=== PATIENT | male | born 1950 | race Caucasian/White ===

== ENCOUNTER 2016-11-29 22:41 | Emergency (ER) | payer MEDICARE, OTHER ==
[2016-11-29] MEDS ORDERED: solu-MEDROL 125 MG ONE (22:48)
[2016-11-29] MEDS ORDERED: BENADRYL 50 MG/ML ONE (22:48)
[2016-11-29] MEDS ORDERED: DUONEB 0.5-3 MG/3 ml Neb IH ONE ×2 (22:49→22:57)
[2016-11-29] MEDS ORDERED: Pepcid 20 MG VIAL IV ONE ×2 (22:49→22:53)
[2016-11-29] MEDS ORDERED: solu-MEDROL 125 MG IV ONE (22:49)
[2016-11-29] MEDS ORDERED: BENADRYL 50 MG/ML IV ONE (22:49)
[2016-11-29] MEDS ORDERED: EPINEPHRINE 1:1000 1 ML AMP IM ONE (22:51)
[2016-11-29] MEDS ORDERED: Sodium Chloride 0.9% 1000 ML 1,000 ML ONE (22:54)
[2016-11-29] MEDS ORDERED: EPINEPHRINE 1:1000 1 ML AMP ONE (22:54)
[2016-11-29 22:59] LABS: BASOPHIL % 0.5 % (0.0-0.4); Eosinophil % 3.4 % (0.00-5.0); Granulocytes % 58.6 % (36.0-66.0); Lymphocytes % 24.1 % (24.0-44.0); Mean Cell Volume 90.6 fl (78-100); Mean Corpuscular Hemoglobin 30.3 pg (26-32); Mean Platelet Volume 8.9 fl (6-9.5); Monocytes % 13.4 % (0.0-12.0); Platelet Count 358 K/mm3 (150-450); Red Blood Count 5.52 M/mm3 (4.1-5.6); Red Cell Distribution Width 14.5 % (11.5-14.0); White Blood Count 11.2 K/mm3 (4.0-10.5)
[2016-11-29] MEDS ORDERED: Sodium Chloride 0.9% 1000 ML 1,000 ML IV SCH (23:00)
--- NOTE | 2016-11-29 23:02 | ERPHSYRPT ---
- History of Present Illness Time Seen by Provider: 11/29/16 22:45 Source: patient Exam Limitations: clinical condition Patient Subjective Stated Complaint: PT STS APPROX 1 HOUR AGO STARTED HAVING SWELLING LEFT SIDE OF TONGUE AND LEFT EYE. STS FEELS SHORT OF BREATH. PT WEARS OXYGEN 3L AT ALL TIMES AT HOME, PT STS NOT BEEN ON IT FOR AWHILE. Triage Nursing Assessment: PT ALERT, ORIENTED, ANSWERS ALL QUESTIONS APPROPRIATELY. SKIN FLUSHED, WARM TO TOUCH, DRY. RESPS LABORED WITH EXERTION. SWELLING NOTED TO LEFT SIDE OF TONGUE, LEFT LOWER EYE AREA. SPO2 89% ROOM AIR. LUNG SOUNDS DIFFUSELY DIMINISHED AND EXPIRATORY WHEEZING. Physician History: PATIENT WITH HISTORY OF CORONARY ARTERY DISEASE, TYPE 2 DIABETES, COPD NOTICED ONSET OF LEFT SIDED TONGUE SWELLING ASSOCIATED WITH DIFFICULTY BREATHING AND SHORTNESS OF BREATH. HAS OCCASIONAL COUGH. DENIES HOARSENESS AND DIFFICULTY SWALLOWING. Timing/Duration: today Activities at Onset: other (EATING NUTS) Severity of Dyspnea-Max: moderate Severity of Dyspnea-Current: moderate Possible Cause: unknown cause (POSSIBLE NUTS) Modifying Factors: Improves With: coughing, other (DIFFICULTY BREATHING) Associated Symptoms: cough (DIFFICULTY BREATHING) International travel in last 2 weeks: No Allergies/Adverse Reactions: amoxicillin Allergy (Severe, Verified 11/29/16 23:10) Swelling of Face clarithromycin [From Biaxin] Allergy (Severe, Verified 11/29/16 23:10) Swelling of Face lid swelled until touched nose. lansoprazole Allergy (Severe, Verified 11/29/16 23:10) Swelling of Face morphine Allergy (Mild, Verified 11/29/16 23:10) N&V Home Medications: Aspirin EC 81 mg [Ecotrin 81 mg] 81 mg PO DAILY 11/01/12 [History] Docosahexanoic Acid/Epa [Fish Oil Softgel] 1 tab PO TID 11/01/12 [History] Gabapentin 300 mg [Neurontin 300 mg] 300 mg PO TID 11/01/12 [History] Gemfibrozil 600 mg [Lopid 600 mg] 600 mg PO BID 11/01/12 [History] Metformin HCl 500 mg [Glucophage 500 MG] 1 tab PO BID 11/01/12 [History] Pyridoxine HCl 100 mg [Vitamin B-6 (Pyridoxine) 100 MG] 1 tab PO DAILY [History] Triamterene/Hydrochlorothiazid [Triamterene-Hctz 37.5-25 mg Tb] 1 tab PO DAILY 11/01/12 [History] Albuterol 2.5 mg/3 ml Neb [Proventil 2.5 mg/3 ml Neb] 2.5 mg IH HS [History] Benazepril HCl 10 mg [Lotensin 10 MG] 10 mg PO DAILY 11/05/14 [History] Budesonide/Formoterol Fumarate [Symbicort 160-4.5 Mcg Inhaler] 1 puff IH DAILY 11/05/14 [History] Bumetanide 1 mg [Bumex 1 mg] 1 tab PO DAILY 11/05/14 [History] Fluticasone Propionate [Flonase Allergy Relief] 1 spray INTRANASAL BID 11/05/14 [History] Loratadine 10 mg [Claritin 10 mg] 10 mg PO DAILY 11/05/14 [History] Multivit-Min/FA/Lycopene/Lut [Centrum Silver Ultra Men's Tab] 1 tab PO DAILY [History] Nitroglycerin 0.4 mg (Ed) [Nitrostat 0.4 MG (ED)] 0.4 mg SL UD PRN [History] Potassium Chloride 20 Meq [Klor-Con 20 MEQ] 20 meq PO DAILY 11/05/14 [History] Simvastatin 40 mg [Zocor 40 mg] 40 mg PO HS 11/05/14 [History] Albuterol Sulfate [Ventolin Hfa] 18 gm IH PRN 11/29/16 [History] Umeclidinium [place] [Incruse Ellipta] 62.5 mcg IH BID 11/29/16 [History] Hx Tetanus, Diphtheria Vaccination/Date Given: Yes Hx Influenza Vaccination/Date Given: Yes (2011) Hx Pneumococcal Vaccination/Date Given: Yes (3 YRS) Immunizations Up to Date: Yes - Review of Systems Constitutional: No Fever, No Chills Eyes: No Symptoms Ears, Nose, & Throat: Other (TONGUE SWELLING) Respiratory: Cough, Dyspnea Cardiac: No Symptoms, No Chest Pain, No Edema, No Syncope Abdominal/Gastrointestinal: No Symptoms, No Abdominal Pain, No Nausea, No Vomiting, No Diarrhea Genitourinary Symptoms: No Symptoms, No Dysuria Musculoskeletal: No Symptoms, No Back Pain, No Neck Pain Skin: No Symptoms, Skin Lesions, No Rash Neurological: No Dizziness, No Focal Weakness, No Sensory Changes Psychological: No Symptoms Endocrine: No Symptoms All Other Systems: Reviewed and Negative - Past Medical History Pertinent Past Medical History: Yes Neurological History: No Pertinent History ENT History: No Pertinent History Cardiac History: Congestive Heart Failure, High Cholesterol, Hypertension Respiratory History: Asthma, Bronchitis, CHF, COPD, Sleep Apnea Endocrine Medical History: Diabetes Type II Musculoskeletal History: Arthritis GI Medical History: Esophageal Disorder, GERD, Hernia, Polyps History: No Pertinent History Psycho-Social History: No Pertinent History Male Reproductive Disorders: No Pertinent History Other Medical History: o l nc at home during day and 4l cpap at night, - Past Surgical History Past Surgical History: Yes Neuro Surgical History: No Pertinent History Cardiac: No Pertinent History Respiratory: No Pertinent History Gastrointestinal: Appendectomy, Other Genitourinary: No Pertinent History Musculoskeletal: Orthopedic Surgery Male Surgical History: Vasectomy Other Surgical History: removed part of intestines dt accident,inner ear surgery lt,polypectomyback surgery x2ear surgery left sidet&a as childlipoma to neckright eye cornea repair - Social History Smoking Status: Current every day smoker How long have you smoked: 40 years Exposure to second hand smoke: No Drug Use: none Patient Lives Alone: No - Nursing Vital Signs Nursing Vital Signs: Initial Vital Signs Pulse Rate 84 Respiratory Rate 16 Blood Pressure [Left Arm] 103/46 Pain Intensity 0 - Physical Exam General Appearance: no apparent distress, alert Eye Exam: PERRL/EOMI Ears, Nose, Throat Exam: normal pharynx (LEFT LINGULA EDEMA, NO POST PHARYNGEAL ANGIOEDEMA) Neck Exam: normal inspection, supple Cardiovascular/Chest Exam: normal heart sounds, regular rate/rhythm Abdominal/Gastrointestinal Exam: soft, normal bowel sounds, No tenderness, No distention, No mass Extremity Exam: non-tender, normal range of motion, normal inspection, no calf tenderness, no pedal edema Peripheral Pulses Exam: carotid (R): 2+, carotid (L): 2+, femoral (R): 2+, femoral (L): 2+, dorsalis-pedis (R): 2+ Neurologic Exam: alert, oriented x 3, cooperative, charge master analyst II-XII nml as tested, sensation nml, No motor deficits Skin Exam: normal color, warm, No dry SpO2 Interpretation: normal, hypoxic SpO2: 89 Oxygen Delivery: Room Air - Radiology Exams Chest X-ray Interpretation: Interpreted by me (RIGHT LOWER LOBE INFILTRATE) Ordered Tests: Active Orders 24 hr Category Date Time Status Associate Director Qa STAT Care 11/29/16 22:49 Active EKG-ER Only STAT Care 11/29/16 22:49 Active IV Insertion STAT Care 11/29/16 22:49 Active Oxygen-ED Only NASAL CANNULA 2 lpm Care 11/29/16 22:49 Active CHEST 1 VIEW (PORTABLE) Stat Exams 11/29/16 22:49 Taken BMP Stat Lab 11/29/16 22:50 Completed CBC W DIFF Stat Lab 11/29/16 22:50 Completed PROTIME WITH INR Stat Lab 11/29/16 22:50 Completed TROPONIN Q3H Lab 11/29/16 22:50 Completed TROPONIN Q3H Lab 11/30/16 02:00 Ordered TROPONIN Q3H Lab 11/30/16 05:00 Ordered TROPONIN Q3H Lab 11/30/16 08:00 Ordered TROPONIN Q3H Lab 11/30/16 11:00 Ordered Respiratory Nebulizer STAT RT 11/29/16 22:50 Completed Medication Summary Generic Name Dose Route Start Last Admin Trade Name Freq PRN Reason Stop Dose Admin Sodium Chloride 1,000 mls @ 100 mls/hr 11/29/16 23:00 11/29/16 22:56 Sodium Chloride 0.9% 1000 Ml IV 12/29/16 22:59 100 mls/hr .Q10H AN Administration Discontinued Medications Generic Name Dose Route Start Last Admin Trade Name Freq PRN Reason Stop Dose Admin Albuterol/Ipratropium 3 ml 11/29/16 22:49 11/29/16 22:59 Duoneb 0.5-3 Mg/3 Ml Neb IH 11/29/16 22:50 3 ml STAT ONE Administration Albuterol/Ipratropium Confirm 11/29/16 22:57 Duoneb 0.5-3 Mg/3 Ml Neb Administered 11/29/16 22:58 Dose 3 ml IH .STK-MED ONE Diphenhydramine HCl Confirm 11/29/16 22:48 Benadryl 50 Mg/Ml Administered 11/29/16 22:49 Dose 50 mg .ROUTE .STK-MED ONE Diphenhydramine HCl 50 mg 11/29/16 22:49 11/29/16 22:53 Benadryl 50 Mg/Ml IV 11/29/16 22:50 50 mg STAT ONE Administration Epinephrine HCl 0.3 mg 11/29/16 22:51 11/29/16 22:55 Epinephrine 1:1000 1 Ml Amp IM 11/29/16 22:52 0.3 mg STAT ONE Administration Epinephrine HCl Confirm 11/29/16 22:54 Epinephrine 1:1000 1 Ml Amp Administered 11/29/16 22:55 Dose 1 mg .ROUTE .STK-MED ONE Famotidine 20 mg 11/29/16 22:49 11/29/16 22:55 Pepcid 20 Mg Vial IV 11/29/16 22:50 20 mg STAT ONE Administration Famotidine Confirm 11/29/16 22:53 Pepcid 20 Mg Vial Administered 11/29/16 22:54 Dose 20 mg IV .STK-MED ONE Levofloxacin/Dextrose 100 mls @ 100 mls/hr 11/29/16 23:57 11/30/16 00:10 Levofloxacin 500mg/100ml D5w IV 11/30/16 00:56 100 mls/hr STAT ONE Administration Levofloxacin/Dextrose Confirm 11/30/16 00:09 Levofloxacin 500mg/100ml D5w Administered 11/30/16 00:10 Dose 100 mls @ ud IV .STK-MED ONE Methylprednisolone Sodium Succinate Confirm 11/29/16 22:48 Solu-Medrol 125 Mg Administered 11/29/16 22:49 Dose 125 mg .ROUTE .STK-MED ONE Methylprednisolone Sodium Succinate 125 mg 11/29/16 22:49 11/29/16 22:53 Solu-Medrol 125 Mg IV 11/29/16 22:50 125 mg STAT ONE Administration Lab/Rad Data: Laboratory Result Diagrams 11/29/16 22:50 11/29/16 22:50 Laboratory Results 11/29/16 11/29/16 11/29/16 Range/Units 22:50 22:50 22:50 WBC (4.0-10.5) K/mm3 RBC (4.1-5.6) M/mm3 Hgb (12.5-18.0) gm/dl Hct (42-50) % MCV (78-100) fl MCH (26-32) pg MCHC (32-36) g/dl RDW (11.5-14.0) % Plt Count (150-450) K/mm3 MPV (6-9.5) fl Gran % (36.0-66.0) % Lymphocytes % (24.0-44.0) % Monocytes % (0.0-12.0) % Eosinophils % (0.00-5.0) % Basophils % (0.0-0.4) % Basophils # (0-0.4) INR 1.03 (0.8-3.0) Sodium 135 L (136-145) mEq/L Potassium 3.7 (3.5-5.1) mEq/L Chloride 97 L (98-107) mEq/L Carbon Dioxide 31.6 (21-32) mEq/L Anion Gap 9.7 (5-15) MEQ/L BUN 18 (9-20) mg/dL Creatinine 1.26 (0.55-1.30) mg/dl Estimated GFR > 60 ML/MIN Glucose 132 H (70-110) MG/DL Calcium 9.5 (8.5-10.1) mg/dL Troponin I < 0.017 (0.000-0.056) ng/ml 11/29/16 Range/Units 22:50 WBC 11.2 H (4.0-10.5) K/mm3 RBC 5.52 (4.1-5.6) M/mm3 Hgb 16.7 (12.5-18.0) gm/dl Hct 50.0 (42-50) % MCV 90.6 (78-100) fl MCH 30.3 (26-32) pg MCHC 33.4 (32-36) g/dl RDW 14.5 H (11.5-14.0) % Plt Count 358 (150-450) K/mm3 MPV 8.9 (6-9.5) fl Gran % 58.6 (36.0-66.0) % Lymphocytes % 24.1 (24.0-44.0) % Monocytes % 13.4 H (0.0-12.0) % Eosinophils % 3.4 (0.00-5.0) % Basophils % 0.5 (0.0-0.4) % Basophils # 0.06 (0-0.4) INR (0.8-3.0) Sodium (136-145) mEq/L Potassium (3.5-5.1) mEq/L Chloride (98-107) mEq/L Carbon Dioxide (21-32) mEq/L Anion Gap (5-15) MEQ/L BUN (9-20) mg/dL Creatinine (0.55-1.30) mg/dl Estimated GFR ML/MIN Glucose (70-110) MG/DL Calcium (8.5-10.1) mg/dL Troponin I (0.000-0.056) ng/ml - Progress Progress: improved Progress Note: 11/29/16 23:00 PATIENT ADMINISTERED NASAL CANNULA OXYGEN, IV NORMAL SALINE AT 100ML/HR, BENADRYL 50MG, SOLUMEDROL 125 PEPCID 20MG IV, EPINEPHRINE .3MG IM 1:1000 Counseled pt/family regarding: lab results, diagnosis, need for follow-up, rad results - Departure Time of Disposition: 01:18 Departure Disposition: Home Clinical Impression: ALLERGIC REACTION, EXACERBATION COPD Condition: Stable Critical Care Time: No Referrals: MICHELINE FORTUNE [Primary Care Provider] - Instructions: General Allergic Reactions Additional Instructions: ANTIBIOTIC LEVAQUIN 500MG DAILY FOR 10 DAYS. PREDNISONE 20MG, 2 TABLETS DAILY FOR 5 DAYS. AVOID EATING NUTS. CONTINUE NEBULIZER AEROSOL TREATMENTS NEEDED. RETURN TO EMERGENCY FOR DIFFICULTY BREATHING Prescriptions: Levofloxacin [Levaquin] 500 mg PO DAILY #10 tablet Prednisone 20 mg [Deltasone 20 mg] 2 tab PO DAILY #10 tablet
[2016-11-29 23:10] LABS: INR 1.03 (0.8-3.0); PROTIME 11.5 SECONDS (8.83-12.87)
[2016-11-29 23:22] LABS: ANION GAP 9.7 MEQ/L (5-15); BLOOD UREA NITROGEN 18 mg/dL (9-20); CHLORIDE 97 mEq/L (98-107); Carbon Dioxide 31.6 mEq/L (21-32); Glucose 132 MG/DL (70-110); Potassium 3.7 mEq/L (3.5-5.1); SODIUM 135 mEq/L (136-145)
[2016-11-29] MEDS ORDERED: Levofloxacin 500MG/100ML D5W 100 ML IV ONE (23:57)
[2016-11-30] MEDS ORDERED: Levofloxacin 500MG/100ML D5W 100 ML IV ONE (00:09)
[2016-11-30 00:25] VITALS: PULSE 84
[2016-11-30 01:18] VITALS: O2SAT 89
[2016-11-30 01:45] VITALS: BP 111/60
--- NOTE | 2016-11-30 09:14 | XRAY ---
Indication: Cough and dyspnea. Comparison: February 04, 2013. Portable chest again hyperinflated with new bibasilar infiltrates/atelectasis and small effusions. Heart is not enlarged. Bony thorax intact.
== END 2016-11-30 01:20 | disposition home or self-care (01) ==
LOC: ED 22:41
DX: T78.40XA Allergy, unspecified, initial encounter (principal); J44.1 Chronic obstructive pulmonary disease with (acute) exacerbation; I25.10 Atherosclerotic heart disease of native coronary artery without angina pectoris; E11.9 Type 2 diabetes mellitus without complications; R06.00 Dyspnea, unspecified; R06.02 Shortness of breath; R05 Cough; R13.10 Dysphagia, unspecified; I50.9 Heart failure, unspecified; I10 Essential (primary) hypertension; E78.00 Pure hypercholesterolemia, unspecified
CPT/HCPCS: 36000; 36415; 71010; 80048; 84484; 85025; 85610; 93005; 93041; 94640; 96360; 96361; 96365; 96372; 96374; 96375; 99284; 99285; J0171; J1200; J1956; J2930; A9270-GY

== ENCOUNTER 2018-03-22 16:00 | Inpatient (IN) | payer MEDICARE, OTHER ==
[2018-03-22] MEDS ORDERED: DUONEB 0.5-3 MG/3 ml Neb IH PRN (16:27)
[2018-03-22] MEDS ORDERED: D50W 50 ml Abboject IV PRN (17:12)
[2018-03-22] MEDS ORDERED: GlucaGen 1 MG IM PRN (17:12)
[2018-03-22] MEDS ORDERED: Glutose 15 GM ORAL GEL PO PRN (17:12)
[2018-03-22] MEDS ORDERED: Zofran 4 MG/2 ML VIAL IV PRN (17:37)
[2018-03-22] MEDS ORDERED: TYLENOL 325 MG PO PRN (17:37)
[2018-03-22 17:42] LABS: Hematocrit 44.2 % (42-50); Hemoglobin 14.3 gm/dl (12.5-18.0); Mean Cell Volume 93.1 fl (78-100); Mean Corpuscular Hemoglobin 30.1 pg (26-32); Mean Corpuscular Hgb Concent. 32.4 g/dl (32-36); Mean Platelet Volume 8.5 fl (6-9.5); Platelet Count 283 K/mm3 (150-450); Red Blood Count 4.75 M/mm3 (4.1-5.6); Red Cell Distribution Width 15.6 % (11.5-14.0); White Blood Count 10.5 K/mm3 (4.0-10.5)
[2018-03-22 17:47] LABS: A-aADO2 134; ABG HEMOGLOBIN 14.6; ABG POTASSIUM 3.6 (3.5-5.1); ABG SITE RIGHT BRACHIAL; ARTERIAL BLD GAS O2 SATURATION 92.5 % (95-100); ARTERIAL BLOOD GAS BASE EXCESS 6.1 (-2.0-2.0); ARTERIAL BLOOD GAS FIO2 36 %; ARTERIAL BLOOD GAS PCO2 56 mmHg (35-45); ARTERIAL BLOOD GAS PO2 53 mmHg (75-100); ARTERIAL BLOOD GAS pH 7.38 (7.35-7.45); CARBOXYHEMOGLOBIN 5.3 % THgb (0.0-6.9); HCO3- 33.1 (22-28); HGB O2 SAT 86.9 g/dF (94-100); Methhemoglobin 0.8 % (1.4-1.5); paO2 pAO1 0.28
[2018-03-22 17:48] LABS: ALLEN TEST OK? YES
[2018-03-22] MEDS ORDERED: Levofloxacin 500 MG Tablet PO SCH (18:00)
[2018-03-22 18:06] LABS: ALBUMIN 4.4 g/dL (3.5-5.0); ALKALINE PHOSPHATASE 189 U/L (38-126); ANION GAP 14.4 MEQ/L (5-15); BLOOD UREA NITROGEN 20 mg/dL (9-20); CHLORIDE 94 mmol/L (98-107); Carbon Dioxide 34 mmol/L (22-30); Creatinine 1 0.66 mg/dL (0.66-1.25); Glucose 150 mg/dL (74-106); NT PRO BNP 82.5 pg/mL (0-900); Potassium 3.7 mmol/L (3.5-5.1); SGOT/AST 35 U/L (17-59); SGPT/ALT 37 U/L (0-50); SODIUM 138 mmol/L (137-145); Total Protein 7.3 g/dL (6.3-8.2)
[2018-03-22] MEDS: PROVENTIL 2.5 MG/3 ML NEB IH SCH ×2 (18:58→22:58)
[2018-03-22] MEDS: solu-MEDROL 40 MG IV SCH (19:04)
[2018-03-22] MEDS: Nicoderm CQ 21 MG TOP SCH (19:05)
[2018-03-22] MEDS: Zosyn 3.375GM/100 Ml D5W 3.375 GM/100 ML IVPB IV SCH (19:10)
[2018-03-22 20:32] LABS: A-aADO2 135; ABG HEMOGLOBIN 14.1; ABG POTASSIUM 3.5 (3.5-5.1); ARTERIAL BLD GAS O2 SATURATION 98.7 % (95-100); ARTERIAL BLOOD GAS BASE EXCESS 6.2 (-2.0-2.0); ARTERIAL BLOOD GAS FIO2 50 %; ARTERIAL BLOOD GAS PCO2 56 mmHg (35-45); ARTERIAL BLOOD GAS PO2 152 mmHg (75-100); ARTERIAL BLOOD GAS VENT MODE BiPAP; ARTERIAL BLOOD GAS pH 7.38 (7.35-7.45); CARBOXYHEMOGLOBIN 3.8 % THgb (0.0-6.9); HCO3- 33.1 (22-28); HGB O2 SAT 94.2 g/dF (94-100); Methhemoglobin 0.9 % (1.4-1.5); paO2 pAO1 0.53
[2018-03-22 20:33] LABS: ABG SITE LEFT BRACHIAL
[2018-03-22] MEDS ORDERED: Protonix 20MG Tablet PO SCH (22:00)
[2018-03-22] MEDS ORDERED: NORCO 5/325 MG PO PRN (22:00)
[2018-03-22] MEDS: FISH OIL 1,000 MG CAPSULE PO SCH (22:46)
[2018-03-22] MEDS: NEURONTIN 300 MG PO SCH (22:46)
[2018-03-22] MEDS: Lopressor 50 MG PO SCH (22:46)
[2018-03-22] MEDS: Advair Hfa 115/21 Common canister IH SCH (23:00)
[2018-03-23] MEDS: LOPID 600 MG PO SCH ×3 (00:25→21:31)
[2018-03-23] MEDS: Miralax Powder 17GM PACKET PO SCH ×3 (00:25→21:31)
[2018-03-23] MEDS: Zosyn 3.375GM/100 Ml D5W 3.375 GM/100 ML IVPB IV SCH ×5 (01:10→23:59)
[2018-03-23] MEDS: solu-MEDROL 40 MG IV SCH ×2 (01:10→05:16)
[2018-03-23] MEDS: PROVENTIL 2.5 MG/3 ML NEB IH SCH ×6 (03:15→23:27)
[2018-03-23 05:58] LABS: Granulocyte Absolute (ANC) 6.65 (1.4-6.9); Hematocrit 43.2 % (42-50); Hemoglobin 13.8 gm/dl (12.5-18.0); Mean Cell Volume 94.1 fl (78-100); Mean Corpuscular Hemoglobin 30.1 pg (26-32); Mean Corpuscular Hgb Concent. 31.9 g/dl (32-36); Mean Platelet Volume 8.6 fl (6-9.5); Platelet Count 270 K/mm3 (150-450); Red Blood Count 4.59 M/mm3 (4.1-5.6); Red Cell Distribution Width 15.6 % (11.5-14.0); White Blood Count 7.2 K/mm3 (4.0-10.5)
[2018-03-23 06:13] LABS: ANION GAP 11.7 MEQ/L (5-15); BLOOD UREA NITROGEN 19 mg/dL (9-20); CHLORIDE 90 mmol/L (98-107); Calcium 8.7 mg/dL (8.4-10.2); Carbon Dioxide 34 mmol/L (22-30); Creatinine 1 0.62 mg/dL (0.66-1.25); Glucose 210 mg/dL (74-106); Potassium 3.8 mmol/L (3.5-5.1); SODIUM 132 mmol/L (137-145)
[2018-03-23] MEDS: Sodium Chloride 0.9% 10 ML FLUSH Syringe IV SCH ×3 (06:37→21:33)
[2018-03-23 06:40] LABS: Lymphocytes 2 % (24-44); Neutrophils 98 % (36.-66.); Total Cells Counted 100
[2018-03-23] MEDS: NovoLOG Insulin SQ PRN ×3 (06:40→16:49)
[2018-03-23 06:41] LABS: Platelet Estimate NORMAL (NORMAL)
[2018-03-23] MEDS ORDERED: NON-FORMULARY ITEM (Fluticasone Propionate [Flonase Allergy Relief] 1 SPRAY) INTRANASAL PRN (07:16)
[2018-03-23] MEDS ORDERED: Flonase NASAL NS PRN (07:23)
[2018-03-23] MEDS: Advair Hfa 115/21 Common canister IH SCH ×2 (07:27→19:07)
[2018-03-23] MEDS: Spiriva 18 Mcg/Cap Inhaler IH SCH (07:29)
--- NOTE | 2018-03-23 08:26 | HP ---
HISTORY OF PRESENT ILLNESS: This is a 67 year-old patient of Dr. Finley'kwan who saw his health policy nurse, Dr. Juan Lazo, in the clinic today. Dr. Lazo felt like he was having increased dyspnea, possible pneumonia and decided to admit him for further work up and IV antibiotics. He notified me that he was sending him with admission orders. The patient reports that for the past two weeks he has had trouble with feeling dyspneic, having wet nonproductive cough and that he did feel worse over the past three days. He denies any fever. He has had nausea but no vomiting. He usually wears oxygen 3 liters during the day and 4 liters at night. He continues to smoke a pack per day of cigarettes or more. He uses CPAP at 18 cm at night. He denies any chest pain. He recently saw Dr. 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 Duke continued to see him for this. REVIEW OF SYSTEMS: No fever. No abdominal pain. No chest pain. He has had some lower extremity edema. Otherwise review of systems is negative. PAST MEDICAL HISTORY: Tobacco abuse, chronic obstructive pulmonary disease, obstructive sleep apnea, asthma, hyperlipidemia, hypertension, gastrointestinal stromal tumor. MEDICATIONS: Please see his medication reconciliation list which I went through and reviewed. ALLERGIES: AMOXICILLIN, BENAZEPRIL, DEB INHIBITORS, CLINDAMYCIN, LANTOPROZOL, MORPHINE. SOCIAL HISTORY: He continues to smoke one pack per day, a long smoking history. FAMILY HISTORY: Noncontributory. PHYSICAL EXAMINATION: VITAL SIGNS: Temperature current 99.1F, temperature max 99.1F, heart rate 111, respiratory rate 22 to 28, blood pressure 158/78, weight is not recorded yet. Oxygen saturation 94% on 4 liters nasal cannula. GENERAL: The patient is a lying in bed dyspneic with tachypnea. His daughter is at the bedside. He is talkative, alert and oriented. CVS: He is tachycardic with a regular rate and rhythm. CHEST: He has course breath sounds bilaterally with equal breath sounds. Again some subcostal retractions and tachypnea. ABDOMEN: Soft, nontender, nondistended with normal bowel sounds. EXTREMITIES: +1 edema to his mid shins bilaterally. No clubbing or cyanosis. LABORATORY DATA AND TESTS: He has labs ordered. He has blood cultures and sputum cultures in lab and these are obtained. There is a chest x-ray ordered. ASSESSMENT AND PLAN: 1) CHRONIC OBSTRUCTIVE PULMONARY DISEASE EXACERBATION WITH CONCERN FOR POSSIBLE PNEUMONIA: He has been started on IV steroids and IV antibiotics per Dr. Lazo. Continue with oxygen. I have asked RT to get a blood gas to make sure he is not retaining CO2. 2) DIABETES MELLITUS TYPE 2: Low dose sliding scale, will hold his Metformin. 3) GASTROINTESTINAL STROMAL TUMOR: He can continue to follow up with Dr. Duke after this acute illness. 4) TOBACCO ABUSE: He is willing to use a nicotine patch. 5) NAUSEA: Will use Zofran as needed. His condition is guarded given his long smoking history and respiratory status at this point with the chronic obstructive pulmonary disease exacerbation.
--- NOTE | 2018-03-23 08:31 | PCM.NOTE ---
Date and Time: 03/23/18824 Subjective Assessment: Patient reports he is breathing better. He has a regular diet and states that the food here doesn't taste good. He states he doesn't have much of a cough. He reports Dr. Guzman told him that he would stop by and see him tonight. He states if he doesn't get his miralax, he doesn't have bowel movements due to the tumor. He would like to bring his medication from home in that he is taking for his cancer. - Review of Systems Constitutional: Night Sweats Eyes: No Symptoms Ears, Nose, & Throat: No Symptoms Respiratory: Cough, Short Of Breath Cardiac: No Symptoms Abdominal/Gastrointestinal: No Symptoms Genitourinary Symptoms: No Symptoms Musculoskeletal: No Symptoms Skin: No Symptoms Objective Exam General Appearance: no apparent distress, alert Neurologic Exam: alert, cooperative, normal mood/affect Skin Exam: normal color, warm, dry, No rash Respiratory Exam: normal breath sounds, other (distant breath sounds), No crackles/rales, No rhonchi, No wheezing Cardiovascular Exam: regular rate/rhythm, normal heart sounds, No murmur, No friction rub, No gallop Gastrointestinal/Abdomen Exam: soft, normal bowel sounds, No tenderness, No distention, No mass Extremity Exam: other (trace edema bilat) OBJECTIVE DATA Vital Signs: Vital Signs - 24 hr Temp Pulse Resp BP Pulse Ox 03/23/18 07:32 97 03/23/18 07:30 63 20 97 03/23/18 07:27 98 F 64 20 123/65 96 03/23/18 04:22 97.9 F 64 16 127/65 99 03/23/18 04:00 20 03/23/18 03:31 58 L 20 94 L 03/23/18 00:12 98.4 F 65 21 133/71 98 03/23/18 00:00 24 03/22/18 23:12 65 21 98 03/22/18 20:22 98.3 F 93 H 24 135/63 99 03/22/18 20:00 21 03/22/18 18:58 95 H 24 99 03/22/18 18:36 99.1 F 111 H 22 158/78 93 L 03/22/18 16:35 111 H 28 H 94 L 03/22/18 16:29 99.1 F 111 H 22 158/78 93 L Oxygen-Last 24 hours O2 Percentage 4 Liters = 36% O2 Percentage 35% O2 Percentage 40% O2 Percentage 50% O2 Percentage 4 Liters = 36% O2 Percentage 4 Liters = 36% Pain Assessment - Last Documented Pain Intensity 0 Pain Scale Used 0-10 Pain Scale Intake and Output: Intake & Output 03/21/18 03/22/18 03/23/18 03/24/18 06:59 06:59 06:59 06:59 Intake Total 1140 Balance 1140 Weight 89.6 kg Lab Results: Accuchecks Date 03/23/18 Date 03/23/18 Date 03/23/18 Time 05:00 Time 00:05 Time 20:45 Accucheck Value: 192 Accucheck Value: 178 Lab Results-Last 24 Hours 03/22/18 03/22/18 03/22/18 Range/Units 17:35 17:35 17:35 WBC 10.5 (4.0-10.5) K/mm3 RBC 4.75 (4.1-5.6) M/mm3 Hgb 14.3 (12.5-18.0) gm/dl Hct 44.2 (42-50) % MCV 93.1 (78-100) fl MCH 30.1 (26-32) pg MCHC 32.4 (32-36) g/dl RDW 15.6 H (11.5-14.0) % Plt Count 283 (150-450) K/mm3 MPV 8.5 (6-9.5) fl Absolute Granulocytes (1.4-6.9) Segmented Neutrophils (36.-66.) % Lymphocytes (Manual) (24-44) % Platelet Estimate (NORMAL) RBC Morphology Puncture Site pCO2 (35-45) mmHg pO2 (75-100) mmHg Base Excess (-2.0-2.0) O2 Saturation (94-100) g/dF ABG pH (7.35-7.45) ABG HCO3 (22-28) ABG O2 Sat (Measured) (95-100) % Martín Test A-a Gradient a/A Ratio Hemoglobin Carboxyhemoglobin (0.0-6.9) % THgb Methemoglobin (1.4-1.5) % Temperature C POC O2 Flow Rate % Vent Mode Inspiratory BiPAP Expiratory BiPAP Sodium 138 (137-145) mmol/L Potassium 3.7 (3.5-5.1) mmol/L Chloride 94 L (98-107) mmol/L Carbon Dioxide 34 H (22-30) mmol/L Anion Gap 14.4 (5-15) MEQ/L BUN 20 (9-20) mg/dL Creatinine 0.66 (0.66-1.25) mg/dL Estimated GFR > 60.0 ML/MIN Glucose 150 H (74-106) mg/dL Calcium 9.0 (8.4-10.2) mg/dL Total Bilirubin 1.00 (0.2-1.3) mg/dL AST 35 (17-59) U/L ALT 37 (0-50) U/L Alkaline Phosphatase 189 H (38-126) U/L Troponin I < 0.012 (0.000-0.034) ng/mL NT-Pro-B Natriuret Pep 82.5 (0-900) pg/mL Serum Total Protein 7.3 (6.3-8.2) g/dL Albumin 4.4 (3.5-5.0) g/dL 03/22/18 03/22/18 03/23/18 Range/Units 17:46 20:25 05:35 WBC 7.2 (4.0-10.5) K/mm3 RBC 4.59 (4.1-5.6) M/mm3 Hgb 13.8 (12.5-18.0) gm/dl Hct 43.2 (42-50) % MCV 94.1 (78-100) fl MCH 30.1 (26-32) pg MCHC 31.9 L (32-36) g/dl RDW 15.6 H (11.5-14.0) % Plt Count 270 (150-450) K/mm3 MPV 8.6 (6-9.5) fl Absolute Granulocytes 6.65 (1.4-6.9) Segmented Neutrophils 98 H (36.-66.) % Lymphocytes (Manual) 2 L (24-44) % Platelet Estimate NORMAL (NORMAL) RBC Morphology NORMAL Puncture Site RIGHT BRACHIAL LEFT BRACHIAL pCO2 56 H 56 H (35-45) mmHg pO2 53 L 152 H* (75-100) mmHg Base Excess 6.1 H 6.2 H (-2.0-2.0) O2 Saturation 86.9 L 94.2 (94-100) g/dF ABG pH 7.38 7.38 (7.35-7.45) ABG HCO3 33.1 H* 33.1 H* (22-28) ABG O2 Sat (Measured) 92.5 L 98.7 (95-100) % Martín Test YES NOT APPLICABLE A-a Gradient 134 135 a/A Ratio 0.28 0.53 Hemoglobin 14.6 14.1 Carboxyhemoglobin 5.3 3.8 (0.0-6.9) % THgb Methemoglobin 0.8 L 0.9 L (1.4-1.5) % Temperature 37.0 37.0 C POC O2 Flow Rate 36 50 % Vent Mode BiPAP Inspiratory BiPAP 14 Expiratory BiPAP 6 Sodium (137-145) mmol/L Potassium 3.6 3.5 (3.5-5.1) mmol/L Chloride (98-107) mmol/L Carbon Dioxide (22-30) mmol/L Anion Gap (5-15) MEQ/L BUN (9-20) mg/dL Creatinine (0.66-1.25) mg/dL Estimated GFR ML/MIN Glucose (74-106) mg/dL Calcium (8.4-10.2) mg/dL Total Bilirubin (0.2-1.3) mg/dL AST (17-59) U/L ALT (0-50) U/L Alkaline Phosphatase (38-126) U/L Troponin I (0.000-0.034) ng/mL NT-Pro-B Natriuret Pep (0-900) pg/mL Serum Total Protein (6.3-8.2) g/dL Albumin (3.5-5.0) g/dL 03/23/18 Range/Units 05:35 WBC (4.0-10.5) K/mm3 RBC (4.1-5.6) M/mm3 Hgb (12.5-18.0) gm/dl Hct (42-50) % MCV (78-100) fl MCH (26-32) pg MCHC (32-36) g/dl RDW (11.5-14.0) % Plt Count (150-450) K/mm3 MPV (6-9.5) fl Absolute Granulocytes (1.4-6.9) Segmented Neutrophils (36.-66.) % Lymphocytes (Manual) (24-44) % Platelet Estimate (NORMAL) RBC Morphology Puncture Site pCO2 (35-45) mmHg pO2 (75-100) mmHg Base Excess (-2.0-2.0) O2 Saturation (94-100) g/dF ABG pH (7.35-7.45) ABG HCO3 (22-28) ABG O2 Sat (Measured) (95-100) % Martín Test A-a Gradient a/A Ratio Hemoglobin Carboxyhemoglobin (0.0-6.9) % THgb Methemoglobin (1.4-1.5) % Temperature C POC O2 Flow Rate % Vent Mode Inspiratory BiPAP Expiratory BiPAP Sodium 132 L (137-145) mmol/L Potassium 3.8 (3.5-5.1) mmol/L Chloride 90 L (98-107) mmol/L Carbon Dioxide 34 H (22-30) mmol/L Anion Gap 11.7 (5-15) MEQ/L BUN 19 (9-20) mg/dL Creatinine 0.62 L (0.66-1.25) mg/dL Estimated GFR > 60.0 ML/MIN Glucose 210 H (74-106) mg/dL Calcium 8.7 (8.4-10.2) mg/dL Total Bilirubin (0.2-1.3) mg/dL AST (17-59) U/L ALT (0-50) U/L Alkaline Phosphatase (38-126) U/L Troponin I (0.000-0.034) ng/mL NT-Pro-B Natriuret Pep (0-900) pg/mL Serum Total Protein (6.3-8.2) g/dL Albumin (3.5-5.0) g/dL Radiology Exams: Radiology Procedures Category Date Time Status CHEST 2 VIEWS (PA AND LAT) Stat Exams 03/22/18 18:19 Taken Assessment/Plan (1) COPD with exacerbation Current Visit: Yes Status: Acute Onset Date: ~03/22/18 Assessment & Plan: Continue IV antibiotics and oxygen. Dr. Kalyan Lazo plans to see patient. Clinically he is much improved. Code(s): J44.1 - CHRONIC OBSTRUCTIVE PULMONARY DISEASE W (ACUTE) EXACERBATION (2) Chronic respiratory failure with hypoxia and hypercapnia Current Visit: Yes Status: Acute Onset Date: ~03/22/18 Assessment & Plan: We used bipap for a few hours yesterday and this seemed to help. Code(s): J96.11 - CHRONIC RESPIRATORY FAILURE WITH HYPOXIA; J96.12 - CHRONIC RESPIRATORY FAILURE WITH HYPERCAPNIA (3) DM w/o complication type II Current Visit: Yes Status: Acute Onset Date: ~03/22/18 Assessment & Plan: Continue sliding scale novolog. Code(s): E11.9 - TYPE 2 DIABETES MELLITUS WITHOUT COMPLICATIONS (4) Tobacco abuse Current Visit: Yes Status: Acute Code(s): Z72.0 - TOBACCO USE
--- NOTE | 2018-03-23 08:34 | XRAY ---
Indication: Short of breath. Comparison: November 29, 2016. PA/lateral chest again hyperinflated with chronic lung markings. New left mid to lower lung infiltrate versus atelectasis. No consolidation or large effusion. Heart and mediastinal structures are within normal limits. Bony thorax intact. Impression: 1. New left mid to lower lung infiltrate/atelectasis. Correlate clinically. 2. Stable COPD.
[2018-03-23] MEDS ORDERED: MEDICATION INTERVENTION MC SCH (09:00)
[2018-03-23] MEDS ORDERED: NON-FORMULARY ITEM (Simvastatin 40 Mg [Zocor 40 Mg] 40 MG) PO SCH (10:00)
[2018-03-23] MEDS ORDERED: IMATINIB MESYLATE 400 MG PO SCH (10:00)
[2018-03-23] MEDS ORDERED: [UNRECOGNIZED DRUG - MIXTURE] PO SCH (10:00)
[2018-03-23] MEDS ORDERED: Maxzide 25MG PO SCH (10:00)
[2018-03-23] MEDS ORDERED: [UNRECOGNIZED DRUG - OTHER] PO SCH (10:00)
[2018-03-23] MEDS: Maxzide-25MG Tablet PO SCH (11:37)
[2018-03-23] MEDS: ENOXAPARIN SODIUM SQ SCH (11:37)
[2018-03-23] MEDS: Avodart 0.5 MG PO SCH (11:37)
[2018-03-23] MEDS: BUMEX 1 MG PO SCH (11:38)
[2018-03-23] MEDS: CLARITIN 10 MG PO SCH (11:38)
[2018-03-23] MEDS: Protonix 40MG Tablet PO SCH ×2 (11:38→21:31)
[2018-03-23] MEDS: ECOTRIN 81 MG PO SCH (11:38)
[2018-03-23] MEDS: NEURONTIN 300 MG PO SCH ×3 (11:38→21:31)
[2018-03-23] MEDS: ZOCOR 20MG PO SCH (11:38)
[2018-03-23] MEDS: FISH OIL 1,000 MG CAPSULE PO SCH ×3 (11:39→21:31)
[2018-03-23] MEDS: THERAGRAN MULTIVITAMIN PO SCH (11:39)
[2018-03-23] MEDS: Flomax 0.4 MG PO SCH (11:39)
[2018-03-23] MEDS: Vitamin B-6 (Pyridoxine) 100 MG PO SCH (11:39)
[2018-03-23] MEDS: PATIENT OWN MEDICATION PO SCH (11:40)
[2018-03-23] MEDS: Lopressor 50 MG PO SCH ×2 (11:40→21:31)
[2018-03-23] MEDS: solu-MEDROL 125 MG IV SCH ×3 (13:29→23:59)
[2018-03-23] MEDS: Levofloxacin 500 MG Tablet PO SCH (16:47)
[2018-03-23] MEDS: Nicoderm CQ 21 MG TOP SCH (16:47)
[2018-03-24] MEDS: NovoLOG Insulin SQ PRN ×4 (00:22→18:45)
[2018-03-24] MEDS: PROVENTIL 2.5 MG/3 ML NEB IH SCH ×6 (04:00→23:08)
[2018-03-24] MEDS: solu-MEDROL 125 MG IV SCH ×3 (05:23→18:34)
[2018-03-24] MEDS: Sodium Chloride 0.9% 10 ML FLUSH Syringe IV SCH ×3 (05:28→22:13)
[2018-03-24] MEDS: Zosyn 3.375GM/100 Ml D5W 3.375 GM/100 ML IVPB IV SCH ×3 (05:29→18:35)
[2018-03-24 05:44] LABS: BASOPHIL % 0.2 % (0.0-0.4); Basophil (Absolute #) 0.02 (0-0.4); Eosinophil % 0.1 % (0.00-5.0); Eosinophil (Absolute #) 0.01 (0-0.5); Granulocyte Absolute (ANC) 10.85 (1.4-6.9); Granulocytes % 87.9 % (36.0-66.0); Hematocrit 39.6 % (42-50); Lymphocyte (Absolute #) 0.63 (1.0-4.6); Lymphocytes % 5.1 % (24.0-44.0); Mean Cell Volume 91.9 fl (78-100); Mean Corpuscular Hemoglobin 30.2 pg (26-32); Mean Corpuscular Hgb Concent. 32.8 g/dl (32-36); Mean Platelet Volume 8.9 fl (6-9.5); Monocyte (Absolute #) 0.83 (0.0-1.3); Monocytes % 6.7 % (0.0-12.0); Platelet Count 309 K/mm3 (150-450); Red Blood Count 4.31 M/mm3 (4.1-5.6); Red Cell Distribution Width 14.9 % (11.5-14.0); White Blood Count 12.3 K/mm3 (4.0-10.5)
[2018-03-24 06:03] LABS: ANION GAP 12.5 MEQ/L (5-15); BLOOD UREA NITROGEN 20 mg/dL (9-20); CHLORIDE 89 mmol/L (98-107); Calcium 8.9 mg/dL (8.4-10.2); Carbon Dioxide 34 mmol/L (22-30); Creatinine 1 0.63 mg/dL (0.66-1.25); Glucose 229 mg/dL (74-106); Potassium 3.9 mmol/L (3.5-5.1); SODIUM 132 mmol/L (137-145)
[2018-03-24] MEDS: Spiriva 18 Mcg/Cap Inhaler IH SCH ×2 (07:11→07:18)
[2018-03-24] MEDS: Advair Hfa 115/21 Common canister IH SCH ×2 (07:18→19:32)
[2018-03-24] MEDS: Miralax Powder 17GM PACKET PO SCH ×2 (08:25→22:12)
[2018-03-24] MEDS: ENOXAPARIN SODIUM SQ SCH (08:25)
[2018-03-24] MEDS: Protonix 40MG Tablet PO SCH ×2 (08:26→22:12)
[2018-03-24] MEDS: ECOTRIN 81 MG PO SCH (08:26)
[2018-03-24] MEDS: THERAGRAN MULTIVITAMIN PO SCH (08:26)
[2018-03-24] MEDS: FISH OIL 1,000 MG CAPSULE PO SCH ×3 (08:26→22:12)
[2018-03-24] MEDS: Flomax 0.4 MG PO SCH (08:26)
[2018-03-24] MEDS: ZOCOR 20MG PO SCH (08:26)
[2018-03-24] MEDS: BUMEX 1 MG PO SCH (08:26)
[2018-03-24] MEDS: Maxzide-25MG Tablet PO SCH (08:26)
[2018-03-24] MEDS: CLARITIN 10 MG PO SCH (08:27)
[2018-03-24] MEDS: Avodart 0.5 MG PO SCH (08:27)
[2018-03-24] MEDS: Lopressor 50 MG PO SCH ×2 (08:27→22:12)
[2018-03-24] MEDS: LOPID 600 MG PO SCH ×2 (08:27→22:12)
[2018-03-24] MEDS: NEURONTIN 300 MG PO SCH ×3 (08:27→22:12)
[2018-03-24] MEDS: Vitamin B-6 (Pyridoxine) 100 MG PO SCH (08:28)
[2018-03-24] MEDS: PATIENT OWN MEDICATION PO SCH (08:28)
--- NOTE | 2018-03-24 08:35 | XRAY ---
Indication: COPD exacerbation. Comparison: March 22, 2018. PA/lateral chest unchanged again demonstrating COPD and left mid to lower lung infiltrate/atelectasis. Heart is not enlarged. No new cardiopulmonary abnormalities.
--- NOTE | 2018-03-24 09:25 | PCM.NOTE ---
Date and Time: 03/24/18918 Subjective Assessment: Patient reports that he is feeling better. He reports his diet was not correct this AM. He is not feeling as short of breath or coughing as much. He reports Dr. Kalyan Lazo saw him last night and said he would stay one more night. He reports he is having normal bowel movements. - Review of Systems Constitutional: No Symptoms Eyes: No Symptoms Ears, Nose, & Throat: No Symptoms Respiratory: Cough, Short Of Breath Cardiac: No Symptoms Abdominal/Gastrointestinal: No Symptoms Genitourinary Symptoms: No Symptoms Musculoskeletal: No Symptoms Skin: No Symptoms Objective Exam General Appearance: no apparent distress, alert Neurologic Exam: alert, cooperative, normal mood/affect Skin Exam: normal color, warm, dry, No rash Respiratory Exam: other (distant, equal breath sounds), No crackles/rales, No rhonchi, No wheezing Cardiovascular Exam: regular rate/rhythm, No murmur, No friction rub Gastrointestinal/Abdomen Exam: soft, normal bowel sounds, distention, other ( mild distension), No tenderness, No mass Extremity Exam: other (no c/c/e) OBJECTIVE DATA Vital Signs: Vital Signs - 24 hr Temp Pulse Resp BP Pulse Ox 03/24/18 08:00 20 03/24/18 07:46 97.6 F 64 20 119/60 94 L 03/24/18 04:03 69 16 98 03/24/18 04:00 98.2 F 69 16 118/61 98 03/24/18 00:10 97.9 F 68 17 123/60 96 03/24/18 00:00 17 03/23/18 23:28 68 17 96 03/23/18 20:10 98.0 F 72 22 122/56 92 L 03/23/18 20:00 22 03/23/18 19:08 76 20 91 L 03/23/18 16:00 97.8 F 76 20 122/68 97 03/23/18 15:00 72 20 03/23/18 12:26 97.7 F 65 20 125/58 95 03/23/18 12:00 20 03/23/18 10:55 76 22 Oxygen-Last 24 hours O2 Percentage 3 Liters = 32% O2 Percentage 4 Liters = 36% O2 Percentage 3 Liters = 32% O2 Percentage 3 Liters = 32% O2 Percentage 4 Liters = 36% O2 Percentage 3 Liters = 32% Pain Assessment - Last Documented Pain Intensity 0 Pain Scale Used [facility] Intake and Output: Intake & Output 03/22/18 03/23/18 03/24/18 03/25/18 06:59 06:59 06:59 06:59 Intake Total 1140 1620 550 Balance 1140 1620 550 Weight 89.6 kg Lab Results: Accuchecks Date 03/24/18 Date 03/24/18 Date 03/23/18 Date 03/23/18 Time 06:00 Time 00:00 Time 16:58 Time 02:38 Accucheck Value: 229 Accucheck Value: 352 Accucheck Value: 237 Lab Results-Last 24 Hours 03/24/18 03/24/18 Range/Units 05:25 05:25 WBC 12.3 H (4.0-10.5) K/mm3 RBC 4.31 (4.1-5.6) M/mm3 Hgb 13.0 (12.5-18.0) gm/dl Hct 39.6 L (42-50) % MCV 91.9 (78-100) fl MCH 30.2 (26-32) pg MCHC 32.8 (32-36) g/dl RDW 14.9 H (11.5-14.0) % Plt Count 309 (150-450) K/mm3 MPV 8.9 (6-9.5) fl Gran % 87.9 H (36.0-66.0) % Eos # (Auto) 0.01 (0-0.5) Absolute Lymphs (auto) 0.63 L (1.0-4.6) Absolute Monos (auto) 0.83 (0.0-1.3) Lymphocytes % 5.1 L (24.0-44.0) % Monocytes % 6.7 (0.0-12.0) % Eosinophils % 0.1 (0.00-5.0) % Basophils % 0.2 (0.0-0.4) % Absolute Granulocytes 10.85 H (1.4-6.9) Basophils # 0.02 (0-0.4) Sodium 132 L (137-145) mmol/L Potassium 3.9 (3.5-5.1) mmol/L Chloride 89 L (98-107) mmol/L Carbon Dioxide 34 H (22-30) mmol/L Anion Gap 12.5 (5-15) MEQ/L BUN 20 (9-20) mg/dL Creatinine 0.63 L (0.66-1.25) mg/dL Estimated GFR > 60.0 ML/MIN Glucose 229 H (74-106) mg/dL Calcium 8.9 (8.4-10.2) mg/dL Radiology Exams: Radiology Procedures Category Date Time Status CHEST 2 VIEWS (PA AND LAT) Routine Exams 03/24/18 08:00 Completed CHEST 2 VIEWS (PA AND LAT) Stat Exams 03/22/18 18:19 Completed Assessment/Plan (1) COPD with exacerbation Current Visit: Yes Status: Acute Onset Date: ~03/22/18 Assessment & Plan: Continue with IV steroids and IV antibiotics. Continue with oxygen. Dr. Kalyan Lazo following. Code(s): J44.1 - CHRONIC OBSTRUCTIVE PULMONARY DISEASE W (ACUTE) EXACERBATION (2) Chronic respiratory failure with hypoxia and hypercapnia Current Visit: Yes Status: Acute Onset Date: ~03/22/18 Assessment & Plan: Stable at this time. Code(s): J96.11 - CHRONIC RESPIRATORY FAILURE WITH HYPOXIA; J96.12 - CHRONIC RESPIRATORY FAILURE WITH HYPERCAPNIA (3) DM w/o complication type II Current Visit: Yes Status: Acute Onset Date: ~03/22/18 Assessment & Plan: Continue low dose sliding scale. Code(s): E11.9 - TYPE 2 DIABETES MELLITUS WITHOUT COMPLICATIONS (4) Tobacco abuse Current Visit: Yes Status: Acute Code(s): Z72.0 - TOBACCO USE (5) Gastrointestinal stromal neoplasm Current Visit: Yes Status: Acute Assessment & Plan: Continue treatment per oncologist. Code(s): C49.A0 - GASTROINTESTINAL STROMAL TUMOR, UNSPECIFIED SITE
[2018-03-24] MEDS: Levofloxacin 500 MG Tablet PO SCH (15:13)
[2018-03-24] MEDS: Nicoderm CQ 21 MG TOP SCH (15:13)
[2018-03-25] MEDS: Zosyn 3.375GM/100 Ml D5W 3.375 GM/100 ML IVPB IV SCH ×2 (00:03→05:47)
[2018-03-25] MEDS: NovoLOG Insulin SQ PRN ×2 (00:03→06:37)
[2018-03-25] MEDS: solu-MEDROL 125 MG IV SCH ×2 (00:03→05:43)
[2018-03-25] MEDS: PROVENTIL 2.5 MG/3 ML NEB IH SCH ×3 (03:50→11:09)
[2018-03-25] MEDS: Sodium Chloride 0.9% 10 ML FLUSH Syringe IV SCH (05:47)
[2018-03-25 06:27] LABS: Granulocyte Absolute (ANC) 10.77 (1.4-6.9); Hematocrit 41.2 % (42-50); Hemoglobin 13.7 gm/dl (12.5-18.0); Mean Cell Volume 91.2 fl (78-100); Mean Corpuscular Hemoglobin 30.3 pg (26-32); Mean Corpuscular Hgb Concent. 33.3 g/dl (32-36); Mean Platelet Volume 8.7 fl (6-9.5); Platelet Count 326 K/mm3 (150-450); Red Blood Count 4.52 M/mm3 (4.1-5.6)
[2018-03-25 06:34] LABS: ANION GAP 12.7 MEQ/L (5-15); BLOOD UREA NITROGEN 21 mg/dL (9-20); CHLORIDE 86 mmol/L (98-107); Calcium 8.9 mg/dL (8.4-10.2); Carbon Dioxide 36 mmol/L (22-30); Creatinine 1 0.66 mg/dL (0.66-1.25); Glucose 264 mg/dL (74-106); Potassium 3.7 mmol/L (3.5-5.1); SODIUM 131 mmol/L (137-145)
[2018-03-25] MEDS: Advair Hfa 115/21 Common canister IH SCH (06:49)
[2018-03-25] MEDS: Spiriva 18 Mcg/Cap Inhaler IH SCH (06:50)
[2018-03-25 07:14] LABS: BAND 2 % (0.0-2.0); Lymphocytes 5 % (24-44); Monocyte 3 % (0.0-12.0); Neutrophils 90 % (36.-66.); Platelet Estimate NORMAL (NORMAL); Total Cells Counted 100
[2018-03-25 08:28] VITALS: BP 117/59
[2018-03-25] MEDS: Flomax 0.4 MG PO SCH (09:26)
[2018-03-25] MEDS: ENOXAPARIN SODIUM SQ SCH (09:26)
[2018-03-25] MEDS: FISH OIL 1,000 MG CAPSULE PO SCH (09:26)
[2018-03-25] MEDS: Miralax Powder 17GM PACKET PO SCH (09:26)
[2018-03-25] MEDS: ZOCOR 20MG PO SCH (09:26)
[2018-03-25] MEDS: CLARITIN 10 MG PO SCH (09:26)
[2018-03-25] MEDS: Protonix 40MG Tablet PO SCH (09:27)
[2018-03-25] MEDS: THERAGRAN MULTIVITAMIN PO SCH (09:27)
[2018-03-25] MEDS: BUMEX 1 MG PO SCH (09:27)
[2018-03-25] MEDS: NEURONTIN 300 MG PO SCH (09:27)
[2018-03-25] MEDS: Avodart 0.5 MG PO SCH (09:27)
[2018-03-25] MEDS: Lopressor 50 MG PO SCH (09:27)
[2018-03-25] MEDS: ECOTRIN 81 MG PO SCH (09:27)
[2018-03-25] MEDS: Maxzide-25MG Tablet PO SCH (09:27)
[2018-03-25] MEDS: PATIENT OWN MEDICATION PO SCH (09:28)
[2018-03-25] MEDS: Vitamin B-6 (Pyridoxine) 100 MG PO SCH (09:29)
[2018-03-25] MEDS: LOPID 600 MG PO SCH (09:29)
[2018-03-25 11:14] VITALS: PULSE 67; O2SAT 96
--- NOTE | 2018-03-28 07:20 | XRAY ---
Indication: Follow-up pneumonia. Comparison: One day earlier. PA/lateral chest unchanged again demonstrating COPD and left mid to lower lung infiltrate/atelectasis. Heart and mediastinal structures within normal limits. No new cardiopulmonary abnormalities.
--- NOTE | 2018-03-28 10:32 | DS ---
DISCHARGE DIAGNOSES: 1) CHRONIC OBSTRUCTIVE PULMONARY DISEASE WITH EXACERBATION. 2) CHRONIC RESPIRATORY FAILURE WITH HYPOXIA AND HYPERCAPNIA. 3) DIABETES MELLITUS TYPE 2. 4) TOBACCO ABUSE. 5) GASTROINTESTINAL STROMAL NEOPLASM. DISCHARGE PHYSICAL EXAMINATION: VITALS: Temperature current 97.5F, temperature max 97.9F, heart rate 60 to 71, respiratory rate 18 to 22, blood pressure 117 to 136 over 59 to 71. Oxygen saturation 93 to 94% on 3 to 4 liters nasal cannula. GENERAL: The patient is a pleasant talkative sitting in his chair in no acute distress. CVS: He has a regular rate and rhythm. No murmurs, gallops or rubs are appreciated. CHEST: He had distant breath sounds bilaterally that were equal. No retractions. No tachypnea. No wheezing. No crackles. ABDOMEN: Soft, nontender, nondistended with normal bowel sounds. EXTREMITIES: No clubbing, cyanosis or edema. SKIN: Warm, dry and intact. HOSPITAL COURSE: 1) CHRONIC OBSTRUCTIVE PULMONARY DISEASE WITH EXACERBATION: The patient was started on IV antibiotics of Levaquin and Zosyn per his car runner Dr. Juan Lazo's orders. He was continued on these during his hospitalization and discharged on Levaquin per Dr. Lazo's order. He was continued on oxygen but did require BiPAP when he was first admitted for a few hours since he at that time was tachypneic and using his accessory muscles to breathe, this seemed to improve. He then would use CPAP each night which was his normal. 2) CHRONIC RESPIRATORY FAILURE WITH HYPOXIA AND HYPERCAPNIA: He will continue to follow up with his car runner, Dr. Juan Lazo. 3) DIABETES MELLITUS TYPE 2: We used a low dose sliding scale of insulin while here in the hospital. His blood sugars were slightly high probably due to the IV steroids that he was receiving. 4) TOBACCO ABUSE: The patient does not have any plans on quitting tobacco. 5) GASTROINTESTINAL STROMA NEOPLASM: He was continued on his oral chemotherapy which he brought from home and will continue follow up with his oncologist. DISCHARGE MEDICATIONS: Please see the discharge order that the patient was discharged on Levaquin as antibiotic per Dr. Juan Lazo's request. He was also placed on prednisone 20 mg daily for five days and 10 mg daily for five days per Dr. Lazo's order. He was to resume all of his other home medications. FOLLOW UP: He is to follow up with Dr. Finley in one week, Dr. Lazo and also his oncologist. DISPOSITION: The patient was discharged to home in fair condition.
== END 2018-03-25 12:30 | disposition home or self-care (01) | DRG 191 ==
LOC: MED SURG 16:00 → OBSVTOIN 03-23 08:25
PROVIDERS: ADMIT Internal Medicine; ATTEND Internal Medicine
DX: J44.1 Chronic obstructive pulmonary disease with (acute) exacerbation (principal); J96.11 Chronic respiratory failure with hypoxia; J96.12 Chronic respiratory failure with hypercapnia; C80.0 Disseminated malignant neoplasm, unspecified; C49.A0 Gastrointestinal stromal tumor, unspecified site; Z72.0 Tobacco use; D49.0 Neoplasm of unspecified behavior of digestive system; I10 Essential (primary) hypertension; J45.909 Unspecified asthma, uncomplicated; E03.9 Hypothyroidism, unspecified; N40.0 Benign prostatic hyperplasia without lower urinary tract symptoms; E78.5 Hyperlipidemia, unspecified; G47.33 Obstructive sleep apnea (adult) (pediatric); E78.00 Pure hypercholesterolemia, unspecified; E11.9 Type 2 diabetes mellitus without complications; Z79.4 Long term (current) use of insulin; Z79.899 Other long term (current) drug therapy; Z80.0 Family history of malignant neoplasm of digestive organs
CPT/HCPCS: 36415; 36600; 71046; 80048; 80053; 82375; 82803; 82962; 83880; 84484; 85025; 85027; 87040; 94002; 94003; 94150; 94640; 94660; 94760; G0378; J7609; J1650; J2543; J2920; J2930; A9270-GY

== ENCOUNTER 2018-09-06 16:24 | Inpatient (IN) | payer MEDICARE, OTHER ==
--- NOTE | 2018-09-06 16:57 | ERPHSYRPT ---
- History of Present Illness Time Seen by Provider: 09/06/18 16:50 Source: patient Exam Limitations: no limitations Patient Subjective Stated Complaint: Pt states "My head is really hurting and I cannot breath." Triage Nursing Assessment: Pt alert and oriented X 3, skin pwd. pt in wheelchair extremely tachypneic. PT able to speak in three to four word sentences. PT gets more short of breath upon movement. Physician History: The patient is a 67-year-old male with a friend complaining of worsening shortness of breath and cough since yesterday. He also complains of a right sided headache for 5 days. His head was hurting so badly causing him to vomit. He now states he used. He denies fever or chills. Nose is stuffy he thinks it is causing him to have difficulty in breathing. He denies sore throat he denies chest pain. The patient wears O2 4L continuously. His past medical history is significant for HTN, COPD, DM, high cholesterol, and spine cancer. Timing/Duration: hour(s) (2), gradual onset, worse Activities at Onset: none Severity of Dyspnea-Max: moderate Severity of Dyspnea-Current: moderate Possible Cause: chronic episodes Modifying Factors: Improves With: coughing, oxygen Associated Symptoms: cough, wheezing, No fever, No chills Allergies/Adverse Reactions: amoxicillin Allergy (Severe, Verified 11/29/16 23:10) Swelling of Face clarithromycin [From Biaxin] Allergy (Severe, Verified 11/29/16 23:10) Swelling of Face lid swelled until touched nose. lansoprazole Allergy (Severe, Verified 11/29/16 23:10) Swelling of Face morphine Allergy (Mild, Verified 11/29/16 23:10) N&V DEB Inhibitors Allergy (Verified 03/22/18 17:54) Anaphylactic Reaction clindamycin Allergy (Verified 03/22/18 17:54) Swelling of Tongue and Lips benzpril Allergy (Severe, Uncoded 09/06/18 16:34) Swelling Home Medications: Aspirin EC 81 mg [Ecotrin 81 mg] 81 mg PO DAILY 11/01/12 [History] Docosahexanoic Acid/Epa [Fish Oil Softgel] 1 tab PO TID 11/01/12 [History] Gabapentin 300 mg [Neurontin 300 mg] 300 mg PO TID 11/01/12 [History] Gemfibrozil 600 mg [Lopid 600 mg] 600 mg PO BID 11/01/12 [History] Metformin HCl 500 mg [Glucophage 500 MG] 1 tab PO BID 11/01/12 [History] Albuterol 2.5 mg/3 ml Neb [Proventil 2.5 mg/3 ml Neb] 2.5 mg IH HS [History] Budesonide/Formoterol Fumarate [Symbicort 160-4.5 Mcg Inhaler] 1 puff IH BID [History] Bumetanide 1 mg [Bumex 1 mg] 1 tab PO DAILY 11/05/14 [History] Fluticasone Propionate [Flonase Allergy Relief] 1 spray INTRANASAL DAILY PRN [History] Loratadine 10 mg [Claritin 10 mg] 10 mg PO DAILY 11/05/14 [History] Multivit-Min/FA/Lycopen/Lutein [Centrum Silver Ultra Men's Tab] 1 tab PO DAILY 11/05/14 [History] Nitroglycerin 0.4 mg (Ed) [Nitrostat 0.4 MG (ED)] 0.4 mg SL UD PRN [History] Potassium Chloride 20 Meq [Klor-Con 20 MEQ] 20 meq PO 5XD 11/05/14 [History] Simvastatin 40 mg [Zocor 40 mg] 40 mg PO DAILY 11/05/14 [History] Albuterol Sulfate [Ventolin Hfa] 18 gm IH Q4H PRN 11/29/16 [History] B6/mg/Turm/Haley/Anis/Gar/Gin/Sp [Morning Sickless Combo Pack] 1 each PO DAILY 11/03 [History] Dutasteride 0.5 MG [Avodart 0.5 MG] 0.5 mg PO DAILY 03/22/18 [History] Hydrocodone/Acetaminophen [[place] 5-325 Tablet] 1 each PO Q6H PRN 03/22/18 [ History] Imatinib Mesylate 400 mg PO DAILY 03/22/18 [History] Metoprolol Tartrate 50 mg PO BID 03/22/18 [History] Omeprazole 20 MG [Prilosec 20 mg] 20 mg PO BID 03/22/18 [History] Polyethylene Glycol 3350 17 gm [Miralax Powder 17GM PACKET] 17 gm PO BID 11/03 [History] Prednisone 10 mg PO DAILY 03/22/18 [History] Tamsulosin HCl 0.4 mg [Flomax 0.4 MG] 0.4 mg PO DAILY 03/22/18 [History] Triamterene/Hydrochlorothiazid [Triamterene-Hctz 37.5-25 mg Tb] 1 each PO DAILY 03/22/18 [History] Hx Tetanus, Diphtheria Vaccination/Date Given: No Hx Influenza Vaccination/Date Given: Yes Hx Pneumococcal Vaccination/Date Given: No Immunizations Up to Date: Yes - Review of Systems Constitutional: No Fever, No Chills Eyes: No Symptoms Ears, Nose, & Throat: No Symptoms Respiratory: Cough, Dyspnea, Wheezing Cardiac: No Chest Pain, No Edema, No Syncope Abdominal/Gastrointestinal: No Abdominal Pain, No Nausea, No Vomiting, No Diarrhea Genitourinary Symptoms: No Dysuria Musculoskeletal: No Back Pain, No Neck Pain Skin: No Rash Neurological: No Dizziness, No Focal Weakness, No Sensory Changes Psychological: No Symptoms Endocrine: No Symptoms Hematologic/Lymphatic: No Symptoms Immunological/Allergic: No Symptoms All Other Systems: Reviewed and Negative - Past Medical History Pertinent Past Medical History: Yes Neurological History: Peripheral Neuropathy ENT History: No Pertinent History Cardiac History: Congestive Heart Failure, High Cholesterol, Hypertension Respiratory History: Asthma, Bronchitis, CHF, COPD, Sleep Apnea Endocrine Medical History: Diabetes Type II Musculoskeletal History: Arthritis GI Medical History: Esophageal Disorder, GERD, Hernia, Polyps History: No Pertinent History Psycho-Social History: No Pertinent History Male Reproductive Disorders: No Pertinent History Other Medical History: o l nc at home during day and 4l cpap at night,. 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 - Past Surgical History Past Surgical History: Yes Neuro Surgical History: No Pertinent History Cardiac: No Pertinent History Respiratory: No Pertinent History Gastrointestinal: Appendectomy, Other Genitourinary: No Pertinent History Musculoskeletal: Orthopedic Surgery Male Surgical History: Vasectomy Other Surgical History: removed part of intestines dt accident,inner ear surgery lt,polypectomyback surgery x2ear surgery left sidet&a as childlipoma to neckright eye retina repair - Social History Smoking Status: Former smoker How long have you smoked: 53 years Exposure to second hand smoke: Yes Drug Use: none Patient Lives Alone: No - Nursing Vital Signs Nursing Vital Signs: Initial Vital Signs Temperature 97.9 F 09/06/18 16:25 Pulse Rate 93 H 09/06/18 16:25 Respiratory Rate 24 09/06/18 16:25 Blood Pressure 146/67 09/06/18 16:25 O2 Sat by Pulse Oximetry 96 09/06/18 16:25 Pain Scale Pain Intensity 10 - Physical Exam General Appearance: moderate distress Eye Exam: PERRL/EOMI Ears, Nose, Throat Exam: hearing grossly normal Neck Exam: normal inspection, supple Respiratory Exam: diminished breath sounds, accessory muscle use, prolonged expirations, wheezing Cardiovascular/Chest Exam: normal heart sounds, regular rate/rhythm Abdominal/Gastrointestinal Exam: soft, No tenderness, No distention, No mass Rectal Exam: not done Extremity Exam: non-tender, normal range of motion, normal inspection, no calf tenderness, no pedal edema Neurologic Exam: alert, oriented x 3, cooperative, manager nursing II-XII nml as tested, sensation nml, No motor deficits Skin Exam: normal color, warm, No dry SpO2 Interpretation: borderline oxygenation SpO2: 96 O2 Delivery: Nasal Cannula (4L) - Course EKG Interpreted by Me: RATE, Sinus Rhythm, NORMAL INTERVALS, Right Bundle Branch Block, NORMAL ST-T, Other (comp EKG from 11/29/16.) - Radiology Exams Chest X-ray Interpretation: Interpreted by me, Negative (comp 2V chest 03/25/18) Ordered Tests: Active Orders 24 hr Category Date Time Status Armature Bander STAT Care 09/06/18 17:03 Active EKG-ER Only STAT Care 09/06/18 17:02 Active IV Insertion STAT Care 09/06/18 17:02 Active Oxygen-ED Only Nasal Cannula 4 lpm Care 09/06/18 17:02 Active Pulse Oximetry (ED) STAT Care 09/06/18 17:02 Active CHEST 2 VIEWS (PA AND LAT) Stat Exams 09/06/18 17:02 Taken CBC W DIFF Stat Lab 09/06/18 17:00 Completed CMP Stat Lab 09/06/18 17:00 Completed CULTURE,SPUTUM Stat Lab 09/06/18 17:46 Uncollected Lactic Acid Stat Lab 09/06/18 17:14 Completed NT PRO BNP Stat Lab 09/06/18 17:00 Completed TROPONIN Q3H Lab 09/06/18 17:00 Completed TROPONIN Q3H Lab 09/06/18 20:15 Ordered TROPONIN Q3H Lab 09/06/18 23:15 Ordered TROPONIN Q3H Lab 09/07/18 02:15 Ordered TROPONIN Q3H Lab 09/07/18 05:15 Ordered Peak Expiratory Flow Rate ONCE RT 09/06/18 17:25 Active Respiratory Nebulizer STAT RT 09/06/18 17:03 Completed Respiratory Therapy Assessment DAILY RT 09/06/18 17:24 Active Medication Summary Discontinued Medications Generic Name Dose Route Start Last Admin Trade Name Freq PRN Reason Stop Dose Admin Albuterol/Ipratropium 3 ml 09/06/18 17:02 09/06/18 17:21 Duoneb 0.5-3 Mg/3 Ml Neb IH 09/06/18 17:03 3 ml STAT ONE Administration Albuterol/Ipratropium Confirm 09/06/18 17:19 Duoneb 0.5-3 Mg/3 Ml Neb Administered 09/06/18 17:20 Dose 3 ml IH .STK-MED ONE Methylprednisolone Sodium Succinate 125 mg 09/06/18 17:02 09/06/18 17:21 Solu-Medrol 125 Mg IV 09/06/18 17:03 125 mg STAT ONE Administration Methylprednisolone Sodium Succinate Confirm 09/06/18 17:16 Solu-Medrol 125 Mg Administered 09/06/18 17:17 Dose 125 mg .ROUTE .STK-MED ONE Lab/Rad Data: Laboratory Result Diagrams 09/06/18 17:00 09/06/18 17:00 Laboratory Results 09/06/18 09/06/18 09/06/18 Range/Units 17:15 17:14 17:00 WBC (4.0-10.5) K/mm3 RBC (4.1-5.6) M/mm3 Hgb (12.5-18.0) gm/dl Hct (42-50) % MCV (78-100) fl MCH (26-32) pg MCHC (32-36) g/dl RDW (11.5-14.0) % Plt Count (150-450) K/mm3 MPV (6-9.5) fl Gran % (36.0-66.0) % Eos # (Auto) (0-0.5) Absolute Lymphs (auto) (1.0-4.6) Absolute Monos (auto) (0.0-1.3) Lymphocytes % (24.0-44.0) % Monocytes % (0.0-12.0) % Eosinophils % (0.00-5.0) % Basophils % (0.0-0.4) % Absolute Granulocytes (1.4-6.9) Basophils # (0-0.4) Sodium (137-145) mmol/L Potassium (3.5-5.1) mmol/L Chloride (98-107) mmol/L Carbon Dioxide (22-30) mmol/L Anion Gap (5-15) MEQ/L BUN (9-20) mg/dL Creatinine (0.66-1.25) mg/dL Estimated GFR ML/MIN Glucose (74-106) mg/dL Lactic Acid 1.3 (0.4-2.0) Calcium (8.4-10.2) mg/dL Total Bilirubin (0.2-1.3) mg/dL AST (17-59) U/L ALT (0-50) U/L Alkaline Phosphatase (38-126) U/L Troponin I < 0.012 (0.000-0.034) ng/mL NT-Pro-B Natriuret Pep (0-900) pg/mL Serum Total Protein (6.3-8.2) g/dL Albumin (3.5-5.0) g/dL Influenza Type A Ag NEGATIVE (NEGATIVE) Influenza Type B Ag NEGATIVE (NEGATIVE) RSV (PCR) NEGATIVE (Negative) 09/06/18 09/06/18 Range/Units 17:00 17:00 WBC 5.3 (4.0-10.5) K/mm3 RBC 4.35 (4.1-5.6) M/mm3 Hgb 13.9 (12.5-18.0) gm/dl Hct 43.9 (42-50) % MCV 100.9 H (78-100) fl MCH 32.0 (26-32) pg MCHC 31.7 L (32-36) g/dl RDW 13.6 (11.5-14.0) % Plt Count 329 (150-450) K/mm3 MPV 9.1 (6-9.5) fl Gran % 71.1 H (36.0-66.0) % Eos # (Auto) 0.04 (0-0.5) Absolute Lymphs (auto) 0.61 L (1.0-4.6) Absolute Monos (auto) 0.86 (0.0-1.3) Lymphocytes % 11.6 L (24.0-44.0) % Monocytes % 16.3 H (0.0-12.0) % Eosinophils % 0.8 (0.00-5.0) % Basophils % 0.2 (0.0-0.4) % Absolute Granulocytes 3.76 (1.4-6.9) Basophils # 0.01 (0-0.4) Sodium 141 (137-145) mmol/L Potassium 2.7 L* (3.5-5.1) mmol/L Chloride 88 L (98-107) mmol/L Carbon Dioxide 39 H (22-30) mmol/L Anion Gap 16.7 H (5-15) MEQ/L BUN 15 (9-20) mg/dL Creatinine 0.88 (0.66-1.25) mg/dL Estimated GFR > 60.0 ML/MIN Glucose 119 H (74-106) mg/dL Lactic Acid (0.4-2.0) Calcium 9.0 (8.4-10.2) mg/dL Total Bilirubin 0.70 (0.2-1.3) mg/dL AST 48 (17-59) U/L ALT 42 (0-50) U/L Alkaline Phosphatase 108 (38-126) U/L Troponin I (0.000-0.034) ng/mL NT-Pro-B Natriuret Pep 41.4 (0-900) pg/mL Serum Total Protein 8.1 (6.3-8.2) g/dL Albumin 4.7 (3.5-5.0) g/dL Influenza Type A Ag (NEGATIVE) Influenza Type B Ag (NEGATIVE) RSV (PCR) (Negative) - Progress Progress: improved Air Movement: fair Discussed with : Malia Will see patient in: hospital (full admit) Counseled pt/family regarding: diagnosis, rad results - Departure Time of Disposition: 18:15 Departure Disposition: In-patient Admission (per Dr Finley) Clinical Impression: COPD with exacerbation, Hypokalemia, Headache Condition: Stable Critical Care Time: No Referrals: MICHELINE FINLEY [Primary Care Provider] - Instructions: Chronic Obstructive Pulmonary Disease
[2018-09-06] MEDS ORDERED: DUONEB 0.5-3 MG/3 ml Neb IH ONE ×2 (17:02→17:19)
[2018-09-06] MEDS ORDERED: solu-MEDROL 125 MG IV ONE (17:02)
[2018-09-06 17:15] LABS: BASOPHIL % 0.2 % (0.0-0.4); Basophil (Absolute #) 0.01 (0-0.4); Eosinophil % 0.8 % (0.00-5.0); Eosinophil (Absolute #) 0.04 (0-0.5); Granulocyte Absolute (ANC) 3.76 (1.4-6.9); Granulocytes % 71.1 % (36.0-66.0); Hematocrit 43.9 % (42-50); Hemoglobin 13.9 gm/dl (12.5-18.0); Lymphocyte (Absolute #) 0.61 (1.0-4.6); Lymphocytes % 11.6 % (24.0-44.0); Mean Cell Volume 100.9 fl (78-100); Mean Corpuscular Hgb Concent. 31.7 g/dl (32-36); Mean Platelet Volume 9.1 fl (6-9.5); Monocyte (Absolute #) 0.86 (0.0-1.3); Monocytes % 16.3 % (0.0-12.0); Platelet Count 329 K/mm3 (150-450); Red Blood Count 4.35 M/mm3 (4.1-5.6); Red Cell Distribution Width 13.6 % (11.5-14.0); White Blood Count 5.3 K/mm3 (4.0-10.5)
[2018-09-06] MEDS ORDERED: solu-MEDROL 125 MG ONE (17:16)
[2018-09-06 17:43] LABS: ALBUMIN 4.7 g/dL (3.5-5.0); ALKALINE PHOSPHATASE 108 U/L (38-126); BLOOD UREA NITROGEN 15 mg/dL (9-20); CHLORIDE 88 mmol/L (98-107); Creatinine 1 0.88 mg/dL (0.66-1.25); Glucose 119 mg/dL (74-106); NT PRO BNP 41.4 pg/mL (0-900); SGOT/AST 48 U/L (17-59); SGPT/ALT 42 U/L (0-50); SODIUM 141 mmol/L (137-145); Total Protein 8.1 g/dL (6.3-8.2)
[2018-09-06 17:47] LABS: Potassium 2.7 mmol/L (3.5-5.1)
[2018-09-06 17:48] LABS: ANION GAP 16.7 MEQ/L (5-15); Carbon Dioxide 39 mmol/L (22-30)
[2018-09-06 17:56] LABS: INFLUENZA A NEGATIVE (NEGATIVE); INFLUENZA B NEGATIVE (NEGATIVE); RESPIRATORY SYNCTIAL VIRUS NEGATIVE (Negative)
[2018-09-06] MEDS ORDERED: POTASSIUM CHLORIDE 20 mEq IN WATER 100ML 20 MEQ/100 ML BAG IV ONE (18:16)
[2018-09-06] MEDS ORDERED: Klor Con 10 MEQ PO ONE ×2 (18:16→18:29)
[2018-09-06] MEDS ORDERED: ROCEPHIN 1 Gm-D5w 50 ml Bag** 1 G/50 ML IVPB IV STA (18:17)
[2018-09-06] MEDS ORDERED: POTASSIUM CHLORIDE 20 mEq IN WATER 100ML 100 ML IV ONE (18:29)
[2018-09-06] MEDS ORDERED: ROCEPHIN 1 Gm-D5w 50 ml Bag** 1 G/50 ML IVPB IV ONE (18:29)
[2018-09-06] MEDS ORDERED: DUONEB 0.5-3 MG/3 ml Neb IH SCH (19:49)
[2018-09-06] MEDS ORDERED: PROVENTIL 2.5 MG/3 ML NEB IH SCH (19:49)
[2018-09-06] MEDS ORDERED: Sodium Chloride 0.9% 500 ML 500 ML IV ONE (19:52)
[2018-09-06] MEDS ORDERED: Sodium Chloride 0.9% 500 ML 500 ML IV SCH (20:15)
[2018-09-06] MEDS: Advair Hfa 230/21 Mcg COMMON CANISTER IH SCH (20:31)
[2018-09-06] MEDS ORDERED: Toprol Xl 50 MG PO SCH (22:00)
[2018-09-06] MEDS ORDERED: Flonase NASAL NS SCH (22:00)
[2018-09-06] MEDS ORDERED: LOPID 600 MG PO SCH (22:00)
[2018-09-06] MEDS: PROVENTIL 2.5 MG/3 ML NEB IH SCH (22:25)
[2018-09-06] MEDS: OXYCODONE-ACETAMINOPHEN 10-325 PO PRN (22:32)
[2018-09-06] MEDS: NEURONTIN 300 MG PO SCH (22:32)
[2018-09-06] MEDS: Flomax 0.4 MG PO SCH (22:32)
[2018-09-06] MEDS: Avodart 0.5 MG PO SCH (22:32)
[2018-09-06] MEDS: Zofran 4 MG/2 ML VIAL IV PRN (22:33)
[2018-09-07] MEDS: solu-MEDROL 125 MG IV SCH ×5 (00:13→23:01)
[2018-09-07] MEDS: PROVENTIL 2.5 MG/3 ML NEB IH SCH ×6 (02:46→22:54)
[2018-09-07 05:40] LABS: Hematocrit 39.6 % (42-50); Mean Cell Volume 100.3 fl (78-100); Mean Corpuscular Hemoglobin 32.9 pg (26-32); Mean Corpuscular Hgb Concent. 32.8 g/dl (32-36); Platelet Count 293 K/mm3 (150-450); Red Blood Count 3.95 M/mm3 (4.1-5.6); Red Cell Distribution Width 13.5 % (11.5-14.0)
[2018-09-07 06:58] LABS: BLOOD UREA NITROGEN 17 mg/dL (9-20); CHLORIDE 86 mmol/L (98-107); Calcium 8.5 mg/dL (8.4-10.2); Glucose 234 mg/dL (74-106); Potassium 3.9 mmol/L (3.5-5.1); SODIUM 137 mmol/L (137-145)
[2018-09-07] MEDS: Advair Hfa 230/21 Mcg COMMON CANISTER IH SCH ×2 (07:09→20:13)
[2018-09-07] MEDS: Spiriva 18 Mcg/Cap Inhaler IH SCH (07:16)
[2018-09-07 07:43] LABS: Carbon Dioxide 39 mmol/L (22-30)
[2018-09-07 07:44] LABS: ANION GAP 15.9 MEQ/L (5-15)
[2018-09-07] MEDS: Zofran 4 MG/2 ML VIAL IV PRN (08:09)
[2018-09-07] MEDS ORDERED: NORCO 5/325 MG PO PRN (08:10)
[2018-09-07] MEDS ORDERED: Miralax Powder 17GM PACKET PO PRN (08:10)
[2018-09-07] MEDS ORDERED: Nitrostat 0.4 MG (ED) SL PRN (08:10)
[2018-09-07] MEDS: OXYCODONE-ACETAMINOPHEN 10-325 PO PRN (08:12)
[2018-09-07] MEDS ORDERED: Nitrostat 0.4 MG Tablet SL PRN (08:17)
[2018-09-07] MEDS ORDERED: Sodium Chloride 0.9% 10 ML FLUSH Syringe IV PRN (08:30)
--- NOTE | 2018-09-07 08:33 | XRAY ---
Indication: Cough. Short of breath. History COPD. Comparison: March 25, 2018. PA/lateral chest again hyperinflated with minimal left midlung fibrosis/scarring and subtle lingular infiltrate/atelectasis. Remaining heart and lungs unremarkable. Bony thorax intact again with mild osteopenia and degenerative changes.
--- NOTE | 2018-09-07 08:36 | XRAY ---
Indication: Right-sided headache. Emesis. History abdominal cancer. Multiple contiguous axial images obtained through the head without contrast. Comparison: None Age-appropriate global atrophy and minimal periventricular degenerative micro-ischemia bilaterally. No acute intracranial hemorrhage, abnormal extra-axial fluid collection, or mass effect. Fourth ventricle is midline without hydrocephalus. Mckinley-white matter differentiation preserved. Bony calvarium intact. Visualized paranasal sinuses and mastoid air cells are clear. Impression: Normal aging brain including atrophy and degenerative micro-ischemia. No acute intracranial abnormalities. Comment: Preliminary interpretation was made by [facility]. No discrepancy. CT DI 66.37
[2018-09-07] MEDS ORDERED: MEDICATION INTERVENTION MC SCH (08:45)
--- NOTE | 2018-09-07 08:54 | HP ---
CHIEF COMPLAINT: Shortness of breath and headache. HISTORY OF PRESENT ILLNESS: The patient is a 67 year-old white male patient who reports he has been having problems with severe headache over the past five days became severe the night of his admission including a nosebleed. The patient has a history of end stage chronic obstructive pulmonary disease. He is on home oxygen. He was quite tachypneic upon his arrival to the emergency room. PAST MEDICAL/SURGICAL HISTORY: Congestive heart failure, gastroesophageal reflux disease. 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 MEDICATIONS: His home medication list is quite extensive and includes aspirin, gabapentin 300 mg t.i.d., gemfibrozil 600 mg twice a day, metformin 500 mg twice a day, Albuterol PRN, Symbicort inhaler 1 puff b.i.d., Bumex 1 mg daily, Flonase nasal spray, Claritin 10 mg a day, Nitro PRN sublingual, potassium 20 mEq daily, Simvastatin 40 mg a day, Avodart 0.5 mg a day, [place] 5/325 mg every four hours PRN pain, Imatinib Mesylate 400 mg daily, metoprolol 50 mg b.i.d., Prilosec 20 mg, MiraLAX powder, prednisone 10 mg a day, Tamsulosin 0.4 mg a day, Maxzide 37.5/25 mg daily. ALLERGIES: AMOXICILLIN, CLARITHROMYCIN, LANSOPRAZOLE, MORPHINE, DEB INHIBITORS, CLINDAMYCIN. PHYSICAL EXAMINATION: The patient's vital signs on admission showed temperature 97.9F, pulse 93, respiratory rate 24, blood pressure 146/67. O2 saturation 96% on supplemental oxygen per nasal cannula. HEENT: Normocephalic, atraumatic. Pupils equal round reactive to light. Extraocular movements intact. He is indeed wearing oxygen per nasal cannula currently at 6 liters. Oropharynx is dry. NECK: Supple without lymphadenopathy, thyromegaly or JVD. CHEST: Reveals inspiratory and expiratory noises. He sounds quite tight. HEART: Regular rate and rhythm without murmurs, rubs or gallops. ABDOMEN: Protuberant. No palpable masses were currently felt. EXTREMITIES: Without cyanosis or clubbing. There is some edema present. NEUROLOGIC: The patient is alert and oriented x3. No focal deficits are noted. LAB DATA AND TESTS: On admission lactic acid 1.3, troponin less than 0.012. Influenza A/B and respiratory syncytial virus were negative. His glucose 119 nonfasting with a BUN 15, creatinine 0.88. Potassium low at 2.7. Sodium normal. Liver enzymes were normal. His white blood cell count 5,300, hemoglobin 13.9, PLT count 329,000. Sputum which has been stained and shows gram positive rods, gram positive cocci, few white blood cells were present. CT scan of the brain showed no acute internal abnormality. Chest x-ray report was essentially negative for new infiltrates. His athletic monitor is sinus rhythm. He does have bivesicular block pattern but no acute changes. ASSESSMENT: A patient with acute exacerbation of chronic obstructive pulmonary disease. He has been admitted to the hospital on Solu-Medrol 125 every six hours, Rocephin and Zithromax IV. We will place him back on his usual home medications. He was given Percocet for pain from his headache and Zofran for nausea. We will give him IV potassium due to his hypokalemia this is likely present due to inability to keep his medicines down from the vomiting he had recently.
[2018-09-07] MEDS ORDERED: Zaroxolyn 2.5 MG PO SCH (09:00)
[2018-09-07] MEDS ORDERED: Phenergan 25 MG INJ IV PRN (09:57)
[2018-09-07] MEDS ORDERED: TYLENOL 325 MG PO PRN (09:57)
[2018-09-07] MEDS: Patanol 1% OPHTHALMIC OP SCH (09:58)
[2018-09-07] MEDS: ENOXAPARIN SODIUM SQ SCH ×2 (09:59→11:47)
[2018-09-07] MEDS ORDERED: OLOPATADINE HCL OP SCH (10:00)
[2018-09-07] MEDS ORDERED: DOCOSAHEXANOIC ACID PO SCH (10:00)
[2018-09-07] MEDS ORDERED: [UNRECOGNIZED DRUG - OTHER] PO SCH (10:00)
[2018-09-07] MEDS ORDERED: [UNRECOGNIZED DRUG - MIXTURE] PO SCH (10:00)
[2018-09-07] MEDS: ROCEPHIN 1 Gm-D5w 50 ml Bag** 1 G/50 ML IVPB IV SCH (10:00)
[2018-09-07] MEDS ORDERED: EPA PO SCH (10:00)
[2018-09-07] MEDS ORDERED: PATIENT OWN MEDICATION PO SCH ×2 (10:00→17:00)
[2018-09-07] MEDS ORDERED: Maxzide 25MG PO SCH (10:00)
[2018-09-07] MEDS ORDERED: NON-FORMULARY ITEM (Omeprazole 20 Mg [Prilosec 20 Mg] 20 MG) PO SCH (10:00)
[2018-09-07] MEDS ORDERED: IMATINIB MESYLATE 400 MG PO SCH (10:00)
[2018-09-07] MEDS ORDERED: LASIX 20 MG PO SCH (10:00)
[2018-09-07] MEDS ORDERED: NON-FORMULARY ITEM (Simvastatin 40 Mg [Zocor 40 Mg] 40 MG) PO SCH (10:00)
[2018-09-07] MEDS ORDERED: NON-FORMULARY ITEM (Potassium Chloride 20 Meq [Klor-Con 20 Meq] 20 MEQ) PO SCH (11:00)
[2018-09-07] MEDS: Vitamin B-6 (Pyridoxine) 100 MG PO SCH (11:37)
[2018-09-07] MEDS: Maxzide-25MG Tablet PO SCH (11:38)
[2018-09-07] MEDS: NEURONTIN 300 MG PO SCH ×3 (11:38→22:05)
[2018-09-07] MEDS: LOPID 600 MG PO SCH ×2 (11:38→16:13)
[2018-09-07] MEDS: FISH OIL 1,000 MG CAPSULE PO SCH ×3 (11:38→22:04)
[2018-09-07] MEDS: Lopressor 50 MG PO SCH ×2 (11:39→22:05)
[2018-09-07] MEDS: Lasix 40 MG PO SCH ×3 (11:39→22:05)
[2018-09-07] MEDS: Flomax 0.4 MG PO SCH ×2 (11:39→22:04)
[2018-09-07] MEDS: ECOTRIN 81 MG PO SCH (11:39)
[2018-09-07] MEDS: CLARITIN 10 MG PO SCH (11:39)
[2018-09-07] MEDS: THERAGRAN MULTIVITAMIN PO SCH (11:41)
[2018-09-07] MEDS: Protonix 40MG Tablet PO SCH ×2 (11:41→22:05)
[2018-09-07] MEDS: Zithromax 500 MG/ 250 ML NaCl Premix 500 MG/250 ML IVPB IV SCH (11:52)
[2018-09-07] MEDS: Glucophage 500 MG PO SCH ×2 (11:58→16:37)
[2018-09-07] MEDS: Klor Con 10 MEQ PO SCH ×4 (12:17→22:06)
--- NOTE | 2018-09-07 12:26 | PCM.NOTE ---
Date and Time: 09/07/18 1221 Subjective Assessment: Called because patient was having vomiting right after getting zofran and then called later because his blood glucose was high and no sliding scale ordered. Patient in with COPD exacerbation and extensive history of copd and sees Dr. Lazo. Asked for consult from Dr. Lazo but he is not available and covering business continuity manager won't come to [facility] and says he would need to be tranferred to [facility] to be seen. Patient states he wouldn't consider going to [facility] and if he needs transferred, he would want to go to [place]. Patient reports very short of breath on admission and headache x 5 days. No fever. He reports no nausea now and is eating salad and chicken for lunch. RT called and he has not had a blood gas on this admit. They report he is due for a treatment but they waited as he was eating lunch. Objective Exam General Appearance: other (friend at bedside; mild dyspnea; sitting up eating lunch) Neurologic Exam: alert, cooperative Skin Exam: normal color, warm, dry Respiratory Exam: other (poor air exchange, few scattered wheezes, no crackles, no retractions; on 4.5 L Nasal cannula) Cardiovascular Exam: regular rate/rhythm, No murmur, No friction rub, No gallop OBJECTIVE DATA Vital Signs: Vital Signs - 24 hr Temp Pulse Resp BP Pulse Ox 09/07/18 11:18 97.8 F 55 L 20 98/52 96 09/07/18 08:00 20 09/07/18 07:23 97.8 F 72 18 134/80 98 09/07/18 07:16 68 18 99 09/07/18 04:12 98.4 F 66 17 136/63 99 09/07/18 02:46 62 22 92 L 09/06/18 23:39 98.3 F 84 19 146/68 92 L 09/06/18 22:25 89 24 93 L 09/06/18 20:36 98.3 F 98 H 24 125/59 92 L 09/06/18 20:31 97 H 23 92 L 09/06/18 18:50 97 H 24 136/55 98 09/06/18 18:24 96 09/06/18 18:16 93 H 26 H 145/69 96 09/06/18 17:25 101 H 24 96 09/06/18 17:22 97 02/19/19 17:14 89 22 154/77 96 09/06/18 16:25 97.9 F 93 H 26 H 146/67 96 Oxygen-Last 24 hours O2 Percentage 4 Liters = 36% O2 Percentage 6 Liters = 44% O2 Percentage 5 Liters = 40% O2 Percentage 4 Liters = 36% O2 Percentage 4 Liters = 36% O2 Percentage 4 Liters = 36% O2 Percentage 4 Liters = 36% O2 Percentage 4 Liters = 36% O2 Percentage 4 Liters = 36% Oxygen Flowrate (L/min)-RT 4 Pain Assessment - Last Documented Pain Intensity 5 Pain Scale Used 0-10 Pain Scale Intake and Output: Intake & Output 09/05/18 09/06/18 09/07/18 09/08/18 06:59 06:59 06:59 06:59 Intake Total 1200 300 Output Total 500 Balance 700 300 Weight 88.5 kg Lab Results: Accuchecks Date 09/07/18 Date 09/07/18 Time 11:30 Time 11:30 Accucheck Value: 207 Accucheck Value: 224 Lab Results-Last 24 Hours 09/06/18 09/06/18 09/06/18 Range/Units 00:10 17:00 17:00 WBC 5.3 (4.0-10.5) K/mm3 RBC 4.35 (4.1-5.6) M/mm3 Hgb 13.9 (12.5-18.0) gm/dl Hct 43.9 (42-50) % MCV 100.9 H (78-100) fl MCH 32.0 (26-32) pg MCHC 31.7 L (32-36) g/dl RDW 13.6 (11.5-14.0) % Plt Count 329 (150-450) K/mm3 MPV 9.1 (6-9.5) fl Gran % 71.1 H (36.0-66.0) % Eos # (Auto) 0.04 (0-0.5) Absolute Lymphs (auto) 0.61 L (1.0-4.6) Absolute Monos (auto) 0.86 (0.0-1.3) Lymphocytes % 11.6 L (24.0-44.0) % Monocytes % 16.3 H (0.0-12.0) % Eosinophils % 0.8 (0.00-5.0) % Basophils % 0.2 (0.0-0.4) % Absolute Granulocytes 3.76 (1.4-6.9) Basophils # 0.01 (0-0.4) Sodium 141 (137-145) mmol/L Potassium 2.7 L* (3.5-5.1) mmol/L Chloride 88 L (98-107) mmol/L Carbon Dioxide 39 H (22-30) mmol/L Anion Gap 16.7 H (5-15) MEQ/L BUN 15 (9-20) mg/dL Creatinine 0.88 (0.66-1.25) mg/dL Estimated GFR > 60.0 ML/MIN Glucose 119 H (74-106) mg/dL Hemoglobin A1c (4.5-6.0) % Lactic Acid (0.4-2.0) Calcium 9.0 (8.4-10.2) mg/dL Magnesium (1.6-2.3) mg/dL Total Bilirubin 0.70 (0.2-1.3) mg/dL AST 48 (17-59) U/L ALT 42 (0-50) U/L Alkaline Phosphatase 108 (38-126) U/L Troponin I < 0.012 (0.000-0.034) ng/mL NT-Pro-B Natriuret Pep 41.4 (0-900) pg/mL Serum Total Protein 8.1 (6.3-8.2) g/dL Albumin 4.7 (3.5-5.0) g/dL Influenza Type A Ag (NEGATIVE) Influenza Type B Ag (NEGATIVE) RSV (PCR) (Negative) 09/06/18 09/06/18 09/06/18 Range/Units 17:00 17:14 17:15 WBC (4.0-10.5) K/mm3 RBC (4.1-5.6) M/mm3 Hgb (12.5-18.0) gm/dl Hct (42-50) % MCV (78-100) fl MCH (26-32) pg MCHC (32-36) g/dl RDW (11.5-14.0) % Plt Count (150-450) K/mm3 MPV (6-9.5) fl Gran % (36.0-66.0) % Eos # (Auto) (0-0.5) Absolute Lymphs (auto) (1.0-4.6) Absolute Monos (auto) (0.0-1.3) Lymphocytes % (24.0-44.0) % Monocytes % (0.0-12.0) % Eosinophils % (0.00-5.0) % Basophils % (0.0-0.4) % Absolute Granulocytes (1.4-6.9) Basophils # (0-0.4) Sodium (137-145) mmol/L Potassium (3.5-5.1) mmol/L Chloride (98-107) mmol/L Carbon Dioxide (22-30) mmol/L Anion Gap (5-15) MEQ/L BUN (9-20) mg/dL Creatinine (0.66-1.25) mg/dL Estimated GFR ML/MIN Glucose (74-106) mg/dL Hemoglobin A1c (4.5-6.0) % Lactic Acid 1.3 (0.4-2.0) Calcium (8.4-10.2) mg/dL Magnesium (1.6-2.3) mg/dL Total Bilirubin (0.2-1.3) mg/dL AST (17-59) U/L ALT (0-50) U/L Alkaline Phosphatase (38-126) U/L Troponin I < 0.012 (0.000-0.034) ng/mL NT-Pro-B Natriuret Pep (0-900) pg/mL Serum Total Protein (6.3-8.2) g/dL Albumin (3.5-5.0) g/dL Influenza Type A Ag NEGATIVE (NEGATIVE) Influenza Type B Ag NEGATIVE (NEGATIVE) RSV (PCR) NEGATIVE (Negative) 09/06/18 09/07/18 09/07/18 Range/Units 21:00 00:10 02:30 WBC (4.0-10.5) K/mm3 RBC (4.1-5.6) M/mm3 Hgb (12.5-18.0) gm/dl Hct (42-50) % MCV (78-100) fl MCH (26-32) pg MCHC (32-36) g/dl RDW (11.5-14.0) % Plt Count (150-450) K/mm3 MPV (6-9.5) fl Gran % (36.0-66.0) % Eos # (Auto) (0-0.5) Absolute Lymphs (auto) (1.0-4.6) Absolute Monos (auto) (0.0-1.3) Lymphocytes % (24.0-44.0) % Monocytes % (0.0-12.0) % Eosinophils % (0.00-5.0) % Basophils % (0.0-0.4) % Absolute Granulocytes (1.4-6.9) Basophils # (0-0.4) Sodium (137-145) mmol/L Potassium 3.3 L D (3.5-5.1) mmol/L Chloride (98-107) mmol/L Carbon Dioxide (22-30) mmol/L Anion Gap (5-15) MEQ/L BUN (9-20) mg/dL Creatinine (0.66-1.25) mg/dL Estimated GFR ML/MIN Glucose (74-106) mg/dL Hemoglobin A1c (4.5-6.0) % Lactic Acid (0.4-2.0) Calcium (8.4-10.2) mg/dL Magnesium (1.6-2.3) mg/dL Total Bilirubin (0.2-1.3) mg/dL AST (17-59) U/L ALT (0-50) U/L Alkaline Phosphatase (38-126) U/L Troponin I < 0.012 < 0.012 (0.000-0.034) ng/mL NT-Pro-B Natriuret Pep (0-900) pg/mL Serum Total Protein (6.3-8.2) g/dL Albumin (3.5-5.0) g/dL Influenza Type A Ag (NEGATIVE) Influenza Type B Ag (NEGATIVE) RSV (PCR) (Negative) 09/07/18 09/07/18 09/07/18 Range/Units 05:33 05:33 05:33 WBC 5.0 (4.0-10.5) K/mm3 RBC 3.95 L (4.1-5.6) M/mm3 Hgb 13.0 (12.5-18.0) gm/dl Hct 39.6 L (42-50) % MCV 100.3 H (78-100) fl MCH 32.9 H (26-32) pg MCHC 32.8 (32-36) g/dl RDW 13.5 (11.5-14.0) % Plt Count 293 (150-450) K/mm3 MPV 9.0 (6-9.5) fl Gran % (36.0-66.0) % Eos # (Auto) (0-0.5) Absolute Lymphs (auto) (1.0-4.6) Absolute Monos (auto) (0.0-1.3) Lymphocytes % (24.0-44.0) % Monocytes % (0.0-12.0) % Eosinophils % (0.00-5.0) % Basophils % (0.0-0.4) % Absolute Granulocytes (1.4-6.9) Basophils # (0-0.4) Sodium 137 (137-145) mmol/L Potassium 3.9 (3.5-5.1) mmol/L Chloride 86 L (98-107) mmol/L Carbon Dioxide 39 H (22-30) mmol/L Anion Gap 15.9 H (5-15) MEQ/L BUN 17 (9-20) mg/dL Creatinine 0.80 (0.66-1.25) mg/dL Estimated GFR > 60.0 ML/MIN Glucose 234 H (74-106) mg/dL Hemoglobin A1c (4.5-6.0) % Lactic Acid (0.4-2.0) Calcium 8.5 (8.4-10.2) mg/dL Magnesium (1.6-2.3) mg/dL Total Bilirubin (0.2-1.3) mg/dL AST (17-59) U/L ALT (0-50) U/L Alkaline Phosphatase (38-126) U/L Troponin I < 0.012 (0.000-0.034) ng/mL NT-Pro-B Natriuret Pep (0-900) pg/mL Serum Total Protein (6.3-8.2) g/dL Albumin (3.5-5.0) g/dL Influenza Type A Ag (NEGATIVE) Influenza Type B Ag (NEGATIVE) RSV (PCR) (Negative) 09/07/18 09/07/18 Range/Units 05:33 05:33 WBC (4.0-10.5) K/mm3 RBC (4.1-5.6) M/mm3 Hgb (12.5-18.0) gm/dl Hct (42-50) % MCV (78-100) fl MCH (26-32) pg MCHC (32-36) g/dl RDW (11.5-14.0) % Plt Count (150-450) K/mm3 MPV (6-9.5) fl Gran % (36.0-66.0) % Eos # (Auto) (0-0.5) Absolute Lymphs (auto) (1.0-4.6) Absolute Monos (auto) (0.0-1.3) Lymphocytes % (24.0-44.0) % Monocytes % (0.0-12.0) % Eosinophils % (0.00-5.0) % Basophils % (0.0-0.4) % Absolute Granulocytes (1.4-6.9) Basophils # (0-0.4) Sodium (137-145) mmol/L Potassium (3.5-5.1) mmol/L Chloride (98-107) mmol/L Carbon Dioxide (22-30) mmol/L Anion Gap (5-15) MEQ/L BUN (9-20) mg/dL Creatinine (0.66-1.25) mg/dL Estimated GFR ML/MIN Glucose (74-106) mg/dL Hemoglobin A1c 6.92 H (4.5-6.0) % Lactic Acid (0.4-2.0) Calcium (8.4-10.2) mg/dL Magnesium 1.7 (1.6-2.3) mg/dL Total Bilirubin (0.2-1.3) mg/dL AST (17-59) U/L ALT (0-50) U/L Alkaline Phosphatase (38-126) U/L Troponin I (0.000-0.034) ng/mL NT-Pro-B Natriuret Pep (0-900) pg/mL Serum Total Protein (6.3-8.2) g/dL Albumin (3.5-5.0) g/dL Influenza Type A Ag (NEGATIVE) Influenza Type B Ag (NEGATIVE) RSV (PCR) (Negative) Radiology Exams: Radiology Procedures Category Date Time Status CHEST 2 VIEWS (PA AND LAT) Stat Exams 09/06/18 17:02 Completed HEAD WITHOUT CONTRAST [CT] Stat Exams 09/06/18 19:49 Completed Assessment/Plan (1) COPD with exacerbation Current Visit: Yes Status: Acute Onset Date: ~03/22/18 Assessment & Plan: Continue IV antibiotics; IV steroids; oxygen; breathing treatments; his business continuity manager is not available and covering business continuity manager will not come to [facility]. Code(s): J44.1 - CHRONIC OBSTRUCTIVE PULMONARY DISEASE W (ACUTE) EXACERBATION (2) Headache Current Visit: Yes Status: Acute Assessment & Plan: In NAD at this time and no fever. Continue with pain control. STeroids may help too. May be due to severe copd and hypoxia. Code(s): R51 - HEADACHE (3) Chronic respiratory failure with hypoxia and hypercapnia Current Visit: No Status: Acute Onset Date: ~03/22/18 Assessment & Plan: Continue with oxygen. Overall prognosis is guarded and poor given multiple health problems and end starge copd Code(s): J96.11 - CHRONIC RESPIRATORY FAILURE WITH HYPOXIA; J96.12 - CHRONIC RESPIRATORY FAILURE WITH HYPERCAPNIA (4) Hypokalemia Current Visit: Yes Status: Acute Assessment & Plan: Resolved with replacement and magnesium level ordered and normal. Code(s): E87.6 - HYPOKALEMIA (5) Diabetes mellitus with hyperglycemia Current Visit: Yes Status: Acute Qualifiers: Diabetes mellitus type: type 2 Diabetes mellitus longwall headgate operator insulin use: without assisted use Qualified Code(s): E11.65 - Type 2 diabetes mellitus with hyperglycemia Assessment & Plan: Add low dose sliding scale of insulin. Code(s): E11.65 - TYPE 2 DIABETES MELLITUS WITH HYPERGLYCEMIA (6) DANIEL (obstructive sleep apnea) Current Visit: Yes Status: Acute Assessment & Plan: Continue CPAP at night. Code(s): G47.33 - OBSTRUCTIVE SLEEP APNEA (ADULT) (PEDIATRIC) (7) Nausea & vomiting Current Visit: Yes Status: Acute Assessment & Plan: Continue zofran and phenergan as needed. Code(s): R11.2 - NAUSEA WITH VOMITING, UNSPECIFIED
[2018-09-07] MEDS: Sodium Chloride 0.9% 10 ML FLUSH Syringe IV SCH ×2 (15:01→22:05)
[2018-09-07] MEDS: PATIENT OWN MEDICATION PO SCH (16:37)
[2018-09-07] MEDS: Flonase NASAL NS SCH (22:04)
[2018-09-07] MEDS: Avodart 0.5 MG PO SCH (22:04)
[2018-09-07] MEDS: ZOCOR 20MG PO SCH (22:05)
[2018-09-07] MEDS: NovoLOG Insulin SQ PRN (22:09)
[2018-09-08] MEDS: PROVENTIL 2.5 MG/3 ML NEB IH SCH ×6 (03:20→23:22)
[2018-09-08] MEDS: Sodium Chloride 0.9% 10 ML FLUSH Syringe IV SCH ×3 (05:11→21:47)
[2018-09-08] MEDS: solu-MEDROL 125 MG IV SCH ×3 (05:11→17:34)
[2018-09-08 05:39] LABS: BASOPHIL % 0.1 % (0.0-0.4); Basophil (Absolute #) 0.01 (0-0.4); Eosinophil (Absolute #) 0 (0-0.5); Granulocytes % 81.9 % (36.0-66.0); Lymphocyte (Absolute #) 0.85 (1.0-4.6); Lymphocytes % 10.7 % (24.0-44.0); Mean Corpuscular Hgb Concent. 31.7 g/dl (32-36); Mean Platelet Volume 9.2 fl (6-9.5); Monocyte (Absolute #) 0.58 (0.0-1.3); Monocytes % 7.3 % (0.0-12.0); Platelet Count 323 K/mm3 (150-450); Red Blood Count 4.06 M/mm3 (4.1-5.6); Red Cell Distribution Width 13.5 % (11.5-14.0); White Blood Count 7.9 K/mm3 (4.0-10.5)
[2018-09-08 06:24] LABS: BLOOD UREA NITROGEN 28 mg/dL (9-20); CHLORIDE 87 mmol/L (98-107); Calcium 8.7 mg/dL (8.4-10.2); Creatinine 1 0.83 mg/dL (0.66-1.25); Glucose 231 mg/dL (74-106); Potassium 3.8 mmol/L (3.5-5.1); SODIUM 140 mmol/L (137-145)
[2018-09-08 06:31] LABS: Carbon Dioxide 38 mmol/L (22-30)
[2018-09-08] MEDS: Advair Hfa 230/21 Mcg COMMON CANISTER IH SCH ×2 (06:48→19:21)
[2018-09-08] MEDS: Spiriva 18 Mcg/Cap Inhaler IH SCH (06:50)
[2018-09-08 06:54] LABS: ANION GAP 18.8 MEQ/L (5-15)
[2018-09-08] MEDS: Klor Con 10 MEQ PO SCH ×5 (07:55→22:03)
[2018-09-08] MEDS: Glucophage 500 MG PO SCH ×2 (07:56→16:48)
[2018-09-08] MEDS: LOPID 600 MG PO SCH ×2 (07:57→16:48)
[2018-09-08] MEDS: NovoLOG Insulin SQ PRN ×4 (07:58→21:49)
--- NOTE | 2018-09-08 09:09 | PCM.NOTE ---
Date and Time: 09/08/18903 Subjective Assessment: Patient reports that his headache is better but that RT was in and out of his room all night trying to keep his oxygen saturations up. He reports his blood glucoses are always high when he is in the hospital. RT reports they think he may need a new sleep study and they had trouble keeping his O2 sats up last night with the nasal face mask and switched him to a full face mask. Objective Exam General Appearance: no apparent distress, alert Neurologic Exam: alert, cooperative, normal mood/affect Skin Exam: normal color, warm, dry, No rash Respiratory Exam: other (prolonged expirations with wheezing throughout, distant breath sounds), No respiratory distress, No crackles/rales, No rhonchi, No stridor Cardiovascular Exam: regular rate/rhythm, normal heart sounds, No murmur, No friction rub, No gallop Gastrointestinal/Abdomen Exam: soft, normal bowel sounds, No tenderness, No distention, No mass Extremity Exam: normal inspection, other (no c/c/e) OBJECTIVE DATA Vital Signs: Vital Signs - 24 hr Temp Pulse Resp BP Pulse Ox 09/08/18 08:00 96 F 80 24 128/60 94 L 09/08/18 07:23 78 22 93 L 09/08/18 04:08 97.0 F 57 L 16 131/67 93 L 09/08/18 03:20 56 L 22 89 L 09/08/18 00:00 98.3 F 56 L 22 124/65 91 L 09/07/18 22:55 67 22 95 09/07/18 20:15 97.7 F 81 24 129/62 95 09/07/18 20:14 82 22 96 09/07/18 16:33 97.6 F 65 20 114/56 97 09/07/18 16:00 18 09/07/18 15:26 57 L 18 95 09/07/18 12:26 55 L 18 95 09/07/18 12:00 20 09/07/18 11:18 97.8 F 55 L 20 98/52 96 Oxygen-Last 24 hours O2 Percentage 3 Liters = 32% O2 Percentage 4 Liters = 36% O2 Percentage 3 Liters = 32% O2 Percentage 4 Liters = 36% Oxygen Flowrate (L/min)-RT 9 Pain Assessment - Last Documented Pain Intensity 2 Pain Scale Used 0-10 Pain Scale Intake and Output: Intake & Output 09/06/18 09/07/18 09/08/18 09/09/18 06:59 06:59 06:59 06:59 Intake Total 1200 1473 Output Total 500 2325 Balance 700 -852 Weight 88.5 kg 88.5 kg Lab Results: Accuchecks Date 09/07/18 Date 09/07/18 Date 09/07/18 Time 16:30 Time 11:30 Time 11:30 Accucheck Value: 256 Accucheck Value: 139 Accucheck Value: 207 Accucheck Value: 224 Lab Results-Last 24 Hours 09/07/18 09/07/18 09/08/18 Range/Units 05:33 05:33 05:25 WBC 7.9 (4.0-10.5) K/mm3 RBC 4.06 L (4.1-5.6) M/mm3 Hgb 13.0 (12.5-18.0) gm/dl Hct 41.0 L (42-50) % MCV 101.0 H (78-100) fl MCH 32.0 (26-32) pg MCHC 31.7 L (32-36) g/dl RDW 13.5 (11.5-14.0) % Plt Count 323 (150-450) K/mm3 MPV 9.2 (6-9.5) fl Gran % 81.9 H (36.0-66.0) % Eos # (Auto) 0 (0-0.5) Absolute Lymphs (auto) 0.85 L (1.0-4.6) Absolute Monos (auto) 0.58 (0.0-1.3) Lymphocytes % 10.7 L (24.0-44.0) % Monocytes % 7.3 (0.0-12.0) % Eosinophils % 0.0 (0.00-5.0) % Basophils % 0.1 (0.0-0.4) % Absolute Granulocytes 6.50 (1.4-6.9) Basophils # 0.01 (0-0.4) Sodium (137-145) mmol/L Potassium (3.5-5.1) mmol/L Chloride (98-107) mmol/L Carbon Dioxide (22-30) mmol/L Anion Gap (5-15) MEQ/L BUN (9-20) mg/dL Creatinine (0.66-1.25) mg/dL Estimated GFR ML/MIN Glucose (74-106) mg/dL Hemoglobin A1c 6.92 H (4.5-6.0) % Calcium (8.4-10.2) mg/dL Magnesium 1.7 (1.6-2.3) mg/dL 09/08/18 Range/Units 05:25 WBC (4.0-10.5) K/mm3 RBC (4.1-5.6) M/mm3 Hgb (12.5-18.0) gm/dl Hct (42-50) % MCV (78-100) fl MCH (26-32) pg MCHC (32-36) g/dl RDW (11.5-14.0) % Plt Count (150-450) K/mm3 MPV (6-9.5) fl Gran % (36.0-66.0) % Eos # (Auto) (0-0.5) Absolute Lymphs (auto) (1.0-4.6) Absolute Monos (auto) (0.0-1.3) Lymphocytes % (24.0-44.0) % Monocytes % (0.0-12.0) % Eosinophils % (0.00-5.0) % Basophils % (0.0-0.4) % Absolute Granulocytes (1.4-6.9) Basophils # (0-0.4) Sodium 140 (137-145) mmol/L Potassium 3.8 (3.5-5.1) mmol/L Chloride 87 L (98-107) mmol/L Carbon Dioxide 38 H (22-30) mmol/L Anion Gap 18.8 H (5-15) MEQ/L BUN 28 H (9-20) mg/dL Creatinine 0.83 (0.66-1.25) mg/dL Estimated GFR > 60.0 ML/MIN Glucose 231 H (74-106) mg/dL Hemoglobin A1c (4.5-6.0) % Calcium 8.7 (8.4-10.2) mg/dL Magnesium (1.6-2.3) mg/dL Radiology Exams: Radiology Procedures Category Date Time Status CHEST 2 VIEWS (PA AND LAT) Stat Exams 09/06/18 17:02 Completed HEAD WITHOUT CONTRAST [CT] Stat Exams 09/06/18 19:49 Completed Assessment/Plan (1) COPD with exacerbation Current Visit: Yes Status: Acute Onset Date: ~03/22/18 Assessment & Plan: Continue IV steroids, IV antibiotics, Oxygen, breathing treatments. He will need to follow up with his pulmonololgist as an outpatient. Code(s): J44.1 - CHRONIC OBSTRUCTIVE PULMONARY DISEASE W (ACUTE) EXACERBATION (2) Headache Current Visit: Yes Status: Acute Assessment & Plan: Improving. Patient states this is day 7 for his headache. Code(s): R51 - HEADACHE (3) Chronic respiratory failure with hypoxia and hypercapnia Current Visit: No Status: Acute Onset Date: ~03/22/18 Assessment & Plan: Overall prognosis is guarded and poor due to severity of COPD and multiple medical problems. Code(s): J96.11 - CHRONIC RESPIRATORY FAILURE WITH HYPOXIA; J96.12 - CHRONIC RESPIRATORY FAILURE WITH HYPERCAPNIA (4) Diabetes mellitus with hyperglycemia Current Visit: Yes Status: Acute Qualifiers: Diabetes mellitus type: type 2 Diabetes mellitus jail insulin use: without jail use Qualified Code(s): E11.65 - Type 2 diabetes mellitus with hyperglycemia Assessment & Plan: Due to IV steroids. Continue with sliding scale. Will had 10 units of long acting insulin daily also to try to help. Code(s): E11.65 - TYPE 2 DIABETES MELLITUS WITH HYPERGLYCEMIA (5) DANIEL (obstructive sleep apnea) Current Visit: Yes Status: Acute Assessment & Plan: Continue CPAP at night. Code(s): G47.33 - OBSTRUCTIVE SLEEP APNEA (ADULT) (PEDIATRIC) (6) Nausea & vomiting Current Visit: Yes Status: Resolved Assessment & Plan: No vomiting today. Code(s): R11.2 - NAUSEA WITH VOMITING, UNSPECIFIED
[2018-09-08] MEDS: ROCEPHIN 1 Gm-D5w 50 ml Bag** 1 G/50 ML IVPB IV SCH (10:49)
[2018-09-08] MEDS: Maxzide-25MG Tablet PO SCH (10:51)
[2018-09-08] MEDS: ECOTRIN 81 MG PO SCH (10:51)
[2018-09-08] MEDS: CLARITIN 10 MG PO SCH (10:51)
[2018-09-08] MEDS: Protonix 40MG Tablet PO SCH ×2 (10:52→21:47)
[2018-09-08] MEDS: FISH OIL 1,000 MG CAPSULE PO SCH ×3 (10:52→21:46)
[2018-09-08] MEDS: Flomax 0.4 MG PO SCH ×2 (10:52→21:46)
[2018-09-08] MEDS: THERAGRAN MULTIVITAMIN PO SCH (10:53)
[2018-09-08] MEDS: Lasix 40 MG PO SCH ×3 (10:53→21:46)
[2018-09-08] MEDS: NEURONTIN 300 MG PO SCH ×3 (10:54→21:47)
[2018-09-08] MEDS: Lopressor 50 MG PO SCH ×2 (10:54→21:46)
[2018-09-08] MEDS: ENOXAPARIN SODIUM SQ SCH (10:56)
[2018-09-08] MEDS: Patanol 1% OPHTHALMIC OP SCH (10:57)
[2018-09-08] MEDS: Lantus Insulin SQ SCH (10:58)
[2018-09-08] MEDS: Zithromax 500 MG/ 250 ML NaCl Premix 500 MG/250 ML IVPB IV SCH (11:07)
[2018-09-08] MEDS: Vitamin B-6 (Pyridoxine) 100 MG PO SCH (11:07)
[2018-09-08] MEDS: Flonase NASAL NS SCH ×2 (11:22→21:47)
[2018-09-08] MEDS ORDERED: OCEAN Nasal Spray NS PRN ×2 (12:11→14:15)
[2018-09-08] MEDS: PATIENT OWN MEDICATION PO SCH (16:49)
[2018-09-08] MEDS: Avodart 0.5 MG PO SCH (21:46)
[2018-09-08] MEDS: ZOCOR 20MG PO SCH (22:02)
[2018-09-09] MEDS: solu-MEDROL 125 MG IV SCH ×5 (00:17→23:40)
[2018-09-09] MEDS: PROVENTIL 2.5 MG/3 ML NEB IH SCH ×6 (03:01→23:03)
[2018-09-09] MEDS: Sodium Chloride 0.9% 10 ML FLUSH Syringe IV SCH ×3 (05:10→21:57)
[2018-09-09] MEDS: Advair Hfa 230/21 Mcg COMMON CANISTER IH SCH ×2 (07:08→19:22)
[2018-09-09] MEDS: Spiriva 18 Mcg/Cap Inhaler IH SCH (07:08)
[2018-09-09] MEDS: LOPID 600 MG PO SCH ×2 (07:51→16:43)
[2018-09-09] MEDS: Glucophage 500 MG PO SCH ×2 (07:51→16:42)
[2018-09-09] MEDS: Klor Con 10 MEQ PO SCH ×5 (07:53→22:50)
[2018-09-09] MEDS: NovoLOG Insulin SQ PRN ×3 (07:57→22:51)
[2018-09-09] MEDS ORDERED: PHARMACY DOSING REQUEST MC ONE (07:59)
[2018-09-09] MEDS: ROCEPHIN 1 Gm-D5w 50 ml Bag** 1 G/50 ML IVPB IV SCH (10:02)
[2018-09-09] MEDS: CLARITIN 10 MG PO SCH (10:09)
[2018-09-09] MEDS: FISH OIL 1,000 MG CAPSULE PO SCH ×3 (10:10→21:55)
[2018-09-09] MEDS: Lopressor 50 MG PO SCH ×2 (10:10→21:56)
[2018-09-09] MEDS: Flomax 0.4 MG PO SCH ×2 (10:11→21:55)
[2018-09-09] MEDS: NEURONTIN 300 MG PO SCH ×3 (10:11→21:56)
[2018-09-09] MEDS: Maxzide-25MG Tablet PO SCH (10:11)
[2018-09-09] MEDS: Lasix 40 MG PO SCH ×3 (10:11→18:00)
[2018-09-09] MEDS: THERAGRAN MULTIVITAMIN PO SCH (10:14)
[2018-09-09] MEDS: Singulair 10 MG PO SCH (10:14)
[2018-09-09] MEDS: THEOPHYLLINE ER 24HR PO SCH (10:14)
[2018-09-09] MEDS: Vitamin B-6 (Pyridoxine) 100 MG PO SCH (10:15)
[2018-09-09] MEDS: ECOTRIN 81 MG PO SCH (10:15)
[2018-09-09] MEDS: ENOXAPARIN SODIUM SQ SCH (10:19)
[2018-09-09] MEDS: Protonix 40MG Tablet PO SCH ×2 (10:21→21:56)
[2018-09-09] MEDS: Patanol 1% OPHTHALMIC OP SCH (10:21)
[2018-09-09] MEDS: Lantus Insulin SQ SCH (10:32)
[2018-09-09] MEDS: Zithromax 500 MG/ 250 ML NaCl Premix 500 MG/250 ML IVPB IV SCH (10:36)
[2018-09-09] MEDS: PATIENT OWN MEDICATION PO SCH (16:44)
[2018-09-09] MEDS: Avodart 0.5 MG PO SCH (21:55)
[2018-09-09] MEDS: ZOCOR 20MG PO SCH (21:56)
[2018-09-09] MEDS: Flonase NASAL NS SCH (22:07)
[2018-09-10] MEDS: PROVENTIL 2.5 MG/3 ML NEB IH SCH ×3 (03:21→10:45)
[2018-09-10] MEDS: solu-MEDROL 125 MG IV SCH (05:52)
[2018-09-10] MEDS: Lasix 40 MG PO SCH (05:52)
[2018-09-10] MEDS: Sodium Chloride 0.9% 10 ML FLUSH Syringe IV SCH (05:53)
[2018-09-10] MEDS: Spiriva 18 Mcg/Cap Inhaler IH SCH (06:36)
[2018-09-10] MEDS: Advair Hfa 230/21 Mcg COMMON CANISTER IH SCH (06:36)
[2018-09-10] MEDS: LOPID 600 MG PO SCH (06:47)
[2018-09-10] MEDS: Klor Con 10 MEQ PO SCH ×2 (06:47→09:56)
[2018-09-10 07:09] VITALS: BP 134/65
[2018-09-10] MEDS: NovoLOG Insulin SQ PRN (07:59)
[2018-09-10] MEDS: Glucophage 500 MG PO SCH (07:59)
[2018-09-10] MEDS: THERAGRAN MULTIVITAMIN PO SCH (09:16)
[2018-09-10] MEDS: Patanol 1% OPHTHALMIC OP SCH (09:16)
[2018-09-10] MEDS: ROCEPHIN 1 Gm-D5w 50 ml Bag** 1 G/50 ML IVPB IV SCH (09:16)
[2018-09-10] MEDS: Maxzide-25MG Tablet PO SCH (09:16)
[2018-09-10] MEDS: NEURONTIN 300 MG PO SCH (09:17)
[2018-09-10] MEDS: ENOXAPARIN SODIUM SQ SCH (09:17)
[2018-09-10] MEDS: Lantus Insulin SQ SCH (09:17)
[2018-09-10] MEDS: Protonix 40MG Tablet PO SCH (09:17)
[2018-09-10] MEDS: Lopressor 50 MG PO SCH (09:17)
[2018-09-10] MEDS: Flomax 0.4 MG PO SCH (09:17)
[2018-09-10] MEDS: Singulair 10 MG PO SCH (09:17)
[2018-09-10] MEDS: FISH OIL 1,000 MG CAPSULE PO SCH (09:17)
[2018-09-10] MEDS: ECOTRIN 81 MG PO SCH (09:17)
[2018-09-10] MEDS: CLARITIN 10 MG PO SCH (09:17)
[2018-09-10] MEDS: Vitamin B-6 (Pyridoxine) 100 MG PO SCH (09:18)
[2018-09-10] MEDS: THEOPHYLLINE ER 24HR PO SCH (09:18)
[2018-09-10] MEDS: Zithromax 500 MG/ 250 ML NaCl Premix 500 MG/250 ML IVPB IV SCH (09:55)
--- NOTE | 2018-09-10 10:23 | PCM.DCORD ---
- Discharge Discharge Date: 09/10/18 Prescriptions: New Theophylline Anhydrous [Theophylline ER 24Hr] 400 mg PO DAILY #30 tab.er.24h Prednisone 20 mg [Deltasone 20 mg] 20 mg PO DAILY #30 tablet Levofloxacin [Levaquin] 500 mg PO DAILY #7 tablet Continue Metformin HCl 500 mg [Glucophage 500 MG] 1 tab PO BID Gabapentin 300 mg [Neurontin 300 mg] 300 mg PO TID Gemfibrozil 600 mg [Lopid 600 mg] 600 mg PO BID Docosahexanoic Acid/Epa [Fish Oil Softgel] 1 tab PO TID Aspirin EC 81 mg [Ecotrin 81 mg] 81 mg PO DAILY Loratadine 10 mg [Claritin 10 mg] 10 mg PO DAILY Nitroglycerin 0.4 mg (Ed) [Nitrostat 0.4 MG (ED)] 0.4 mg SL UD PRN PRN Reason: Chest Pain Multivit-Min/FA/Lycopen/Lutein [Centrum Silver Ultra Men's Tab] 1 tab PO DAILY Budesonide/Formoterol Fumarate [Symbicort 160-4.5 Mcg Inhaler] 1 puff IH BID Albuterol 2.5 mg/3 ml Neb [Proventil 2.5 mg/3 ml Neb] 2.5 mg IH HS Potassium Chloride 20 Meq [Klor-Con 20 MEQ] 20 meq PO 5XD Simvastatin 40 mg [Zocor 40 mg] 40 mg PO DAILY Fluticasone Propionate [Flonase Allergy Relief] 1 spray INTRANASAL HS Albuterol Sulfate [Ventolin Hfa] 18 gm IH Q4H PRN PRN Reason: Shortness Of Breath Polyethylene Glycol 3350 17 gm [Miralax Powder 17GM PACKET] 17 gm PO BID PRN PRN Reason: Constipation B6/mg/Turm/Haley/Anis/Gar/Gin/Sp [Morning Sickless Combo Pack] 1 each PO DAILY Imatinib Mesylate 400 mg PO DAILY Metoprolol Tartrate 50 mg PO BID Dutasteride 0.5 MG [Avodart 0.5 MG] 0.5 mg PO HS Tamsulosin HCl 0.4 mg [Flomax 0.4 MG] 0.4 mg PO BID Triamterene/Hydrochlorothiazid [Triamterene-Hctz 37.5-25 mg Tb] 1 each PO DAILY Omeprazole 20 MG [Prilosec 20 mg] 20 mg PO BID Hydrocodone/Acetaminophen [[place] 5-325 Tablet] 1 each PO Q6H PRN PRN Reason: Pain Furosemide 20 mg [Lasix 20 mg] 40 mg PO TID Olopatadine HCl 1 drop OP DAILY metOLazone [Metolazone] 1 tablet PO UD Follow up with: MICHELINE OFRTUNE [Primary Care Provider] - 09/16/18 9:45 am
[2018-09-10 10:47] VITALS: PULSE 93; O2SAT 95
--- NOTE | 2018-09-12 14:58 | DS ---
DISCHARGE DIAGNOSES: 1) STREPTOCOCCAL PNEUMONIAE. 2) CHRONIC OBSTRUCTIVE PULMONARY DISEASE, ACUTE EXACERBATION OF HYPOXIA. 3) ENDSTAGE LUNG DISEASE. HOSPITAL COURSE: The patient is a 67 year-old white male patient who had increasing shortness of breath that was quite extreme by the time he reached the emergency room having difficulty talking more than three or words in a sentence. Dyspneic on even walking to the bathroom from the bed. Patient was admitted to the hospital on IV steroids, IV antibiotics, nebulizer treatments. He was given Rocephin and Zithromax. He was slow to improve. On 09/09/2018, we added theophylline which afterwards the patient had marked improvement. The patient was felt to be finally ready for discharge home on the morning of 09/10/2018. He was discharged home on prednisone at 60 mg for five days tapering to 40 and then 20 over five days each. He was given doxycycline 100 mg b.i.d. for the antibiotic of choice as he has allergies to clarithromycin, Clindamycin and amoxicillin. The patient's laboratory studies report was the positive response of streptococcus pneumonia 3+ numerous and a second yeast species present in the sputum. His white blood cell count was essentially normal through his stay. His hemoglobin was normal. His PLT counts were normal. He did have an episode of hypokalemia which is resolved with potassium supplements. On 09/08/2018, his sugars measured 231 and BUN 28, creatinine 0.83. Electrolytes were essentially normal. His x-rays showed hyperinflated lungs with minimal left mid lung fibrosis with scarring and subtle lingular infiltrate. He did complain of headache during his stay which was resolved by the time he began feeling better with treatment and by the time he was discharged home he was essentially pain free. He did have a CT scan of the brain which showed no acute intracranial abnormality. The patient will be sent home on his usual home medications which are listed in the history and physical with the addition of the medication as listed above. He will be seen in the office in one week. He will likely also have a follow up with his pulmonary doctor who has been out of town during his stay.
== END 2018-09-10 11:40 | disposition home or self-care (01) | DRG 194 ==
LOC: ED 16:24 → MED SURG 19:45
PROVIDERS: ADMIT Family Medicine; ATTEND Family Medicine
DX: J15.4 Pneumonia due to other streptococci (principal); J44.1 Chronic obstructive pulmonary disease with (acute) exacerbation; J96.12 Chronic respiratory failure with hypercapnia; R05 Cough; I10 Essential (primary) hypertension; E11.9 Type 2 diabetes mellitus without complications; I45.10 Unspecified right bundle-branch block; Z99.81 Dependence on supplemental oxygen; J96.11 Chronic respiratory failure with hypoxia; E11.65 Type 2 diabetes mellitus with hyperglycemia; R51 Headache; J98.4 Other disorders of lung; E87.6 Hypokalemia; G47.33 Obstructive sleep apnea (adult) (pediatric); C26.9 Malignant neoplasm of ill-defined sites within the digestive system; Z79.84 Long term (current) use of oral hypoglycemic drugs; Z79.899 Other long term (current) drug therapy; R11.2 Nausea with vomiting, unspecified
CPT/HCPCS: 36000; 36415; 70450; 71046; 80048; 80053; 82962; 83036; 83605; 83735; 83880; 84132; 84484; 85025; 85027; 87070; 87077; 87631; 93005; 93041; 94003; 94150; 94640; 94660; 94762; 96365; 96367; 96374; 99285; J0456; J0696; J1650; J2405; J2550; J2930; J3480; J7609; A9270-GY

== ENCOUNTER 2019-07-06 07:37 | Day surgery (SDC) | payer MEDICARE, OTHER ==
[~2019-07-06 07:37] MED LIST: Lactated Ringers 1,000 ML IV ONE; Sensorcaine 0.25% 10 ML ONE
--- NOTE | 2019-07-06 07:45 | HP ---
DATE OF SURGERY: 07/06/2019 ADMISSION DIAGNOSIS: Parastomal hernia. ANTICIPATED PROCEDURE: Repair. HISTORY OF PRESENT ILLNESS: The patient has parastomal hernia and presents for repair. PAST MEDICAL HISTORY: ALLERGIES: NONE. MEDICATIONS: See list. PAST SURGICAL HISTORY: Cancer. SOCIAL HISTORY: Negative. FAMILY HISTORY: Negative. REVIEW OF SYSTEMS: CVS: Negative. PULMONARY: Negative. GI: Ostomy. PHYSICAL EXAMINATION: VITAL SIGNS: Normal. CHEST: Clear. COR: Regular. IMPRESSION: Ostomy has a parastomal hernia. PLAN: Parastomal hernia repair.
[2019-07-06] MEDS ORDERED: Levofloxacin 500MG/100ML D5W 500 MG/100 ML BAG IV ONE ×2 (07:51→07:56)
[2019-07-06] MEDS ORDERED: Lactated Ringers 1,000 ML IV ONE (07:56)
[2019-07-06] MEDS ORDERED: Lactated Ringers 1,000 ML IV SCH (08:00)
[2019-07-06] MEDS ORDERED: Versed 2 MG/2 ML Injection ONE ×2 (09:09→09:36)
[2019-07-06] MEDS ORDERED: SUBLIMAZE 100 MCG/2 ML ONE ×2 (09:09→10:44)
[2019-07-06] MEDS ORDERED: DIPRIVAN 200 MG/20 ML IV ONE ×2 (09:24→09:55)
[2019-07-06] MEDS ORDERED: Xylocaine-Mpf 2% 5 Ml Vial ONE (09:33)
[2019-07-06] MEDS ORDERED: Zofran 4 MG/2 ML VIAL ONE (10:53)
[2019-07-06] MEDS ORDERED: Compazine 10 MG/2 ML IV ONE (11:56)
[2019-07-06] MEDS ORDERED: DILAUDID 1 MG/1ML PCA IV PRN (13:20)
[2019-07-06] MEDS ORDERED: TYLENOL 325 MG PO PRN (13:21)
[2019-07-06] MEDS ORDERED: Zofran 4 MG/2 ML VIAL IVIM PRN (13:22)
[2019-07-06] MEDS ORDERED: FEVERALL 650 MG RC PRN (13:22)
[2019-07-06] MEDS ORDERED: Sodium Chloride 0.9% 1000 ML 1,000 ML IV SCH (13:30)
[2019-07-06] MEDS ORDERED: Miralax Powder 17GM PACKET PO PRN (13:56)
[2019-07-06] MEDS ORDERED: Ventolin Hfa MDI IH PRN (13:56)
--- NOTE | 2019-07-06 13:57 | OP ---
SURGERY DATE/TIME: 07/06/2019 0910 PREOPERATIVE DIAGNOSIS: Parastomal hernia. POSTOPERATIVE DIAGNOSES: Parastomal hernia. PROCEDURES: 1) Parastomal hernia repair with 8 inch resection of large bowel. 2) Ventral herniorrhaphy with no mesh of the parastomal hernia site. 3) Recreation of a new end colostomy. SURGEON: Darrell Stallings M.D. ANESTHESIA: General. COMPLICATIONS: None. CONDITION: Stable. INDICATION: The patient has a very blown out colostomy site. 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 DESCRIPTION OF PROCEDURE: He is taken to surgery. General anesthetic. Routine prep and drape. A circular hole at the ostomy bud and was pulled up. Entry into the abdomen and had cyst at this site. The colon was circumscribed. It was necessary to resect an 8 inch segment of colon. Mesentery was taken with clamps and tied with 2-0 Vicryl. It was transected with HOLLY stapling device. It was oriented at the 12:00 and 6:00 in a vertical-type fashion. The ventral hernia was repaired with loop sutures of 0 PDS from above and below in a vertical-type fashion. The aperture was satisfactory. The ostomy bud was oriented. It was secured to the fascia with eight sutures #3-0 PDS. It was then secured to the subcu with eight sutures of 3-0 PDS and then the ostomy bud was matured. It was necessary to narrow the skin with two sutures of 3-0 PDS on the right lateral corner. Ostomy bud looked satisfactory, was viable. A fresh stoma bag applied. The patient tolerated the procedure satisfactorily. Findings discussed with the family in the waiting room.
[2019-07-06] MEDS ORDERED: Zaroxolyn 2.5 MG PO SCH (14:00)
[2019-07-06] MEDS ORDERED: Nitrostat 0.4 MG Tablet SL PRN (14:14)
[2019-07-06 14:16] LABS: Appearance CLEAR (CLEAR); Bacteria FEW /HPF (NEGATIVE); Bilirubin NEGATIVE (NEGATIVE); Blood NEGATIVE Ery/ul (0-5); Glucose NEGATIVE (NEGATIVE); Ketones NEGATIVE (NEGATIVE); Leukocyte Esterase TRACE (NEGATIVE); Mucus SLIGHT /HPF (NEGATIVE); Nitrite POSITIVE (NEGATIVE); Protein,Urine Dip NEGATIVE (Negative); RBC 0-2 /HPF (0-2); Specific Gravity 1.011 (1.005-1.025); Urobilinogen NEGATIVE mg/dL (0-1)
[2019-07-06] MEDS ORDERED: PROVENTIL COMMON CANISTER IH PRN (14:19)
[2019-07-06] MEDS ORDERED: MEDICATION INTERVENTION MC SCH ×2 (14:30)
[2019-07-06] MEDS ORDERED: MEDICATION INTERVENTION PO SCH ×2 (14:30)
[2019-07-06] MEDS ORDERED: PHARMACY DOSING REQUIRED: DILAUDID PCA IV ONE (14:53)
[2019-07-06] MEDS ORDERED: DOCOSAHEXANOIC ACID PO SCH (15:00)
[2019-07-06] MEDS ORDERED: CLARITIN 10 MG PO SCH (15:00)
[2019-07-06] MEDS ORDERED: THEOPHYLLINE ER 24HR PO SCH (15:00)
[2019-07-06] MEDS ORDERED: NON-FORMULARY ITEM (Potassium Chloride 20 Meq [Klor-Con 20 Meq] 20 MEQ) PO SCH (15:00)
[2019-07-06] MEDS ORDERED: DELTASONE 20 MG PO SCH (15:00)
[2019-07-06] MEDS ORDERED: THERAGRAN MULTIVITAMIN PO SCH (15:00)
[2019-07-06] MEDS ORDERED: EPA PO SCH (15:00)
[2019-07-06] MEDS: Glucophage 500 MG PO SCH (16:07)
[2019-07-06] MEDS: FISH OIL 1,000 MG CAPSULE PO SCH ×2 (16:07→21:21)
[2019-07-06] MEDS: Klor Con 10 MEQ PO SCH ×3 (16:08→22:38)
[2019-07-06] MEDS: NEURONTIN 300 MG PO SCH ×2 (16:09→21:16)
[2019-07-06] MEDS ORDERED: Lasix 40 MG PO SCH (17:00)
[2019-07-06] MEDS ORDERED: PROVENTIL 2.5 MG/3 ML NEB IH ONE (19:16)
[2019-07-06] MEDS ORDERED: PATIENT OWN MEDICATION IH PRN (19:59)
[2019-07-06] MEDS: PATIENT OWN MEDICATION IH SCH (20:02)
[2019-07-06] MEDS ORDERED: Avodart 0.5 MG PO SCH (22:00)
[2019-07-06] MEDS ORDERED: Protonix 40MG Tablet PO SCH (22:00)
[2019-07-06] MEDS ORDERED: NON-FORMULARY ITEM (Budesonide/Formoterol Fumarate [Symbicort 160-4.5 Mcg Inhaler] 1 PUFF) IH SCH (22:00)
[2019-07-06] MEDS ORDERED: LOPID 600 MG PO SCH (22:00)
[2019-07-06] MEDS ORDERED: Flonase NASAL NS SCH (22:00)
[2019-07-06] MEDS ORDERED: BACTRIM DS TABLET PO SCH (22:00)
[2019-07-06] MEDS ORDERED: PROVENTIL 2.5 MG/3 ML NEB IH SCH (22:00)
[2019-07-06] MEDS ORDERED: NON-FORMULARY ITEM (Fluticasone Propionate [Flonase Allergy Relief] 1 SPRAY) INTRANASAL SCH (22:00)
[2019-07-06] MEDS ORDERED: Flomax 0.4 MG PO SCH (22:00)
[2019-07-06] MEDS ORDERED: Lopressor 50 MG PO SCH (22:00)
[2019-07-06] MEDS ORDERED: NON-FORMULARY ITEM (Omeprazole 20 Mg [Prilosec 20 Mg] 20 MG) PO SCH (22:00)
[2019-07-06] MEDS ORDERED: ZOCOR 20MG PO SCH (22:00)
[2019-07-07] MEDS ORDERED: ENOXAPARIN SODIUM SQ SCH (06:00)
[2019-07-07] MEDS: PATIENT OWN MEDICATION IH SCH (07:53)
[2019-07-07] MEDS ORDERED: NORCO 5/325 MG ONE (07:58)
[2019-07-07] MEDS: Glucophage 500 MG PO SCH (07:59)
[2019-07-07] MEDS ORDERED: PERCOCET TABLET 5/325MG PO PRN (08:07)
[2019-07-07 08:19] VITALS: PULSE 68; O2SAT 90
[2019-07-07 08:23] VITALS: BP 126/53
[2019-07-07] MEDS ORDERED: PATIENT OWN MEDICATION IH SCH (10:00)
[2019-07-07] MEDS ORDERED: [UNRECOGNIZED DRUG - OTHER] PO SCH (10:00)
[2019-07-07] MEDS ORDERED: Maxzide-25MG Tablet PO SCH (10:00)
[2019-07-07] MEDS ORDERED: NON-FORMULARY ITEM (Simvastatin 40 Mg [Zocor 40 Mg] 40 MG) PO SCH (10:00)
[2019-07-07] MEDS ORDERED: [UNRECOGNIZED DRUG - MIXTURE] PO SCH (10:00)
[2019-07-07] MEDS ORDERED: IMATINIB MESYLATE 400 MG PO SCH (10:00)
[2019-07-07] MEDS ORDERED: OLOPATADINE HCL OP SCH (10:00)
[2019-07-07] MEDS ORDERED: NORCO 5/325 MG PO PRN (12:00)
== END 2019-07-07 09:15 | disposition home or self-care (01) ==
LOC: SDC 07:37 → MED SURG 12:36 → SDC 07-07 09:15
PROVIDERS: ATTEND Surgery
DX: K43.5 Parastomal hernia without obstruction or gangrene (principal); K43.9 Ventral hernia without obstruction or gangrene; E11.9 Type 2 diabetes mellitus without complications; I10 Essential (primary) hypertension; J44.9 Chronic obstructive pulmonary disease, unspecified; Z79.899 Other long term (current) drug therapy
CPT/HCPCS: 62322; 81001; 82962; 87077; 87086; 87186; 88307; 94640; 94762; J1170; J1650; J1956; J2250; J2405; J2704; J3010; J7609; A9270-GY

== ENCOUNTER 2019-07-07 17:00 | Inpatient (IN) | payer MEDICARE, OTHER ==
[2019-07-07] MEDS ORDERED: Sodium Chloride 0.9% 1000 ML 1,000 ML IV STA (17:10)
[2019-07-07] MEDS ORDERED: Pepcid 20 MG VIAL IV ONE ×2 (17:10→17:19)
[2019-07-07] MEDS ORDERED: Zofran 4 MG/2 ML VIAL IV ONE (17:10)
[2019-07-07] MEDS ORDERED: Zofran 4 MG/2 ML VIAL ONE (17:19)
[2019-07-07] MEDS ORDERED: Sodium Chloride 0.9% 1000 ML 1,000 ML ONE (17:19)
--- NOTE | 2019-07-07 17:25 | ERPHSYRPT ---
- History of Present Illness Time Seen by Provider: 07/07/19 17:00 Historian: patient Exam Limitations: no limitations Physician History: Patient had a parastomal hernia repair on 07/06/[address] Darrell Stallings MD and was discharged from the hospital on 07/07/2019 at approximately 8:30 in the morning. Patient has not been able to tolerate any oral intake and he's vomited 3 times since being home, with eating being a trigger. Patient has not had any production of anything into his ostomy bag other than a small amount of blood. Patient had difficulty urinating throughout the day of 07/07/2019, but did go on his own while at home. He states he had no gas production or any production into his ostomy bag or taken anything orally before being discharged on 07/07/2019. Patient was recommended to come to the emergency department by Dr Stallings's nurse for further evaluation or his symptoms. Timing/Duration: today, hour(s) (8) Activities at Onset: none Quality: cramping Abdominal Pain Onset Location: generalized abdomen Pain Radiation: no radiation Modifying Factors: Worsens With: eating Associated Symptoms: fatigue, nausea, vomiting, weakness (generalized), No back , No chest pain, No diaphoresis, No diarrhea, No fever/chills, No headache, No heartburn, No loss of appetite, No neck pain, No rash, No shortness of breath, No syncope Previous symptoms: recent hospitalization (from 07/05/2019-07/07/2019), recently treated (surgery for parastomal hernia repair on 07/06/2019) Allergies/Adverse Reactions: amoxicillin Allergy (Severe, Verified 07/07/19 17:52) Swelling of Face clarithromycin [From Biaxin] Allergy (Severe, Verified 07/07/19 17:52) Swelling of Face lid swelled until touched nose. lansoprazole Allergy (Severe, Verified 07/07/19 17:52) Swelling of Face morphine Allergy (Mild, Verified 07/07/19 17:52) N&V DEB Inhibitors Allergy (Verified 07/07/19 17:52) Anaphylactic Reaction benazepril Allergy (Verified 07/07/19 17:52) clindamycin Allergy (Verified 07/07/19 17:52) Swelling of Tongue and Lips Home Medications: Aspirin EC 81 mg [Ecotrin 81 mg] 81 mg PO 3XW 11/01/12 [History] Gemfibrozil 600 mg [Lopid 600 mg] 600 mg PO BID 11/01/12 [History] Metformin HCl 500 mg [Glucophage 500 MG] 1 tab PO BID 11/01/12 [History] Albuterol 2.5 mg/3 ml Neb [Proventil 2.5 mg/3 ml Neb] 2.5 mg IH HS [History] Budesonide/Formoterol Fumarate [Symbicort 160-4.5 Mcg Inhaler] 2 puff IH BID [History] Fluticasone Propionate [Flonase Allergy Relief] 1 spray INTRANASAL HS PRN [History] Loratadine 10 mg [Claritin 10 mg] 10 mg PO DAILY 11/05/14 [History] Nitroglycerin 0.4 mg (Ed) [Nitrostat 0.4 MG (ED)] 0.4 mg SL UD PRN [History] Potassium Chloride 20 Meq [Klor-Con 20 MEQ] 20 meq PO DAILY 11/05/14 [History] Simvastatin 40 mg [Zocor 40 mg] 80 mg PO DAILY 11/05/14 [History] Metoprolol Tartrate 50 mg PO BID 03/22/18 [History] Omeprazole 20 MG [Prilosec 20 mg] 20 mg PO BID 03/22/18 [History] Polyethylene Glycol 3350 17 gm [Miralax Powder 17GM PACKET] 17 gm PO BID 11/03 [History] Tamsulosin HCl 0.4 mg [Flomax 0.4 MG] 0.4 mg PO DAILY 03/22/18 [History] Triamterene/Hydrochlorothiazid [Triamterene-Hctz 37.5-25 mg Tb] 1 each PO DAILY 03/22/18 [History] Furosemide 20 mg [Lasix 20 mg] 40 mg PO DAILY 09/06/18 [History] metOLazone [Metolazone] 1 tablet PO UD PRN 09/06/18 [History] Acetaminophen [Tylenol Extra Strength] 1,000 mg PO 07/06/19 [History] Albuterol 2.5 mg/3 ml Neb [Proventil 2.5 mg/3 ml Neb] 2.5 mg IH QID PRN [History] Albuterol Common Canister [Proventil Common Canister] 2 puff IH QID [History] Docusate Sodium 100 mg [Colace 100 MG] 100 mg PO DAILY 07/06/19 [History] EPINEPHrine [Epipen 0.3 MG] 1 syringe SQ PRN 07/06/19 [History] Fish Oil/Dha/Epa [Fish Oil 1,200 mg Fish Oil] 1 each PO TID 07/06/19 [History] Ibuprofen [Advil] 400 mg PO 07/06/19 [History] Multivit-Min/FA/Lycopen/Lutein [Centrum Silver Tablet] 1 each PO DAILY 07/06/19 [History] Pumpkin Seed Oil/Saw [place] [Saw [place] 160 mg Softgel] 320 mg PO DAILY [History] Umeclidinium [place] [Incruse Ellipta] 1 puff IH DAILY 07/06/19 [History] Albuterol Sulfate [Ventolin Hfa] 18 gm IH QID 07/07/19 [History] Hx Tetanus, Diphtheria Vaccination/Date Given: No Hx Influenza Vaccination/Date Given: Yes Hx Pneumococcal Vaccination/Date Given: No - Review of Systems Constitutional: Fatigue, Weakness (generalized), No Fever, No Chills Eyes: Foreign Body Sensation, No Eye Pain, No Vision Changes Ears, Nose, & Throat: No Mouth Pain, No Throat Pain, No Painful Swallowing Respiratory: No Cough, No Dyspnea Cardiac: No Chest Pain, No Edema, No Syncope Abdominal/Gastrointestinal: Abdominal Pain, Nausea, Vomiting, Hematochezia, No Diarrhea, No Hematemesis, No Melena Genitourinary Symptoms: No Dysuria, No Hematuria, No Urinary Retention (had initially, but went on his own), No Flank Pain Musculoskeletal: No Back Pain, No Neck Pain Skin: No Rash Neurological: No Dizziness, No Focal Weakness, No Headache, No Parasthesia, No Sensory Changes Psychological: No Anxiety, No Emotional Lability Hematologic/Lymphatic: No Easy Bleeding, No Easy Bruising All Other Systems: Reviewed and Negative - Past Medical History Pertinent Past Medical History: Yes Neurological History: Peripheral Neuropathy ENT History: No Pertinent History, Other Cardiac History: Congestive Heart Failure, High Cholesterol, Hypertension, Myocardial Infarction (ME) Respiratory History: Asthma, Bronchitis, CHF, COPD, Sleep Apnea Endocrine Medical History: Diabetes Type II Musculoskeletal History: Arthritis GI Medical History: Esophageal Disorder, GERD, Hernia, Polyps History: No Pertinent History Psycho-Social History: No Pertinent History Male Reproductive Disorders: No Pertinent History Other Medical History: 4L O2 nc at home during day and 4l cpap at night,. 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 Former smoker - Past Surgical History Past Surgical History: Yes Neuro Surgical History: No Pertinent History Cardiac: No Pertinent History Respiratory: No Pertinent History Gastrointestinal: Appendectomy, Other Genitourinary: No Pertinent History Musculoskeletal: Orthopedic Surgery Male Surgical History: Vasectomy Other Surgical History: removed part of intestines dt accident,inner ear surgery lt,polypectomy back surgery x2 ear surgery left side,t&a as child lipoma to neck, right eye retina/cornea repair, has colostomy - Social History Smoking Status: Former smoker How long have you smoked: 53 years Exposure to second hand smoke: No Drug Use: none Patient Lives Alone: No - Nursing Vital Signs Nursing Vital Signs: Initial Vital Signs Temperature 98.9 F 07/07/19 17:10 Pulse Rate 72 07/07/19 17:10 Respiratory Rate 18 07/07/19 17:10 Blood Pressure 159/66 07/07/19 17:10 O2 Sat by Pulse Oximetry 96 07/07/19 17:10 Pain Scale Pain Intensity 6 - Physical Exam General Appearance: no apparent distress, alert Eye Exam: PERRL/EOMI, eyes nml inspection, No scleral icterus, No pale conjunctivae Ears, Nose, Throat Exam: normal ENT inspection, pharynx normal, moist mucous membranes Neck Exam: normal inspection, non-tender, supple, full range of motion, No meningismus, No Brudzinski Respiratory Exam: normal breath sounds, lungs clear, No respiratory distress Cardiovascular Exam: regular rate/rhythm, normal heart sounds, normal peripheral pulses, capillary refill <2 sec Gastrointestinal/Abdomen Exam: soft, other (LLQ ostomy in place with small amount of blood in the bag), No normal bowel sounds, No tenderness, No distention, No mass, No guarding Back Exam: normal inspection, normal range of motion, No CVA tenderness, No vertebral tenderness Extremity Exam: normal inspection, normal range of motion, pelvis stable Neurologic Exam: alert, oriented x 3, cooperative, prototype machinist II-XII nml as tested, normal mood/affect, sensation nml, No nml cerebellar function, No motor deficits Skin Exam: normal color, warm, dry, No jaundice, No laceration SpO2 Interpretation: normal O2 Delivery: Room Air - Course Nursing assessment & vital signs reviewed: Yes - CT Exams Abdomen/Pelvis CT Interpretation: Tele-radiologist Report, Other (per radiologist interpretation: Postsurgical changes a partial colectomy with a left lower quadrant colostomy. Mildly dilated gas will transverse colon, measuring up to 5.4 cm in diameter. Transition point between dilated and nondilated bowel seen left upper quadrant. While in early bowel structures cannot entirely be excluded, the findings are more in keeping with my suggestions distention of the transverse colon. Moderate amount of soft tissue stranding and small amount of fluid in the subcutaneous tissue surrounding the Jeanette left lower quadrant ventral abdominal wall. 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.) Ordered Tests: Active Orders 24 hr Category Date Time Status IV Insertion STAT Care 07/07/19 17:10 Active ABDOMEN AND PELVIS W CONTRAST [CT] Stat Exams 07/07/19 17:10 Taken AMYLASE Stat Lab 07/07/19 17:15 Completed CBC W DIFF Stat Lab 07/07/19 17:15 Completed CMP Stat Lab 07/07/19 17:15 Completed CULTURE,URINE Stat Lab 07/07/19 19:03 Received LIPASE Stat Lab 07/07/19 17:15 Completed Lactic Acid Stat Lab 07/07/19 17:10 Completed MAGNESIUM Stat Lab 07/07/19 17:15 Completed PROTIME WITH INR Stat Lab 07/07/19 17:15 Completed UA W/RFX UR CULTURE Stat Lab 07/07/19 19:03 Completed Medication Summary Discontinued Medications Generic Name Dose Route Start Last Admin Trade Name Freq PRN Reason Stop Dose Admin Famotidine 20 mg 07/07/19 17:10 07/07/19 17:20 Pepcid 20 Mg Vial IV 07/07/19 17:11 20 mg STAT ONE Administration Famotidine Confirm 07/07/19 17:19 Pepcid 20 Mg Vial Administered 07/07/19 17:20 Dose 20 mg IV .STK-MED ONE Sodium Chloride 1,000 mls @ 999 mls/hr 07/07/19 17:10 07/07/19 18:21 Sodium Chloride 0.9% 1000 Ml IV 07/07/19 18:10 Infused .Q1H1M STA Infusion Sodium Chloride Confirm 07/07/19 17:19 Sodium Chloride 0.9% 1000 Ml Administered 07/07/19 17:20 Dose 1,000 mls @ ud .ROUTE .STK-MED ONE Ondansetron HCl 4 mg 07/07/19 17:10 07/07/19 17:20 Zofran 4 Mg/2 Ml Vial IV 07/07/19 17:11 4 mg STAT ONE Administration Ondansetron HCl Confirm 07/07/19 17:19 Zofran 4 Mg/2 Ml Vial Administered 07/07/19 17:20 Dose 4 mg .ROUTE .STK-MED ONE Lab/Rad Data: Laboratory Result Diagrams 07/07/19 17:15 07/07/19 17:15 Laboratory Results 07/07/19 07/07/19 07/07/19 Range/Units 19:03 17:15 17:15 WBC (4.0-10.5) K/mm3 RBC (4.1-5.6) M/mm3 Hgb (12.5-18.0) gm/dl Hct (42-50) % MCV (78-100) fl MCH (26-32) pg MCHC (32-36) g/dl RDW (11.5-14.0) % Plt Count (150-450) K/mm3 MPV (6-9.5) fl Gran % (36.0-66.0) % Eos # (Auto) (0-0.5) Absolute Lymphs (auto) (1.0-4.6) Absolute Monos (auto) (0.0-1.3) Lymphocytes % (24.0-44.0) % Monocytes % (0.0-12.0) % Eosinophils % (0.00-5.0) % Basophils % (0.0-0.4) % Absolute Granulocytes (1.4-6.9) Basophils # (0-0.4) PT 15.1 H (8.83-12.87) SECONDS INR 1.33 (0.8-3.0) Sodium (137-145) mmol/L Potassium (3.5-5.1) mmol/L Chloride (98-107) mmol/L Carbon Dioxide (22-30) mmol/L Anion Gap (5-15) MEQ/L BUN (9-20) mg/dL Creatinine (0.66-1.25) mg/dL Estimated GFR ML/MIN Glucose (74-106) mg/dL Lactic Acid (0.4-2.0) Calcium (8.4-10.2) mg/dL Magnesium 1.6 (1.6-2.3) mg/dL Total Bilirubin (0.2-1.3) mg/dL AST (17-59) U/L ALT (0-50) U/L Alkaline Phosphatase (38-126) U/L Serum Total Protein (6.3-8.2) g/dL Albumin (3.5-5.0) g/dL Amylase (30-110) U/L Lipase (23-300) U/L Urine Color YELLOW (YELLOW) Urine Appearance CLEAR (CLEAR) Urine pH 6.0 (5-6) Ur Specific [place] 1.033 (1.005-1.025) Urine Protein 30 (Negative) Urine Ketones TRACE (NEGATIVE) Urine Blood SMALL (0-5) Gilberto/ul Urine Nitrite NEGATIVE (NEGATIVE) Urine Bilirubin NEGATIVE (NEGATIVE) Urine Urobilinogen NEGATIVE (0-1) mg/dL Ur Leukocyte Esterase SMALL (NEGATIVE) Urine WBC (Auto) 11-15 (0-5) /HPF Urine RBC (Auto) 0-2 (0-2) /HPF U Epithel Cells (Auto) NONE (FEW) /HPF Urine Bacteria (Auto) RARE (NEGATIVE) /HPF Urine Mucus (Auto) SLIGHT (NEGATIVE) /HPF Urine Culture Reflexed YES (NO) Urine Glucose NEGATIVE (NEGATIVE) mg/dL Slides for Path Review 07/07/19 07/07/19 07/07/19 Range/Units 17:15 17:15 17:10 WBC 12.7 H (4.0-10.5) K/mm3 RBC 5.01 (4.1-5.6) M/mm3 Hgb 12.1 L (12.5-18.0) gm/dl Hct 40.1 L (42-50) % MCV 80.0 (78-100) fl MCH 24.2 L (26-32) pg MCHC 30.2 L (32-36) g/dl RDW 17.1 H (11.5-14.0) % Plt Count 429 (150-450) K/mm3 MPV 8.6 (6-9.5) fl Gran % 86.8 H (36.0-66.0) % Eos # (Auto) 0.01 (0-0.5) Absolute Lymphs (auto) 0.58 L (1.0-4.6) Absolute Monos (auto) 1.05 (0.0-1.3) Lymphocytes % 4.6 L (24.0-44.0) % Monocytes % 8.3 (0.0-12.0) % Eosinophils % 0.1 (0.00-5.0) % Basophils % 0.2 (0.0-0.4) % Absolute Granulocytes 11.06 H (1.4-6.9) Basophils # 0.02 (0-0.4) PT (8.83-12.87) SECONDS INR (0.8-3.0) Sodium 135 L (137-145) mmol/L Potassium 3.7 (3.5-5.1) mmol/L Chloride 93 L (98-107) mmol/L Carbon Dioxide 32 H (22-30) mmol/L Anion Gap 13.6 (5-15) MEQ/L BUN 9 (9-20) mg/dL Creatinine 0.77 (0.66-1.25) mg/dL Estimated GFR > 60.0 ML/MIN Glucose 151 H (74-106) mg/dL Lactic Acid 1.2 (0.4-2.0) Calcium 9.5 (8.4-10.2) mg/dL Magnesium (1.6-2.3) mg/dL Total Bilirubin 0.90 (0.2-1.3) mg/dL AST 23 (17-59) U/L ALT 15 (0-50) U/L Alkaline Phosphatase 91 (38-126) U/L Serum Total Protein 8.4 H (6.3-8.2) g/dL Albumin 4.7 (3.5-5.0) g/dL Amylase 56 (30-110) U/L Lipase 36 (23-300) U/L Urine Color (YELLOW) Urine Appearance (CLEAR) Urine pH (5-6) Ur Specific [place] (1.005-1.025) Urine Protein (Negative) Urine Ketones (NEGATIVE) Urine Blood (0-5) Gilberto/ul Urine Nitrite (NEGATIVE) Urine Bilirubin (NEGATIVE) Urine Urobilinogen (0-1) mg/dL Ur Leukocyte Esterase (NEGATIVE) Urine WBC (Auto) (0-5) /HPF Urine RBC (Auto) (0-2) /HPF U Epithel Cells (Auto) (FEW) /HPF Urine Bacteria (Auto) (NEGATIVE) /HPF Urine Mucus (Auto) (NEGATIVE) /HPF Urine Culture Reflexed (NO) Urine Glucose (NEGATIVE) mg/dL Slides for Path Review YES - Progress Progress: improved Progress Note: 07/07/19 17:28 Patient had a parstomal hernia repair, 8 inch resection of the large bowel, ventral herniorrhaphy with no mesh and recreation of new colostomy on [address] Darrell Stallings per Operative Note reviewed. 07/07/19 21:03 Patient is feeling better as long as he does not move. Discussed with : Page (@20:40, discussed the patient and his results with Dr Stallings, patient's general surgeon. Dr Stallings accepted the patient for observation to the hospital at [facility]) Counseled pt/family regarding: lab results, diagnosis, need for follow-up, rad results - Departure Departure Disposition: Observation (to [facility]) Clinical Impression: Vomiting following gastrointestinal surgery, Large bowel obstruction UTI (urinary tract infection) Qualifiers: Urinary tract infection type: site unspecified Hematuria presence: without hematuria Qualified Code(s): N39.0 - Urinary tract infection, site not specified Condition: Fair Critical Care Time: No Referrals: MICHELINE FORTUNE [Primary Care Provider] -
[2019-07-07 17:41] LABS: Absolute Neutrophil Ct (ANC) 11.06 (1.4-6.9); BASOPHIL % 0.2 % (0.0-0.4); Basophil (Absolute #) 0.02 (0-0.4); Eosinophil % 0.1 % (0.00-5.0); Eosinophil (Absolute #) 0.01 (0-0.5); Hematocrit 40.1 % (42-50); Hemoglobin 12.1 gm/dl (12.5-18.0); Lymphocyte (Absolute #) 0.58 (1.0-4.6); Lymphocytes % 4.6 % (24.0-44.0); Mean Corpuscular Hemoglobin 24.2 pg (26-32); Mean Corpuscular Hgb Concent. 30.2 g/dl (32-36); Mean Platelet Volume 8.6 fl (6-9.5); Monocyte (Absolute #) 1.05 (0.0-1.3); Monocytes % 8.3 % (0.0-12.0); Neutrophil % 86.8 % (36.0-66.0); Platelet Count 429 K/mm3 (150-450); Red Blood Count 5.01 M/mm3 (4.1-5.6); Red Cell Distribution Width 17.1 % (11.5-14.0); White Blood Count 12.7 K/mm3 (4.0-10.5)
[2019-07-07 17:51] LABS: INR 1.33 (0.8-3.0); PROTIME 15.1 SECONDS (8.83-12.87)
[2019-07-07 17:58] LABS: ALBUMIN 4.7 g/dL (3.5-5.0); ALKALINE PHOSPHATASE 91 U/L (38-126); AMYLASE 56 U/L (30-110); ANION GAP 13.6 MEQ/L (5-15); BLOOD UREA NITROGEN 9 mg/dL (9-20); CHLORIDE 93 mmol/L (98-107); Calcium 9.5 mg/dL (8.4-10.2); Carbon Dioxide 32 mmol/L (22-30); Creatinine 1 0.77 mg/dL (0.66-1.25); Glucose 151 mg/dL (74-106); LIPASE 36 U/L (23-300); Potassium 3.7 mmol/L (3.5-5.1); SGOT/AST 23 U/L (17-59); SGPT/ALT 15 U/L (0-50); SODIUM 135 mmol/L (137-145); Total Protein 8.4 g/dL (6.3-8.2)
[2019-07-07 19:27] LABS: Appearance CLEAR (CLEAR); Bacteria RARE /HPF (NEGATIVE); Bilirubin NEGATIVE (NEGATIVE); Blood SMALL Ery/ul (0-5); Glucose NEGATIVE (NEGATIVE); Ketones TRACE (NEGATIVE); Leukocyte Esterase SMALL (NEGATIVE); Mucus SLIGHT /HPF (NEGATIVE); Nitrite NEGATIVE (NEGATIVE); Protein,Urine Dip 30 (Negative); RBC 0-2 /HPF (0-2); Specific Gravity 1.033 (1.005-1.025); Urobilinogen NEGATIVE mg/dL (0-1)
[2019-07-07 20:43] LABS: Slide Review 1 YES
--- NOTE | 2019-07-07 21:33 | XRAY ---
Indication: Nausea and vomiting. Patient reports hernia repair and colectomy on June 18, 2019. Multiple contiguous axial images obtained through the abdomen and pelvis using 80 cc Isovue 370 contrast only. Comparison: None Lung bases demonstrates bibasilar atelectasis/scarring. No infiltrate or effusion. Heart is not enlarged. Noncontrasted stomach and bowel loops appear nonobstructed. There has been partial colectomy with left lower quadrant diverting colostomy. Ostomy demonstrates cutaneous/subcutaneous induration with small underlying fluid collection and air bubble. Findings possibly postsurgical given surgical history. Infectious process is not completely excluded. Remaining liver, gallbladder, spleen, adrenal glands, kidneys, ureters, and bladder appear unremarkable. Mild scattered aortoiliac calcifications. No AAA or pathologic retroperitoneal lymphadenopathy. Osseous structures intact with lumbosacral junction degenerative changes. Impression: Partial colectomy with left lower quadrant colostomy. Ostomy cutaneous/subcutaneous induration with underlying fluid collection and air bubble possibly postsurgical given surgical history. Infectious process is not completely excluded in the right clinical setting. Comment: Preliminary interpretation was made by [facility]. No critical discrepancy. CTDI is 9.13
[2019-07-07] MEDS: Pepcid 20 MG VIAL IV SCH (22:59)
[2019-07-07] MEDS: Sodium Chloride 0.9% 1000 ML 1,000 ML IV SCH (23:03)
[2019-07-08 06:41] LABS: Hematocrit 34.7 % (42-50); Hemoglobin 10.4 gm/dl (12.5-18.0); Mean Cell Volume 81.1 fl (78-100); Mean Corpuscular Hemoglobin 24.3 pg (26-32); Mean Platelet Volume 9.3 fl (6-9.5); Platelet Count 394 K/mm3 (150-450); Red Blood Count 4.28 M/mm3 (4.1-5.6); Red Cell Distribution Width 16.9 % (11.5-14.0); White Blood Count 11.1 K/mm3 (4.0-10.5)
[2019-07-08 06:59] LABS: ANION GAP 9.6 MEQ/L (5-15); BLOOD UREA NITROGEN 7 mg/dL (9-20); CHLORIDE 96 mmol/L (98-107); Calcium 8.9 mg/dL (8.4-10.2); Carbon Dioxide 32 mmol/L (22-30); Creatinine 1 0.67 mg/dL (0.66-1.25); Glucose 124 mg/dL (74-106); Potassium 3.3 mmol/L (3.5-5.1); SODIUM 133 mmol/L (137-145)
[2019-07-08] MEDS ORDERED: PROVENTIL 2.5 MG/3 ML NEB IH PRN ×2 (07:00)
[2019-07-08] MEDS ORDERED: DUONEB 0.5-3 MG/3 ml Neb IH ONE (07:05)
[2019-07-08] MEDS: Advair Hfa 230/21 Mcg COMMON CANISTER IH SCH ×2 (08:04→19:42)
[2019-07-08] MEDS: PATIENT OWN MEDICATION IH SCH (08:04)
[2019-07-08] MEDS: Sodium Chloride 0.9% 1000 ML 1,000 ML IV SCH ×2 (10:50→21:08)
[2019-07-08] MEDS: Pepcid 20 MG VIAL IV SCH ×2 (10:51→21:48)
--- NOTE | 2019-07-08 14:19 | PCM.HP.ADD ---
Addendum to History & Physical - History & Physical Addendum Addendum to History & Physical: This certifies that the History & Physical in the electronic chart reflects the current health status of the patient. If there are changes in the H&P these changes/exceptions are listed as follows. Patient was readmited thru ER after being discharged same day 07/07/19. Patient was hosp for parastomal hernia repair with Dr Darrell Stallings and discharged same day but developed post op vomiting . See Dr Stallings notes.
[2019-07-08] MEDS ORDERED: NON-FORMULARY ITEM (Fluticasone Propionate [Flonase Allergy Relief] 1 SPRAY) INTRANASAL PRN (14:52)
[2019-07-08] MEDS ORDERED: EPINEPHRINE SQ PRN (14:52)
[2019-07-08] MEDS ORDERED: Nitrostat 0.4 MG (ED) SL PRN (14:52)
[2019-07-08] MEDS ORDERED: Nitrostat 0.4 MG Tablet SL PRN (15:00)
[2019-07-08] MEDS ORDERED: Epipen 0.3 MG IM PRN (15:03)
[2019-07-08] MEDS ORDERED: Flonase NASAL NS PRN (15:05)
[2019-07-08] MEDS: POTASSIUM CHLORIDE 20 mEq IN WATER 100ML 20 MEQ/100 ML BAG IV SCH ×2 (15:10→16:56)
[2019-07-08] MEDS: Flomax 0.4 MG PO SCH (15:12)
[2019-07-08] MEDS: Colace 100 MG PO SCH (15:12)
[2019-07-08 15:24] LABS: Eosinophil 1 % (0.00-3.0); Lymphocytes 5 % (24-44); Monocyte 6 % (0.0-12.0); Neutrophils 88 % (36.-66.); Platelet Estimate NORMAL (NORMAL); Total Cells Counted 100
[2019-07-08] MEDS: DILAUDID 2 MG INJECTION IV PRN ×2 (16:53→23:16)
[2019-07-08] MEDS ORDERED: PROVENTIL COMMON CANISTER IH SCH (19:00)
[2019-07-08] MEDS: DUONEB 0.5-3 MG/3 ml Neb IH SCH (19:43)
[2019-07-08] MEDS: BACTRIM DS TABLET PO SCH (21:48)
[2019-07-08] MEDS: Protonix 40MG Tablet PO SCH (21:48)
[2019-07-08] MEDS: Lopressor 50 MG PO SCH (21:48)
[2019-07-08] MEDS ORDERED: NON-FORMULARY ITEM (Omeprazole 20 Mg [Prilosec 20 Mg] 20 MG) PO SCH (22:00)
[2019-07-08] MEDS ORDERED: PROVENTIL 2.5 MG/3 ML NEB IH SCH (22:00)
[2019-07-09 05:08] LABS: Absolute Neutrophil Ct (ANC) 6.99 (1.4-6.9); BASOPHIL % 0.4 % (0.0-0.4); Basophil (Absolute #) 0.04 (0-0.4); Eosinophil % 2.4 % (0.00-5.0); Eosinophil (Absolute #) 0.23 (0-0.5); Hematocrit 33.7 % (42-50); Hemoglobin 9.9 gm/dl (12.5-18.0); Lymphocyte (Absolute #) 1.18 (1.0-4.6); Lymphocytes % 12.1 % (24.0-44.0); Mean Cell Volume 80.6 fl (78-100); Mean Corpuscular Hemoglobin 23.7 pg (26-32); Mean Corpuscular Hgb Concent. 29.4 g/dl (32-36); Mean Platelet Volume 8.9 fl (6-9.5); Monocyte (Absolute #) 1.31 (0.0-1.3); Monocytes % 13.4 % (0.0-12.0); Neutrophil % 71.7 % (36.0-66.0); Platelet Count 381 K/mm3 (150-450); Red Blood Count 4.18 M/mm3 (4.1-5.6); Red Cell Distribution Width 16.6 % (11.5-14.0); White Blood Count 9.8 K/mm3 (4.0-10.5)
[2019-07-09 05:10] LABS: ALBUMIN 3.4 g/dL (3.5-5.0); ALKALINE PHOSPHATASE 74 U/L (38-126); AMYLASE 36 U/L (30-110); BLOOD UREA NITROGEN 8 mg/dL (9-20); CHLORIDE 96 mmol/L (98-107); Calcium 8.6 mg/dL (8.4-10.2); Carbon Dioxide 33 mmol/L (22-30); Glucose 114 mg/dL (74-106); LIPASE 18 U/L (23-300); Potassium 3.6 mmol/L (3.5-5.1); SGOT/AST 17 U/L (17-59); SGPT/ALT 11 U/L (0-50); SODIUM 132 mmol/L (137-145); Total Protein 6.5 g/dL (6.3-8.2)
[2019-07-09] MEDS ORDERED: NON-FORMULARY ITEM (Potassium Chloride 20 Meq [Klor-Con 20 Meq] 20 MEQ) PO SCH (10:00)
[2019-07-09] MEDS: DUONEB 0.5-3 MG/3 ml Neb IH SCH ×3 (10:20→19:23)
[2019-07-09] MEDS: PATIENT OWN MEDICATION IH SCH (10:21)
[2019-07-09] MEDS: Advair Hfa 230/21 Mcg COMMON CANISTER IH SCH ×2 (10:21→19:22)
[2019-07-09] MEDS: Lopressor 50 MG PO SCH ×2 (10:45→20:36)
[2019-07-09] MEDS: Klor Con 10 MEQ PO SCH (10:45)
[2019-07-09] MEDS: Flomax 0.4 MG PO SCH (10:45)
[2019-07-09] MEDS: Colace 100 MG PO SCH (10:45)
[2019-07-09] MEDS: BACTRIM DS TABLET PO SCH ×2 (10:45→20:36)
[2019-07-09] MEDS: Protonix 40MG Tablet PO SCH ×2 (10:45→20:37)
[2019-07-09] MEDS: Pepcid 20 MG VIAL IV SCH ×2 (10:46→20:36)
[2019-07-09] MEDS: DILAUDID 2 MG INJECTION IV PRN ×2 (11:27→20:36)
[2019-07-09] MEDS: ENOXAPARIN SODIUM SQ SCH ×2 (17:50→17:53)
--- NOTE | 2019-07-09 19:10 | PCM.NOTE ---
Date and Time: 07/09/191908 Subjective Assessment: Patient was seen by Dr Darrell Stallings today ,post op peristomal hernia repair, and states the patient is progressing as expected,slowly.There is alot of stomal swelling . He is tolerating a liquid diet and is asking to eat .Dr Stallings wants to wait on advancing diet.. He has not had stool,only watery dark blood but did pass gas. No other complaints. Objective Exam Neurologic Exam: alert, oriented x 3 Skin Exam: normal color, warm, dry Respiratory Exam: diminished breath sounds (bases-no rales no ronchi no wheeze) Cardiovascular Exam: regular rate/rhythm Gastrointestinal/Abdomen Exam: soft (increased BS), tenderness (left of ostomy) Extremity Exam: normal inspection OBJECTIVE DATA Vital Signs: Vital Signs - 24 hr Temp Pulse Resp BP Pulse Ox 07/09/19 16:00 98.1 F 58 L 20 140/64 07/09/19 12:00 98.1 F 67 18 138/63 97 07/09/19 10:24 97 H 18 96 07/09/19 08:00 98.0 F 63 18 144/67 98 07/09/19 04:00 98.1 F 56 L 18 146/67 96 07/09/19 00:15 98.1 F 64 20 131/63 95 07/08/19 20:00 98.4 F 60 20 134/59 98 07/08/19 19:44 71 20 97 Oxygen-Last 24 hours O2 Percentage 4 Liters = 36% O2 Percentage 4 Liters = 36% O2 Percentage 4 Liters = 36% O2 Percentage 4 Liters = 36% O2 Percentage 4 Liters = 36% Pain Assessment - Last Documented Pain Intensity 2 Pain Scale Used 0-10 Pain Scale Intake and Output: Intake & Output 07/07/19 07/08/19 07/09/19 07/10/19 11:59 11:59 11:59 11:59 Intake Total 1200 2502 Output Total 450 900 775 Balance -779 103 4669 Weight 83.7 kg Lab Results: Accuchecks Accucheck Value: 144 Lab Results-Last 24 Hours 07/08/19 07/09/19 07/09/19 Range/Units 21:58 05:00 05:00 WBC 9.8 (4.0-10.5) K/mm3 RBC 4.18 (4.1-5.6) M/mm3 Hgb 9.9 L (12.5-18.0) gm/dl Hct 33.7 L (42-50) % MCV 80.6 (78-100) fl MCH 23.7 L (26-32) pg MCHC 29.4 L (32-36) g/dl RDW 16.6 H (11.5-14.0) % Plt Count 381 (150-450) K/mm3 MPV 8.9 (6-9.5) fl Gran % 71.7 H (36.0-66.0) % Eos # (Auto) 0.23 (0-0.5) Absolute Lymphs (auto) 1.18 (1.0-4.6) Absolute Monos (auto) 1.31 H (0.0-1.3) Lymphocytes % 12.1 L (24.0-44.0) % Monocytes % 13.4 H (0.0-12.0) % Eosinophils % 2.4 (0.00-5.0) % Basophils % 0.4 (0.0-0.4) % Absolute Granulocytes 6.99 H (1.4-6.9) Basophils # 0.04 (0-0.4) Sodium 132 L (137-145) mmol/L Potassium 3.6 3.6 (3.5-5.1) mmol/L Chloride 96 L (98-107) mmol/L Carbon Dioxide 33 H (22-30) mmol/L Anion Gap 6.0 (5-15) MEQ/L BUN 8 L (9-20) mg/dL Creatinine 0.60 L (0.66-1.25) mg/dL Estimated GFR > 60.0 ML/MIN Glucose 114 H (74-106) mg/dL Calcium 8.6 (8.4-10.2) mg/dL Total Bilirubin 0.80 (0.2-1.3) mg/dL AST 17 (17-59) U/L ALT 11 (0-50) U/L Alkaline Phosphatase 74 (38-126) U/L Serum Total Protein 6.5 (6.3-8.2) g/dL Albumin 3.4 L (3.5-5.0) g/dL Amylase 36 (30-110) U/L Lipase 18 L (23-300) U/L Multi-Disciplinary Progress Notes: Multi-Disciplinary Progress Notes 07/09/19 10:29 Respiratory Note by Sneha Chan PT [facility] Initialized on 07/09/19 10:29 - END OF NOTE Assessment/Plan (1) Vomiting following gastrointestinal surgery Current Visit: Yes Status: Resolved Code(s): K91.0 - VOMITING FOLLOWING GASTROINTESTINAL SURGERY (2) Large bowel obstruction Current Visit: Yes Status: Acute Assessment & Plan: S/P peristomal hernia repair resolving slowly Code(s): K56.609 - UNSP INTESTNL OBST, UNSP TO PARTIAL VERSUS COMPLETE OBST (3) COPD with exacerbation Current Visit: No Status: Acute Onset Date: ~03/22/18 Assessment & Plan: continue inhalers and neb txs Code(s): J44.1 - CHRONIC OBSTRUCTIVE PULMONARY DISEASE W (ACUTE) EXACERBATION (4) DM w/o complication type II Current Visit: No Status: Acute Onset Date: ~03/22/18 Assessment & Plan: moniter-is on Glucophage Code(s): E11.9 - TYPE 2 DIABETES MELLITUS WITHOUT COMPLICATIONS (5) Hyponatremia Current Visit: Yes Status: Acute Assessment & Plan: IV NS and diet advancing soon,moniter Code(s): E87.1 - HYPO-OSMOLALITY AND HYPONATREMIA (6) Hypertension Current Visit: Yes Status: Chronic Assessment & Plan: moniter Code(s): I10 - ESSENTIAL (PRIMARY) HYPERTENSION
[2019-07-10] MEDS: Sodium Chloride 0.9% 1000 ML 1,000 ML IV SCH ×4 (00:44→18:46)
[2019-07-10] MEDS: DILAUDID 2 MG INJECTION IV PRN ×5 (02:32→21:09)
[2019-07-10] MEDS: Advair Hfa 230/21 Mcg COMMON CANISTER IH SCH ×2 (06:54→19:58)
[2019-07-10] MEDS: DUONEB 0.5-3 MG/3 ml Neb IH SCH ×3 (06:54→19:57)
[2019-07-10] MEDS: PATIENT OWN MEDICATION IH SCH (06:54)
[2019-07-10] MEDS: Glucophage 500 MG PO SCH ×4 (08:07→16:37)
[2019-07-10] MEDS ORDERED: PERCOCET TABLET 5/325MG PO PRN (09:09)
[2019-07-10] MEDS: Colace 100 MG PO SCH ×2 (09:44→21:56)
[2019-07-10] MEDS: BACTRIM DS TABLET PO SCH ×2 (09:44→21:56)
[2019-07-10] MEDS: ENOXAPARIN SODIUM SQ SCH (09:44)
[2019-07-10] MEDS: Flomax 0.4 MG PO SCH (09:45)
[2019-07-10] MEDS: Klor Con 10 MEQ PO SCH (09:45)
[2019-07-10] MEDS: Lopressor 50 MG PO SCH ×2 (09:45→21:56)
[2019-07-10] MEDS: Pepcid 20 MG VIAL IV SCH ×2 (09:46→21:56)
[2019-07-10] MEDS: Protonix 40MG Tablet PO SCH ×2 (09:46→21:56)
[2019-07-11] MEDS: DILAUDID 2 MG INJECTION IV PRN ×2 (01:54→06:20)
[2019-07-11] MEDS: Sodium Chloride 0.9% 1000 ML 1,000 ML IV SCH ×2 (03:59→14:48)
[2019-07-11 04:56] LABS: Absolute Neutrophil Ct (ANC) 6.65 (1.4-6.9); BASOPHIL % 0.4 % (0.0-0.4); Basophil (Absolute #) 0.04 (0-0.4); Eosinophil % 1.9 % (0.00-5.0); Eosinophil (Absolute #) 0.17 (0-0.5); Hematocrit 31.8 % (42-50); Hemoglobin 9.8 gm/dl (12.5-18.0); Lymphocyte (Absolute #) 0.92 (1.0-4.6); Lymphocytes % 10.2 % (24.0-44.0); Mean Cell Volume 78.7 fl (78-100); Mean Corpuscular Hemoglobin 24.3 pg (26-32); Mean Corpuscular Hgb Concent. 30.8 g/dl (32-36); Mean Platelet Volume 8.7 fl (6-9.5); Monocyte (Absolute #) 1.28 (0.0-1.3); Monocytes % 14.1 % (0.0-12.0); Neutrophil % 73.4 % (36.0-66.0); Platelet Count 459 K/mm3 (150-450); Red Blood Count 4.04 M/mm3 (4.1-5.6); Red Cell Distribution Width 16.8 % (11.5-14.0); White Blood Count 9.1 K/mm3 (4.0-10.5)
[2019-07-11 05:48] LABS: ALBUMIN 3.4 g/dL (3.5-5.0); ALKALINE PHOSPHATASE 83 U/L (38-126); ANION GAP 11.8 MEQ/L (5-15); BLOOD UREA NITROGEN 6 mg/dL (9-20); CHLORIDE 98 mmol/L (98-107); Calcium 8.9 mg/dL (8.4-10.2); Carbon Dioxide 27 mmol/L (22-30); Creatinine 1 0.67 mg/dL (0.66-1.25); Glucose 123 mg/dL (74-106); Potassium 4.6 mmol/L (3.5-5.1); SGOT/AST 18 U/L (17-59); SGPT/ALT 11 U/L (0-50); SODIUM 132 mmol/L (137-145); Total Protein 6.6 g/dL (6.3-8.2)
[2019-07-11] MEDS: DUONEB 0.5-3 MG/3 ml Neb IH SCH ×3 (07:40→19:56)
[2019-07-11] MEDS: Advair Hfa 230/21 Mcg COMMON CANISTER IH SCH ×2 (07:41→19:58)
[2019-07-11] MEDS: Glucophage 500 MG PO SCH ×2 (07:56→16:54)
[2019-07-11] MEDS: Lopressor 50 MG PO SCH ×2 (09:37→20:19)
[2019-07-11] MEDS: Flomax 0.4 MG PO SCH (09:37)
[2019-07-11] MEDS: Pepcid 20 MG VIAL IV SCH ×2 (09:37→20:19)
[2019-07-11] MEDS: Klor Con 10 MEQ PO SCH (09:38)
[2019-07-11] MEDS: ENOXAPARIN SODIUM SQ SCH (09:38)
[2019-07-11] MEDS: Colace 100 MG PO SCH ×2 (09:38→20:19)
[2019-07-11] MEDS: BACTRIM DS TABLET PO SCH ×2 (09:38→20:19)
[2019-07-11] MEDS: Protonix 40MG Tablet PO SCH ×2 (09:38→20:18)
[2019-07-11] MEDS: Zofran 4 MG/2 ML VIAL IV PRN (12:10)
[2019-07-11] MEDS: PATIENT OWN MEDICATION IH SCH (14:44)
[2019-07-12] MEDS ORDERED: Sodium Chloride 0.9% 10 ML FLUSH Syringe IV PRN (01:12)
[2019-07-12] MEDS ORDERED: Sodium Chloride 0.9% 10 ML FLUSH Syringe IV SCH (06:00)
[2019-07-12] MEDS: TYLENOL EXTRA STRENGTH 500 MG PO PRN (06:53)
[2019-07-12] MEDS: DUONEB 0.5-3 MG/3 ml Neb IH SCH ×3 (07:16→19:42)
[2019-07-12] MEDS: Advair Hfa 230/21 Mcg COMMON CANISTER IH SCH ×2 (07:16→19:43)
[2019-07-12] MEDS: PATIENT OWN MEDICATION IH SCH (07:16)
[2019-07-12] MEDS: Glucophage 500 MG PO SCH ×2 (07:41→16:56)
--- NOTE | 2019-07-12 08:17 | PCM.NOTE ---
Date and Time: 07/12/19816 Subjective Assessment: doing ok - Review of Systems Constitutional: No Fever, No Chills Eyes: No Symptoms Ears, Nose, & Throat: No Symptoms Respiratory: No Cough, No Short Of Breath Cardiac: No Chest Pain, No Edema, No Syncope Abdominal/Gastrointestinal: No Abdominal Pain, No Nausea, No Vomiting, No Diarrhea Genitourinary Symptoms: No Dysuria Musculoskeletal: No Back Pain, No Neck Pain Skin: No Rash Neurological: No Dizziness, No Focal Weakness, No Sensory Changes Psychological: No Symptoms Endocrine: No Symptoms Hematologic/Lymphatic: No Symptoms Immunological/Allergic: No Symptoms Objective Exam General Appearance: no apparent distress, alert Neurologic Exam: alert, oriented x 3, cooperative, normal mood/affect, nml cerebellar function, sensation nml, No motor deficits Skin Exam: normal color, warm, dry Eye Exam: PERRL, EOMI, eyes nml inspection Ears, Nose, Throat Exam: normal ENT inspection, pharynx normal, moist mucous membranes Neck Exam: normal inspection, non-tender, supple, full range of motion Respiratory Exam: normal breath sounds, lungs clear, No respiratory distress Cardiovascular Exam: regular rate/rhythm, normal heart sounds Gastrointestinal/Abdomen Exam: soft, No tenderness, No mass Extremity Exam: normal inspection, normal range of motion Back Exam: normal inspection, normal range of motion, No CVA tenderness, No vertebral tenderness Male Genitalia Exam: deferred Rectal Exam: deferred OBJECTIVE DATA Vital Signs: Vital Signs - 24 hr Temp Pulse Resp BP Pulse Ox 07/12/19 07:23 68 18 95 07/12/19 04:00 98.1 F 64 20 122/58 96 07/12/19 00:10 98.7 F 65 28 H 150/67 94 L 07/11/19 20:16 99.3 F 69 20 148/67 97 07/11/19 20:06 65 18 96 07/11/19 16:00 98.9 F 64 20 162/70 94 L 07/11/19 14:47 62 20 95 07/11/19 12:32 98 F 62 20 177/78 96 Oxygen-Last 24 hours O2 Percentage 2 Liters = 28% O2 Percentage 4 Liters = 36% O2 Percentage 4 Liters = 36% O2 Percentage 4 Liters = 36% Pain Assessment - Last Documented Pain Intensity 4 Pain Scale Used 0-10 Pain Scale Intake and Output: Intake & Output 07/09/19 07/10/19 07/11/19 07/12/19 11:59 11:59 11:59 11:59 Intake Total 2502 1827 2882 2422 Output Total 394 530 7602 2225 Balance 1727 1027 1607 197 Weight 83.7 kg 86.9 kg 86.9 kg 88.8 kg Lab Results: Accuchecks Date 07/11/19 Date 07/11/19 Date 07/11/19 Time 21:30 Time 16:30 Time 11:30 Accucheck Value: 117 Accucheck Value: 123 Accucheck Value: 112 Accucheck Value: 129 Multi-Disciplinary Progress Notes: Multi-Disciplinary Progress Notes 07/11/19 12:27 Physical Therapy Note by Melina Mane PT REPORTING CHIEF C/O LB PAIN POST SURGICAL EPIDURAL FROM PREVIOUS HERNIA REPAIR 07/06/2019. PT AMBULATING 450' WITH ROLLATOR WITH CCG OF ONE FOR BALANCE SAFETY. PORTABLE 02 VIA NASAL CANNULA INTACT WITH SETTING OF 4L. MONITORED 02 SATS WITH AVERAGE OF 90-94% SATURATION WITH DISTANCE AMBULATION. PT DID REQUIRE ONE REST BREAK WITH AMBULATION WITH QUICK RECOVERY OF ENDURANCE TO RESUME AMBULATION. NO DISTRESS OR DIFFICULTY OBSERVED TO COMPLETE FUNCTIONAL STRENGTHENING. TRANSFER SIT TO STAND INDEPENDENTLY WITH NO LOB OR DIFFICULTY. APPLIED CP TO LB IN SITTING POSITION AFTER AMBULATION FOR PAIN MANAGEMENT TO LB. PT DID REPORT HE FEELS HE IS "GETTING WEAKER DAILY" WITH HOSPITALIZATION HOWEVER PT IS ABLE TO COMPLETE DISTANCE AMBULATION AND TRANSFER SKILLS WITH NO DIFFICULTY OBSERVED. Initialized on 07/11/19 12:27 - END OF NOTE
[2019-07-12] MEDS: ENOXAPARIN SODIUM SQ SCH (09:58)
[2019-07-12] MEDS: Klor Con 10 MEQ PO SCH (10:00)
[2019-07-12] MEDS: Protonix 40MG Tablet PO SCH ×2 (10:01→21:08)
[2019-07-12] MEDS: Pepcid 20 MG VIAL IV SCH ×2 (10:01→21:08)
[2019-07-12] MEDS: Flomax 0.4 MG PO SCH (10:02)
[2019-07-12] MEDS: Colace 100 MG PO SCH ×2 (10:03→21:08)
[2019-07-12] MEDS: BACTRIM DS TABLET PO SCH ×2 (10:03→21:08)
[2019-07-12] MEDS: Lopressor 50 MG PO SCH ×2 (10:03→21:08)
[2019-07-12] MEDS: Miralax Powder 17GM PACKET PO SCH ×2 (13:55→21:08)
[2019-07-12] MEDS: DILAUDID 2 MG INJECTION IV PRN (18:35)
[2019-07-12] MEDS: Zofran 4 MG/2 ML VIAL IV PRN (18:35)
[2019-07-13] MEDS: Zofran 4 MG/2 ML VIAL IV PRN ×3 (02:36→20:32)
[2019-07-13] MEDS: DILAUDID 2 MG INJECTION IV PRN ×3 (02:36→20:35)
[2019-07-13] MEDS: Advair Hfa 230/21 Mcg COMMON CANISTER IH SCH ×2 (06:54→19:40)
[2019-07-13] MEDS: DUONEB 0.5-3 MG/3 ml Neb IH SCH ×3 (06:54→19:39)
[2019-07-13] MEDS: Glucophage 500 MG PO SCH ×2 (08:08→16:15)
[2019-07-13] MEDS ORDERED: PHARMACY DOSING REQUEST MC ONE (10:05)
[2019-07-13] MEDS: Miralax Powder 17GM PACKET PO SCH ×2 (10:09→21:41)
[2019-07-13] MEDS: Pepcid 20 MG VIAL IV SCH ×2 (10:10→21:41)
[2019-07-13] MEDS: Colace 100 MG PO SCH ×2 (10:11→21:40)
[2019-07-13] MEDS: BACTRIM DS TABLET PO SCH ×2 (10:11→21:41)
[2019-07-13] MEDS: Klor Con 10 MEQ PO SCH (10:12)
[2019-07-13] MEDS: ENOXAPARIN SODIUM SQ SCH (10:12)
[2019-07-13] MEDS: Lopressor 50 MG PO SCH ×2 (10:12→21:40)
[2019-07-13] MEDS: Flomax 0.4 MG PO SCH (10:12)
[2019-07-13] MEDS: PATIENT OWN MEDICATION IH SCH (10:13)
[2019-07-13] MEDS: Protonix 40MG Tablet PO SCH ×2 (10:13→21:40)
--- NOTE | 2019-07-13 12:24 | XRAY ---
Indication: Ultrasound guidance for PICC line placement. Initial sonographic imaging of the right upper extremity was performed for localization of patent veins. A patent basilic vein identified above the elbow. Ultrasound guidance was then used for PICC line insertion. Full PICC line insertion is reported separately.
--- NOTE | 2019-07-13 12:29 | XRAY ---
Indication: Long-term IV access and TPN therapy. Informed consent obtained. Patient was placed on the fluoroscopic table in a supine position. Initial sonographic imaging of the right upper extremity was performed for localization of patent veins. The right upper extremity was then prepped and draped in sterile fashion. Tourniquet applied. 1% lidocaine plain used for local anesthesia. Using ultrasound guidance and a micropuncture needle, a basilic vein above the elbow was successfully percutaneously cannulized. A floppy tip 0.018 guidewire inserted. Tourniquet released. Needle was exchanged for a 5 Mongolian dilator peel-away sheath catheter. Ultimately a 5 Mongolian double-lumen PICC line was inserted over a longer 0.018 guidewire with the tip positioned in the distal SVC using fluoroscopic guidance. Guidewire removed. Both ports flushed with heparinized saline. Catheter was secured. Postoperative instructions and orders given. Patient discharged in good condition. Impression: Technically successful right upper extremity PICC line placement using ultrasound and fluoroscopic guidance. No immediate complications. Approximately 2 cc blood loss. Approximately 0.1 minute of fluoroscopy used. Catheter length is 45 cm.
[2019-07-13] MEDS: Sodium Chloride 0.9% 1000 ML 1,000 ML IV SCH (14:41)
[2019-07-13] MEDS: LYTES IV SCH ×4 (14:41)
[2019-07-13] MEDS: [UNRECOGNIZED DRUG - OTHER] IV SCH ×4 (14:41)
[2019-07-13] MEDS: DEX IV SCH ×4 (14:41)
[2019-07-13] MEDS ORDERED: CITROMA 296 ML PO SCH (15:00)
[2019-07-14] MEDS: TYLENOL EXTRA STRENGTH 500 MG PO PRN ×2 (01:59→15:20)
[2019-07-14] MEDS: Sodium Chloride 0.9% 1000 ML 1,000 ML IV SCH (03:52)
[2019-07-14 04:40] LABS: Absolute Neutrophil Ct (ANC) 4.09 (1.4-6.9); BASOPHIL % 1.4 % (0.0-0.4); Eosinophil % 3.7 % (0.00-5.0); Eosinophil (Absolute #) 0.26 (0-0.5); Hematocrit 30.8 % (42-50); Hemoglobin 9.3 gm/dl (12.5-18.0); Lymphocyte (Absolute #) 1.19 (1.0-4.6); Lymphocytes % 17.1 % (24.0-44.0); Mean Cell Volume 78.2 fl (78-100); Mean Corpuscular Hemoglobin 23.6 pg (26-32); Mean Corpuscular Hgb Concent. 30.2 g/dl (32-36); Mean Platelet Volume 8.1 fl (6-9.5); Monocytes % 18.7 % (0.0-12.0); Neutrophil % 59.1 % (36.0-66.0); Platelet Count 446 K/mm3 (150-450); Red Blood Count 3.94 M/mm3 (4.1-5.6); Red Cell Distribution Width 16.7 % (11.5-14.0); White Blood Count 6.9 K/mm3 (4.0-10.5)
[2019-07-14 04:53] LABS: ALBUMIN 3.2 g/dL (3.5-5.0); ALKALINE PHOSPHATASE 82 U/L (38-126); ANION GAP 10.1 MEQ/L (5-15); BLOOD UREA NITROGEN 9 mg/dL (9-20); CHLORIDE 96 mmol/L (98-107); Calcium 8.8 mg/dL (8.4-10.2); Carbon Dioxide 28 mmol/L (22-30); Creatinine 1 0.64 mg/dL (0.66-1.25); Glucose 148 mg/dL (74-106); Potassium 4.2 mmol/L (3.5-5.1); SGOT/AST 15 U/L (17-59); SGPT/ALT 12 U/L (0-50); SODIUM 130 mmol/L (137-145); Total Protein 6.3 g/dL (6.3-8.2)
[2019-07-14] MEDS: DUONEB 0.5-3 MG/3 ml Neb IH SCH ×2 (05:51→21:24)
[2019-07-14] MEDS: Advair Hfa 230/21 Mcg COMMON CANISTER IH SCH ×2 (05:54→21:29)
[2019-07-14] MEDS: PATIENT OWN MEDICATION IH SCH (05:55)
[2019-07-14] MEDS: DILAUDID 2 MG INJECTION IV PRN (08:33)
[2019-07-14] MEDS: Zofran 4 MG/2 ML VIAL IV PRN (08:34)
[2019-07-14] MEDS: Klor Con 10 MEQ PO SCH (08:35)
[2019-07-14] MEDS: Colace 100 MG PO SCH ×2 (08:35→22:24)
[2019-07-14] MEDS: Miralax Powder 17GM PACKET PO SCH ×2 (08:35→22:29)
[2019-07-14] MEDS: Glucophage 500 MG PO SCH ×2 (08:35→16:43)
[2019-07-14] MEDS: Flomax 0.4 MG PO SCH (08:35)
[2019-07-14] MEDS: BACTRIM DS TABLET PO SCH ×2 (08:35→22:24)
[2019-07-14] MEDS: Lopressor 50 MG PO SCH ×2 (08:35→22:24)
[2019-07-14] MEDS: Protonix 40MG Tablet PO SCH ×2 (08:35→22:32)
[2019-07-14] MEDS: Pepcid 20 MG VIAL IV SCH ×2 (08:36→22:25)
[2019-07-14] MEDS: ENOXAPARIN SODIUM SQ SCH (08:37)
[2019-07-14] MEDS: LYTES IV SCH ×4 (15:01)
[2019-07-14] MEDS: DEX IV SCH ×4 (15:01)
[2019-07-14] MEDS: [UNRECOGNIZED DRUG - OTHER] IV SCH ×4 (15:01)
[2019-07-15] MEDS: DUONEB 0.5-3 MG/3 ml Neb IH SCH ×3 (01:14→14:07)
[2019-07-15] MEDS: TYLENOL EXTRA STRENGTH 500 MG PO PRN (02:06)
[2019-07-15 05:53] LABS: Absolute Neutrophil Ct (ANC) 4.82 (1.4-6.9); BASOPHIL % 0.9 % (0.0-0.4); Basophil (Absolute #) 0.07 (0-0.4); Eosinophil % 3.6 % (0.00-5.0); Eosinophil (Absolute #) 0.27 (0-0.5); Hematocrit 32.1 % (42-50); Hemoglobin 9.8 gm/dl (12.5-18.0); Lymphocyte (Absolute #) 1.31 (1.0-4.6); Lymphocytes % 17.6 % (24.0-44.0); Mean Cell Volume 79.3 fl (78-100); Mean Corpuscular Hemoglobin 24.2 pg (26-32); Mean Corpuscular Hgb Concent. 30.5 g/dl (32-36); Mean Platelet Volume 8.6 fl (6-9.5); Monocyte (Absolute #) 0.99 (0.0-1.3); Monocytes % 13.3 % (0.0-12.0); Neutrophil % 64.6 % (36.0-66.0); Platelet Count 504 K/mm3 (150-450); Red Blood Count 4.05 M/mm3 (4.1-5.6); Red Cell Distribution Width 16.9 % (11.5-14.0); White Blood Count 7.5 K/mm3 (4.0-10.5)
[2019-07-15 06:01] LABS: ALBUMIN 3.5 g/dL (3.5-5.0); ALKALINE PHOSPHATASE 98 U/L (38-126); BLOOD UREA NITROGEN 10 mg/dL (9-20); CHLORIDE 98 mmol/L (98-107); Calcium 8.9 mg/dL (8.4-10.2); Carbon Dioxide 27 mmol/L (22-30); Creatinine 1 0.58 mg/dL (0.66-1.25); Glucose 141 mg/dL (74-106); MAGNESIUM 1.9 mg/dL (1.6-2.3); Potassium 4.6 mmol/L (3.5-5.1); SGOT/AST 26 U/L (17-59); SGPT/ALT 12 U/L (0-50); SODIUM 131 mmol/L (137-145); Total Protein 6.8 g/dL (6.3-8.2)
[2019-07-15] MEDS: DILAUDID 2 MG INJECTION IV PRN ×2 (06:29→15:33)
[2019-07-15] MEDS: Advair Hfa 230/21 Mcg COMMON CANISTER IH SCH (08:07)
[2019-07-15] MEDS: Glucophage 500 MG PO SCH (08:07)
[2019-07-15] MEDS: PATIENT OWN MEDICATION IH SCH (08:09)
--- NOTE | 2019-07-15 09:35 | PCM.DS ---
Discharge Summary Date of Admission: 07/08/19 16:00 Admitting Physician: MICHELINE FINLEY Consults: Consults on Case 07/14/19 17:16 Nutritional Consult Primary Care Provider: MICHELINE FINLEY Allergies Allergies amoxicillin Allergy (Severe, Verified 07/07/19 17:52) Swelling of Face clarithromycin [From Biaxin] Allergy (Severe, Verified 07/07/19 17:52) Swelling of Face lid swelled until touched nose. lansoprazole Allergy (Severe, Verified 07/07/19 17:52) Swelling of Face morphine Allergy (Mild, Verified 07/07/19 17:52) N&V DEB Inhibitors Allergy (Verified 07/07/19 17:52) Anaphylactic Reaction benazepril Allergy (Verified 07/07/19 17:52) clindamycin Allergy (Verified 07/07/19 17:52) Swelling of Tongue and Lips Hospital Summary - Hospital Course Hospital Course: patient was admitted and cared for by Dr Finley, on review he arrived with abdominal pain/distension with no ostomy output concern for obstruction. recently had partial colectomy with ostomy placement, has now started with ostomy output, has been followed by surgery. he is tolerating po intake and distension is improved, bowel sounds are good. released with resolution of ileus /obstruction. - Vitals & Intake/Output Vital Signs: Vital Signs Temperature 98.1 F 07/15/19 06:57 Pulse Rate 58 L 07/15/19 08:10 Respiratory Rate 18 07/15/19 08:10 Blood Pressure 128/60 07/15/19 06:57 O2 Sat by Pulse Oximetry 95 07/15/19 08:10 Oxygen-Last Documented O2 Percentage 3 Liters = 32% Intake & Output: Intake & Output 07/12/19 07/13/19 07/14/19 07/15/19 11:59 11:59 11:59 11:59 Intake Total 2422 1064 2759 480 Output Total 2225 1650 2350 Balance 197 1064 1109 -1870 Weight 88.8 kg 87.7 kg 84.1 kg 86.1 kg - Lab Result Diagrams: 07/15/19 05:15 07/15/19 05:15 Lab Results-Last 24 Hrs: Accuchecks Date 07/15/19 Date 07/14/19 Date 07/14/19 Date 07/14/19 Time 07:30 Time 21:00 Time 16:30 Time 11:30 Accucheck Value: 131 Accucheck Value: 144 Accucheck Value: 146 Accucheck Value: 126 Lab Results-Last 24 Hours 07/15/19 07/15/19 Range/Units 05:15 05:15 WBC 7.5 (4.0-10.5) K/mm3 RBC 4.05 L (4.1-5.6) M/mm3 Hgb 9.8 L (12.5-18.0) gm/dl Hct 32.1 L (42-50) % MCV 79.3 (78-100) fl MCH 24.2 L (26-32) pg MCHC 30.5 L (32-36) g/dl RDW 16.9 H (11.5-14.0) % Plt Count 504 H (150-450) K/mm3 MPV 8.6 (6-9.5) fl Gran % 64.6 (36.0-66.0) % Eos # (Auto) 0.27 (0-0.5) Absolute Lymphs (auto) 1.31 (1.0-4.6) Absolute Monos (auto) 0.99 (0.0-1.3) Lymphocytes % 17.6 L (24.0-44.0) % Monocytes % 13.3 H (0.0-12.0) % Eosinophils % 3.6 (0.00-5.0) % Basophils % 0.9 (0.0-0.4) % Absolute Granulocytes 4.82 (1.4-6.9) Basophils # 0.07 (0-0.4) Sodium 131 L (137-145) mmol/L Potassium 4.6 (3.5-5.1) mmol/L Chloride 98 (98-107) mmol/L Carbon Dioxide 27 (22-30) mmol/L Anion Gap 11.0 (5-15) MEQ/L BUN 10 (9-20) mg/dL Creatinine 0.58 L (0.66-1.25) mg/dL Estimated GFR > 60.0 ML/MIN Glucose 141 H (74-106) mg/dL Calcium 8.9 (8.4-10.2) mg/dL Magnesium 1.9 (1.6-2.3) mg/dL Total Bilirubin 0.30 (0.2-1.3) mg/dL AST 26 (17-59) U/L ALT 12 (0-50) U/L Alkaline Phosphatase 98 (38-126) U/L Serum Total Protein 6.8 (6.3-8.2) g/dL Albumin 3.5 (3.5-5.0) g/dL Micro Results-Entire Visit: Microbiology 07/07/19 19:03 Urine Culture - Final Urine, Void MIXED MELVIN; 3 OR MORE TYPES. NO PREDOMINANT ORGANISM. NO FURTHER WORKUP. PLEASE RESUBMIT IF CLINICALLY INDICATED. Accuchecks Date 07/15/19 Date 07/14/19 Date 07/14/19 Date 07/14/19 Time 07:30 Time 21:00 Time 16:30 Time 11:30 Accucheck Value: 131 Accucheck Value: 144 Accucheck Value: 146 Accucheck Value: 126 - Radiology Exams Ordered Rad Exams-Entire Visit: Radiology Procedures Category Date Time Status GUIDE FOR VASCULAR ACCESS [US] Routine Exams 07/13/19 09:50 Completed PICC LINE PLACEMENT Routine Exams 07/13/19 11:49 Completed - Procedures and Test Procedures and Tests throughout Hospitalization: Therapy Orders & Screens 07/07/19 21:49 EKG Comment: 07/07/19 22:57 OT Screen per Nursing Assess Comment: Protocol Order Physician Instructions: Greater than 3 points order OT Admission Screening Reason For Exam: Triggered on Admission Diagnosis: Vomiting, UTI, LBO Open Wound/Cellutlitis/Pressure Ulcers: No Acute Fx/ORIF/Change in wt bearing status: No Severe MUSCULOSKELETAL pain: No ADL Dysfunction: No Acute CVA w/Hemiparesis/Hemiplegia: No Decreased Functional Mobility/Strength: Yes Sprain/Strain: No Acute Post-op Mobility Dysfunction: Yes Total Points: 4 PT Screen per Nursing Assess ONCE Comment: Protocol Order Physician Instructions: Greater than 3 points order PT Admission Screenin Reason For Exam: Triggered on Admission Diagnosis: Vomiting, UTI, LBO Open Wound/Cellutlitis/Pressure Ulcers: No Acute Fx/ORIF/Change in wt bearing status: No Severe MUSCULOSKELETAL pain: No ADL Dysfunction: No Acute CVA w/Hemiparesis/Hemiplegia: No Decreased Functional Mobility/Strength: Yes Sprain/Strain: No Acute Post-op Mobility Dysfunction: Yes Total Points: 4 RT Screen per Nursing Assess ONCE Comment: Protocol Order Physician Instructions: Greater than 3 points order RT Admission Screen Reason For Exam: Triggered on Admission Diagnosis: Vomiting, UTI, LBO Diagnosis: Vomiting, UTI, LBO Pneumonia: No Home O2: Yes Asthma: Yes CHF: No Home CPAP/BIPAP: Yes Home Nebs/MDI: Yes Total Points: 19 07/08/19 00:59 Peak Expiratory Flow Rate ONCE Comment: Reason For Exam: Diagnosis: Vomiting, UTI, LBO Respiratory Therapy Assessment DAILY Comment: Diagnosis: Vomiting, UTI, LBO 07/08/19 02:34 BiPap/CPAP ROUTINE Comment: Diagnosis: Vomiting, UTI, LBO 07/08/19 07:00 Respiratory MDI UD Comment: Pt own Incruse Ellipta Inhaler 1 Puff Daily Diagnosis: Vomiting, UTI, LBO 07/08/19 08:23 Oxygen Nasal Cannula 4 lpm Comment: Diagnosis: Vomiting, UTI, LBO 07/10/19 09:00 PT Eval & Treat (MD Order) ROUTINE Reason for Eval:: Ambulate 2X a day. Diagnosis: Vomiting, UTI, LBO 07/13/19 14:00 OT Eval and Treat (MD Order) Comment: Consulting Provider: Physician Instructions: Reason For Exam: Diagnosis: Vomiting, UTI, LBO Discharge Exam General Appearance: no apparent distress, alert Neurologic Exam: alert, oriented x 3, cooperative Respiratory Exam: normal breath sounds, lungs clear, No respiratory distress Cardiovascular Exam: regular rate/rhythm, normal heart sounds Gastrointestinal/Abdomen Exam: soft, normal bowel sounds, other (ostomy with output, pink and viable) Extremity Exam: normal inspection, normal range of motion Skin Exam: normal color, warm, dry Final Diagnosis/Problem List - Final Discharge Diagnosis/Problem (1) Large bowel obstruction Current Visit: Yes Status: Acute Code(s): K56.609 - UNSP INTESTNL OBST, UNSP TO PARTIAL VERSUS COMPLETE OBST (2) Chronic respiratory failure with hypoxia and hypercapnia Current Visit: No Status: Acute Onset Date: ~03/22/18 Code(s): J96.11 - CHRONIC RESPIRATORY FAILURE WITH HYPOXIA; J96.12 - CHRONIC RESPIRATORY FAILURE WITH HYPERCAPNIA (3) DM w/o complication type II Current Visit: No Status: Acute Onset Date: ~03/22/18 Code(s): E11.9 - TYPE 2 DIABETES MELLITUS WITHOUT COMPLICATIONS - Discharge Disposition: Home, Self-Care Condition: Good Prescriptions: Continue Metformin HCl 500 mg [Glucophage 500 MG] 1 tab PO BID Gemfibrozil 600 mg [Lopid 600 mg] 600 mg PO BID Aspirin EC 81 mg [Ecotrin 81 mg] 81 mg PO 3XW Loratadine 10 mg [Claritin 10 mg] 10 mg PO DAILY Nitroglycerin 0.4 mg (Ed) [Nitrostat 0.4 MG (ED)] 0.4 mg SL UD PRN PRN Reason: Chest Pain Budesonide/Formoterol Fumarate [Symbicort 160-4.5 Mcg Inhaler] 2 puff IH BID Albuterol 2.5 mg/3 ml Neb [Proventil 2.5 mg/3 ml Neb] 2.5 mg IH HS Potassium Chloride 20 Meq [Klor-Con 20 MEQ] 20 meq PO DAILY Simvastatin 40 mg [Zocor 40 mg] 80 mg PO DAILY Fluticasone Propionate [Flonase Allergy Relief] 1 spray INTRANASAL HS PRN PRN Reason: Allergies Polyethylene Glycol 3350 17 gm [Miralax Powder 17GM PACKET] 17 gm PO BID PRN PRN Reason: Constipation Metoprolol Tartrate 50 mg PO BID Tamsulosin HCl 0.4 mg [Flomax 0.4 MG] 0.4 mg PO DAILY Triamterene/Hydrochlorothiazid [Triamterene-Hctz 37.5-25 mg Tb] 1 each PO DAILY Omeprazole 20 MG [Prilosec 20 mg] 20 mg PO BID Furosemide 20 mg [Lasix 20 mg] 40 mg PO DAILY metOLazone [Metolazone] 1 tablet PO UD PRN PRN Reason: Hypertension Docusate Sodium 100 mg [Colace 100 MG] 100 mg PO DAILY Umeclidinium [place] [Incruse Ellipta] 1 puff IH DAILY Pumpkin Seed Oil/Saw Victor [Saw Victor 160 mg Softgel] 320 mg PO DAILY Multivit-Min/FA/Lycopen/Lutein [Centrum Silver Tablet] 1 each PO DAILY Fish Oil/Dha/Epa [Fish Oil 1,200 mg Fish Oil] 1 each PO TID Albuterol Common Canister [Proventil Common Canister] 2 puff IH QID Albuterol 2.5 mg/3 ml Neb [Proventil 2.5 mg/3 ml Neb] 2.5 mg IH QID PRN PRN Reason: Shortness Of Breath Ibuprofen [Advil] 400 mg PO HS EPINEPHrine [Epipen 0.3 MG] 1 syringe SQ UD PRN PRN Reason: Allergies Acetaminophen [Tylenol Extra Strength] 1,000 mg PO Q4HPRN PRN PRN Reason: Pain Albuterol Sulfate [Ventolin Hfa] 18 gm IH QID Follow up with: MICHELINE FINLEY [Primary Care Provider] - 07/25/19 9:00 am
[2019-07-15] MEDS: ENOXAPARIN SODIUM SQ SCH (09:51)
[2019-07-15] MEDS: Pepcid 20 MG VIAL IV SCH (09:52)
[2019-07-15] MEDS: Colace 100 MG PO SCH (09:52)
[2019-07-15] MEDS: Protonix 40MG Tablet PO SCH (09:52)
[2019-07-15] MEDS: Lopressor 50 MG PO SCH (09:52)
[2019-07-15] MEDS: Flomax 0.4 MG PO SCH (09:53)
[2019-07-15] MEDS ORDERED: NON-FORMULARY ITEM PO SCH (10:00)
[2019-07-15] MEDS: Miralax Powder 17GM PACKET PO SCH (10:17)
[2019-07-15 12:04] VITALS: BP 128/62
[2019-07-15 14:11] VITALS: PULSE 62; O2SAT 95
[2019-07-15] MEDS: Zofran 4 MG/2 ML VIAL IV PRN (15:41)
== END 2019-07-15 17:00 | disposition home or self-care (01) | DRG 389 ==
LOC: ED 17:00 → MED SURG 21:40 → OBSVTOIN 07-08 16:00
PROVIDERS: ADMIT Family Medicine; ATTEND Family Medicine
DX: K56.609 Unspecified intestinal obstruction, unspecified as to partial versus complete obstruction (principal); J96.12 Chronic respiratory failure with hypercapnia; J96.11 Chronic respiratory failure with hypoxia; J44.1 Chronic obstructive pulmonary disease with (acute) exacerbation; E87.1 Hypo-osmolality and hyponatremia; E11.9 Type 2 diabetes mellitus without complications; I10 Essential (primary) hypertension; Z93.3 Colostomy status; Z98.890 Other specified postprocedural states; Z79.899 Other long term (current) drug therapy; Z79.890 Hormone replacement therapy; Z90.49 Acquired absence of other specified parts of digestive tract; M54.9 Dorsalgia, unspecified
CPT/HCPCS: 36000; 36415; 36569; 74177; 76937; 77001; 80048; 80053; 81001; 82150; 82962; 83036; 83605; 83690; 83735; 84132; 85025; 85610; 87086; 93268; 94150; 94640; 94660; 94760; 96374; 96375; 97110; 97162; 97166; 97530; 99285; G0378; C1769; J1170; J1642; J1650; J1815; J2405; J3480; J7609; A9270-GY

== ENCOUNTER 2020-01-08 11:54 | Emergency (ER) | payer MEDICARE, OTHER ==
--- NOTE | 2020-01-08 12:01 | ERPHSYRPT ---
- History of Present Illness Time Seen by Provider: 01/08/20 12:01 Source: patient Exam Limitations: no limitations Physician History: This is a 69-year-old white male diabetic patient of Dr. Stallings (general surgeon). Patient has had an end colostomy for 2 years in the left lower quadrant. Recently (approximately December 23, 2019) patient underwent a repair of a parastomal hernia. In the last couple days the patient noticed some tenderness in the parastomal site. He is concerned that there is possibly infection. Patient had an appointment today to see Dr. Stallings but was concerned he would not make it there today. He has a follow-up appointment next Wednesday (8 days from now). Patient states that he can take tramadol for pain without any nausea or vomiting issues. Patient has not had any fevers. He is not had any nausea vomiting issues. The colostomy is functioning normally. Quality: burning Severity: mild Location: other (Left lower quadrant parastomal region) Associated Symptoms: denies symptoms Allergies/Adverse Reactions: amoxicillin Allergy (Severe, Verified 07/07/19 17:52) Swelling of Face clarithromycin [From Biaxin] Allergy (Severe, Verified 07/07/19 17:52) Swelling of Face lid swelled until touched nose. lansoprazole Allergy (Severe, Verified 07/07/19 17:52) Swelling of Face acetaminophen [From [place]] Allergy (Intermediate, Verified 01/08/20 12:09) Vomiting hydrocodone [From [place]] Allergy (Intermediate, Verified 01/08/20 12:09) Vomiting morphine Allergy (Mild, Verified 07/07/19 17:52) N&V DEB Inhibitors Allergy (Verified 07/07/19 17:52) Anaphylactic Reaction benazepril Allergy (Verified 07/07/19 17:52) clindamycin Allergy (Verified 07/07/19 17:52) Swelling of Tongue and Lips Home Medications: Aspirin EC 81 mg [Ecotrin 81 mg] 81 mg PO 3XW 11/01/12 [History] Gemfibrozil 600 mg [Lopid 600 mg] 600 mg PO BID 11/01/12 [History] Metformin HCl 500 mg [Glucophage 500 MG] 1 tab PO BID 11/01/12 [History] Albuterol 2.5 mg/3 ml Neb [Proventil 2.5 mg/3 ml Neb] 2.5 mg IH HS 11/05/14 [History] Budesonide/Formoterol Fumarate [Symbicort 160-4.5 Mcg Inhaler] 2 puff IH BID 11/05/14 [History] Fluticasone Propionate [Flonase Allergy Relief] 1 spray INTRANASAL HS PRN 11/05/14 [History] Loratadine 10 mg [Claritin 10 mg] 10 mg PO DAILY 11/05/14 [History] Nitroglycerin 0.4 mg (Ed) [Nitrostat 0.4 MG (ED)] 0.4 mg SL UD PRN 11/05/14 [History] Potassium Chloride 20 Meq [Klor-Con 20 MEQ] 20 meq PO DAILY 11/05/14 [History] Simvastatin 40 mg [Zocor 40 mg] 80 mg PO DAILY 11/05/14 [History] Metoprolol Tartrate 50 mg PO BID 03/22/18 [History] Omeprazole 20 MG [Prilosec 20 mg] 20 mg PO BID 03/22/18 [History] Polyethylene Glycol 3350 17 gm [Miralax Powder 17GM PACKET] 17 gm PO BID PRN 03/22/18 [History] Tamsulosin HCl 0.4 mg [Flomax 0.4 MG] 0.4 mg PO DAILY 03/22/18 [History] Triamterene/Hydrochlorothiazid [Triamterene-Hctz 37.5-25 mg Tb] 1 each PO DAILY 03/22/18 [History] Furosemide 20 mg [Lasix 20 mg] 40 mg PO DAILY 09/06/18 [History] metOLazone [Metolazone] 1 tablet PO UD PRN 09/06/18 [History] Acetaminophen [Tylenol Extra Strength] 1,000 mg PO Q4HPRN PRN 07/06/19 [History] Albuterol 2.5 mg/3 ml Neb [Proventil 2.5 mg/3 ml Neb] 2.5 mg IH QID PRN 07/06/19 [History] Albuterol Common Canister [Ventolin Common Canister] 2 puff IH QID 07/06/19 [History] Docusate Sodium 100 mg [Colace 100 MG] 100 mg PO DAILY 07/06/19 [History] EPINEPHrine [Epipen 0.3 MG] 1 syringe SQ UD PRN 07/06/19 [History] Fish Oil/Dha/Epa [Fish Oil 1,200 mg Fish Oil] 1 each PO TID 07/06/19 [History] Ibuprofen [Advil] 400 mg PO HS 07/06/19 [History] Multivit-Min/FA/Lycopen/Lutein [Centrum Silver Tablet] 1 each PO DAILY 07/06/19 [History] Pumpkin Seed Oil/Saw [place] [Saw [place] 160 mg Softgel] 320 mg PO DAILY 07/06/19 [History] Umeclidinium [place] [Incruse Ellipta] 1 puff IH DAILY 07/06/19 [History] Albuterol Sulfate [Ventolin Hfa] 18 gm IH QID 07/07/19 [History] Hx Tetanus, Diphtheria Vaccination/Date Given: No Hx Influenza Vaccination/Date Given: Yes Hx Pneumococcal Vaccination/Date Given: No Travel Risk - International Travel Have you traveled outside of the country in past 3 weeks: No - Coronavirus Screening Are you exhibiting any of the following symptoms?: No Close contact with a COVID-19 positive Pt in past 14-21 Days: No - Review of Systems Constitutional: No Symptoms Eyes: No Symptoms Ears, Nose, & Throat: No Symptoms Respiratory: No Symptoms Cardiac: No Symptoms Abdominal/Gastrointestinal: Abdominal Pain (Tenderness in the lateral portion of the skin next to the stoma in the left lower quadrant) Genitourinary Symptoms: No Symptoms Musculoskeletal: No Symptoms (Tenderness in the lateral aspect of the peristomal region) Neurological: No Symptoms Psychological: No Symptoms Endocrine: No Symptoms Hematologic/Lymphatic: No Symptoms Immunological/Allergic: No Symptoms All Other Systems: Reviewed and Negative - Past Medical History Pertinent Past Medical History: Yes Neurological History: Peripheral Neuropathy ENT History: No Pertinent History, Other Cardiac History: Congestive Heart Failure, High Cholesterol, Hypertension, Myocardial Infarction ([place]) Respiratory History: Asthma, Bronchitis, CHF, COPD, Sleep Apnea Endocrine Medical History: Liver Disease Musculoskeletal History: Arthritis GI Medical History: Esophageal Disorder, GERD, Hernia, Polyps History: No Pertinent History Psycho-Social History: No Pertinent History Male Reproductive Disorders: No Pertinent History Other Medical History: 4L O2 nc at home during day and 4l cpap at night,. 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 Former smoker - Past Surgical History Past Surgical History: Yes Neuro Surgical History: No Pertinent History Cardiac: No Pertinent History Respiratory: No Pertinent History Gastrointestinal: Appendectomy, Other Genitourinary: No Pertinent History Musculoskeletal: Orthopedic Surgery Male Surgical History: Vasectomy Other Surgical History: removed part of intestines dt accident,inner ear surgery lt,polypectomy back surgery x2 ear surgery left side,t&a as child lipoma to neck, right eye retina/cornea repair, has colostomy - Social History Smoking Status: Former smoker How long have you smoked: 53 years Exposure to second hand smoke: Yes Drug Use: none Patient Lives Alone: No - Nursing Vital Signs Nursing Vital Signs: Initial Vital Signs Temperature 98.9 F 01/08/20 12:03 Pulse Rate 88 01/08/20 12:03 Respiratory Rate 22 01/08/20 12:03 Blood Pressure 144/64 01/08/20 12:03 O2 Sat by Pulse Oximetry 99 01/08/20 12:03 Pain Scale Pain Intensity 3 - Physical Exam General Appearance: no apparent distress, alert, anxiety Eye Exam: PERRL/EOMI, eyes nml inspection Ears, Nose, Throat Exam: normal ENT inspection, moist mucous membranes Neck Exam: normal inspection, non-tender, supple, full range of motion Respiratory Exam: normal breath sounds, lungs clear, airway intact, No chest tenderness, No respiratory distress Cardiovascular Exam: regular rate/rhythm, normal heart sounds, normal peripheral pulses Gastrointestinal/Abdomen Exam: soft, normal bowel sounds, tenderness (Left lower quadrant lateral parastomal region. There is induration present. No obvious cellulitis present. There is no expressible or palpable abscess or pus present. 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 Skin Exam: other (See above) Lymphatic Exam: No adenopathy SpO2 Interpretation: normal - Course Nursing assessment & vital signs reviewed: Yes Ordered Tests: Medication Summary Discontinued Medications Generic Name Dose Route Start Last Admin Trade Name Freq PRN Reason Stop Dose Admin Metronidazole 500 mg 01/08/20 12:33 01/08/20 12:39 Flagyl 500 Mg PO 01/08/20 12:34 500 mg STAT ONE Administration Metronidazole Confirm 01/08/20 12:37 Flagyl 500 Mg Administered 01/08/20 12:38 Dose 500 mg .ROUTE .STK-MED ONE Trimethoprim/Sulfamethoxazole 1 tab 01/08/20 12:32 01/08/20 12:39 Bactrim Ds Tablet PO 01/08/20 12:33 1 tab STAT STA Administration Trimethoprim/Sulfamethoxazole Confirm 01/08/20 12:37 Bactrim Ds Tablet Administered 01/08/20 12:38 Dose 1 tab PO .STK-MED ONE - Progress Progress: unchanged Progress Note: 01/08/20 12:48 Medical decision making: This patient does not appear to have an abscess in the peristomal region at this point in time. There is no cellulitis. There is no expressible pus present. There is some indurated tissue. However he is approximately 16 days out from a parastomal hernia repair. The patient has not had fevers. He is eating well. However, the patient is diabetic and I will place him on Bactrim DS and Flagyl orally. He is having pain in this area and he states that the only medication he can use which helps his pain and does not cause him nausea or vomiting his tramadol. This was confirmed by his daughter. Patient is to follow-up with his surgeon. He has a follow-up appointment scheduled in 8 days. We will attempt to get a follow-up appointment earlier for him. Counseled pt/family regarding: diagnosis, need for follow-up - Departure Departure Disposition: Home Clinical Impression: Induration of periwound skin Condition: Stable Critical Care Time: No Referrals: MICHELINE FORTUNE [Primary Care Provider] - Additional Instructions: Continue urostomy care as prescribed. Take your medications as prescribed. Follow-up with Dr. Stallings's office at the scheduled date and time. Prescriptions: Smz/Tmp Ds Tablet [Bactrim Ds Tablet] 1 udtab PO BID #14 tablet Metronidazole 500 mg [Flagyl 500 MG] 500 mg PO TID #21 tablet Tramadol HCl 50 mg [Ultram 50 mg] 50 mg PO TID PRN #15 tablet PRN Reason: Moderate Pain
[2020-01-08] MEDS ORDERED: BACTRIM DS TABLET PO STA (12:32)
[2020-01-08] MEDS ORDERED: Flagyl 500 MG PO ONE (12:33)
[2020-01-08] MEDS ORDERED: BACTRIM DS TABLET PO ONE (12:37)
[2020-01-08] MEDS ORDERED: Flagyl 500 MG ONE (12:37)
[2020-01-08 13:11] VITALS: BP 118/56; PULSE 79; O2SAT 97
== END 2020-01-08 13:11 | disposition home or self-care (01) ==
LOC: ED 11:54
DX: R23.4 Changes in skin texture (principal); Z93.3 Colostomy status; Z79.899 Other long term (current) drug therapy; G62.9 Polyneuropathy, unspecified; I50.9 Heart failure, unspecified; E78.00 Pure hypercholesterolemia, unspecified; I10 Essential (primary) hypertension; E11.9 Type 2 diabetes mellitus without complications; I25.2 Old myocardial infarction; J44.9 Chronic obstructive pulmonary disease, unspecified; G47.30 Sleep apnea, unspecified; K21.9 Gastro-esophageal reflux disease without esophagitis
CPT/HCPCS: 99283; A9270-GY

== ENCOUNTER 2020-10-19 15:36 | Inpatient (IN) | payer MEDICARE, OTHER ==
--- NOTE | 2020-10-19 15:49 | ERPHSYRPT ---
- History of Present Illness Source: patient Exam Limitations: no limitations Timing/Duration: today Severity: mild (Mild to moderate) Character of Deficits: none Deficits: no difficulties Baseline/Normal Cognition: alert oriented x 3 Current Cognition: alert oriented x 3 Baseline Gait: walks w/o assistance Associated Symptoms: other (Dizziness) Hx Tetanus, Diphtheria Vaccination/Date Given: No Hx Influenza Vaccination/Date Given: Yes Hx Pneumococcal Vaccination/Date Given: No <MANUEL PATRICIO - Last Filed: 10/19/20 16:56> <BILL MEYERS - Last Filed: 10/19/20 23:44> - History of Present Illness Time Seen by Provider: 10/19/20 15:48 Physician History: This 69-year-old white male history of coronary artery disease, hypertension, hypercholesterolemia, gastroesophageal reflux disease, COPD, CHF, [id number] diabetes and peripheral neuropathy who presents with sudden onset of dizziness while turning his head to the left. Patient has had issues with earaches in the distant past but has not had this type of vertigo/dizziness symptoms. Patient denies chest pain and he denies shortness of breath. Patient is on 4 L of oxygen nasal cannula during the day and wears a CPAP machine at night. 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 He has no abdominal pain. Patient has no visual changes. He has no trouble walking or moving around. His complaint is dizziness. (MANUEL PATRICIO) Allergies/Adverse Reactions: amoxicillin Allergy (Severe, Verified 10/19/20 15:57) Swelling of Face clarithromycin [From Biaxin] Allergy (Severe, Verified 10/19/20 15:57) Swelling of Face lid swelled until touched nose. lansoprazole Allergy (Severe, Verified 10/19/20 15:57) Swelling of Face acetaminophen [From [place]] Allergy (Intermediate, Verified 10/19/20 15:57) Vomiting hydrocodone [From [place]] Allergy (Intermediate, Verified 10/19/20 15:57) Vomiting morphine Allergy (Mild, Verified 10/19/20 15:57) N&V DEB Inhibitors Allergy (Verified 10/19/20 15:57) Anaphylactic Reaction benazepril Allergy (Verified 10/19/20 15:57) clindamycin Allergy (Verified 10/19/20 15:57) Swelling of Tongue and Lips Home Medications: Aspirin EC 81 mg [Ecotrin 81 mg] 81 mg PO 3XW 11/01/12 [History] Gemfibrozil 600 mg [Lopid 600 mg] 600 mg PO BID 11/01/12 [History] Metformin HCl 500 mg [Glucophage 500 MG] 1,000 mg PO BID 11/01/12 [H istory] Budesonide/Formoterol Fumarate [Symbicort 160-4.5 Mcg Inhaler] 2 puff IH BID 11/05/14 [History] Fluticasone Propionate [Flonase Allergy Relief] 1 spray INTRANASAL HS PRN 11/05/14 [History] Loratadine 10 mg [Claritin 10 mg] 10 mg PO DAILY 11/05/14 [History] Nitroglycerin 0.4 mg (Ed) [Nitrostat 0.4 MG (ED)] 0.4 mg SL UD PRN 11/05/14 [History] Potassium Chloride 20 Meq [Klor-Con 20 MEQ] 20 meq PO DAILY 11/05/14 [History] Simvastatin 40 mg [Zocor 40 mg] 80 mg PO DAILY 11/05/14 [History] Metoprolol Tartrate 50 mg PO BID 03/22/18 [History] Omeprazole 20 MG [Prilosec 20 mg] 20 mg PO BID 03/22/18 [History] Polyethylene Glycol 3350 17 gm [Miralax Powder 17GM PACKET] 17 gm PO BID PRN 03/22/18 [History] Tamsulosin HCl 0.4 mg [Flomax 0.4 MG] 0.4 mg PO DAILY 03/22/18 [History] Triamterene/Hydrochlorothiazid [Triamterene-Hctz 37.5-25 mg Tb] 1 each PO DAILY 03/22/18 [History] Furosemide 20 mg [Lasix 20 mg] 40 mg PO DAILY 09/06/18 [History] metOLazone [Metolazone] 1 tablet PO UD PRN 09/06/18 [History] Acetaminophen [Tylenol Extra Strength] 1,000 mg PO Q4HPRN PRN 07/06/19 [History] Albuterol 2.5 mg/3 ml Neb [Proventil 2.5 mg/3 ml Neb] 2.5 mg IH QID PRN 07/06/19 [History] Albuterol Common Canister [Ventolin Common Canister] 2 puff IH QID 07/06/19 [History] EPINEPHrine [Epipen 0.3 MG] 1 syringe SQ UD PRN 07/06/19 [History] Fish Oil/Dha/Epa [Fish Oil 1,200 mg Fish Oil] 1 each PO TID 07/06/19 [History] Multivit-Min/FA/Lycopen/Lutein [Centrum Silver Tablet] 1 each PO DAILY 07/06/19 [History] Umeclidinium [place] [Incruse Ellipta] 1 puff IH DAILY 07/06/19 [History] Albuterol Sulfate [Ventolin Hfa] 18 gm IH QID 07/07/19 [History] Oxycodone / APAP 10/325 mg [Oxycodone-Acetaminophen 10-325] 1 tab PO Q4H 10/19/20 [History] Pumpkin Seed Oil/Saw [place] [Saw [place] 160 mg Softgel] 320 mg PO DAILY 10/19/20 [History] Travel Risk - International Travel Have you traveled outside of the country in past 3 weeks: No - Coronavirus Screening Are you exhibiting any of the following symptoms?: No Close contact with a COVID-19 positive Pt in past 14-21 Days: No - Vaccine Status Have you recieved a Covid-19 vaccination: Yes <MANUEL PATRICIO - Last Filed: 10/19/20 16:56> - Review of Systems Constitutional: No Symptoms Eyes: No Symptoms Ears, Nose, & Throat: No Symptoms Respiratory: No Symptoms Cardiac: No Symptoms Abdominal/Gastrointestinal: No Symptoms Genitourinary Symptoms: Incontinence Musculoskeletal: No Symptoms Skin: No Symptoms Neurological: Dizziness, No Headache Psychological: No Symptoms Endocrine: No Symptoms Hematologic/Lymphatic: No Symptoms Immunological/Allergic: No Symptoms All Other Systems: Reviewed and Negative <MANUEL PATRICIO - Last Filed: 10/19/20 16:56> - Past Medical History Pertinent Past Medical History: Yes Neurological History: Peripheral Neuropathy ENT History: No Pertinent History, Other Cardiac History: Congestive Heart Failure, High Cholesterol, Hypertension, Myocardial Infarction ([place]) Respiratory History: Asthma, Bronchitis, CHF, COPD, Sleep Apnea Endocrine Medical History: Liver Disease Musculoskeletal History: Arthritis GI Medical History: Esophageal Disorder, GERD, Hernia, Polyps History: No Pertinent History Psycho-Social History: No Pertinent History Male Reproductive Disorders: No Pertinent History Other Medical History: 4L O2 nc at home during day and 4l cpap at night,. 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 Former smoker - Past Surgical History Past Surgical History: Yes Neuro Surgical History: No Pertinent History Cardiac: No Pertinent History Respiratory: No Pertinent History Gastrointestinal: Appendectomy, Other Genitourinary: No Pertinent History Musculoskeletal: Orthopedic Surgery Male Surgical History: Vasectomy Other Surgical History: removed part of intestines dt accident,inner ear surgery lt,polypectomy back surgery x2 ear surgery left side,t&a as child lipoma to neck, right eye retina/cornea repair, has colostomy - Social History Smoking Status: Former smoker How long have you smoked: 53 years Exposure to second hand smoke: Yes Drug Use: none Patient Lives Alone: No <MANUEL PATRICIO - Last Filed: 10/19/20 16:56> - Thomas Coma Scale Best Eye Response ([place]): (4) open spontaneously Best Verbal Response ([place]): (5) oriented Best Motor Response ([place]): (6) obeys commands Thomas Total: 15 - Physical Exam General Appearance: no apparent distress, alert, anxiety Eye Exam: bilateral eye: normal inspection, PERRL, EOMI Ears, Nose, Throat Exam: normal ENT inspection, moist mucous membranes Neck Exam: normal inspection, non-tender, supple, full range of motion Respiratory: normal breath sounds, lungs clear, airway intact, No chest tenderness, No respiratory distress Cardiovascular: regular rate/rhythm, normal heart sounds, normal peripheral pulses Gastrointestinal: soft, normal bowel sounds, No tenderness Rectal Exam: not done Back Exam: normal inspection, normal range of motion, CVA tenderness Extremity Exam: normal inspection, normal range of motion, pelvis stable Mental Status: alert, oriented x 3, cooperative lead housekeeper Exam: normal hearing, normal speech, PERRL Coordination/Gait: normal finger to nose, normal gait, normal cerebellar function Motor/Sensory: no motor deficit, no sensory deficit, no pronator drift Skin Exam: normal color, warm, dry SpO2 Interpretation: normal O2 Delivery: Room Air <MANUEL PATRICIO - Last Filed: 10/19/20 16:56> - Nursing Vital Signs Nursing Vital Signs: Initial Vital Signs Pulse Rate 76 10/19/20 15:42 Respiratory Rate 25 H 10/19/20 15:42 Blood Pressure 131/87 10/19/20 15:42 O2 Sat by Pulse Oximetry 98 10/19/20 15:42 Pain Scale Pain Intensity 3 - Course Nursing assessment & vital signs reviewed: Yes EKG Interpreted by Me: RATE (72), Sinus Rhythm, LAFB, NORMAL INTERVALS, NORMAL QRS, Right Bundle Branch Block, NORMAL ST-T, Other (No acute ischemic changes. No change from EKG dated 09/06/2018) <MANUEL PATRICIO - Last Filed: 10/19/20 16:56> Ordered Tests: Active Orders 24 hr Category Date Time Status EKG-ER Only STAT Care 10/19/20 16:25 Active IV Insertion STAT Care 10/19/20 16:25 Active HEAD WITHOUT CONTRAST [CT] Stat Exams 10/19/20 16:25 Completed CBC W DIFF Stat Lab 10/19/20 16:00 Completed CMP Stat Lab 10/19/20 16:00 Completed Lactic Acid Stat Lab 10/19/20 16:25 Completed MAGNESIUM Stat Lab 10/19/20 16:00 Completed POCT GLUCOSE Stat Lab 10/19/20 15:45 Completed TROPONIN Q3H Lab 10/19/20 16:00 Completed TROPONIN Q3H Lab 10/19/20 19:28 Completed TROPONIN Q3H Lab 10/19/20 22:53 Completed TROPONIN Q3H Lab 10/20/20 01:30 Ordered TROPONIN Q3H Lab 10/20/20 04:30 Ordered UA W/RFX UR CULTURE Stat Lab 10/19/20 20:01 Completed Medication Summary Discontinued Medications Generic Name Dose Route Start Last Admin Trade Name Freq PRN Reason Stop Dose Admin Meclizine HCl 25 mg 10/19/20 16:25 10/19/20 16:29 Antivert 25 Mg PO 10/19/20 16:26 25 mg STAT ONE Administration Meclizine HCl Confirm 10/19/20 16:27 Antivert 25 Mg Administered 10/19/20 16:28 Dose 25 mg .ROUTE .STK-MED ONE Ondansetron HCl 4 mg 10/19/20 16:25 10/19/20 16:29 Zofran 4 Mg/2 Ml Vial IV 10/19/20 16:26 4 mg STAT ONE Administration Ondansetron HCl Confirm 10/19/20 16:27 Zofran 4 Mg/2 Ml Vial Administered 10/19/20 16:28 Dose 4 mg .ROUTE .STK-MED ONE Ondansetron HCl 4 mg 10/19/20 18:42 10/19/20 18:58 Zofran 4 Mg/2 Ml Vial IV 10/19/20 18:43 4 mg STAT ONE Administration Ondansetron HCl Confirm 10/19/20 18:55 Zofran 4 Mg/2 Ml Vial Administered 10/19/20 18:56 Dose 4 mg .ROUTE .STK-MED ONE Prochlorperazine Edisylate 10 mg 10/19/20 18:44 10/19/20 18:58 Compazine 10 Mg/2 Ml IM 10/19/20 18:45 10 mg STAT ONE Administration Prochlorperazine Edisylate Confirm 10/19/20 18:55 Compazine 10 Mg/2 Ml Administered 10/19/20 18:56 Dose 10 mg .ROUTE .STK-MED ONE Lab/Rad Data: Laboratory Result Diagrams 10/19/20 16:00 10/19/20 16:00 Laboratory Results 10/19/20 10/19/20 10/19/20 Range/Units 22:53 20:01 19:28 WBC (4.0-10.5) K/mm3 RBC (4.1-5.6) M/mm3 Hgb (12.5-18.0) gm/dl Hct (42-50) % MCV (78-100) fl MCH (26-32) pg MCHC (32-36) g/dl RDW (11.5-14.0) % Plt Count (150-450) K/mm3 MPV (7.5-11.0) fl Gran % (36.0-66.0) % Eos # (Auto) (0-0.5) Absolute Lymphs (auto) (1.0-4.6) Absolute Monos (auto) (0.0-1.3) Lymphocytes % (24.0-44.0) % Monocytes % (0.0-12.0) % Eosinophils % (0.00-5.0) % Basophils % (0.0-0.4) % Absolute Granulocytes (1.4-6.9) Basophils # (0-0.4) Sodium (137-145) mmol/L Potassium (3.5-5.1) mmol/L Chloride (98-107) mmol/L Carbon Dioxide (22-30) mmol/L Anion Gap (5-15) MEQ/L BUN (9-20) mg/dL Creatinine (0.66-1.25) mg/dL Estimated GFR ML/MIN Glucose (74-106) mg/dL POC Glucometer (74 to 106) mg/dL Lactic Acid (0.4-2.0) Calcium (8.4-10.2) mg/dL Magnesium (1.6-2.3) mg/dL Total Bilirubin (0.2-1.3) mg/dL AST (17-59) U/L ALT (0-50) U/L Alkaline Phosphatase (38-126) U/L Troponin I 0.014 0.016 (0.000-0.034) ng/mL Serum Total Protein (6.3-8.2) g/dL Albumin (3.5-5.0) g/dL Urine Color YELLOW (YELLOW) Urine Appearance CLEAR (CLEAR) Urine pH 5.0 (5-6) Ur Specific [place] 1.018 (1.005-1.025) Urine Protein NEGATIVE (Negative) Urine Ketones NEGATIVE (NEGATIVE) Urine Blood NEGATIVE (0-5) Gilberto/ul Urine Nitrite NEGATIVE (NEGATIVE) Urine Bilirubin NEGATIVE (NEGATIVE) Urine Urobilinogen NEGATIVE (0-1) mg/dL Ur Leukocyte Esterase NEGATIVE (NEGATIVE) Urine WBC (Auto) 0-2 (0-5) /HPF Urine RBC (Auto) NONE (0-2) /HPF U Epithel Cells (Auto) NONE (FEW) /HPF Urine Bacteria (Auto) NONE SEEN (NEGATIVE) /HPF Urine Culture Reflexed NO (NO) Urine Glucose NEGATIVE (NEGATIVE) mg/dL Slides for Path Review 04/03/21 04/03/21 04/03/21 Range/Units 16:25 16:00 16:00 WBC (4.0-10.5) K/mm3 RBC (4.1-5.6) M/mm3 Hgb (12.5-18.0) gm/dl Hct (42-50) % MCV (78-100) fl MCH (26-32) pg MCHC (32-36) g/dl RDW (11.5-14.0) % Plt Count (150-450) K/mm3 MPV (7.5-11.0) fl Gran % (36.0-66.0) % Eos # (Auto) (0-0.5) Absolute Lymphs (auto) (1.0-4.6) Absolute Monos (auto) (0.0-1.3) Lymphocytes % (24.0-44.0) % Monocytes % (0.0-12.0) % Eosinophils % (0.00-5.0) % Basophils % (0.0-0.4) % Absolute Granulocytes (1.4-6.9) Basophils # (0-0.4) Sodium 130 L (137-145) mmol/L Potassium 3.7 (3.5-5.1) mmol/L Chloride 80 L (98-107) mmol/L Carbon Dioxide 39 H (22-30) mmol/L Anion Gap 14.7 (5-15) MEQ/L BUN 14 (9-20) mg/dL Creatinine 0.54 L (0.66-1.25) mg/dL Estimated GFR > 60.0 ML/MIN Glucose 153 H (74-106) mg/dL POC Glucometer (74 to 106) mg/dL Lactic Acid 1.9 (0.4-2.0) Calcium 9.2 (8.4-10.2) mg/dL Magnesium 1.6 (1.6-2.3) mg/dL Total Bilirubin 0.40 (0.2-1.3) mg/dL AST 23 (17-59) U/L ALT 13 (0-50) U/L Alkaline Phosphatase 79 (38-126) U/L Troponin I 0.019 (0.000-0.034) ng/mL Serum Total Protein 6.9 (6.3-8.2) g/dL Albumin 4.2 (3.5-5.0) g/dL Urine Color (YELLOW) Urine Appearance (CLEAR) Urine pH (5-6) Ur Specific [place] (1.005-1.025) Urine Protein (Negative) Urine Ketones (NEGATIVE) Urine Blood (0-5) Gilberto/ul Urine Nitrite (NEGATIVE) Urine Bilirubin (NEGATIVE) Urine Urobilinogen (0-1) mg/dL Ur Leukocyte Esterase (NEGATIVE) Urine WBC (Auto) (0-5) /HPF Urine RBC (Auto) (0-2) /HPF U Epithel Cells (Auto) (FEW) /HPF Urine Bacteria (Auto) (NEGATIVE) /HPF Urine Culture Reflexed (NO) Urine Glucose (NEGATIVE) mg/dL Slides for Path Review 10/19/20 10/19/20 Range/Units 16:00 15:45 WBC 8.1 (4.0-10.5) K/mm3 RBC 4.72 (4.1-5.6) M/mm3 Hgb 10.8 L (12.5-18.0) gm/dl Hct 39.0 L (42-50) % MCV 82.6 (78-100) fl MCH 22.9 L (26-32) pg MCHC 27.7 L (32-36) g/dl RDW 17.2 H (11.5-14.0) % Plt Count 480 H (150-450) K/mm3 MPV 8.7 (7.5-11.0) fl Gran % 72.1 H (36.0-66.0) % Eos # (Auto) 0.07 (0-0.5) Absolute Lymphs (auto) 1.13 (1.0-4.6) Absolute Monos (auto) 0.99 (0.0-1.3) Lymphocytes % 14.0 L (24.0-44.0) % Monocytes % 12.3 H (0.0-12.0) % Eosinophils % 0.9 (0.00-5.0) % Basophils % 0.7 (0.0-0.4) % Absolute Granulocytes 5.80 (1.4-6.9) Basophils # 0.06 (0-0.4) Sodium (137-145) mmol/L Potassium (3.5-5.1) mmol/L Chloride (98-107) mmol/L Carbon Dioxide (22-30) mmol/L Anion Gap (5-15) MEQ/L BUN (9-20) mg/dL Creatinine (0.66-1.25) mg/dL Estimated GFR ML/MIN Glucose (74-106) mg/dL POC Glucometer 150 H (74 to 106) mg/dL Lactic Acid (0.4-2.0) Calcium (8.4-10.2) mg/dL Magnesium (1.6-2.3) mg/dL Total Bilirubin (0.2-1.3) mg/dL AST (17-59) U/L ALT (0-50) U/L Alkaline Phosphatase (38-126) U/L Troponin I (0.000-0.034) ng/mL Serum Total Protein (6.3-8.2) g/dL Albumin (3.5-5.0) g/dL Urine Color (YELLOW) Urine Appearance (CLEAR) Urine pH (5-6) Ur Specific [place] (1.005-1.025) Urine Protein (Negative) Urine Ketones (NEGATIVE) Urine Blood (0-5) Gilberto/ul Urine Nitrite (NEGATIVE) Urine Bilirubin (NEGATIVE) Urine Urobilinogen (0-1) mg/dL Ur Leukocyte Esterase (NEGATIVE) Urine WBC (Auto) (0-5) /HPF Urine RBC (Auto) (0-2) /HPF U Epithel Cells (Auto) (FEW) /HPF Urine Bacteria (Auto) (NEGATIVE) /HPF Urine Culture Reflexed (NO) Urine Glucose (NEGATIVE) mg/dL Slides for Path Review YES - Progress Progress: improved, re-examined Counseled pt/family regarding: lab results, diagnosis, need for follow-up, rad results <MANUEL PATRICIO - Last Filed: 10/19/20 16:56> - Progress Discussed with .: Mandy Will see patient in: hospital (observation) <BILL MEYERS - Last Filed: 10/19/20 23:44> - Progress Progress Note: 10/19/20 16:56 I transferred care to Dr. Bill Meyers at 1700. I reviewed with him the patient history, condition and pending laboratory and radiographic studies that he is to follow-up on. He will make the final disposition. (MANUEL PATRICIO) 10/19/20 19:07 pt taken at change of shift from Dr. Patricio and pending studies discussed. continued vomiting and meds updated. 10/19/20 22:11 pt had drop of o2 sat and so we adjusted and observed him to resolve , taking a longer time in disposition. 10/19/20 23:39 pt now stable in ER after period of observation and we discussed with Dr. Ashely mallory and all agree best including pt , to observe in hospital and t kobe haro . (BILL MEYERS) - Departure Departure Disposition: Home Critical Care Time: No <MANUEL PATRICIO - Last Filed: 10/19/20 16:56> - Departure Departure Disposition: Observation Critical Care Time: No <BILL MEYERS - Last Filed: 10/19/20 23:44> - Departure Clinical Impression: Vertigo, DANIEL (obstructive sleep apnea), COPD (chronic obstructive pulmonary disease), Elevated troponin, Oxygen desaturation during sleep Condition: Stable Referrals: MICHELINE FORTUNE [Primary Care Provider] - Instructions: Chronic Obstructive Pulmonary Disease
[2020-10-19] MEDS ORDERED: Zofran 4 MG/2 ML VIAL IV ONE ×2 (16:25→18:42)
[2020-10-19] MEDS ORDERED: ANTIVERT 25 MG PO ONE (16:25)
[2020-10-19] MEDS ORDERED: ANTIVERT 25 MG ONE (16:27)
[2020-10-19] MEDS ORDERED: Zofran 4 MG/2 ML VIAL ONE ×2 (16:27→18:55)
[2020-10-19 16:50] LABS: BASOPHIL % 0.7 % (0.0-0.4); Basophil (Absolute #) 0.06 (0-0.4); Eosinophil % 0.9 % (0.00-5.0); Eosinophil (Absolute #) 0.07 (0-0.5); Hemoglobin 10.8 gm/dl (12.5-18.0); Lymphocyte (Absolute #) 1.13 (1.0-4.6); Mean Cell Volume 82.6 fl (78-100); Mean Corpuscular Hemoglobin 22.9 pg (26-32); Mean Corpuscular Hgb Concent. 27.7 g/dl (32-36); Mean Platelet Volume 8.7 fl (7.5-11.0); Monocyte (Absolute #) 0.99 (0.0-1.3); Monocytes % 12.3 % (0.0-12.0); Neutrophil % 72.1 % (36.0-66.0); Platelet Count 480 K/mm3 (150-450); Red Blood Count 4.72 M/mm3 (4.1-5.6); Red Cell Distribution Width 17.2 % (11.5-14.0); White Blood Count 8.1 K/mm3 (4.0-10.5)
[2020-10-19 16:55] LABS: ALBUMIN 4.2 g/dL (3.5-5.0); ALKALINE PHOSPHATASE 79 U/L (38-126); BLOOD UREA NITROGEN 14 mg/dL (9-20); CHLORIDE 80 mmol/L (98-107); Calcium 9.2 mg/dL (8.4-10.2); Creatinine 1 0.54 mg/dL (0.66-1.25); EST GLOMERULAR FILTRATION RATE > 60.0 ML/MIN; Glucose 153 mg/dL (74-106); MAGNESIUM 1.6 mg/dL (1.6-2.3); Potassium 3.7 mmol/L (3.5-5.1); SGOT/AST 23 U/L (17-59); SGPT/ALT 13 U/L (0-50); SODIUM 130 mmol/L (137-145); Total Protein 6.9 g/dL (6.3-8.2)
[2020-10-19 17:04] LABS: ANION GAP 14.7 MEQ/L (5-15); Carbon Dioxide 39 mmol/L (22-30)
[2020-10-19 17:57] LABS: Slide Review 1 YES
[2020-10-19] MEDS ORDERED: Compazine 10 MG/2 ML IM ONE (18:44)
[2020-10-19] MEDS ORDERED: Compazine 10 MG/2 ML ONE (18:55)
--- NOTE | 2020-10-19 20:18 | XRAY ---
Indication: Severe dizziness. No known injury. Multiple contiguous axial images obtained through the head without contrast. Comparison: September 07, 2018. There remains age-appropriate global atrophy and minimal periventricular degenerative micro-ischemia bilaterally. No acute intracranial hemorrhage, abnormal extra-axial fluid collection, or mass effect. Fourth ventricle is midline without hydrocephalus. Bony calvarium intact. Visualized paranasal sinuses and mastoid air cells are clear. Impression: Continued nonacute senile brain. Comment: Preliminary interpretation was made by [facility]. No critical discrepancy.
[2020-10-19 20:21] LABS: Appearance CLEAR (CLEAR); Bilirubin NEGATIVE (NEGATIVE); Blood NEGATIVE Ery/ul (0-5); Glucose NEGATIVE (NEGATIVE); Ketones NEGATIVE (NEGATIVE); Leukocyte Esterase NEGATIVE (NEGATIVE); Nitrite NEGATIVE (NEGATIVE); Protein,Urine Dip NEGATIVE (Negative); Specific Gravity 1.018 (1.005-1.025); Urobilinogen NEGATIVE mg/dL (0-1); WBC 0-2 /HPF (0-5)
[2020-10-19 20:30] LABS: Bacteria NONE SEEN /HPF (NEGATIVE)
[2020-10-20 00:37] LABS: INFLUENZA A NEGATIVE (NEGATIVE); INFLUENZA B NEGATIVE (NEGATIVE); RESPIRATORY SYNCTIAL VIRUS NEGATIVE (Negative)
[2020-10-20] MEDS ORDERED: Zofran 4 MG/2 ML VIAL IV PRN (00:42)
[2020-10-20] MEDS ORDERED: VENTOLIN COMMON CANISTER IH PRN (00:42)
[2020-10-20] MEDS ORDERED: ANTIVERT 25 MG PO PRN (00:42)
[2020-10-20 02:55] LABS: A-aADO2 237; ABG HEMOGLOBIN 11.8; ABG POTASSIUM 4.5 (3.5-5.1); ARTERIAL BLD GAS O2 SATURATION 92.9 % (95-100); ARTERIAL BLOOD GAS BASE EXCESS 15.3 (-2.0-2.0); ARTERIAL BLOOD GAS FIO2 60 %; ARTERIAL BLOOD GAS PO2 66 mmHg (75-100); ARTERIAL BLOOD GAS pH 7.28 (7.35-7.45); CARBOXYHEMOGLOBIN 2.9 % THgb (0.0-6.9); HGB O2 SAT 89.5 g/dF (94-100); Methhemoglobin 0.8 % (1.4-1.5)
[2020-10-20 02:56] LABS: ARTERIAL BLOOD GAS PCO2 100 mmHg (35-45)
[2020-10-20 02:57] LABS: ABG SITE RIGHT BRACHIAL
[2020-10-20 04:08] LABS: A-aADO2 200; ABG HEMOGLOBIN 11.9; ABG POTASSIUM 4.3 (3.5-5.1); ARTERIAL BLD GAS O2 SATURATION 97.3 % (95-100); ARTERIAL BLOOD GAS BASE EXCESS 15.3 (-2.0-2.0); ARTERIAL BLOOD GAS FIO2 60 %; ARTERIAL BLOOD GAS PCO2 109 mmHg (35-45); ARTERIAL BLOOD GAS PO2 92 mmHg (75-100); CARBOXYHEMOGLOBIN 2.4 % THgb (0.0-6.9); HCO3- 47.8 (22-28); HGB O2 SAT 94.4 g/dF (94-100); Methhemoglobin 0.6 % (1.4-1.5)
[2020-10-20 04:09] LABS: ABG SITE RIGHT BRACHIAL; ARTERIAL BLOOD GAS pH 7.25 (7.35-7.45)
[2020-10-20 04:12] LABS: Absolute Neutrophil Ct (ANC) 7.41 (1.4-6.9); BASOPHIL % 0.5 % (0.0-0.4); Basophil (Absolute #) 0.05 (0-0.4); Eosinophil % 0.4 % (0.00-5.0); Eosinophil (Absolute #) 0.04 (0-0.5); Hematocrit 42.4 % (42-50); Hemoglobin 11.6 gm/dl (12.5-18.0); Lymphocyte (Absolute #) 1.38 (1.0-4.6); Lymphocytes % 13.6 % (24.0-44.0); Mean Cell Volume 84.8 fl (78-100); Mean Corpuscular Hemoglobin 23.2 pg (26-32); Mean Corpuscular Hgb Concent. 27.4 g/dl (32-36); Mean Platelet Volume 8.4 fl (7.5-11.0); Monocyte (Absolute #) 1.27 (0.0-1.3); Monocytes % 12.5 % (0.0-12.0); Platelet Count 471 K/mm3 (150-450); Red Cell Distribution Width 17.1 % (11.5-14.0); White Blood Count 10.2 K/mm3 (4.0-10.5)
[2020-10-20 04:23] LABS: ALKALINE PHOSPHATASE 83 U/L (38-126); BLOOD UREA NITROGEN 14 mg/dL (9-20); CHLORIDE 80 mmol/L (98-107); Calcium 8.8 mg/dL (8.4-10.2); EST GLOMERULAR FILTRATION RATE > 60.0 ML/MIN; Glucose 136 mg/dL (74-106); Potassium 4.5 mmol/L (3.5-5.1); SGOT/AST 23 U/L (17-59); SGPT/ALT 13 U/L (0-50); SODIUM 130 mmol/L (137-145); Total Protein 6.7 g/dL (6.3-8.2)
[2020-10-20] MEDS ORDERED: PROVENTIL 2.5 MG/3 ML NEB IH PRN (04:27)
[2020-10-20 04:32] LABS: ANION GAP 11.5 MEQ/L (5-15); Carbon Dioxide 43 mmol/L (22-30)
[2020-10-20] MEDS: Sodium Chloride 0.9% 1000 ML 1,000 ML IV SCH ×4 (04:58→21:57)
[2020-10-20 05:01] LABS: A-aADO2 178; ABG HEMOGLOBIN 11.7; ABG POTASSIUM 4.2 (3.5-5.1); ARTERIAL BLD GAS O2 SATURATION 98.9 % (95-100); ARTERIAL BLD GAS TIDAL VOLUME 600 cc; ARTERIAL BLOOD GAS BASE EXCESS 16.1 (-2.0-2.0); ARTERIAL BLOOD GAS FIO2 60 %; ARTERIAL BLOOD GAS PCO2 68 mmHg (35-45); ARTERIAL BLOOD GAS PO2 165 mmHg (75-100); ARTERIAL BLOOD GAS VENT MODE AVAPS; ARTERIAL BLOOD GAS VENT RATE 22 /MIN; ARTERIAL BLOOD GAS pH 7.42 (7.35-7.45); CARBOXYHEMOGLOBIN 1.9 % THgb (0.0-6.9); HCO3- 44.1 (22-28); HGB O2 SAT 96.2 g/dF (94-100); Methhemoglobin 0.9 % (1.4-1.5)
[2020-10-20 05:02] LABS: ABG SITE RIGHT BRACHIAL
[2020-10-20] MEDS: DUONEB 0.5-3 MG/3 ml Neb IH SCH ×4 (05:10→19:00)
[2020-10-20 07:01] LABS: Slide Review 1 YES
--- NOTE | 2020-10-20 10:11 | XRAY ---
Indication: Respiratory distress. Comparison: September 06, 2018. Portable chest again hyperinflated with multiple overlying monitoring leads and new tubing. Query new subtle right base infiltrate versus atelectasis. Remaining heart and lungs unremarkable. Bony thorax intact. Comment: Preliminary interpretation was made by [facility]. No critical discrepancy.
[2020-10-20] MEDS: Pepcid 20 MG VIAL IV SCH ×2 (10:12→21:47)
[2020-10-20] MEDS: ROCEPHIN 1 Gm-D5w 50 ml Bag** 1 G/50 ML IVPB IV SCH (11:21)
[2020-10-20] MEDS: solu-MEDROL 125 MG IV SCH ×2 (11:21→20:38)
[2020-10-20] MEDS: Zithromax 500 MG/ 250 ML NaCl Premix 500 MG/250 ML IVPB IV SCH (12:05)
[2020-10-20] MEDS ORDERED: Miralax Powder 17GM PACKET PO PRN (15:00)
[2020-10-20] MEDS ORDERED: Zaroxolyn 2.5 MG PO PRN (15:00)
[2020-10-20] MEDS ORDERED: Nitrostat 0.4 MG (ED) SL PRN (15:00)
[2020-10-20] MEDS ORDERED: NON-FORMULARY ITEM (Fluticasone Propionate [Flonase Allergy Relief] 1 SPRAY) INTRANASAL PRN (15:00)
[2020-10-20] MEDS ORDERED: TYLENOL EXTRA STRENGTH 500 MG PO PRN (15:00)
--- NOTE | 2020-10-20 15:06 | PCM.HP ---
History of Present Illness - Chief Complaint Chief Complaint: Vertigo, COPD History of Present Illness: is a 69 year old male pt of Dr. Finley with CAD, HTN, hyperlipidemia, GERD, COPD, CHF, NIDDM, colostomy (with hx GI stromal cell tumor 2 yrs ago) and peripheral neuropathy who came in through ER complaining of dizziness and vomiting. He started having dizziness when standing up, described as spinning, yesterday around 8 a.m. Was not dizzy if not standing. He came to ER, was given compazine for the dizziness, and started having hypoxemia. He was found to have infiltrate v atelectasis in RLL and wheezing in the lungs so was started on antibiotics and IV steroids. He was on bipap overnight (pt's family instructed no ventilator placement for him) and is now on 8L oximask and feeling better. In ER, his head CT was nonacute. Troponins have been neg x 5. UA nl. Flu and COVID neg. Pt denies having had any paresthesias or slurred speech. He is very hard of hearing. Pt states he still feels somewhat short of breath. At home pt had been turning up his O2 with a goal of O2 sats of 100%. On ABG his CO2 was 68. - Review of Systems Respiratory: Short Of Breath, Wheezing Cardiac: Edema (Legs, bilat, recently) Abdominal/Gastrointestinal: Vomiting Musculoskeletal: Other (fasciculations after having compazine in ER (improved this morning).) Neurological: Dizziness Medications & Allergies Home Medications: Home Medication List Aspirin EC 81 mg [Ecotrin 81 mg] 81 mg PO 3XW 11/01/12 [History Confirmed 10/19/20] Gemfibrozil 600 mg [Lopid 600 mg] 600 mg PO BID 11/01/12 [History Confirmed 10/19/20] Metformin HCl 500 mg [Glucophage 500 MG] 1,000 mg PO BID 11/01/12 [History Confirmed 10/19/20] Budesonide/Formoterol Fumarate [Symbicort 160-4.5 Mcg Inhaler] 2 puff IH BID 11/05/14 [History Confirmed 10/19/20] Fluticasone Propionate [Flonase Allergy Relief] 1 spray INTRANASAL HS PRN 11/05/14 [History Confirmed 10/19/20] Loratadine 10 mg [Claritin 10 mg] 10 mg PO DAILY 11/05/14 [History Confirmed 10/19/20] Nitroglycerin 0.4 mg (Ed) [Nitrostat 0.4 MG (ED)] 0.4 mg SL UD PRN 11/05/14 [History Confirmed 10/19/20] Potassium Chloride 20 Meq [Klor-Con 20 MEQ] 20 meq PO DAILY 11/05/14 [History Confirmed 10/19/20] Simvastatin 40 mg [Zocor 40 mg] 80 mg PO DAILY 11/05/14 [History Confirmed 10/19/20] Metoprolol Tartrate 50 mg PO BID 03/22/18 [History Confirmed 10/19/20] Omeprazole 20 MG [Prilosec 20 mg] 20 mg PO BID 03/22/18 [History Confirmed 10/19/20] Polyethylene Glycol 3350 17 gm [Miralax Powder 17GM PACKET] 17 gm PO BID PRN 03/22/18 [History Confirmed 10/19/20] Tamsulosin HCl 0.4 mg [Flomax 0.4 MG] 0.4 mg PO DAILY 03/22/18 [History C onfirmed 10/19/20] Triamterene/Hydrochlorothiazid [Triamterene-Hctz 37.5-25 mg Tb] 1 each PO DAILY 03/22/18 [History Confirmed 10/19/20] Furosemide 20 mg [Lasix 20 mg] 40 mg PO DAILY 09/06/18 [History Confirmed 10/19/20] metOLazone [Metolazone] 1 tablet PO UD PRN 09/06/18 [History Confirmed 10/19/20] Acetaminophen [Tylenol Extra Strength] 1,000 mg PO Q4HPRN PRN 07/06/19 [History Confirmed 10/19/20] Albuterol 2.5 mg/3 ml Neb [Proventil 2.5 mg/3 ml Neb] 2.5 mg IH QID PRN 07/06/19 [History Confirmed 10/19/20] Albuterol Common Canister [Ventolin Common Canister] 2 puff IH QID [History Confirmed 10/19/20] EPINEPHrine [Epipen 0.3 MG] 1 syringe SQ UD PRN 07/06/19 [History Confirmed 10/19/20] Fish Oil/Dha/Epa [Fish Oil 1,200 mg Fish Oil] 1 each PO TID 07/06/19 [History C onfirmed 10/19/20] Multivit-Min/FA/Lycopen/Lutein [Centrum Silver Tablet] 1 each PO DAILY 07/06/19 [History Confirmed 10/19/20] Umeclidinium [place] [Incruse Ellipta] 1 puff IH DAILY 07/06/19 [History Confirmed 10/19/20] Albuterol Sulfate [Ventolin Hfa] 18 gm IH QID 07/07/19 [History Confirmed 10/19/20] Oxycodone / APAP 10/325 mg [Oxycodone-Acetaminophen 10-325] 1 tab PO Q4H 10/19/20 [History Confirmed 10/19/20] Pumpkin Seed Oil/Saw [place] [Saw [place] 160 mg Softgel] 320 mg PO DAILY 10/19/20 [History Confirmed 10/19/20] Allergies/Adverse Reactions: Allergies Allergy/AdvReac Type Severity Reaction Status Date / Time amoxicillin Allergy Severe Swelling Verified 10/19/20 15:57 of Face clarithromycin [From Biaxin] Allergy Severe Swelling Verified 10/19/20 15:57 of Face lansoprazole Allergy Severe Swelling Verified 10/19/20 15:57 of Face acetaminophen [From [place]] Allergy Intermediate Vomiting Verified 10/19/20 15:57 hydrocodone [From [place]] Allergy Intermediate Vomiting Verified 10/19/20 15:57 morphine Allergy Mild N&V Verified 10/19/20 15:57 DEB Inhibitors Allergy Anaphylactic Verified 10/19/20 15:57 Reaction benazepril Allergy Verified 10/19/20 15:57 clindamycin Allergy Swelling Verified 10/19/20 15:57 of Tongue and Lips prochlorperazine AdvReac Verified 10/20/20 10:59 [From Compazine] - Past Medical History Past Medical History: Yes Neurological History: Peripheral Neuropathy ENT History: No Pertinent History, Other Cardiac History: Congestive Heart Failure, High Cholesterol, Hypertension, Myocardial Infarction (HI) Respiratory History: Asthma, Bronchitis, CHF, COPD, Sleep Apnea Endocrine Medical History: Liver Disease Musculoskelatal History: Arthritis GI Medical History: Esophageal Disorder, GERD, Hernia, Polyps History: No Pertinent History Pyscho-Social History: No Pertinent History Male Reproductive Disorders: No Pertinent History Comment: 4L O2 nc at home during day and 4l cpap at night,. 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 Former smoker - Past Surgical History Past Surgical History: Yes Neuro Surgical History: No Pertinent History Cardiac History: No Pertinent History Respiratory Surgery: No Pertinent History GI Surgical History: Appendectomy, Other Genitourinary Surgical Hx: No Pertinent History Musculskeletal Surgical Hx: Orthopedic Surgery Male Surgical History: Vasectomy Other Surgical History: removed part of intestines dt accident,inner ear surgery lt,polypectomy back surgery x2 ear surgery left side,t&a as child lipoma to neck, right eye retina/cornea repair, has colostomy - Social History Smoking Status: Former smoker How long have you smoked: 53 years Exposure to second hand smoke: Yes Alcohol: None Drug Use: none - Physical Exam Vital Signs: Vital Signs - 24 hr Temp Pulse Resp BP BP Pulse Ox 10/20/20 14:13 108 H 20 95 10/20/20 11:33 99 H 18 140/63 99 10/20/20 10:02 98 H 22 97 10/20/20 07:55 99 F 104 H 18 143/76 99 10/20/20 05:10 95 H 23 94 L 10/20/20 04:31 102 H 23 96 10/20/20 02:21 96.9 F 112 H 22 138/64 92 L 10/20/20 01:04 114 H 24 152/81 97 10/20/20 00:42 86 L 10/20/20 00:05 114 H 20 161/83 96 10/19/20 23:00 119 H 24 170/80 98 10/19/20 22:00 112 H 21 145/70 96 10/19/20 21:00 117 H 20 161/80 96 10/19/20 19:10 106 H 28 H 155/71 90 L 10/19/20 19:00 110 H 20 89 L 10/19/20 18:03 97 H 23 148/62 91 L 10/19/20 16:37 89 25 H 140/113 102 H 10/19/20 15:42 76 25 H 131/87 98 Oxygen-Last 24 hours Oxygen Flowrate (L/min)-RT 15 Oxygen Flowrate (L/min)-RT 10 General Appearance: mild distress (dyspneic), alert Neurologic Exam: cooperative, other (oriented to place and month, but says year is "2000") Eye Exam: eyes nml inspection, other (PERRL), No scleral icterus Ears, Nose, Throat Exam: moist mucous membranes, other (tongue appears artificially red) Neck Exam: normal inspection, non-tender, No lymphadenopathy Respiratory Exam: diminished breath sounds (poor air exchange), wheezing (throughout), No crackles/rales, No rhonchi Cardiovascular Exam: regular rate/rhythm, normal heart sounds, No murmur Gastrointestinal/Abdomen Exam: soft, normal bowel sounds, No tenderness, No distention, No mass, No guarding, No rebound Back Exam: normal inspection, No rash Extremity Exam: No pedal edema, No swelling Skin Exam: normal color, warm, dry, No rash Results - Labs Lab/Micro Results: Lab Results-Last 24 Hours 10/19/20 10/19/20 10/19/20 Range/Units 15:45 16:00 16:00 WBC 8.1 (4.0-10.5) K/mm3 RBC 4.72 (4.1-5.6) M/mm3 Hgb 10.8 L (12.5-18.0) gm/dl Hct 39.0 L (42-50) % MCV 82.6 (78-100) fl MCH 22.9 L (26-32) pg MCHC 27.7 L (32-36) g/dl RDW 17.2 H (11.5-14.0) % Plt Count 480 H (150-450) K/mm3 MPV 8.7 (7.5-11.0) fl Gran % 72.1 H (36.0-66.0) % Eos # (Auto) 0.07 (0-0.5) Absolute Lymphs (auto) 1.13 (1.0-4.6) Absolute Monos (auto) 0.99 (0.0-1.3) Lymphocytes % 14.0 L (24.0-44.0) % Monocytes % 12.3 H (0.0-12.0) % Eosinophils % 0.9 (0.00-5.0) % Basophils % 0.7 (0.0-0.4) % Absolute Granulocytes 5.80 (1.4-6.9) Basophils # 0.06 (0-0.4) Puncture Site pCO2 (35-45) mmHg pO2 (75-100) mmHg Base Excess (-2.0-2.0) O2 Saturation (94-100) g/dF ABG pH (7.35-7.45) ABG HCO3 (22-28) ABG O2 Sat (Measured) (95-100) % Martín Test A-a Gradient a/A Ratio Hemoglobin Carboxyhemoglobin (0.0-6.9) % THgb Methemoglobin (1.4-1.5) % Temperature C POC O2 Flow Rate % Vent Mode Vent Rate /MIN Tidal Volume cc PEEP cmH2O Inspiratory BiPAP Expiratory BiPAP Sodium 130 L (137-145) mmol/L Potassium 3.7 (3.5-5.1) mmol/L Chloride 80 L (98-107) mmol/L Carbon Dioxide 39 H (22-30) mmol/L Anion Gap 14.7 (5-15) MEQ/L BUN 14 (9-20) mg/dL Creatinine 0.54 L (0.66-1.25) mg/dL Estimated GFR > 60.0 ML/MIN Glucose 153 H (74-106) mg/dL POC Glucometer 150 H (74 to 106) mg/dL Lactic Acid (0.4-2.0) Calcium 9.2 (8.4-10.2) mg/dL Magnesium 1.6 (1.6-2.3) mg/dL Total Bilirubin 0.40 (0.2-1.3) mg/dL AST 23 (17-59) U/L ALT 13 (0-50) U/L Alkaline Phosphatase 79 (38-126) U/L Troponin I (0.000-0.034) ng/mL Serum Total Protein 6.9 (6.3-8.2) g/dL Albumin 4.2 (3.5-5.0) g/dL Urine Color (YELLOW) Urine Appearance (CLEAR) Urine pH (5-6) Ur Specific [place] (1.005-1.025) Urine Protein (Negative) Urine Ketones (NEGATIVE) Urine Blood (0-5) Gilberto/ul Urine Nitrite (NEGATIVE) Urine Bilirubin (NEGATIVE) Urine Urobilinogen (0-1) mg/dL Ur Leukocyte Esterase (NEGATIVE) Urine WBC (Auto) (0-5) /HPF Urine RBC (Auto) (0-2) /HPF U Epithel Cells (Auto) (FEW) /HPF Urine Bacteria (Auto) (NEGATIVE) /HPF Urine Culture Reflexed (NO) Urine Glucose (NEGATIVE) mg/dL Influenza Type A Ag (NEGATIVE) Influenza Type B Ag (NEGATIVE) RSV (PCR) (Negative) SARS-CoV-2 (PCR) (NEGATIVE) Slides for Path Review YES 10/19/20 10/19/20 10/19/20 Range/Units 16:00 16:25 19:28 WBC (4.0-10.5) K/mm3 RBC (4.1-5.6) M/mm3 Hgb (12.5-18.0) gm/dl Hct (42-50) % MCV (78-100) fl MCH (26-32) pg MCHC (32-36) g/dl RDW (11.5-14.0) % Plt Count (150-450) K/mm3 MPV (7.5-11.0) fl Gran % (36.0-66.0) % Eos # (Auto) (0-0.5) Absolute Lymphs (auto) (1.0-4.6) Absolute Monos (auto) (0.0-1.3) Lymphocytes % (24.0-44.0) % Monocytes % (0.0-12.0) % Eosinophils % (0.00-5.0) % Basophils % (0.0-0.4) % Absolute Granulocytes (1.4-6.9) Basophils # (0-0.4) Puncture Site pCO2 (35-45) mmHg pO2 (75-100) mmHg Base Excess (-2.0-2.0) O2 Saturation (94-100) g/dF ABG pH (7.35-7.45) ABG HCO3 (22-28) ABG O2 Sat (Measured) (95-100) % Martín Test A-a Gradient a/A Ratio Hemoglobin Carboxyhemoglobin (0.0-6.9) % THgb Methemoglobin (1.4-1.5) % Temperature C POC O2 Flow Rate % Vent Mode Vent Rate /MIN Tidal Volume cc PEEP cmH2O Inspiratory BiPAP Expiratory BiPAP Sodium (137-145) mmol/L Potassium (3.5-5.1) mmol/L Chloride (98-107) mmol/L Carbon Dioxide (22-30) mmol/L Anion Gap (5-15) MEQ/L BUN (9-20) mg/dL Creatinine (0.66-1.25) mg/dL Estimated GFR ML/MIN Glucose (74-106) mg/dL POC Glucometer (74 to 106) mg/dL Lactic Acid 1.9 (0.4-2.0) Calcium (8.4-10.2) mg/dL Magnesium (1.6-2.3) mg/dL Total Bilirubin (0.2-1.3) mg/dL AST (17-59) U/L ALT (0-50) U/L Alkaline Phosphatase (38-126) U/L Troponin I 0.019 0.016 (0.000-0.034) ng/mL Serum Total Protein (6.3-8.2) g/dL Albumin (3.5-5.0) g/dL Urine Color (YELLOW) Urine Appearance (CLEAR) Urine pH (5-6) Ur Specific [place] (1.005-1.025) Urine Protein (Negative) Urine Ketones (NEGATIVE) Urine Blood (0-5) Gilberto/ul Urine Nitrite (NEGATIVE) Urine Bilirubin (NEGATIVE) Urine Urobilinogen (0-1) mg/dL Ur Leukocyte Esterase (NEGATIVE) Urine WBC (Auto) (0-5) /HPF Urine RBC (Auto) (0-2) /HPF U Epithel Cells (Auto) (FEW) /HPF Urine Bacteria (Auto) (NEGATIVE) /HPF Urine Culture Reflexed (NO) Urine Glucose (NEGATIVE) mg/dL Influenza Type A Ag (NEGATIVE) Influenza Type B Ag (NEGATIVE) RSV (PCR) (Negative) SARS-CoV-2 (PCR) (NEGATIVE) Slides for Path Review 10/19/20 10/19/20 10/19/20 Range/Units 20:01 22:53 23:58 WBC (4.0-10.5) K/mm3 RBC (4.1-5.6) M/mm3 Hgb (12.5-18.0) gm/dl Hct (42-50) % MCV (78-100) fl MCH (26-32) pg MCHC (32-36) g/dl RDW (11.5-14.0) % Plt Count (150-450) K/mm3 MPV (7.5-11.0) fl Gran % (36.0-66.0) % Eos # (Auto) (0-0.5) Absolute Lymphs (auto) (1.0-4.6) Absolute Monos (auto) (0.0-1.3) Lymphocytes % (24.0-44.0) % Monocytes % (0.0-12.0) % Eosinophils % (0.00-5.0) % Basophils % (0.0-0.4) % Absolute Granulocytes (1.4-6.9) Basophils # (0-0.4) Puncture Site pCO2 (35-45) mmHg pO2 (75-100) mmHg Base Excess (-2.0-2.0) O2 Saturation (94-100) g/dF ABG pH (7.35-7.45) ABG HCO3 (22-28) ABG O2 Sat (Measured) (95-100) % Martín Test A-a Gradient a/A Ratio Hemoglobin Carboxyhemoglobin (0.0-6.9) % THgb Methemoglobin (1.4-1.5) % Temperature C POC O2 Flow Rate % Vent Mode Vent Rate /MIN Tidal Volume cc PEEP cmH2O Inspiratory BiPAP Expiratory BiPAP Sodium (137-145) mmol/L Potassium (3.5-5.1) mmol/L Chloride (98-107) mmol/L Carbon Dioxide (22-30) mmol/L Anion Gap (5-15) MEQ/L BUN (9-20) mg/dL Creatinine (0.66-1.25) mg/dL Estimated GFR ML/MIN Glucose (74-106) mg/dL POC Glucometer (74 to 106) mg/dL Lactic Acid (0.4-2.0) Calcium (8.4-10.2) mg/dL Magnesium (1.6-2.3) mg/dL Total Bilirubin (0.2-1.3) mg/dL AST (17-59) U/L ALT (0-50) U/L Alkaline Phosphatase (38-126) U/L Troponin I 0.014 (0.000-0.034) ng/mL Serum Total Protein (6.3-8.2) g/dL Albumin (3.5-5.0) g/dL Urine Color YELLOW (YELLOW) Urine Appearance CLEAR (CLEAR) Urine pH 5.0 (5-6) Ur Specific [place] 1.018 (1.005-1.025) Urine Protein NEGATIVE (Negative) Urine Ketones NEGATIVE (NEGATIVE) Urine Blood NEGATIVE (0-5) Gilberto/ul Urine Nitrite NEGATIVE (NEGATIVE) Urine Bilirubin NEGATIVE (NEGATIVE) Urine Urobilinogen NEGATIVE (0-1) mg/dL Ur Leukocyte Esterase NEGATIVE (NEGATIVE) Urine WBC (Auto) 0-2 (0-5) /HPF Urine RBC (Auto) NONE (0-2) /HPF U Epithel Cells (Auto) NONE (FEW) /HPF Urine Bacteria (Auto) NONE SEEN (NEGATIVE) /HPF Urine Culture Reflexed NO (NO) Urine Glucose NEGATIVE (NEGATIVE) mg/dL Influenza Type A Ag NEGATIVE (NEGATIVE) Influenza Type B Ag NEGATIVE (NEGATIVE) RSV (PCR) NEGATIVE (Negative) SARS-CoV-2 (PCR) NEGATIVE (NEGATIVE) Slides for Path Review 10/20/20 10/20/20 10/20/20 Range/Units 01:32 02:10 03:30 WBC (4.0-10.5) K/mm3 RBC (4.1-5.6) M/mm3 Hgb (12.5-18.0) gm/dl Hct (42-50) % MCV (78-100) fl MCH (26-32) pg MCHC (32-36) g/dl RDW (11.5-14.0) % Plt Count (150-450) K/mm3 MPV (7.5-11.0) fl Gran % (36.0-66.0) % Eos # (Auto) (0-0.5) Absolute Lymphs (auto) (1.0-4.6) Absolute Monos (auto) (0.0-1.3) Lymphocytes % (24.0-44.0) % Monocytes % (0.0-12.0) % Eosinophils % (0.00-5.0) % Basophils % (0.0-0.4) % Absolute Granulocytes (1.4-6.9) Basophils # (0-0.4) Puncture Site RIGHT BRACHIAL RIGHT BRACHIAL pCO2 100 H* 109 H* (35-45) mmHg pO2 66 L 92 (75-100) mmHg Base Excess 15.3 H 15.3 H (-2.0-2.0) O2 Saturation 89.5 L 94.4 (94-100) g/dF ABG pH 7.28 L 7.25 L* (7.35-7.45) ABG HCO3 47.0 H* 47.8 H* (22-28) ABG O2 Sat (Measured) 92.9 L 97.3 (95-100) % Martín Test NOT APPLICABLE NOT APPLICABLE A-a Gradient 237 200 a/A Ratio 0.22 0.32 Hemoglobin 11.8 11.9 Carboxyhemoglobin 2.9 2.4 (0.0-6.9) % THgb Methemoglobin 0.8 L 0.6 L (1.4-1.5) % Temperature 37.0 37.0 C POC O2 Flow Rate 60 60 % Vent Mode Vent Rate /MIN Tidal Volume cc PEEP cmH2O Inspiratory BiPAP 18 Expiratory BiPAP 18 8 Sodium (137-145) mmol/L Potassium 4.5 4.3 (3.5-5.1) mmol/L Chloride (98-107) mmol/L Carbon Dioxide (22-30) mmol/L Anion Gap (5-15) MEQ/L BUN (9-20) mg/dL Creatinine (0.66-1.25) mg/dL Estimated GFR ML/MIN Glucose (74-106) mg/dL POC Glucometer (74 to 106) mg/dL Lactic Acid (0.4-2.0) Calcium (8.4-10.2) mg/dL Magnesium (1.6-2.3) mg/dL Total Bilirubin (0.2-1.3) mg/dL AST (17-59) U/L ALT (0-50) U/L Alkaline Phosphatase (38-126) U/L Troponin I 0.019 (0.000-0.034) ng/mL Serum Total Protein (6.3-8.2) g/dL Albumin (3.5-5.0) g/dL Urine Color (YELLOW) Urine Appearance (CLEAR) Urine pH (5-6) Ur Specific [place] (1.005-1.025) Urine Protein (Negative) Urine Ketones (NEGATIVE) Urine Blood (0-5) Gilberto/ul Urine Nitrite (NEGATIVE) Urine Bilirubin (NEGATIVE) Urine Urobilinogen (0-1) mg/dL Ur Leukocyte Esterase (NEGATIVE) Urine WBC (Auto) (0-5) /HPF Urine RBC (Auto) (0-2) /HPF U Epithel Cells (Auto) (FEW) /HPF Urine Bacteria (Auto) (NEGATIVE) /HPF Urine Culture Reflexed (NO) Urine Glucose (NEGATIVE) mg/dL Influenza Type A Ag (NEGATIVE) Influenza Type B Ag (NEGATIVE) RSV (PCR) (Negative) SARS-CoV-2 (PCR) (NEGATIVE) Slides for Path Review 10/20/20 10/20/20 10/20/20 Range/Units 04:07 04:07 04:07 WBC 10.2 (4.0-10.5) K/mm3 RBC 5.00 (4.1-5.6) M/mm3 Hgb 11.6 L (12.5-18.0) gm/dl Hct 42.4 (42-50) % MCV 84.8 (78-100) fl MCH 23.2 L (26-32) pg MCHC 27.4 L (32-36) g/dl RDW 17.1 H (11.5-14.0) % Plt Count 471 H (150-450) K/mm3 MPV 8.4 (7.5-11.0) fl Gran % 73.0 H (36.0-66.0) % Eos # (Auto) 0.04 (0-0.5) Absolute Lymphs (auto) 1.38 (1.0-4.6) Absolute Monos (auto) 1.27 (0.0-1.3) Lymphocytes % 13.6 L (24.0-44.0) % Monocytes % 12.5 H (0.0-12.0) % Eosinophils % 0.4 (0.00-5.0) % Basophils % 0.5 (0.0-0.4) % Absolute Granulocytes 7.41 H (1.4-6.9) Basophils # 0.05 (0-0.4) Puncture Site pCO2 (35-45) mmHg pO2 (75-100) mmHg Base Excess (-2.0-2.0) O2 Saturation (94-100) g/dF ABG pH (7.35-7.45) ABG HCO3 (22-28) ABG O2 Sat (Measured) (95-100) % Martín Test A-a Gradient a/A Ratio Hemoglobin Carboxyhemoglobin (0.0-6.9) % THgb Methemoglobin (1.4-1.5) % Temperature C POC O2 Flow Rate % Vent Mode Vent Rate /MIN Tidal Volume cc PEEP cmH2O Inspiratory BiPAP Expiratory BiPAP Sodium 130 L (137-145) mmol/L Potassium 4.5 D (3.5-5.1) mmol/L Chloride 80 L (98-107) mmol/L Carbon Dioxide 43 H (22-30) mmol/L Anion Gap 11.5 (5-15) MEQ/L BUN 14 (9-20) mg/dL Creatinine 0.50 L (0.66-1.25) mg/dL Estimated GFR > 60.0 ML/MIN Glucose 136 H (74-106) mg/dL POC Glucometer (74 to 106) mg/dL Lactic Acid (0.4-2.0) Calcium 8.8 (8.4-10.2) mg/dL Magnesium (1.6-2.3) mg/dL Total Bilirubin 0.30 (0.2-1.3) mg/dL AST 23 (17-59) U/L ALT 13 (0-50) U/L Alkaline Phosphatase 83 (38-126) U/L Troponin I 0.033 (0.000-0.034) ng/mL Serum Total Protein 6.7 (6.3-8.2) g/dL Albumin 4.0 (3.5-5.0) g/dL Urine Color (YELLOW) Urine Appearance (CLEAR) Urine pH (5-6) Ur Specific [place] (1.005-1.025) Urine Protein (Negative) Urine Ketones (NEGATIVE) Urine Blood (0-5) Gilberto/ul Urine Nitrite (NEGATIVE) Urine Bilirubin (NEGATIVE) Urine Urobilinogen (0-1) mg/dL Ur Leukocyte Esterase (NEGATIVE) Urine WBC (Auto) (0-5) /HPF Urine RBC (Auto) (0-2) /HPF U Epithel Cells (Auto) (FEW) /HPF Urine Bacteria (Auto) (NEGATIVE) /HPF Urine Culture Reflexed (NO) Urine Glucose (NEGATIVE) mg/dL Influenza Type A Ag (NEGATIVE) Influenza Type B Ag (NEGATIVE) RSV (PCR) (Negative) SARS-CoV-2 (PCR) (NEGATIVE) Slides for Path Review YES 10/20/20 10/20/20 Range/Units 04:55 07:00 WBC (4.0-10.5) K/mm3 RBC (4.1-5.6) M/mm3 Hgb (12.5-18.0) gm/dl Hct (42-50) % MCV (78-100) fl MCH (26-32) pg MCHC (32-36) g/dl RDW (11.5-14.0) % Plt Count (150-450) K/mm3 MPV (7.5-11.0) fl Gran % (36.0-66.0) % Eos # (Auto) (0-0.5) Absolute Lymphs (auto) (1.0-4.6) Absolute Monos (auto) (0.0-1.3) Lymphocytes % (24.0-44.0) % Monocytes % (0.0-12.0) % Eosinophils % (0.00-5.0) % Basophils % (0.0-0.4) % Absolute Granulocytes (1.4-6.9) Basophils # (0-0.4) Puncture Site RIGHT BRACHIAL pCO2 68 H* (35-45) mmHg pO2 165 H* (75-100) mmHg Base Excess 16.1 H (-2.0-2.0) O2 Saturation 96.2 (94-100) g/dF ABG pH 7.42 (7.35-7.45) ABG HCO3 44.1 H* (22-28) ABG O2 Sat (Measured) 98.9 (95-100) % Martín Test NOT APPLICABLE A-a Gradient 178 a/A Ratio 0.48 Hemoglobin 11.7 Carboxyhemoglobin 1.9 (0.0-6.9) % THgb Methemoglobin 0.9 L (1.4-1.5) % Temperature 37.0 C POC O2 Flow Rate 60 % Vent Mode AVAPS Vent Rate 22 /MIN Tidal Volume 600 cc PEEP 14.0 cmH2O Inspiratory BiPAP Expiratory BiPAP Sodium (137-145) mmol/L Potassium 4.2 (3.5-5.1) mmol/L Chloride (98-107) mmol/L Carbon Dioxide (22-30) mmol/L Anion Gap (5-15) MEQ/L BUN (9-20) mg/dL Creatinine (0.66-1.25) mg/dL Estimated GFR ML/MIN Glucose (74-106) mg/dL POC Glucometer 123 H (74 to 106) mg/dL Lactic Acid (0.4-2.0) Calcium (8.4-10.2) mg/dL Magnesium (1.6-2.3) mg/dL Total Bilirubin (0.2-1.3) mg/dL AST (17-59) U/L ALT (0-50) U/L Alkaline Phosphatase (38-126) U/L Troponin I (0.000-0.034) ng/mL Serum Total Protein (6.3-8.2) g/dL Albumin (3.5-5.0) g/dL Urine Color (YELLOW) Urine Appearance (CLEAR) Urine pH (5-6) Ur Specific [place] (1.005-1.025) Urine Protein (Negative) Urine Ketones (NEGATIVE) Urine Blood (0-5) Gilberto/ul Urine Nitrite (NEGATIVE) Urine Bilirubin (NEGATIVE) Urine Urobilinogen (0-1) mg/dL Ur Leukocyte Esterase (NEGATIVE) Urine WBC (Auto) (0-5) /HPF Urine RBC (Auto) (0-2) /HPF U Epithel Cells (Auto) (FEW) /HPF Urine Bacteria (Auto) (NEGATIVE) /HPF Urine Culture Reflexed (NO) Urine Glucose (NEGATIVE) mg/dL Influenza Type A Ag (NEGATIVE) Influenza Type B Ag (NEGATIVE) RSV (PCR) (Negative) SARS-CoV-2 (PCR) (NEGATIVE) Slides for Path Review Accuchecks Date 10/20/20 Date 10/20/20 Time 11:49 Time 07:14 - Radiology Impressions Radiology Exams & Impressions: Radiology Procedures Category Date Time Status CHEST 1 VIEW (PORTABLE) Stat Exams 10/20/20 07:21 Completed HEAD WITHOUT CONTRAST [CT] Stat Exams 10/19/20 16:25 Completed - Other Procedures and Tests Respiratory Therapy 10/20/20 00:42 Oxygen Oxymask LPM 10 lpm 10/20/20 02:14 BiPap/CPAP STAT 10/20/20 03:20 Respiratory Therapy Assessment DAILY Assessment/Plan (1) Pneumonia Current Visit: Yes Status: Acute Qualifiers: Pneumonia type: due to unspecified organism Laterality: right Lung location: lower lobe of lung Qualified Code(s): J18.9 - Pneumonia, unspecified organism Assessment & Plan: ON day #1 of rocephin and zithromax. On IV solumedrol day #8. Code(s): J18.9 - PNEUMONIA, UNSPECIFIED ORGANISM (2) COPD (chronic obstructive pulmonary disease) Current Visit: Yes Status: Acute Qualifiers: COPD type: COPD with acute exacerbation Qualified Code(s): J44.1 - Chronic obstructive pulmonary disease with (acute) exacerbation (3) Vertigo Current Visit: Yes Status: Acute Assessment & Plan: Could be due to COPD. Will continue observing. Denies new paresthesias or slurred speech, and CT head was nonacute. 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
[2020-10-20] MEDS ORDERED: Nitrostat 0.4 MG Tablet SL PRN (15:11)
[2020-10-20] MEDS ORDERED: Flonase NASAL NS PRN (15:18)
[2020-10-20] MEDS: Lopressor 50 MG PO SCH ×2 (15:32→22:00)
[2020-10-20] MEDS: Maxzide-25MG Tablet PO SCH (15:32)
[2020-10-20] MEDS: Flomax 0.4 MG PO SCH (15:33)
[2020-10-20] MEDS: Lasix 40 MG PO SCH (15:33)
[2020-10-20] MEDS: CLARITIN 10 MG PO SCH (15:33)
[2020-10-20] MEDS ORDERED: OXYCODONE-ACETAMINOPHEN 10-325 PO SCH (16:00)
[2020-10-20] MEDS ORDERED: Advair Hfa 115/21 Common canister IH SCH (19:00)
[2020-10-20] MEDS: ZOCOR 20MG PO SCH (21:47)
[2020-10-20] MEDS: HUMULIN R SQ PRN ×2 (21:48→21:53)
[2020-10-20] MEDS: Protonix 40MG Tablet PO SCH (21:48)
[2020-10-20] MEDS: Advair Hfa 230/21 Mcg COMMON CANISTER IH SCH (21:57)
[2020-10-20] MEDS ORDERED: NON-FORMULARY ITEM (Omeprazole 20 Mg [Prilosec 20 Mg] 20 MG) PO SCH (22:00)
[2020-10-20] MEDS ORDERED: NON-FORMULARY ITEM (Budesonide/Formoterol Fumarate [Symbicort 160-4.5 Mcg Inhaler] 2 PUFF) IH SCH (22:00)
[2020-10-21] MEDS ORDERED: Sodium Chloride 3 ML UD NEBULES IH ONE ×2 (00:25→23:08)
[2020-10-21] MEDS: solu-MEDROL 125 MG IV SCH ×3 (03:59→19:56)
[2020-10-21 05:28] LABS: Hematocrit 35.7 % (42-50); Hemoglobin 9.7 gm/dl (12.5-18.0); Mean Cell Volume 83.6 fl (78-100); Mean Corpuscular Hemoglobin 22.7 pg (26-32); Mean Corpuscular Hgb Concent. 27.2 g/dl (32-36); Mean Platelet Volume 9.1 fl (7.5-11.0); Platelet Count 434 K/mm3 (150-450); Red Blood Count 4.27 M/mm3 (4.1-5.6); Red Cell Distribution Width 16.9 % (11.5-14.0); White Blood Count 8.9 K/mm3 (4.0-10.5)
[2020-10-21 05:40] LABS: BLOOD UREA NITROGEN 14 mg/dL (9-20); CHLORIDE 79 mmol/L (98-107); Calcium 7.9 mg/dL (8.4-10.2); Creatinine 1 0.52 mg/dL (0.66-1.25); EST GLOMERULAR FILTRATION RATE > 60.0 ML/MIN; Glucose 160 mg/dL (74-106); Potassium 3.7 mmol/L (3.5-5.1); SODIUM 125 mmol/L (137-145)
[2020-10-21 05:48] LABS: ANION GAP 8.7 MEQ/L (5-15); Carbon Dioxide 41 mmol/L (22-30)
[2020-10-21 06:04] LABS: Slide Review YES
[2020-10-21] MEDS: DUONEB 0.5-3 MG/3 ml Neb IH SCH (06:40)
[2020-10-21] MEDS ORDERED: Spiriva 18 Mcg/Cap Inhaler IH ONE (07:37)
[2020-10-21] MEDS: Advair Hfa 230/21 Mcg COMMON CANISTER IH SCH ×2 (07:40→19:22)
[2020-10-21] MEDS: Spiriva 18 Mcg/Cap Inhaler IH SCH (07:40)
[2020-10-21] MEDS ORDERED: ECOTRIN 81 MG PO SCH (10:00)
[2020-10-21] MEDS ORDERED: LASIX 20 MG PO SCH (10:00)
[2020-10-21] MEDS ORDERED: Maxzide 25MG PO SCH (10:00)
[2020-10-21] MEDS ORDERED: NON-FORMULARY ITEM (Simvastatin 40 Mg [Zocor 40 Mg] 80 MG) PO SCH (10:00)
[2020-10-21] MEDS ORDERED: NON-FORMULARY ITEM (Potassium Chloride 20 Meq [Klor-Con 20 Meq] 20 MEQ) PO SCH (10:00)
[2020-10-21] MEDS: Protonix 40MG Tablet PO SCH ×2 (10:17→21:02)
[2020-10-21] MEDS: Flomax 0.4 MG PO SCH (10:17)
[2020-10-21] MEDS: Klor Con 10 MEQ PO SCH (10:17)
[2020-10-21] MEDS: Pepcid 20 MG VIAL IV SCH ×2 (10:18→21:03)
[2020-10-21] MEDS: Lasix 40 MG PO SCH (10:18)
[2020-10-21] MEDS: Lopressor 50 MG PO SCH ×2 (10:37→21:02)
[2020-10-21] MEDS: VENTOLIN COMMON CANISTER IH SCH ×3 (10:40→19:22)
[2020-10-21] MEDS: Maxzide-25MG Tablet PO SCH (10:48)
[2020-10-21] MEDS ORDERED: VENTOLIN COMMON CANISTER IH SCH (11:00)
[2020-10-21] MEDS: CLARITIN 10 MG PO SCH (11:15)
[2020-10-21] MEDS: HUMULIN R SQ PRN ×2 (12:31→21:05)
[2020-10-21] MEDS: ROCEPHIN 1 Gm-D5w 50 ml Bag** 1 G/50 ML IVPB IV SCH (16:44)
[2020-10-21] MEDS: Zithromax 500 MG/ 250 ML NaCl Premix 500 MG/250 ML IVPB IV SCH (16:44)
[2020-10-21] MEDS: ZOCOR 20MG PO SCH (21:03)
[2020-10-21] MEDS ORDERED: CLARITIN 10 MG PO SCH (22:00)
[2020-10-22] MEDS: solu-MEDROL 125 MG IV SCH ×2 (04:54→11:18)
[2020-10-22] MEDS: Spiriva 18 Mcg/Cap Inhaler IH SCH (06:47)
[2020-10-22] MEDS: Advair Hfa 230/21 Mcg COMMON CANISTER IH SCH (06:47)
[2020-10-22] MEDS: VENTOLIN COMMON CANISTER IH SCH ×2 (06:47→10:45)
[2020-10-22] MEDS ORDERED: Maxzide-25MG Tablet PO SCH (07:00)
--- NOTE | 2020-10-22 08:04 | CONS ---
Events noted. Chart reviewed. CONSULT DATE: 10/21/2020 HISTORY: Bill Serna is a 69 year-old male with long standing history of chronic obstructive pulmonary disease and chronic respiratory failure, who had been admitted through emergency room at [facility]. The patient reportedly had a mild episode of dizziness that he attributed to hypoglycemia. He attempted to eat to increase his sugar. Subsequently he started experiencing some shortness of breath leading to an emergency room visit. The patient's blood gases performed during stay have shown acute on chronic hypercapnic respiratory failure. The patient is being treated with BiPAP with some clinical improvement. This morning he was switched to Oxymizer at 15 liters which has been weaned down to 6 liters so far. He is currently saturating 94%. He does report feeling better. A chest x-ray and CT chest showed subsequent atelectasis for which he has been placed on flutter and this seems to have helped improve pulmonary toilet. At the time of my evaluation the patient is awake, able to talk full sentences. He denies any acute complaints. He does have a CPAP at home which is several years old. PAST MEDICAL HISTORY: Positive for history of chronic obstructive pulmonary disease, chronic hypercapnic/hypoxic respiratory failure, coronary artery disease, hypertension, dyslipidemia, gastroesophageal reflux disease, diabetes mellitus and peripheral neuropathy. PAST SURGICAL HISTORY: Colostomy. PERSONAL AND SOCIAL HISTORY: He is a former smoker. MEDICATIONS: Home and current medications are reviewed. ALLERGIES: ALLERGIES NOTED. PHYSICAL EXAMINATION: This is a middle aged male who appears comfortable, able to carry out good conversation. Vital signs noted. HEENT: Normocephalic. Oral exam unremarkable. NECK: Supple. CVS: First and second heart sounds are normal, regular, rhythmic. RESPIRATORY: Shows diminished breath sounds, scattered rhonchi heard. ABDOMEN: Soft. EXTREMITIES: No significant edema is noted. LABORATORY DATA AND TESTS: X-rays, CT scan all reviewed. ASSESSMENT: This is a 69 year old male admitted with: 1) Acute on chronic hypercapnic respiratory failure. 2) Chronic obstructive pulmonary disease with mild exacerbation. 3) Basilar atelectasis secondary to mucus plugging. 4) Acute bronchitis. 5) Comorbidities listed above. RECOMMENDATIONS: 1) The patient has clinically improved since admission. 2) I agree with present treatment. 3) The patient was switched to AVAPS mode with tidal volume of 6 starting at a rate of 14, PEEP of 12 and FIO2 of 45%. Will attempt this during his hospital stay. If the patient seems to tolerate this better would benefit from either BiPAP with back rate or AVAPS (average volume assured pressure support) mode upon discharge. 4) I agree with steroids, bronchodilators and improving pulmonary toilet. 5) I will be available as needed and will follow up certainly upon discharge from hospital. Thank you for allowing me to participate in the care of Bill Serna.
[2020-10-22] MEDS: HUMULIN R SQ PRN (08:19)
--- NOTE | 2020-10-22 08:30 | DS ---
DISCHARGE DIAGNOSES: 1) CHRONIC OBSTRUCTIVE PULMONARY DISEASE EXACERBATION. 2) HYPERCAPNIA. 3) HYPOXEMIA. HISTORY: The patient is a 69 year-old white male patient with a long history of chronic obstructive pulmonary disease. He has home oxygen as well. He had increased trouble with his breathing with getting dizzy upon standing and was brought to the emergency room and was found to be hypercapnic. He was given treatments which brought his CO2 level down and his oxygen levels up and he was admitted to the hospital for observation and management. We had consultation by Dr. Juan Lazo who felt that the medical treatment was under control and did not make any additional changes although he discuss with the patient getting BiPAP as opposed to CPAP at home. He is going to make arrangements for that. HOSPITAL COURSE: The patient in the hospital was given IV steroids, IV antibiotics and nebulizer treatments on a routine basis. We did ask physical therapy to see the patient as well for his dizziness issue and he apparently walked the hallway twice yesterday without difficulty. His chest is essentially with minimal wheezes presently. He is on oxygen by Oxymizer and his saturations have been in the low 90's with these treatments. The patient by the morning of 10/22/2020 was felt to be ready for discharge home again. We did check a procalcitonin level on 10/21/2020 and found it to be less than 0.03. Therefore the antibiotics were unnecessary at this time. He will be discharged home on his usual home medications of aspirin 81 mg a day, Lopid 600 mg b.i.d., Metformin 1,000 mg b.i.d. He is on Symbicort inhaler, Flonase nasal spray, Claritin 10 mg daily, Nitrostat PRN, potassium 20 mEq tablet daily, Simvastatin 40 mg a day, metoprolol 50 mg b.i.d., omeprazole 20 mg b.i.d. He takes PRN MiraLAX, Tamsulosin 0.4 mg daily, Maxzide 25 daily, Lasix 40 mg daily, metolazone 1 tablet weekly, albuterol nebulization PRN. He has apparently oxycodone 10/325 on PRN basis for pain. He will be discharged home with prednisone at 60 mg a day for five days, 40 mg for five days, 20 mg for five days. He has an appointment to see Dr. Lazo in his office this next coming week and I will see him in follow up after his visit with Dr. Lazo. The nurses will check with Dr. Lazo's office to see about arrangements for his BiPAP at home as he currently has CPAP with oxygen at home that he wears all of the time.
[2020-10-22] MEDS: Flomax 0.4 MG PO SCH (09:31)
[2020-10-22] MEDS: Klor Con 10 MEQ PO SCH (09:31)
[2020-10-22] MEDS: Lasix 40 MG PO SCH (09:32)
[2020-10-22] MEDS: Protonix 40MG Tablet PO SCH (09:32)
[2020-10-22] MEDS: Pepcid 20 MG VIAL IV SCH (09:32)
[2020-10-22] MEDS: Lopressor 50 MG PO SCH (09:32)
[2020-10-22 10:49] VITALS: O2SAT 95
[2020-10-22 11:33] VITALS: BP 130/70; PULSE 68
== END 2020-10-22 13:13 | disposition home or self-care (01) | DRG 190 ==
LOC: ED 15:36 → MED SURG 10-20 00:38 → OBSVTOIN 10-20 03:30
PROVIDERS: ADMIT Family Medicine; ATTEND Family Medicine
DX: J44.1 Chronic obstructive pulmonary disease with (acute) exacerbation (principal); J96.22 Acute and chronic respiratory failure with hypercapnia; J96.21 Acute and chronic respiratory failure with hypoxia; J18.9 Pneumonia, unspecified organism; J98.11 Atelectasis; J44.0 Chronic obstructive pulmonary disease with (acute) lower respiratory infection; R42 Dizziness and giddiness; I10 Essential (primary) hypertension; E87.6 Hypokalemia; E78.00 Pure hypercholesterolemia, unspecified; E11.9 Type 2 diabetes mellitus without complications; G62.9 Polyneuropathy, unspecified; Z99.81 Dependence on supplemental oxygen; Z93.3 Colostomy status; Z79.899 Other long term (current) drug therapy
CPT/HCPCS: 0241U; 36000; 36415; 36600; 70450; 71045; 80048; 80053; 81001; 82375; 82803; 82947; 83605; 83735; 83880; 84145; 84484; 85025; 85027; 87086; 93005; 93268; 94002; 94003; 94640; 94660; 94667; 94762; 96372; 96374; 96376; 97161; 97165; 97530; 99285; 94760; J0456; J0696; J1815; J2405; J2930; A9270-GY

== ENCOUNTER 2021-04-13 14:47 | Emergency (ER) | payer MEDICARE, OTHER ==
[2021-04-13] MEDS ORDERED: DUONEB 0.5-3 MG/3 ml Neb IH ONE ×2 (14:50→15:31)
[2021-04-13] MEDS ORDERED: solu-MEDROL 125 MG, Sterile H2O 10 ml 10 ML IV ONE ×2 (14:50)
[2021-04-13 15:20] LABS: Hematocrit 43.1 % (42-50); Mean Cell Volume 84.8 fl (78-100); Mean Corpuscular Hemoglobin 23.6 pg (26-32); Mean Corpuscular Hgb Concent. 27.8 g/dl (32-36); Mean Platelet Volume 8.8 fl (7.5-11.0); Platelet Count 531 K/mm3 (150-450); Red Blood Count 5.08 M/mm3 (4.1-5.6); Red Cell Distribution Width 17.3 % (11.5-14.0); White Blood Count 13.5 K/mm3 (4.0-10.5)
[2021-04-13 15:29] LABS: A-aADO2 291; ABG HEMOGLOBIN 11.5; ABG POTASSIUM 3.2 (3.5-5.1); ARTERIAL BLD GAS O2 SATURATION 99.7 % (95-100); ARTERIAL BLOOD GAS BASE EXCESS 24.8 (-2.0-2.0); ARTERIAL BLOOD GAS FIO2 100 %; ARTERIAL BLOOD GAS PO2 322 mmHg (75-100); ARTERIAL BLOOD GAS pH 7.44 (7.35-7.45); CARBOXYHEMOGLOBIN 1.8 % THgb (0.0-6.9); HCO3- 54.3 (22-28); Lactic Acid 0.9 (0.4-2.0); Methhemoglobin 0.9 % (1.4-1.5)
[2021-04-13 15:30] LABS: ABG SITE LEFT BRACHIAL; ARTERIAL BLOOD GAS PCO2 80 mmHg (35-45)
[2021-04-13] MEDS ORDERED: Rocephin 1000 MG INJ IM ONE (15:31)
[2021-04-13 15:42] LABS: ALBUMIN 4.4 g/dL (3.5-5.0); ALKALINE PHOSPHATASE 111 U/L (38-126); BLOOD UREA NITROGEN 22 mg/dL (9-20); CHLORIDE 72 mmol/L (98-107); Calcium 10.1 mg/dL (8.4-10.2); EST GLOMERULAR FILTRATION RATE > 60.0 ML/MIN; Glucose 187 mg/dL (74-106); MAGNESIUM 1.2 mg/dL (1.6-2.3); Potassium 3.8 mmol/L (3.5-5.1); SGOT/AST 20 U/L (17-59); SGPT/ALT 14 U/L (0-50); SODIUM 131 mmol/L (137-145); Total Protein 7.4 g/dL (6.3-8.2)
[2021-04-13 15:52] VITALS: O2SAT 96
[2021-04-13 15:54] LABS: ANION GAP 16.8 MEQ/L (5-15); Carbon Dioxide 46 mmol/L (22-30)
--- NOTE | 2021-04-13 16:01 | ERPHSYRPT ---
- History of Present Illness Time Seen by Provider: 04/13/21 15:58 Source: patient, EMS Exam Limitations: clinical condition Patient Subjective Stated Complaint: pt reports shortness of breath for 2-3 weeks, states this morning when he woke his O2 sat read 55%, states he worked on improving his sat and most the day was around 70-80% on 8L NC, states he became extremely short of breath [employer] and got scared. reports daughter is his primary caregiver. Triage Nursing Assessment: pt is aox3, pt extremely short of breath with minimal exertion, pivoting to cot, pt is able to speak in 1-2 word increments, pt is afebrile, radial pulses strong and equal, pt tachycardic, pt lung sounds are diminished with rales noted bilat, pt skin warm dry. Physician History: 70-year-old male with significant past medical history of COPD congestive heart failure hypertension started having shortness of breath for last 2 to 3 weeks which got worse yesterday. When he checked his pulse oximetry his oxygen saturation was running in the range of 55% today morning he was getting more short of breath when he checks his oxygen saturation it was around 70% he started increasing his oxygen but without any help and he was started getting mo re and more short of breath and also started having labored breathing so his daughter told him to come to the emergency room. He denies any fever chills nausea vomiting chest pain. Timing/Duration: week(s) (two to three weeks) Severity of Dyspnea-Max: moderate Severity of Dyspnea-Current: moderate Possible Cause: frequent episodes Modifying Factors: Improves With: albuterol nebulizer Associated Symptoms: wheezing, weakness, ankle swelling Allergies/Adverse Reactions: amoxicillin Allergy (Severe, Verified 04/13/21 15:29) Swelling of Face clarithromycin [From Biaxin] Allergy (Severe, Verified 04/13/21 15:29) Swelling of Face lid swelled until touched nose. lansoprazole Allergy (Severe, Verified 04/13/21 15:29) Swelling of Face acetaminophen [From [place]] Allergy (Intermediate, Verified 04/13/21 15:29) Vomiting hydrocodone [From [place]] Allergy (Intermediate, Verified 04/13/21 15:29) Vomiting morphine Allergy (Mild, Verified 04/13/21 15:29) N&V DEB Inhibitors Allergy (Verified 04/13/21 15:29) Anaphylactic Reaction benazepril Allergy (Verified 04/13/21 15:29) clindamycin Allergy (Verified 04/13/21 15:29) Swelling of Tongue and Lips prochlorperazine [From Compazine] Adverse Reaction (Verified 04/13/21 15:29) Home Medications: Aspirin EC 81 mg [Ecotrin 81 mg] 81 mg PO 3XW 11/01/12 [History] Gemfibrozil 600 mg [Lopid 600 mg] 600 mg PO BID 11/01/12 [History] Metformin HCl 500 mg [Glucophage 500 MG] 1,000 mg PO BID 11/01/12 [History] Budesonide/Formoterol Fumarate [Symbicort 160-4.5 Mcg Inhaler] 2 puff IH BID 11/05/14 [History] Fluticasone Propionate [Flonase Allergy Relief] 1 spray INTRANASAL HS PRN 11/05/14 [History] Loratadine 10 mg [Claritin 10 mg] 10 mg PO DAILY 11/05/14 [History] Nitroglycerin 0.4 mg (Ed) [Nitrostat 0.4 MG (ED)] 0.4 mg SL UD PRN 11/05/14 [History] Potassium Chloride 20 Meq [Klor-Con 20 MEQ] 20 meq PO DAILY 11/05/14 [History] Simvastatin 40 mg [Zocor 40 mg] 80 mg PO DAILY 11/05/14 [History] Metoprolol Tartrate 50 mg PO BID 03/22/18 [History] Omeprazole 20 MG [Prilosec 20 mg] 20 mg PO BID 03/22/18 [History] Polyethylene Glycol 3350 17 gm [Miralax Powder 17GM PACKET] 17 gm PO BID PRN 03/22/18 [History] Tamsulosin HCl 0.4 mg [Flomax 0.4 MG] 0.4 mg PO DAILY 03/22/18 [History] Triamterene/Hydrochlorothiazid [Triamterene-Hctz 37.5-25 mg Tb] 1 each PO DAILY 03/22/18 [History] Furosemide 20 mg [Lasix 20 mg] 40 mg PO DAILY 09/06/18 [History] metOLazone [Metolazone] 1 tablet PO UD PRN 09/06/18 [History] Acetaminophen [Tylenol Extra Strength] 1,000 mg PO Q4HPRN PRN 07/06/19 [History] Albuterol 2.5 mg/3 ml Neb [Proventil 2.5 mg/3 ml Neb] 2.5 mg IH QID PRN 07/06/19 [History] Albuterol Common Canister [Ventolin Common Canister] 2 puff IH QID 07/06/19 [History] EPINEPHrine [Epipen 0.3 MG] 1 syringe SQ UD PRN 07/06/19 [History] Fish Oil/Dha/Epa [Fish Oil 1,200 mg Fish Oil] 1 each PO TID 07/06/19 [History] Multivit-Min/FA/Lycopen/Lutein [Centrum Silver Tablet] 1 each PO DAILY 07/06/19 [History] Umeclidinium [place] [Incruse Ellipta] 1 puff IH DAILY 07/06/19 [History] Albuterol Sulfate [Ventolin Hfa] 18 gm IH QID 07/07/19 [History] Pumpkin Seed Oil/Saw [place] [Saw [place] 160 mg Softgel] 320 mg PO DAILY 10/19/20 [History] Docusate Sodium 100 mg [Colace 100 MG] 100 mg PO DAILY 10/20/20 [History] Ibuprofen 200 mg [Motrin 200 mg] 400 mg PO HS PRN 10/20/20 [History] Hx Tetanus, Diphtheria Vaccination/Date Given: Yes Hx Influenza Vaccination/Date Given: Yes Hx Pneumococcal Vaccination/Date Given: No Immunizations Up to Date: Yes Travel Risk - International Travel Have you traveled outside of the country in past 3 weeks: No - Coronavirus Screening Are you exhibiting any of the following symptoms?: Yes Symptoms: Shortness of Breath Close contact with a COVID-19 positive Pt in past 14-21 Days: No - Vaccine Status Have you recieved a Covid-19 vaccination: Yes Stunt Double: [facility] [facility] - Vaccination Dates Date of 2cond Vaccination (if applicable): UNK - Review of Systems Constitutional: No Fever, No Chills Eyes: No Symptoms Ears, Nose, & Throat: No Symptoms Respiratory: Dyspnea, Dyspnea on Exertion (GREEN), Wheezing, No Cough, No Cyanosis Cardiac: No Chest Pain, No Edema, No Syncope Abdominal/Gastrointestinal: No Abdominal Pain, No Nausea, No Vomiting, No Diarrhea Genitourinary Symptoms: No Dysuria Musculoskeletal: No Back Pain, No Neck Pain Skin: No Rash Neurological: No Dizziness, No Focal Weakness, No Sensory Changes Psychological: No Symptoms Endocrine: No Symptoms All Other Systems: Reviewed and Negative - Past Medical History Pertinent Past Medical History: Yes Neurological History: Peripheral Neuropathy ENT History: No Pertinent History, Other Cardiac History: Congestive Heart Failure, High Cholesterol, Hypertension, Myocardial Infarction (SD) Respiratory History: Asthma, Bronchitis, CHF, COPD, Sleep Apnea Endocrine Medical History: Liver Disease Musculoskeletal History: Arthritis GI Medical History: Esophageal Disorder, GERD, Hernia, Polyps History: No Pertinent History Psycho-Social History: No Pertinent History Male Reproductive Disorders: No Pertinent History Other Medical History: 4L O2 nc at home during day and 4l cpap at night,. 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 Former smoker - Past Surgical History Past Surgical History: Yes Neuro Surgical History: No Pertinent History Cardiac: No Pertinent History Respiratory: No Pertinent History Gastrointestinal: Appendectomy, Other Genitourinary: No Pertinent History Musculoskeletal: Orthopedic Surgery Male Surgical History: Vasectomy Other Surgical History: removed part of intestines dt accident,inner ear surgery lt,polypectomy back surgery x2 ear surgery left side,t&a as child lipoma to neck, right eye retina/cornea repair, has colostomy - Social History Smoking Status: Former smoker How long have you smoked: 53 years Exposure to second hand smoke: Yes Drug Use: none Patient Lives Alone: No - Nursing Vital Signs Nursing Vital Signs: Initial Vital Signs Temperature 97.0 F 04/13/21 14:49 Pulse Rate 109 H 04/13/21 14:49 Respiratory Rate 28 H 04/13/21 14:49 Blood Pressure 116/69 04/13/21 14:49 O2 Sat by Pulse Oximetry 69 L 04/13/21 14:49 Pain Scale Pain Intensity 0 - Physical Exam General Appearance: no apparent distress, alert Eye Exam: PERRL/EOMI Neck Exam: normal inspection, supple Respiratory Exam: diminished breath sounds, crackles/rales, rhonchi, wheezing Cardiovascular/Chest Exam: tachycardia Abdominal/Gastrointestinal Exam: soft, No tenderness, No distention, No mass Extremity Exam: non-tender, normal range of motion, normal inspection, no calf tenderness, no pedal edema Neurologic Exam: alert, oriented x 3, cooperative, sole tacker II-XII nml as tested, sensation nml, No motor deficits Skin Exam: normal color, warm, No dry SpO2 Interpretation: borderline oxygenation, hypoxic, ABG ordered SpO2: 96 O2 Delivery: Non-rebreather - Course Nursing assessment & vital signs reviewed: Yes EKG Interpreted by Me: Right Bundle Branch Block, Non-specific ST Changes - Radiology Exams Chest X-ray Interpretation: Reviewed by me (COPD changes) Ordered Tests: Active Orders 24 hr Category Date Time Status Web Project Manager STAT Care 04/13/21 14:51 Active EKG-ER Only STAT Care 04/13/21 14:50 Active Oxygen-ED Only Nasal Cannula 3 lpm Care 04/13/21 14:50 Active CHEST 2 VIEWS (PA AND LAT) Stat Exams 04/13/21 14:50 Taken ARTERIAL BLOOD GASES Stat Lab 04/13/21 15:15 Completed BLOOD CULTURE Stat Lab 04/13/21 15:12 Received CBC W DIFF Stat Lab 04/13/21 14:58 Completed CMP Stat Lab 04/13/21 14:58 Completed D-DIMER QUANTITATIVE Stat Lab 04/13/21 14:58 Completed Lactic Acid Stat Lab 04/13/21 15:15 Completed MAGNESIUM Stat Lab 04/13/21 14:58 Completed Manual Differential NC Stat Lab 04/13/21 14:58 Completed NT PRO BNP Stat Lab 04/13/21 14:58 Completed TROPONIN Q3H Lab 04/13/21 14:58 Completed TROPONIN Q3H Lab 04/13/21 18:00 Ordered TROPONIN Q3H Lab 04/13/21 21:00 Ordered TROPONIN Q3H Lab 04/14/21 00:00 Ordered TROPONIN Q3H Lab 04/14/21 03:00 Ordered Respiratory Therapy Assessment DAILY RT 04/13/21 15:50 Active Medication Summary Generic Name Dose Route Start Last Admin Trade Name Freq PRN Reason Stop Dose Admin Sodium Chloride 1,000 mls @ 50 mls/hr 04/13/21 15:00 Sodium Chloride 0.9% 1000 Ml IV 05/13/21 14:59 .Q20H AN Ceftriaxone Sodium/Dextrose 1 g in 50 mls @ 100 mls/hr 04/13/21 16:20 Rocephin 1 Gm-D5w 50 Ml Bag IV 04/13/21 16:49 STAT STA Discontinued Medications Generic Name Dose Route Start Last Admin Trade Name Miranda PRN Reason Stop Dose Admin Albuterol/Ipratropium 3 ml 04/13/21 14:50 04/13/21 15:38 Duoneb 0.5-3 Mg/3 Ml Neb IH 04/13/21 14:51 3 ml STAT ONE Administration Albuterol/Ipratropium Confirm 04/13/21 15:31 Duoneb 0.5-3 Mg/3 Ml Neb Administered 04/13/21 15:32 Dose 3 ml IH .STK-MED ONE Ceftriaxone Sodium 1,000 mg 04/13/21 15:31 Rocephin 1000 Mg Inj IM 04/13/21 15:32 STAT ONE Methylprednisolone Sodium 0 mg 04/13/21 14:50 Succinate 125 mg/ Sterile IV 04/13/21 14:51 Water 10 ml STAT ONE Lab/Rad Data: Laboratory Result Diagrams 04/13/21 14:58 04/13/21 14:58 Laboratory Results 04/13/21 04/13/21 04/13/21 Range/Units 15:15 14:58 14:58 WBC (4.0-10.5) K/mm3 RBC (4.1-5.6) M/mm3 Hgb (12.5-18.0) gm/dl Hct (42-50) % MCV (78-100) fl MCH (26-32) pg MCHC (32-36) g/dl RDW (11.5-14.0) % Plt Count (150-450) K/mm3 MPV (7.5-11.0) fl D-Dimer 344 (215-500) ng/mL Puncture Site LEFT BRACHIAL pCO2 80 H* (35-45) mmHg pO2 322 H* (75-100) mmHg Base Excess 24.8 H (-2.0-2.0) O2 Saturation 97.0 (94-100) g/dF ABG pH 7.44 (7.35-7.45) ABG HCO3 54.3 H* (22-28) ABG O2 Sat (Measured) 99.7 (95-100) % Martín Test NOT APPLICABLE A-a Gradient 291 a/A Ratio 0.53 Hemoglobin 11.5 Carboxyhemoglobin 1.8 (0.0-6.9) % THgb Methemoglobin 0.9 L (1.4-1.5) % Temperature 37.0 C POC O2 Flow Rate 100 % Sodium (137-145) mmol/L Potassium 3.2 L (3.5-5.1) mmol/L Chloride (98-107) mmol/L Carbon Dioxide (22-30) mmol/L Anion Gap (5-15) MEQ/L BUN (9-20) mg/dL Creatinine (0.66-1.25) mg/dL Estimated GFR ML/MIN Glucose (74-106) mg/dL Lactic Acid 0.9 (0.4-2.0) Calcium (8.4-10.2) mg/dL Magnesium (1.6-2.3) mg/dL Total Bilirubin (0.2-1.3) mg/dL AST (17-59) U/L ALT (0-50) U/L Alkaline Phosphatase (38-126) U/L Troponin I < 0.012 (0.000-0.034) ng/mL NT-Pro-B Natriuret Pep (0-900) pg/mL Serum Total Protein (6.3-8.2) g/dL Albumin (3.5-5.0) g/dL 04/13/21 04/13/21 Range/Units 14:58 14:58 WBC 13.5 H (4.0-10.5) K/mm3 RBC 5.08 (4.1-5.6) M/mm3 Hgb 12.0 L (12.5-18.0) gm/dl Hct 43.1 (42-50) % MCV 84.8 (78-100) fl MCH 23.6 L (26-32) pg MCHC 27.8 L (32-36) g/dl RDW 17.3 H (11.5-14.0) % Plt Count 531 H (150-450) K/mm3 MPV 8.8 (7.5-11.0) fl D-Dimer (215-500) ng/mL Puncture Site pCO2 (35-45) mmHg pO2 (75-100) mmHg Base Excess (-2.0-2.0) O2 Saturation (94-100) g/dF ABG pH (7.35-7.45) ABG HCO3 (22-28) ABG O2 Sat (Measured) (95-100) % Martín Test A-a Gradient a/A Ratio Hemoglobin Carboxyhemoglobin (0.0-6.9) % THgb Methemoglobin (1.4-1.5) % Temperature C POC O2 Flow Rate % Sodium 131 L (137-145) mmol/L Potassium 3.8 (3.5-5.1) mmol/L Chloride 72 L (98-107) mmol/L Carbon Dioxide 46 H (22-30) mmol/L Anion Gap 16.8 H (5-15) MEQ/L BUN 22 H (9-20) mg/dL Creatinine 0.70 (0.66-1.25) mg/dL Estimated GFR > 60.0 ML/MIN Glucose 187 H (74-106) mg/dL Lactic Acid (0.4-2.0) Calcium 10.1 (8.4-10.2) mg/dL Magnesium 1.2 L (1.6-2.3) mg/dL Total Bilirubin 0.60 (0.2-1.3) mg/dL AST 20 (17-59) U/L ALT 14 (0-50) U/L Alkaline Phosphatase 111 (38-126) U/L Troponin I (0.000-0.034) ng/mL NT-Pro-B Natriuret Pep 69.0 (0-900) pg/mL Serum Total Protein 7.4 (6.3-8.2) g/dL Albumin 4.4 (3.5-5.0) g/dL - Progress Progress: improved Air Movement: good Blood Culture(s) Obtained: Yes Antibiotics given: Yes Counseled pt/family regarding: lab results, diagnosis, need for follow-up, rad results - Departure Departure Disposition: Home Clinical Impression: COPD with exacerbation, Chronic respiratory failure with hypoxia and hypercapnia Condition: Stable Critical Care Time: Yes Critical Care Time(excluding separately billable procedures): Critical 30-74 mins Referrals: MICHELINE FORTUNE [Primary Care Provider] - Instructions: Chronic Obstructive Pulmonary Disease, Exacerbation of COPD (DC), Shortness of Breath (Dyspnea) (DC) Additional Instructions: Discharge/Care Plan KARENA AGEE was seen on 04/13/21 in the Emergency Room. The patient was counseled regarding Diagnosis,Lab results, Imaging studies, need for follow up and when to return to the Emergency Room. Prescriptions given: Discharge Note I have spoken with the patient and/or caregivers. I have explained the patient's condition, diagnosis and treatment plan based on the information available to me at this time. I have answered the patient's and/or caregiver's questions and addressed any concerns. The patient and/or caregivers have as good understanding of the patient's diagnosis, condition and treatment plan as can be expected at this point. The vital signs have been stable. The patient's condition is stable and appropriate for discharge from the emergency department. The patient will pursue further outpatient evaluation with the primary care physician or other designated or consulting physician as outlined in the discharge instructions. The patient and/or caregivers are agreeable to this plan of care and follow-up instructions have been explained in detail. The patient and/or caregivers have received these instruction. The patient/and or caregivers are aware that any significant change in condition or worsening of symptoms should prompt an immediate return to this or the closest emergency department or call 911. KARENA AGEE was seen on 04/13/21 n the Emergency Room. At that time you were treated for an emergent condition, during your visit Laboratory, Radiology and/or other procedures may have been ordered. It is very important that you follow-up with your Primary Care Physician MICHELINE FORTUNE within the next 24-48 hours to review your Emergency Room visit and the final results of testing that was ordered. Some test results such as Urine Cultures, Blood Cultures, and other cultures if ordered will not be finalized for 24-48 hours. If you do not have a Primary Care Provider please call the medical records department at [phone] to obtain a copy of your results or you may sign into our patient portal to obtain these results by visiting us @ [email or web address] and completing the following steps: 1. Click on the Patient Portal link 2. Click the Patient Self Enrollment Link to complete the enrollment form and entering your 3. Once the enrollment form is completed you will receive an email with a temporary ID and password at the email address you provided. 4. Next choose a user name and password. Your user name must be at least 4 characters long and your password must be at least 4 characters long. 5. Choose a security question from the list and provide your answer to the que stion. If you already have signed into the Health Portal you may access your Health Ca re Information 08/02 by the following steps: 1. Login to our website @ [email or web address] 2. Enter your original user name and password. FAQS The [facility] Health Portal is an online tool that contains your Lab Results, Radiology Reports, Visit History, Discharge Instructions and Health Summary Lab and Radiology Results will not be available for 72 hours on the portal. The Portal is a secure site, passwords are encryted and URLs are re-written so they cannot be copied and pasted. You and authorized family members are the only ones who can access your Portal. Also there is a timeout feature that protects your information if you leave the Portal page open. If you have technical difficulty please use the Contact Us link on the page this will allow you to submit any questions you have regarding the Portal or you may contact the Medical Record Department at [phone]. Continue oral steroid treatment at home. Continue CPAP, Continue 3-4 liters of home oxygen. Follow-up with your primary care physician in the lung specialist tomorrow or at least give their office a call that he was in the emergency room. Prescriptions: Levofloxacin [Levaquin 500 MG Tablet] 500 mg PO QAM #7 tablet
[2021-04-13] MEDS ORDERED: ROCEPHIN 1 Gm-D5w 50 ml Bag** 1 G/50 ML IVPB IV STA (16:20)
[2021-04-13 17:17] LABS: ANISOCYTOSIS 1+; Lymphocytes 9 % (24-44); Monocyte 2 % (0.0-12.0); Neutrophils 89 % (36.-66.); Platelet Estimate INCREASED (NORMAL); Total Cells Counted 100
[2021-04-13] MEDS ORDERED: ROCEPHIN 1 Gm-D5w 50 ml Bag** 1 G/50 ML IVPB IV ONE (17:26)
[2021-04-13] MEDS ORDERED: Sterile H2O 10 ml IJ ONE (17:57)
[2021-04-13] MEDS ORDERED: solu-MEDROL ONE (17:57)
[2021-04-13] MEDS: Sodium Chloride 0.9% 1000 ML 1,000 ML IV SCH ×2 (18:01→18:16)
[2021-04-13 18:05] VITALS: BP 134/89; PULSE 105
--- NOTE | 2021-04-13 19:01 | XRAY ---
Indication: Short of breath. Comparison: October 20, 2020. AP/lateral chest again hyperinflated with again subtle left base infiltrate versus atelectasis. Remaining heart and lungs unremarkable. Bony thorax intact.
== END 2021-04-13 18:14 | disposition home or self-care (01) ==
LOC: ED 14:47
DX: J44.1 Chronic obstructive pulmonary disease with (acute) exacerbation (principal); J96.11 Chronic respiratory failure with hypoxia; I50.9 Heart failure, unspecified; I10 Essential (primary) hypertension; Z79.899 Other long term (current) drug therapy; E78.00 Pure hypercholesterolemia, unspecified; I25.2 Old myocardial infarction
CPT/HCPCS: 36415; 36600; 71046; 80053; 82375; 82803; 83605; 83735; 83880; 84484; 85025; 85379; 87040; 93005; 93041; 94640; 96374; 96375; 99284; 99291; J0696; J2930; A9270-GY

== ENCOUNTER 2021-05-25 19:57 | Inpatient (IN) | payer MEDICARE, OTHER ==
[2021-05-25] MEDS ORDERED: DUONEB 0.5-3 MG/3 ml Neb IH ONE ×2 (20:04→20:14)
[2021-05-25] MEDS ORDERED: BABY ASPIRIN 81 MG CHEW PO ONE (20:06)
[2021-05-25] MEDS ORDERED: LEVOFLOXACIN 750MG/150ML D5W 750 MG/150 ML BAG IV STA (20:09)
[2021-05-25] MEDS ORDERED: Lasix 40 MG/4 ML IV ONE (20:09)
[2021-05-25] MEDS ORDERED: BABY ASPIRIN 81 MG CHEW ONE (20:12)
[2021-05-25] MEDS ORDERED: LEVOFLOXACIN 750MG/150ML D5W 750 MG/150 ML BAG IV ONE (20:13)
[2021-05-25] MEDS ORDERED: Lasix 40 MG/4 ML ONE (20:13)
[2021-05-25 20:38] LABS: Absolute Neutrophil Ct (ANC) 9.95 (1.4-6.9); BASOPHIL % 0.3 % (0.0-0.4); Basophil (Absolute #) 0.03 (0-0.4); Eosinophil % 0.5 % (0.00-5.0); Eosinophil (Absolute #) 0.06 (0-0.5); Hematocrit 38.1 % (42-50); Hemoglobin 10.5 gm/dl (12.5-18.0); Lymphocyte (Absolute #) 0.77 (1.0-4.6); Lymphocytes % 6.6 % (24.0-44.0); Mean Cell Volume 86.6 fl (78-100); Mean Corpuscular Hemoglobin 23.9 pg (26-32); Mean Corpuscular Hgb Concent. 27.6 g/dl (32-36); Mean Platelet Volume 8.9 fl (7.5-11.0); Monocyte (Absolute #) 0.85 (0.0-1.3); Monocytes % 7.3 % (0.0-12.0); Neutrophil % 85.3 % (36.0-66.0); Platelet Count 471 K/mm3 (150-450); White Blood Count 11.7 K/mm3 (4.0-10.5)
[2021-05-25 20:39] LABS: A-aADO2 161; ABG HEMOGLOBIN 10.7; ABG POTASSIUM 3.3 (3.5-5.1); ABG SITE RIGHT BRACHIAL; ARTERIAL BLOOD GAS BASE EXCESS 24.5 (-2.0-2.0); ARTERIAL BLOOD GAS FIO2 50 %; ARTERIAL BLOOD GAS PCO2 84 mmHg (35-45); ARTERIAL BLOOD GAS PO2 91 mmHg (75-100); ARTERIAL BLOOD GAS pH 7.42 (7.35-7.45); CARBOXYHEMOGLOBIN 2.6 % THgb (0.0-6.9); HCO3- 54.5 (22-28); HGB O2 SAT 94.9 g/dF (94-100); Lactic Acid 1.5 (0.4-2.0); Methhemoglobin 0.6 % (1.4-1.5)
[2021-05-25 21:14] LABS: ALBUMIN 3.8 g/dL (3.5-5.0); ALKALINE PHOSPHATASE 105 U/L (38-126); BLOOD UREA NITROGEN 15 mg/dL (9-20); CHLORIDE 71 mmol/L (98-107); Creatinine 1 0.75 mg/dL (0.66-1.25); EST GLOMERULAR FILTRATION RATE > 60.0 ML/MIN; Glucose 240 mg/dL (74-106); NT PRO BNP 102 pg/mL (0-900); Potassium 3.5 mmol/L (3.5-5.1); SGOT/AST 20 U/L (17-59); SGPT/ALT 13 U/L (0-50); SODIUM 131 mmol/L (137-145); Total Protein 6.6 g/dL (6.3-8.2)
[2021-05-25 21:16] LABS: Carbon Dioxide 50 mmol/L (22-30)
[2021-05-25 21:17] LABS: MAGNESIUM 0.8 mg/dL (1.6-2.3)
[2021-05-25 21:18] LABS: ANION GAP 13.5 MEQ/L (5-15)
--- NOTE | 2021-05-25 21:23 | ERPHSYRPT ---
- History of Present Illness Time Seen by Provider: 05/25/21 20:10 Source: patient, EMS Exam Limitations: no limitations Patient Subjective Stated Complaint: pt states "I have been short of breath for 3 days." Triage Nursing Assessment: pt came into the er via ambulance; pt is axo x4; c/o sob for the past 3 days; pt arrived via ambulance on CPAP; pt has use of accessory muscle with breathing; pt has wheezing with inspiratory; clear heart tones; active bowel sounds in all quads; pt has 3+ pitting edema to BLE; weak yumiko pedal pulses; strong yumiko radial pulses; pt received 1 nitro, 1 duo neb, 1 albuterol treatment in route, pt has nitro paste on to rt upper chest; tachycardic Physician History: 70 years old male with history of chronic respiratory failure on 4 L oxygen, congestive heart failure, diabetes mellitus, hypertension, hyperlipidemia is brought in the ER by EMS with increasing shortness of breath for the last 3 days. On EMS arrival patient oxygen saturation was in low 80s despite being on 4 L. Patient was in distress, and given neb treatments x2 along with Solu- Medrol and placed on nonrebreather and on presentation is around 96%. Also received sublingual nitro and Nitropaste. Patient is feeling a little better on presentation but still not moving much air with wheezing and few crackles. Rep orts minimal productive clear to yellow sputum cough with some chest discomfort but no fever or chills reported. Timing/Duration: day(s) (3), gradual onset, worse Activities at Onset: activity, rest Severity of Dyspnea-Max: severe Severity of Dyspnea-Current: severe Possible Cause: occasional episodes Modifying Factors: Improves With: oxygen. Worsens With: activity Associated Symptoms: cough, chest pain/discomfort, edema, wheezing, ankle swelling, leg swelling, productive cough, tightness Allergies/Adverse Reactions: amoxicillin Allergy (Severe, Verified 04/13/21 15:29) Swelling of Face clarithromycin [From Biaxin] Allergy (Severe, Verified 04/13/21 15:29) Swelling of Face lid swelled until touched nose. lansoprazole Allergy (Severe, Verified 04/13/21 15:29) Swelling of Face acetaminophen [From [place]] Allergy (Intermediate, Verified 04/13/21 15:29) Vomiting hydrocodone [From [place]] Allergy (Intermediate, Verified 04/13/21 15:29) Vomiting morphine Allergy (Mild, Verified 04/13/21 15:29) N&V DEB Inhibitors Allergy (Verified 04/13/21 15:29) Anaphylactic Reaction benazepril Allergy (Verified 04/13/21 15:29) clindamycin Allergy (Verified 04/13/21 15:29) Swelling of Tongue and Lips prochlorperazine [From Compazine] Adverse Reaction (Verified 04/13/21 15:29) Home Medications: Aspirin EC 81 mg [Ecotrin 81 mg] 81 mg PO 3XW 11/01/12 [History] Gemfibrozil 600 mg [Lopid 600 mg] 600 mg PO BID 11/01/12 [History] Metformin HCl 500 mg [Glucophage 500 MG] 1,000 mg PO BID 11/01/12 [History] Budesonide/Formoterol Fumarate [Symbicort 160-4.5 Mcg Inhaler] 2 puff IH BID 11/05/14 [History] Fluticasone Propionate [Flonase Allergy Relief] 1 spray INTRANASAL HS PRN 11/05/14 [History] Loratadine 10 mg [Claritin 10 mg] 10 mg PO DAILY 11/05/14 [History] Nitroglycerin 0.4 mg (Ed) [Nitrostat 0.4 MG (ED)] 0.4 mg SL UD PRN 0 11/05/14 [History] Potassium Chloride 20 Meq [Klor-Con 20 MEQ] 20 meq PO DAILY 11/05/14 [History] Simvastatin 40 mg [Zocor 40 mg] 80 mg PO DAILY 11/05/14 [History] Metoprolol Tartrate 50 mg PO BID 03/22/18 [History] Omeprazole 20 MG [Prilosec 20 mg] 20 mg PO BID 03/22/18 [History] Polyethylene Glycol 3350 17 gm [Miralax Powder 17GM PACKET] 17 gm PO BID PRN 03/22/18 [History] Tamsulosin HCl 0.4 mg [Flomax 0.4 MG] 0.4 mg PO DAILY 03/22/18 [History] Triamterene/Hydrochlorothiazid [Triamterene-Hctz 37.5-25 mg Tb] 1 each PO DAILY 03/22/18 [History] Furosemide 20 mg [Lasix 20 mg] 40 mg PO DAILY 09/06/18 [History] metOLazone [Metolazone] 1 tablet PO UD PRN 09/06/18 [History] Acetaminophen [Tylenol Extra Strength] 1,000 mg PO Q4HPRN PRN 07/06/19 [History] Albuterol 2.5 mg/3 ml Neb [Proventil 2.5 mg/3 ml Neb] 2.5 mg IH QID PRN 07/06/19 [History] Albuterol Common Canister [Ventolin Common Canister] 2 puff IH QID 07/06/19 [History] EPINEPHrine [Epipen 0.3 MG] 1 syringe SQ UD PRN 07/06/19 [History] Fish Oil/Dha/Epa [Fish Oil 1,200 mg Fish Oil] 1 each PO TID 07/06/19 [History] Multivit-Min/FA/Lycopen/Lutein [Centrum Silver Tablet] 1 each PO DAILY 07/06/19 [History] Umeclidinium [place] [Incruse Ellipta] 1 puff IH DAILY 07/06/19 [History] Albuterol Sulfate [Ventolin Hfa] 18 gm IH QID 07/07/19 [History] Pumpkin Seed Oil/Saw [place] [Saw [place] 160 mg Softgel] 320 mg PO DAILY 10/19/20 [History] Docusate Sodium 100 mg [Colace 100 MG] 100 mg PO DAILY 10/20/20 [History] Ibuprofen 200 mg [Motrin 200 mg] 400 mg PO HS PRN 10/20/20 [History] Hx Tetanus, Diphtheria Vaccination/Date Given: Yes Hx Influenza Vaccination/Date Given: Yes Hx Pneumococcal Vaccination/Date Given: No Travel Risk - International Travel Have you traveled outside of the country in past 3 weeks: No - Coronavirus Screening Are you exhibiting any of the following symptoms?: No Close contact with a COVID-19 positive Pt in past 14-21 Days: No - Vaccine Status Have you recieved a Covid-19 vaccination: Yes [employer]: [id number] - Vaccination Dates Date of 2cond Vaccination (if applicable): UNK - Review of Systems Constitutional: Fatigue, Weakness Eyes: No Symptoms Ears, Nose, & Throat: No Symptoms Respiratory: Cough, Dyspnea, Dyspnea on Exertion (GREEN), Wheezing Cardiac: Edema Abdominal/Gastrointestinal: No Symptoms Genitourinary Symptoms: No Symptoms Musculoskeletal: No Symptoms Skin: No Symptoms Neurological: No Symptoms Psychological: No Symptoms Endocrine: No Symptoms Hematologic/Lymphatic: No Symptoms Immunological/Allergic: No Symptoms - Past Medical History Pertinent Past Medical History: Yes Neurological History: Peripheral Neuropathy ENT History: No Pertinent History, Other Cardiac History: Congestive Heart Failure, High Cholesterol, Hypertension, Myocardial Infarction (NV) Respiratory History: Asthma, Bronchitis, CHF, COPD, Sleep Apnea Endocrine Medical History: Liver Disease Musculoskeletal History: Arthritis GI Medical History: Esophageal Disorder, GERD, Hernia, Polyps History: No Pertinent History Psycho-Social History: No Pertinent History Male Reproductive Disorders: No Pertinent History Other Medical History: 4L O2 nc at home during day and 4l cpap at night,. 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 Former smoker - Past Surgical History Past Surgical History: Yes Neuro Surgical History: No Pertinent History Cardiac: No Pertinent History Respiratory: No Pertinent History Gastrointestinal: Appendectomy, Other Genitourinary: No Pertinent History Musculoskeletal: Orthopedic Surgery Male Surgical History: Vasectomy Other Surgical History: removed part of intestines dt accident,inner ear surgery lt,polypectomy back surgery x2 ear surgery left side,t&a as child lipoma to ne ck, right eye retina/cornea repair, has colostomy - Social History Smoking Status: Former smoker How long have you smoked: 53 years Exposure to second hand smoke: Yes Drug Use: none Patient Lives Alone: No - Nursing Vital Signs Nursing Vital Signs: Initial Vital Signs Pulse Rate 103 H 05/25/21 20:05 Respiratory Rate 22 05/25/21 20:05 Blood Pressure 122/71 05/25/21 20:05 O2 Sat by Pulse Oximetry 99 05/25/21 20:05 - Physical Exam General Appearance: moderate distress, alert Eye Exam: PERRL/EOMI, eyes nml inspection Ears, Nose, Throat Exam: hearing grossly normal, pharyngeal erythema Neck Exam: normal inspection, non-tender, supple, full range of motion Respiratory Exam: respiratory distress, diminished breath sounds, accessory muscle use, crackles/rales, rhonchi, wheezing Cardiovascular/Chest Exam: normal heart sounds, regular rate/rhythm Abdominal/Gastrointestinal Exam: soft, No tenderness Extremity Exam: non-tender, normal range of motion Neurologic Exam: alert, oriented x 3, cooperative Skin Exam: normal color SpO2 Interpretation: O2 applied SpO2: 98 O2 Delivery: BiPap/CPAP - Course EKG Interpreted by Me: RATE ([id number]), Sinus Rhythm, Left [place] Deviation, LAFB, prolonged QT interval, Right Bundle Branch Block Ordered Tests: Active Orders 24 hr Category Date Time Status CHEST 1 VIEW (PORTABLE) Stat Exams 05/25/21 20:02 Taken ARTERIAL BLOOD GASES Stat Lab 05/25/21 19:57 Completed BLOOD CULTURE Stat Lab 05/25/21 20:31 Received CBC W DIFF Stat Lab 05/25/21 20:27 Completed CMP Stat Lab 05/25/21 20:27 Completed Lactic Acid Stat Lab 05/25/21 19:57 Completed MAGNESIUM Stat Lab 05/25/21 20:27 Completed NT PRO BNP Stat Lab 05/25/21 20:27 Completed TROPONIN Q3H Lab 05/25/21 20:27 Completed TROPONIN Q3H Lab 05/25/21 23:15 Ordered TROPONIN Q3H Lab 05/26/21 02:15 Ordered TROPONIN Q3H Lab 05/26/21 05:15 Ordered TROPONIN Q3H Lab 05/26/21 08:15 Ordered UA W/RFX UR CULTURE Stat Lab 05/25/21 20:05 Ordered BiPap/CPAP STAT RT 05/25/21 19:48 Active Respiratory Therapy Assessment DAILY RT 05/25/21 20:19 Active Transfer Order Routine Transfer 05/25/21 Ordered Medication Summary Generic Name Dose Route Start Last Admin Trade Name Freq PRN Reason Stop Dose Admin Magnesium Sulfate/Dextrose 100 mls @ 100 mls/hr 05/25/21 21:30 05/25/21 23:00 Magnesium 1 Gm / 100 Ml D5w IV 05/25/21 23:29 100 mls/hr Q1H AN Administration Discontinued Medications Generic Name Dose Route Start Last Admin Trade Name Freq PRN Reason Stop Dose Admin Albuterol/Ipratropium 3 ml 05/25/21 20:04 05/25/21 20:16 Ipratropium/Albuterol Sulfate 3 Ml Ampul.Neb IH 05/25/21 20:05 3 ml STAT ONE Administration Albuterol/Ipratropium Confirm 05/25/21 20:14 Ipratropium/Albuterol Sulfate 3 Ml Ampul.Neb Administered 05/25/21 20:15 Dose 3 ml IH .STK-MED ONE Aspirin 324 mg 05/25/21 20:06 05/25/21 20:15 Aspirin 81 Mg Tab.Chew PO 05/25/21 20:07 324 mg STAT ONE Administration Aspirin Confirm 05/25/21 20:12 Aspirin 81 Mg Tab.Chew Administered 05/25/21 20:13 Dose 324 mg .ROUTE .STK-MED ONE Furosemide 40 mg 05/25/21 20:09 05/25/21 20:16 Furosemide 40 Mg/4 Ml Vial IV 05/25/21 20:10 40 mg STAT ONE Administration Furosemide Confirm 05/25/21 20:13 Furosemide 40 Mg/4 Ml Vial Administered 05/25/21 20:14 Dose 40 mg .ROUTE .STK-MED ONE Levofloxacin/Dextrose 750 mg in 150 mls @ 100 mls/hr 05/25/21 20:09 05/25/21 23:21 Levofloxacin 750mg/150ml D5w IV 05/25/21 21:38 Infused STAT STA Infusion Levofloxacin/Dextrose Confirm 05/25/21 20:13 Levofloxacin 750mg/150ml D5w Administered 05/25/21 20:14 Dose 750 mg in 150 mls @ ud IV .STK-MED ONE Lab/Rad Data: Laboratory Result Diagrams 05/25/21 20:27 05/25/21 20:27 Laboratory Results 05/25/21 05/25/21 05/25/21 Range/Units 20:27 20:27 20:27 WBC 11.7 H (4.0-10.5) K/mm3 RBC 4.40 (4.1-5.6) M/mm3 Hgb 10.5 L (12.5-18.0) gm/dl Hct 38.1 L (42-50) % MCV 86.6 (78-100) fl MCH 23.9 L (26-32) pg MCHC 27.6 L (32-36) g/dl RDW 17.0 H (11.5-14.0) % Plt Count 471 H (150-450) K/mm3 MPV 8.9 (7.5-11.0) fl Gran % 85.3 H (36.0-66.0) % Eos # (Auto) 0.06 (0-0.5) Absolute Lymphs (auto) 0.77 L (1.0-4.6) Absolute Monos (auto) 0.85 (0.0-1.3) Lymphocytes % 6.6 L (24.0-44.0) % Monocytes % 7.3 (0.0-12.0) % Eosinophils % 0.5 (0.00-5.0) % Basophils % 0.3 (0.0-0.4) % Absolute Granulocytes 9.95 H (1.4-6.9) Basophils # 0.03 (0-0.4) Puncture Site pCO2 (35-45) mmHg pO2 (75-100) mmHg Base Excess (-2.0-2.0) O2 Saturation (94-100) g/dF ABG pH (7.35-7.45) ABG HCO3 (22-28) ABG O2 Sat (Measured) (95-100) % Martín Test A-a Gradient a/A Ratio Hemoglobin Carboxyhemoglobin (0.0-6.9) % THgb Methemoglobin (1.4-1.5) % Potassium 3.5 (3.5-5.1) Temperature C POC O2 Flow Rate % Inspiratory BiPAP Expiratory BiPAP Sodium 131 L (137-145) mmol/L Chloride 71 L (98-107) mmol/L Carbon Dioxide 50 H (22-30) mmol/L Anion Gap 13.5 (5-15) MEQ/L BUN 15 (9-20) mg/dL Creatinine 0.75 (0.66-1.25) mg/dL Estimated GFR > 60.0 ML/MIN Glucose 240 H (74-106) mg/dL Lactic Acid (0.4-2.0) Calcium 9.0 (8.4-10.2) mg/dL Magnesium 0.8 L* (1.6-2.3) mg/dL Total Bilirubin 0.40 (0.2-1.3) mg/dL AST 20 (17-59) U/L ALT 13 (0-50) U/L Alkaline Phosphatase 105 (38-126) U/L Troponin I < 0.012 (0.000-0.034) ng/mL NT-Pro-B Natriuret Pep 102 (0-900) pg/mL Serum Total Protein 6.6 (6.3-8.2) g/dL Albumin 3.8 (3.5-5.0) g/dL Slides for Path Review YES 05/25/21 Range/Units 19:57 WBC (4.0-10.5) K/mm3 RBC (4.1-5.6) M/mm3 Hgb (12.5-18.0) gm/dl Hct (42-50) % MCV (78-100) fl MCH (26-32) pg MCHC (32-36) g/dl RDW (11.5-14.0) % Plt Count (150-450) K/mm3 MPV (7.5-11.0) fl Gran % (36.0-66.0) % Eos # (Auto) (0-0.5) Absolute Lymphs (auto) (1.0-4.6) Absolute Monos (auto) (0.0-1.3) Lymphocytes % (24.0-44.0) % Monocytes % (0.0-12.0) % Eosinophils % (0.00-5.0) % Basophils % (0.0-0.4) % Absolute Granulocytes (1.4-6.9) Basophils # (0-0.4) Puncture Site RIGHT BRACHIAL pCO2 84 H* (35-45) mmHg pO2 91 (75-100) mmHg Base Excess 24.5 H (-2.0-2.0) O2 Saturation 94.9 (94-100) g/dF ABG pH 7.42 (7.35-7.45) ABG HCO3 54.5 H* (22-28) ABG O2 Sat (Measured) 98.0 (95-100) % Martín Test NOT APPLICABLE A-a Gradient 161 a/A Ratio 0.36 Hemoglobin 10.7 Carboxyhemoglobin 2.6 (0.0-6.9) % THgb Methemoglobin 0.6 L (1.4-1.5) % Potassium 3.3 L (3.5-5.1) Temperature 37.0 C POC O2 Flow Rate 50 % Inspiratory BiPAP 14 Expiratory BiPAP 8 Sodium (137-145) mmol/L Chloride (98-107) mmol/L Carbon Dioxide (22-30) mmol/L Anion Gap (5-15) MEQ/L BUN (9-20) mg/dL Creatinine (0.66-1.25) mg/dL Estimated GFR ML/MIN Glucose (74-106) mg/dL Lactic Acid 1.5 (0.4-2.0) Calcium (8.4-10.2) mg/dL Magnesium (1.6-2.3) mg/dL Total Bilirubin (0.2-1.3) mg/dL AST (17-59) U/L ALT (0-50) U/L Alkaline Phosphatase (38-126) U/L Troponin I (0.000-0.034) ng/mL NT-Pro-B Natriuret Pep (0-900) pg/mL Serum Total Protein (6.3-8.2) g/dL Albumin (3.5-5.0) g/dL Slides for Path Review - Progress Progress: improved Air Movement: good Progress Note: 05/25/21 21:50 70-year-old is evaluated for worsening shortness of breath. He received 2 neb treatments prior to arrival in part 1 on presentation in the ER. Patient also has bilateral increased lower extremity swelling and given a small dose of Lasix 40 mg IV. Placed on BiPAP. ABG showed hypercapnic respiratory failure. Chest x-ray showed finding consistent with COPD no obvious focal infiltrative process. Given Levaquin. Patient has already received a dose of Solu-Medrol. Work-up showed white count of 11 with normal troponin and EKG nonspecific. I do magnesium 1.8, started on replacement. Patient is feeling much better on reevaluation and maintaining sats at home 98% on BiPAP. Discussed with Dr. Ryan jackson, reviewed history and work-up, agreed with admission. Blood Culture(s) Obtained: Yes Antibiotics given: Yes Discussed with : Vince Will see patient in: hospital (observation) Counseled pt/family regarding: lab results, diagnosis, rad results - Departure Departure Disposition: Observation Clinical Impression: COPD with exacerbation, Hypomagnesemia, Hypokalemia Respiratory failure Qualifiers: Chronicity: acute on chronic Respiratory failure complication: hypoxia and hypercapnia Qualified Code(s): J96.21 - Acute and chronic respiratory failure with hypoxia Condition: Fair Critical Care Time: Yes Critical Care Time(excluding separately billable procedures): Critical 30-74 mins Referrals: MICHELINE FORTUNE [Primary Care Provider] - Follow up/PCP as directed Instructions: Chronic Obstructive Pulmonary Disease
[2021-05-25 22:59] LABS: Slide Review 1 YES
[2021-05-25] MEDS ORDERED: Magnesium 1 Gm / 100 Ml D5W*** 200 ML IV ONE (22:59)
[2021-05-25] MEDS: Magnesium 1 Gm / 100 Ml D5W*** 100 ML IV SCH (23:00)
[2021-05-26] MEDS ORDERED: D5W/0.45NS W/ 20mEq KCl 1000 ML 1,000 ML IV ONE (00:09)
[2021-05-26 02:11] LABS: Appearance CLEAR (CLEAR); Bilirubin NEGATIVE (NEGATIVE); Blood NEGATIVE Ery/ul (0-5); Glucose NEGATIVE (NEGATIVE); Ketones NEGATIVE (NEGATIVE); Leukocyte Esterase NEGATIVE (NEGATIVE); Mucus SLIGHT /HPF (NEGATIVE); Nitrite NEGATIVE (NEGATIVE); Protein,Urine Dip NEGATIVE (Negative); Specific Gravity 1.009 (1.005-1.025); Urobilinogen NEGATIVE mg/dL (0-1)
[2021-05-26] MEDS ORDERED: DUONEB 0.5-3 MG/3 ml Neb IH ONE (03:32)
[2021-05-26] MEDS ORDERED: TYLENOL 325 MG PO PRN (03:33)
[2021-05-26] MEDS ORDERED: Zofran 4 MG/2 ML VIAL IV PRN (03:33)
[2021-05-26] MEDS: DUONEB 0.5-3 MG/3 ml Neb IH SCH ×4 (03:41→18:17)
[2021-05-26] MEDS ORDERED: PROVENTIL 2.5 MG/3 ML NEB IH PRN ×2 (04:06→07:18)
[2021-05-26 04:47] LABS: Absolute Neutrophil Ct (ANC) 8.34 (1.4-6.9); BASOPHIL % 0.1 % (0.0-0.4); Basophil (Absolute #) 0.01 (0-0.4); Eosinophil % 0.1 % (0.00-5.0); Eosinophil (Absolute #) 0.01 (0-0.5); Hematocrit 33.8 % (42-50); Hemoglobin 9.2 gm/dl (12.5-18.0); Lymphocyte (Absolute #) 0.46 (1.0-4.6); Lymphocytes % 4.9 % (24.0-44.0); Mean Cell Volume 86.4 fl (78-100); Mean Corpuscular Hemoglobin 23.5 pg (26-32); Mean Corpuscular Hgb Concent. 27.2 g/dl (32-36); Mean Platelet Volume 9.1 fl (7.5-11.0); Monocyte (Absolute #) 0.53 (0.0-1.3); Monocytes % 5.7 % (0.0-12.0); Neutrophil % 89.2 % (36.0-66.0); Platelet Count 443 K/mm3 (150-450); Red Blood Count 3.91 M/mm3 (4.1-5.6); Red Cell Distribution Width 16.8 % (11.5-14.0); White Blood Count 9.4 K/mm3 (4.0-10.5)
[2021-05-26 05:14] LABS: ALBUMIN 3.5 g/dL (3.5-5.0); ALKALINE PHOSPHATASE 93 U/L (38-126); BLOOD UREA NITROGEN 19 mg/dL (9-20); CHLORIDE 72 mmol/L (98-107); Calcium 8.5 mg/dL (8.4-10.2); Creatinine 1 0.57 mg/dL (0.66-1.25); EST GLOMERULAR FILTRATION RATE > 60.0 ML/MIN; Glucose 137 mg/dL (74-106); MAGNESIUM 1.4 mg/dL (1.6-2.3); Potassium 3.5 mmol/L (3.5-5.1); SGOT/AST 20 U/L (17-59); SGPT/ALT 12 U/L (0-50); SODIUM 130 mmol/L (137-145); Total Protein 6.4 g/dL (6.3-8.2)
[2021-05-26 05:23] LABS: Carbon Dioxide 47 mmol/L (22-30)
[2021-05-26 05:24] LABS: ANION GAP 14.5 MEQ/L (5-15)
[2021-05-26] MEDS: solu-MEDROL 60 MG, Sterile H2O 10 ml 2 ML IV SCH ×10 (05:37→23:23)
[2021-05-26] MEDS ORDERED: solu-MEDROL ONE (05:37)
[2021-05-26] MEDS ORDERED: Sterile H2O 10 ml IJ ONE (05:37)
[2021-05-26] MEDS: Advair Hfa 230/21 Mcg COMMON CANISTER IH SCH ×2 (07:15→18:17)
[2021-05-26] MEDS ORDERED: Miralax Powder 17GM PACKET PO PRN (07:18)
[2021-05-26] MEDS ORDERED: EPINEPHRINE SQ PRN (07:18)
[2021-05-26] MEDS ORDERED: Colace 100 MG PO PRN (07:18)
[2021-05-26] MEDS ORDERED: NON-FORMULARY ITEM (Fluticasone Propionate [Flonase Allergy Relief] 9.9 ML Spray.Susp) INTRANASAL PRN (07:18)
[2021-05-26] MEDS ORDERED: Nitrostat 0.4 MG (ED) SL PRN (07:18)
[2021-05-26] MEDS ORDERED: ECOTRIN 81 MG PO SCH (07:30)
[2021-05-26 07:33] LABS: VBG CARBOXYHEMOGLOBIN 3.1 % T HGB (0.0-6.9); VBG HCO3- 52.7 meq/L (22-28); VBG HEMOGLOBIN 9.4; VBG O2 SATURATION 98.8 (95-100)
[2021-05-26 07:34] LABS: VBG pH 7.51 (7.32-7.42)
[2021-05-26] MEDS ORDERED: Epipen 0.3 MG IJ PRN (07:34)
[2021-05-26] MEDS ORDERED: Flonase NASAL NS PRN (07:41)
[2021-05-26] MEDS ORDERED: MEDICATION INTERVENTION MC SCH (07:45)
--- NOTE | 2021-05-26 08:51 | XRAY ---
Indication: Short of breath. CHF. COPD. Comparison: April 13, 2021. Portable chest remains hyperinflated with clearing of previous lung base infiltrate/atelectasis. Remaining heart and lungs unremarkable. Bony thorax intact. Comment: Preliminary interpretation made by [facility]. No critical discrepancy.
[2021-05-26] MEDS: FISH OIL 1,000 MG CAPSULE PO SCH ×3 (08:55→21:24)
[2021-05-26] MEDS: Flomax 0.4 MG PO SCH (08:55)
[2021-05-26] MEDS: Klor Con 10 MEQ PO SCH (08:55)
[2021-05-26] MEDS: Glucophage 500 MG PO SCH ×2 (08:56→21:37)
[2021-05-26] MEDS: CLARITIN 10 MG PO SCH (08:56)
[2021-05-26] MEDS: LASIX 20 MG PO SCH ×2 (08:56→21:38)
[2021-05-26] MEDS: Lopressor 50 MG PO SCH ×2 (08:56→21:34)
[2021-05-26] MEDS: Protonix 40MG Tablet PO SCH (08:56)
[2021-05-26] MEDS: HUMALOG SQ PRN ×3 (08:57→21:50)
[2021-05-26] MEDS: LOPID 600 MG PO SCH ×2 (08:58→21:25)
[2021-05-26 09:53] LABS: Slide Review 1 YES
[2021-05-26] MEDS ORDERED: NON-FORMULARY ITEM (Omeprazole 20 Mg [Prilosec 20 Mg] 20 MG Capsule.Dr) PO SCH (10:00)
[2021-05-26] MEDS ORDERED: NON-FORMULARY ITEM (Budesonide/Formoterol Fumarate [Symbicort 160-4.5 Mcg Inhaler] 10.2 GM IH SCH (10:00)
[2021-05-26] MEDS ORDERED: NON-FORMULARY ITEM (Simvastatin 40 Mg [Zocor 40 Mg] 40 MG Tablet) PO SCH (10:00)
[2021-05-26] MEDS ORDERED: NON-FORMULARY ITEM (Fish Oil/Dha/Epa [Fish Oil 1,200 Mg Fish Oil] 1 EACH Capsule) PO SCH (10:00)
[2021-05-26] MEDS ORDERED: NON-FORMULARY ITEM (Umeclidinium Bromide [Incruse Ellipta] 62.5 MCG Blst.W.Dev) IH SCH (10:00)
[2021-05-26] MEDS ORDERED: Maxzide 25MG PO SCH (10:00)
[2021-05-26] MEDS ORDERED: NON-FORMULARY ITEM (Potassium Chloride 20 Meq [Klor-Con 20 Meq] 20 MEQ Tab) PO SCH (10:00)
[2021-05-26] MEDS ORDERED: PROTONIX 40 MG IV IV SCH (10:00)
[2021-05-26] MEDS ORDERED: ZOCOR 20MG PO SCH (10:00)
[2021-05-26] MEDS ORDERED: VENTOLIN COMMON CANISTER IH SCH (10:00)
[2021-05-26] MEDS ORDERED: HUMULIN R 100 UNIT in Sodium Chloride 0.9% 100 ML BAG 100 ML IV PRN ×2 (12:54→14:51)
[2021-05-26] MEDS ORDERED: CARDIZEM DRIP 100 MG/100 ML D5W 100 ML IV PRN (13:03)
[2021-05-26] MEDS ORDERED: DOBUTREX 500 MG/D5W 250 ML 250 ML IV PRN (13:07)
[2021-05-26] MEDS: XANAX 1 MG PO PRN (15:27)
[2021-05-26] MEDS ORDERED: Ativan 2 MG/1 ML VIAL IV PRN (17:54)
[2021-05-26] MEDS: LEVOFLOXACIN 750MG/150ML D5W 750 MG/150 ML BAG IV SCH (21:34)
[2021-05-26] MEDS: ZOCOR 20MG PO SCH (21:35)
[2021-05-26] MEDS: TYLENOL EXTRA STRENGTH 500 MG PO SCH (21:37)
[2021-05-27] MEDS: DUONEB 0.5-3 MG/3 ml Neb IH SCH ×4 (00:10→18:39)
[2021-05-27 04:50] LABS: Absolute Neutrophil Ct (ANC) 10.17 (1.4-6.9); BASOPHIL % 0.1 % (0.0-0.4); Basophil (Absolute #) 0.01 (0-0.4); Eosinophil (Absolute #) 0 (0-0.5); Hematocrit 34.6 % (42-50); Hemoglobin 9.4 gm/dl (12.5-18.0); Lymphocyte (Absolute #) 0.55 (1.0-4.6); Lymphocytes % 4.8 % (24.0-44.0); Mean Cell Volume 87.2 fl (78-100); Mean Corpuscular Hemoglobin 23.7 pg (26-32); Mean Corpuscular Hgb Concent. 27.2 g/dl (32-36); Mean Platelet Volume 8.8 fl (7.5-11.0); Monocyte (Absolute #) 0.64 (0.0-1.3); Monocytes % 5.6 % (0.0-12.0); Neutrophil % 89.5 % (36.0-66.0); Platelet Count 509 K/mm3 (150-450); Red Blood Count 3.97 M/mm3 (4.1-5.6); White Blood Count 11.4 K/mm3 (4.0-10.5)
[2021-05-27 04:59] LABS: ALBUMIN 3.7 g/dL (3.5-5.0); ALKALINE PHOSPHATASE 91 U/L (38-126); BLOOD UREA NITROGEN 24 mg/dL (9-20); CHLORIDE 73 mmol/L (98-107); Calcium 9.1 mg/dL (8.4-10.2); Creatinine 1 0.71 mg/dL (0.66-1.25); EST GLOMERULAR FILTRATION RATE > 60.0 ML/MIN; Glucose 176 mg/dL (74-106); SGOT/AST 18 U/L (17-59); SGPT/ALT 14 U/L (0-50); SODIUM 130 mmol/L (137-145); Total Protein 6.3 g/dL (6.3-8.2)
[2021-05-27 05:08] LABS: Carbon Dioxide 47 mmol/L (22-30)
[2021-05-27 05:40] LABS: Slide Review 1 YES
[2021-05-27] MEDS: Advair Hfa 230/21 Mcg COMMON CANISTER IH SCH ×2 (05:47→18:41)
[2021-05-27] MEDS: solu-MEDROL 60 MG, Sterile H2O 10 ml 2 ML IV SCH ×2 (06:40)
[2021-05-27] MEDS: CLARITIN 10 MG PO SCH (09:46)
[2021-05-27] MEDS: Glucophage 500 MG PO SCH ×2 (09:46→20:27)
[2021-05-27] MEDS: Flomax 0.4 MG PO SCH (09:46)
[2021-05-27] MEDS: FISH OIL 1,000 MG CAPSULE PO SCH ×3 (09:46→20:26)
[2021-05-27] MEDS: Protonix 40MG Tablet PO SCH (09:46)
[2021-05-27] MEDS: DELTASONE 20 MG PO SCH (09:46)
[2021-05-27] MEDS: LASIX 20 MG PO SCH ×2 (09:47→20:27)
[2021-05-27] MEDS: Lopressor 50 MG PO SCH ×2 (09:47→20:27)
[2021-05-27] MEDS: LOPID 600 MG PO SCH ×2 (09:48→20:28)
[2021-05-27] MEDS: Klor Con 10 MEQ PO SCH (09:48)
[2021-05-27] MEDS: Maxzide-25MG Tablet PO SCH (10:06)
--- NOTE | 2021-05-27 10:56 | CONS ---
CONSULT DATE: 05/26/2021 HISTORY: Bill Serna is a 70-year-old male with advanced chronic obstructive pulmonary disease, who has been admitted to [facility] with complaints of increasing shortness of breath. The patient reportedly was sick for two to three days prior to this admission. He presented to the emergency room with worsening symptoms. Since admission he has been treated on and off with noninvasive ventilation. In addition, he has been started on standard therapy with antibiotic, steroids, etc. The patient does report some clinical improvement. He remains mildly tachycardic likely from combination effect of medication and advanced pulmonary problems. He has cough which has been minimally productive. The patient also has a BiPAP at home PAST MEDICAL HISTORY: Positive for chronic obstructive pulmonary disease, chronic hypercapnic/hypoxic respiratory failure, diabetes mellitus, hypertension, coronary artery disease, dyslipidemia, prostate enlargement, allergic rhinitis. PAST SURGICAL HISTORY: No recent surgery. PERSONAL AND SOCIAL HISTORY: He has been a smoker. MEDICATIONS: Home and current medications are reviewed. ALLERGIES: ALLERGIES NOTED. PHYSICAL EXAMINATION: This is an elderly male who appears mildly tachypneic. Vital signs noted. HEENT: Normocephalic. Oral exam limited. NECK: Accessory muscles are mildly prominent. CVS: First and second heart sounds are normal, regular, rhythmic. RESPIRATORY: Shows diminished breath sounds, rhonchi heard. ABDOMEN: Soft. EXTREMITIES: Trace pretibial edema is noted. LABORATORY DATA AND TESTS: White count is 9.4, hemoglobin 9.2, hematocrit 34, PLT count 443,000. Troponin I negative. Sodium 130, potassium 3.5, chloride 72, bicarb 47, glucose 137, BUN 19, creatinine 0.57. VBG pH 7.51, pCO2 66, pO2 161. Chest x-ray shows changes of chronic obstructive pulmonary disease with mild interstitial prominence. ASSESSMENT: This is a 70-year-old male admitted with: 1) Acute on chronic hypercapnic respiratory failure. Acute component improved with noninvasive ventilation. 2) Chronic hypoxemia. 3) End stage chronic obstructive pulmonary disease. 4) History of comorbidities listed above. RECOMMENDATIONS: 1) I agree with present treatment. 2) Continue on invasive ventilation. The patient may require IV/p.o. Ativan to improve BiPAP compliance. Agree with steroids, antibiotics, bronchodilators. Continue home medications. Will continue to follow. I will be available as needed. Thank you, Dr. Finley, for allowing me to participate in the care of this patient.
[2021-05-27] MEDS: HUMALOG SQ PRN ×3 (11:52→20:55)
--- NOTE | 2021-05-27 14:05 | HP ---
CHIEF COMPLAINT: Shortness of breath. HISTORY OF PRESENT ILLNESS: The patient is a 70-year-old white male patient with long standing history of chronic obstructive pulmonary disease. He has done steroids routinely at 10 mg every other day. The patient reported over the past two or three days he was getting more and more short of breath. He presented to the emergency room in essentially what appeared to be respiratory failure on 4 liters of oxygen nasal cannula. Initially on EMS arrival showed the patient to be in the low saturation of the 80's despite his oxygen level. The patient was brought to the emergency room for further evaluation and management. PAST MEDICAL/SURGICAL HISTORY: Essentially mostly related to his chronic obstructive pulmonary disease issues. He does however also have a history of congestive heart failure, hyperlipidemia, hypertension, previous myocardial infarction, liver disease, esophageal reflux. He has had hernia surgery, vasectomy. HOME MEDICATIONS: Currently include aspirin 81 mg a day, gemfibrozil 600 mg b.i.d., Metformin 500 mg 2 tablets twice a day. He is on Symbicort inhaler. He uses Flonase nasal spray, loratadine 10 mg a day, potassium 20 mEq a day, Simvastatin 80 mg a day, metoprolol 50 mg b.i.d., omeprazole 20 mg a day, polyethylene glycol for constipation issues, Flomax 0.4 mg a day, Maxzide 25 daily, Lasix 40 mg daily, metolazone 1 tablet weekly. He takes Albuterol nebulizer treatments. He has fish oil supplements, multivitamins, Incruse Ellipta and Ventolin inhalers. Ibuprofen 400 mg PRN for pain. ALLERGIES: AMOXICILLIN. CLARITHROMYCIN. LANSOPRAZOLE. ACETAMINOPHEN. NORCO. MORPHINE. DEB INHIBITORS. BENADRYL. CLINDAMYCIN. COMPAZINE. PHYSICAL EXAMINATION: Vital signs on admission showed his pulse to be 103, respiratory rate 22, blood pressure 122/71. O2 saturation was 99% on supplemental oxygen. HEENT: Normocephalic, atraumatic. Pupils equal round reactive to light. Extraocular movements intact. NECK: Accessory muscles in use. CHEST: Diminished breath sounds. HEART: Regular rate and rhythm without murmurs, rubs or gallops. ABDOMEN: Soft, nontender, nondistended without hepatosplenomegaly or masses. EXTREMITIES: Without cyanosis, clubbing or edema. NEUROLOGIC: The patient is alert and oriented x3 with no focal deficits. LAB DATA AND TESTS: ABG initially showing a pH of 7.42, pCO2 84 with pO2 of 91. His COVID test was negative. His troponins were less than 0.012. His sugar was 240, BUN 15, creatinine 0.75. Sodium slightly low at 131. Magnesium was very low at 0.8. Liver enzymes were normal. His white count was 11.7, hemoglobin 10.5, PLT count 471,000. UA was essentially normal. X-rays showed findings compatible with chronic obstructive pulmonary disease, interstitial prominence in lung bases likely due to scarring with no focal infiltrates. ASSESSMENT: A patient with chronic obstructive pulmonary disease exacerbation. He has been admitted for IV steroid medications, nebulizers and empiric antibiotics. We will watch his saturations carefully. He was initially started on CPAP to help reduce the CO2 retention.
[2021-05-27] MEDS: ZOCOR 20MG PO SCH (20:27)
[2021-05-27] MEDS: TYLENOL EXTRA STRENGTH 500 MG PO SCH (20:27)
[2021-05-27] MEDS: XANAX 1 MG PO PRN (20:28)
[2021-05-27] MEDS: Flonase NASAL NS PRN (20:28)
[2021-05-27] MEDS: LEVOFLOXACIN 750MG/150ML D5W 750 MG/150 ML BAG IV SCH (20:43)
[2021-05-28] MEDS: DUONEB 0.5-3 MG/3 ml Neb IH SCH ×3 (01:09→13:36)
[2021-05-28 05:51] LABS: Absolute Neutrophil Ct (ANC) 8.56 (1.4-6.9); BASOPHIL % 0.2 % (0.0-0.4); Basophil (Absolute #) 0.02 (0-0.4); Eosinophil % 0.4 % (0.00-5.0); Eosinophil (Absolute #) 0.05 (0-0.5); Hematocrit 37.4 % (42-50); Hemoglobin 10.1 gm/dl (12.5-18.0); Lymphocyte (Absolute #) 1.42 (1.0-4.6); Lymphocytes % 12.5 % (24.0-44.0); Mean Cell Volume 87.4 fl (78-100); Mean Corpuscular Hemoglobin 23.6 pg (26-32); Mean Platelet Volume 9.2 fl (7.5-11.0); Monocyte (Absolute #) 1.29 (0.0-1.3); Monocytes % 11.4 % (0.0-12.0); Neutrophil % 75.5 % (36.0-66.0); Platelet Count 598 K/mm3 (150-450); Red Blood Count 4.28 M/mm3 (4.1-5.6); Red Cell Distribution Width 17.2 % (11.5-14.0); White Blood Count 11.3 K/mm3 (4.0-10.5)
[2021-05-28 06:07] LABS: ALBUMIN 3.8 g/dL (3.5-5.0); ALKALINE PHOSPHATASE 80 U/L (38-126); BLOOD UREA NITROGEN 31 mg/dL (9-20); CHLORIDE 72 mmol/L (98-107); Calcium 8.8 mg/dL (8.4-10.2); Creatinine 1 0.93 mg/dL (0.66-1.25); EST GLOMERULAR FILTRATION RATE > 60.0 ML/MIN; Glucose 138 mg/dL (74-106); Potassium 3.1 mmol/L (3.5-5.1); SGOT/AST 22 U/L (17-59); SGPT/ALT 13 U/L (0-50); SODIUM 131 mmol/L (137-145); Total Protein 6.9 g/dL (6.3-8.2)
[2021-05-28] MEDS: Advair Hfa 230/21 Mcg COMMON CANISTER IH SCH (06:33)
[2021-05-28 06:39] LABS: ANION GAP 15.1 MEQ/L (5-15); Carbon Dioxide 47 mmol/L (22-30)
[2021-05-28 08:33] LABS: Slide Review 1 YES
[2021-05-28] MEDS: Lopressor 50 MG PO SCH (10:03)
[2021-05-28] MEDS: Klor Con 10 MEQ PO SCH (10:04)
[2021-05-28] MEDS: Glucophage 500 MG PO SCH (10:04)
[2021-05-28] MEDS: LASIX 20 MG PO SCH (10:04)
[2021-05-28] MEDS: Flomax 0.4 MG PO SCH (10:04)
[2021-05-28] MEDS: Maxzide-25MG Tablet PO SCH (10:04)
[2021-05-28] MEDS: DELTASONE 20 MG PO SCH (10:04)
[2021-05-28] MEDS: Protonix 40MG Tablet PO SCH (10:04)
[2021-05-28] MEDS: CLARITIN 10 MG PO SCH (10:04)
[2021-05-28] MEDS: FISH OIL 1,000 MG CAPSULE PO SCH (10:04)
[2021-05-28] MEDS: LOPID 600 MG PO SCH (10:05)
[2021-05-28] MEDS: Flonase NASAL NS PRN (10:05)
[2021-05-28] MEDS ORDERED: Nitrostat 0.4 MG Tablet SL PRN ×2 (12:23→12:30)
[2021-05-28] MEDS: HUMALOG SQ PRN (13:01)
--- NOTE | 2021-05-28 14:39 | DS ---
ADMISSION DIAGNOSES: 1) Acute exacerbation of chronic obstructive pulmonary disease. 2) Chronic hypoxia. DISCHARGE DIAGNOSIS: 1) ACUTE EXACERBATION OF CHRONIC OBSTRUCTIVE PULMONARY DISEASE. 2) CHRONIC HYPOXIA. HOSPITAL COURSE: The patient is a 70-year-old white male patient with a long history of chronic obstructive pulmonary disease on home oxygen at 4 liters ordinarily and occasional prednisone. He presented with his oxygen saturations being in the 80's despite his O2 at home. He was admitted to the hospital for chronic obstructive pulmonary disease exacerbation on antibiotics, IV steroids and nebulizer treatments. The patient did improve slowly. His lungs on the morning of 05/28/2021 were fairly clear. He was feeling back to his usual state of health. We dropped his oxygen and his supplemental to 6 liters and he is running in the high 90's. We will get him back to 4 liters before he goes home which he is usually on at home. The patient otherwise will continue to take prednisone at 30 mg a day for five days, 20 mg for five days and back on 10 mg for five days. He will follow up with Dr. Juan Lazo who did see him during his hospital stay as well but had nothing new to add. The patient will continue use of all his home medications as listed in the history and physical. He is to call the office for an appointment for myself in about nine days. He will call if he has any further problems in the interim.
== END 2021-05-28 14:47 | disposition home health service (06) | DRG 190 ==
LOC: ED 19:57 → ICU 05-26 03:27 → OBSVTOIN 05-26 06:30
PROVIDERS: ADMIT Family Medicine; ATTEND Family Medicine
DX: J44.1 Chronic obstructive pulmonary disease with (acute) exacerbation (principal); J96.21 Acute and chronic respiratory failure with hypoxia; E83.42 Hypomagnesemia; E87.6 Hypokalemia; E11.9 Type 2 diabetes mellitus without complications; E78.5 Hyperlipidemia, unspecified; R07.9 Chest pain, unspecified; R53.1 Weakness; I25.2 Old myocardial infarction; I25.10 Atherosclerotic heart disease of native coronary artery without angina pectoris; I11.0 Hypertensive heart disease with heart failure; Z99.81 Dependence on supplemental oxygen; Z79.899 Other long term (current) drug therapy; Z20.828 Contact with and (suspected) exposure to other viral communicable diseases
CPT/HCPCS: 36000; 36415; 36600; 71045; 80053; 81001; 82375; 82803; 82805; 82947; 83036; 83605; 83735; 83880; 84484; 85025; 87040; 93005; 94002; 94003; 94640; 96374; 99285; 99291; U0003; 94762; J1817; J1940; J1956; J2060; J2930; J3475; A9270-GY

== ENCOUNTER 2021-06-28 14:52 | Inpatient (IN) | payer MEDICARE, OTHER ==
[2021-06-28] MEDS ORDERED: solu-MEDROL 125 MG, Sterile H2O 10 ml 2 ML IV ONE ×2 (15:44)
[2021-06-28] MEDS ORDERED: LEVOFLOXACIN 750MG/150ML D5W 750 MG/150 ML BAG IV STA (15:44)
[2021-06-28] MEDS ORDERED: DUONEB 0.5-3 MG/3 ml Neb IH ONE ×2 (15:44→16:12)
[2021-06-28] MEDS ORDERED: solu-MEDROL ONE (15:57)
[2021-06-28] MEDS ORDERED: Sterile H2O 10 ml IJ ONE (15:57)
[2021-06-28] MEDS ORDERED: LEVOFLOXACIN 750MG/150ML D5W 750 MG/150 ML BAG IV ONE (15:58)
[2021-06-28 16:11] LABS: Absolute Neutrophil Ct (ANC) 10.63 (1.4-6.9); BASOPHIL % 0.4 % (0.0-0.4); Basophil (Absolute #) 0.05 (0-0.4); Eosinophil % 0.4 % (0.00-5.0); Eosinophil (Absolute #) 0.05 (0-0.5); Hemoglobin 11.1 gm/dl (12.5-18.0); Lymphocytes % 6.4 % (24.0-44.0); Mean Cell Volume 89.5 fl (78-100); Mean Corpuscular Hemoglobin 24.2 pg (26-32); Mean Corpuscular Hgb Concent. 27.1 g/dl (32-36); Mean Platelet Volume 9.1 fl (7.5-11.0); Monocyte (Absolute #) 0.97 (0.0-1.3); Monocytes % 7.8 % (0.0-12.0); Platelet Count 505 K/mm3 (150-450); Red Blood Count 4.58 M/mm3 (4.1-5.6); White Blood Count 12.5 K/mm3 (4.0-10.5)
[2021-06-28 16:27] LABS: A-aADO2 142; ABG POTASSIUM 3.8 (3.5-5.1); ARTERIAL BLD GAS O2 SATURATION 97.5 % (95-100); ARTERIAL BLOOD GAS BASE EXCESS 19.3 (-2.0-2.0); ARTERIAL BLOOD GAS FIO2 50 %; ARTERIAL BLOOD GAS PO2 95 mmHg (75-100); ARTERIAL BLOOD GAS pH 7.33 (7.35-7.45); CARBOXYHEMOGLOBIN 2.5 % THgb (0.0-6.9); HCO3- 50.6 (22-28); HGB O2 SAT 94.5 g/dF (94-100); Lactic Acid 0.4 (0.4-2.0); Methhemoglobin 0.6 % (1.4-1.5)
[2021-06-28 16:28] LABS: ABG SITE RIGHT BRACHIAL; ARTERIAL BLOOD GAS PCO2 96 mmHg (35-45)
[2021-06-28 16:33] LABS: ALBUMIN 4.1 g/dL (3.5-5.0); ALKALINE PHOSPHATASE 114 U/L (38-126); BLOOD UREA NITROGEN 25 mg/dL (9-20); CHLORIDE 82 mmol/L (98-107); Calcium 8.3 mg/dL (8.4-10.2); Creatinine 1 0.68 mg/dL (0.66-1.25); EST GLOMERULAR FILTRATION RATE > 60.0 ML/MIN; Glucose 112 mg/dL (74-106); NT PRO BNP 330 pg/mL (0-900); Potassium 3.8 mmol/L (3.5-5.1); SGOT/AST 17 U/L (17-59); SGPT/ALT 12 U/L (0-50); SODIUM 135 mmol/L (137-145); Total Protein 6.9 g/dL (6.3-8.2)
[2021-06-28 16:38] LABS: MAGNESIUM 1.1 mg/dL (1.6-2.3)
[2021-06-28 16:39] LABS: Carbon Dioxide 45 mmol/L (22-30)
[2021-06-28 16:42] LABS: ANION GAP 11.8 MEQ/L (5-15)
[2021-06-28 17:06] LABS: Slide Review 1 YES
[2021-06-28] MEDS: Magnesium 1 Gm / 100 Ml D5W*** 100 ML IV SCH ×2 (17:44→18:34)
[2021-06-28] MEDS ORDERED: AZACTAM 1 GM*** 2 GM in Sodium Chloride 0.9% 100 ML BAG 100 ML IV ONE (18:04)
--- NOTE | 2021-06-28 18:04 | ERPHSYRPT ---
- History of Present Illness Time Seen by Provider: 06/28/21 14:55 Source: patient Exam Limitations: no limitations Physician History: 70-year-old male with history of chronic respiratory failure from COPD on 6 L oxygen, tobacco abuse, hypertension, hyperlipidemia, diabetes mellitus, congestive heart failure presented in the ER with increasing shortness of breath for 1 week despite using oxygen and neb treatments. Initially shortness of breath was with activity and now even resting. Patient was hypoxic and in distress on presentation with saturation around 60s on 6 L. Immediately placed on high flow and started to feel better. Has subjective feeling of fever chills and chest tightness/pressure. Timing/Duration: week(s), gradual onset, worse Activities at Onset: activity Severity of Dyspnea-Max: severe Severity of Dyspnea-Current: severe Possible Cause: occasional episodes Modifying Factors: Improves With: albuterol nebulizer. Worsens With: activity, coughing, exertion Associated Symptoms: cough, wheezing, heaviness, productive cough, tightness, No chest pain/discomfort Allergies/Adverse Reactions: amoxicillin Allergy (Severe, Verified 06/28/21 15:13) Swelling of Face clarithromycin [From Biaxin] Allergy (Severe, Verified 06/28/21 15:13) Swelling of Face lid swelled until touched nose. lansoprazole Allergy (Severe, Verified 06/28/21 15:13) Swelling of Face acetaminophen [From Cardale] Allergy (Intermediate, Verified 06/28/21 15:13) Vomiting hydrocodone [From [place]] Allergy (Intermediate, Verified 06/28/21 15:13) Vomiting morphine Allergy (Mild, Verified 06/28/21 15:13) N&V DEB Inhibitors Allergy (Verified 06/28/21 15:13) Anaphylactic Reaction benazepril Allergy (Verified 06/28/21 15:13) clindamycin Allergy (Verified 06/28/21 15:13) Swelling of Tongue and Lips prochlorperazine [From Compazine] Adverse Reaction (Verified 06/28/21 15:13) Home Medications: Gemfibrozil 600 mg [Lopid 600 mg] 600 mg PO BID 11/01/12 [History] Metformin HCl 500 mg [Glucophage 500 MG] 500 mg PO BID 11/01/12 [History] Budesonide/Formoterol Fumarate [Symbicort 160-4.5 Mcg Inhaler] 2 puff IH BID 11/05/14 [History] Fluticasone Propionate [Flonase Allergy Relief] 1 spray INTRANASAL HS PRN 11/05/14 [History] Loratadine 10 mg [Claritin 10 mg] 10 mg PO DAILY 11/05/14 [History] Nitroglycerin 0.4 mg (Ed) [Nitrostat 0.4 MG (ED)] 0.4 mg SL UD PRN 11/05/14 [History] Potassium Chloride 20 Meq [Klor-Con 20 MEQ] 20 meq PO DAILY 11/05/14 [History] Metoprolol Tartrate 50 mg PO BID 03/22/18 [History] Omeprazole 20 MG [Prilosec 20 mg] 20 mg PO BID 03/22/18 [History] Polyethylene Glycol 3350 17 gm [Miralax Powder 17GM PACKET] 17 gm PO BID PRN 03/22/18 [History] Tamsulosin HCl 0.4 mg [Flomax 0.4 MG] 0.4 mg PO DAILY 03/22/18 [History] Triamterene/Hydrochlorothiazid [Triamterene-Hctz 37.5-25 mg Tb] 1 each PO DAILY 03/22/18 [History] Furosemide 20 mg [Lasix 20 mg] 40 mg PO BID 09/06/18 [History] metOLazone [Metolazone] 1 tablet PO UD PRN 09/06/18 [History] Acetaminophen [Tylenol Extra Strength] 1,000 mg PO HS 07/06/19 [History] Albuterol 2.5 mg/3 ml Neb [Proventil 2.5 mg/3 ml Neb] 2.5 mg IH QID PRN 07/06/19 [History] Albuterol Common Canister [Ventolin Common Canister] 2 puff IH QID 07/06/19 [History] EPINEPHrine [Epipen 0.3 MG] 1 syringe SQ UD PRN 07/06/19 [History] Fish Oil/Dha/Epa [Fish Oil 1,200 mg Fish Oil] 1 each PO TID 07/06/19 [History] Multivit-Min/FA/Lycopen/Lutein [Centrum Silver Tablet] 1 each PO DAILY 07/06/19 [History] Umeclidinium [place] [Incruse Ellipta] 1 puff IH DAILY 07/06/19 [History] Docusate Sodium 100 mg [Colace 100 MG] 100 mg PO DAILY PRN 10/20/20 [History] Ibuprofen 200 mg [Motrin 200 mg] 400 mg PO HS PRN 10/20/20 [History] Hx Tetanus, Diphtheria Vaccination/Date Given: Yes Hx Influenza Vaccination/Date Given: Yes Hx Pneumococcal Vaccination/Date Given: No Travel Risk - Vaccine Status Have you recieved a Covid-19 vaccination: Yes [employer]: [facility] - Vaccination Dates Date of 2cond Vaccination (if applicable): UNK - Review of Systems Constitutional: Fatigue, Weakness Eyes: No Symptoms Ears, Nose, & Throat: No Symptoms Respiratory: Cough, Dyspnea, Dyspnea on Exertion (GREEN), Wheezing Cardiac: No Symptoms Abdominal/Gastrointestinal: No Symptoms Genitourinary Symptoms: No Symptoms Musculoskeletal: No Symptoms Skin: No Symptoms Neurological: No Symptoms Psychological: Anxiety Endocrine: No Symptoms Hematologic/Lymphatic: No Symptoms Immunological/Allergic: No Symptoms - Past Medical History Pertinent Past Medical History: Yes Neurological History: Peripheral Neuropathy ENT History: No Pertinent History, Other Cardiac History: Congestive Heart Failure, High Cholesterol, Hypertension, Myocardial Infarction ([place]) Respiratory History: Asthma, Bronchitis, CHF, COPD, Sleep Apnea Endocrine Medical History: Liver Disease Musculoskeletal History: Arthritis GI Medical History: Esophageal Disorder, GERD, Hernia, Polyps History: No Pertinent History Psycho-Social History: No Pertinent History Male Reproductive Disorders: No Pertinent History Other Medical History: 4L O2 nc at home during day and 4l cpap at night,. 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 Former smoker - Past Surgical History Past Surgical History: Yes Neuro Surgical History: No Pertinent History Cardiac: No Pertinent History Respiratory: No Pertinent History Gastrointestinal: Appendectomy, Other Genitourinary: No Pertinent History Musculoskeletal: Orthopedic Surgery Male Surgical History: Vasectomy Other Surgical History: removed part of intestines dt accident,inner ear surgery lt,polypectomy back surgery x2 ear surgery left side,t&a as child lipoma to neck, right eye retina/cornea repair, has colostomy - Social History Smoking Status: Former smoker How long have you smoked: 60YRS Exposure to second hand smoke: Yes Drug Use: none Patient Lives Alone: No - Nursing Vital Signs Nursing Vital Signs: Initial Vital Signs Pulse Rate 110 H 06/28/21 17:19 Respiratory Rate 26 H 06/28/21 17:19 O2 Sat by Pulse Oximetry 98 06/28/21 17:19 - Physical Exam General Appearance: severe distress, alert, anxiety Eye Exam: PERRL/EOMI, eyes nml inspection Ears, Nose, Throat Exam: hearing grossly normal, pharyngeal erythema Neck Exam: normal inspection, supple, full range of motion Respiratory Exam: respiratory distress, diminished breath sounds, accessory muscle use, crackles/rales, rhonchi, wheezing Cardiovascular/Chest Exam: normal heart sounds, tachycardia Abdominal/Gastrointestinal Exam: soft, No tenderness Extremity Exam: non-tender, normal range of motion, normal inspection, normal capillary refill Neurologic Exam: alert, oriented x 3, cooperative, neurosurgery spine physician II-XII nml as tested Skin Exam: normal color SpO2 Interpretation: O2 applied SpO2: 98 O2 Delivery: High Flow - Course EKG Interpreted by Me: RATE ([id number]), Sinus Tach, Right [place] Deviation, prolonged QT interval, Right Bundle Branch Block, Q-wave, Non-specific ST Changes Ordered Tests: Active Orders 24 hr Category Date Time Status Drugless Physician STAT Care 06/28/21 15:44 Active EKG-ER Only STAT Care 06/28/21 15:44 Active IV Insertion STAT Care 06/28/21 15:44 Active CHEST 1 VIEW (PORTABLE) Stat Exams 06/28/21 15:44 Taken ARTERIAL BLOOD GASES Stat Lab 06/28/21 15:50 Completed ARTERIAL BLOOD GASES Stat Lab 06/28/21 18:06 Ordered BLOOD CULTURE Stat Lab 06/28/21 16:00 Received CBC W DIFF Stat Lab 06/28/21 15:44 Completed CMP Stat Lab 06/28/21 15:50 Completed D-DIMER QUANTITATIVE Stat Lab 06/28/21 16:00 Completed Lactic Acid Stat Lab 06/28/21 15:50 Completed MAGNESIUM Stat Lab 06/28/21 15:50 Completed NT PRO BNP Stat Lab 06/28/21 15:50 Completed TROPONIN Q3H Lab 06/28/21 15:50 Completed TROPONIN Q3H Lab 06/28/21 18:45 Ordered TROPONIN Q3H Lab 06/28/21 21:45 Ordered TROPONIN Q3H Lab 06/29/21 00:45 Ordered TROPONIN Q3H Lab 06/29/21 03:45 Ordered UA W/RFX UR CULTURE Stat Lab 06/28/21 15:44 Ordered BiPap/CPAP ROUTINE RT 06/28/21 17:19 Active Respiratory Therapy Assessment DAILY RT 06/28/21 17:18 Completed Medication Summary Generic Name Dose Route Start Last Admin Trade Name Freq PRN Reason Stop Dose Admin Magnesium Sulfate/Dextrose 100 mls @ 100 mls/hr 06/28/21 16:45 06/28/21 17:44 Magnesium 1 Gm / 100 Ml D5w IV 06/28/21 18:44 100 mls/hr Q1H AN Administration Aztreonam 2 gm/ Sodium 100 mls @ 200 mls/hr 06/28/21 18:04 Chloride IV 06/28/21 18:33 STAT ONE Discontinued Medications Generic Name Dose Route Start Last Admin Trade Name Freq PRN Reason Stop Dose Admin Albuterol/Ipratropium 3 ml 06/28/21 15:44 06/28/21 16:20 Ipratropium/Albuterol Sulfate 3 Ml Ampul.Neb IH 06/28/21 15:45 3 ml STAT ONE Administration Albuterol/Ipratropium Confirm 06/28/21 16:12 Ipratropium/Albuterol Sulfate 3 Ml Ampul.Neb Administered 06/28/21 16:13 Dose 3 ml IH .STK-MED ONE Methylprednisolone Sodium 0 mg 06/28/21 15:44 06/28/21 16:00 Succinate 125 mg/ Sterile IV 06/28/21 15:45 125 mg Water 2 ml STAT ONE Administration Levofloxacin/Dextrose 750 mg in 150 mls @ 100 mls/hr 06/28/21 15:44 06/28/21 16:03 Levofloxacin 750mg/150ml D5w IV 06/28/21 17:13 150 ml/hr STAT STA 150 mls/hr Administration Levofloxacin/Dextrose Confirm 06/28/21 15:58 Levofloxacin 750mg/150ml D5w Administered 06/28/21 15:59 Dose 750 mg in 150 mls @ ud IV .STK-MED ONE Methylprednisolone Sodium Succinate Confirm 06/28/21 15:57 Methylprednis Sod Succ 125 Mg/2 Ml Vial Administered 06/28/21 15:58 Dose 125 mg .ROUTE .STK-MED ONE Sterile Water Confirm 06/28/21 15:57 Water For Injection,Sterile 10 Ml Vial Administered 06/28/21 15:58 Dose 10 ml IJ .ZUtA Labs ONE Lab/Rad Data: Laboratory Result Diagrams 06/28/21 15:44 06/28/21 15:50 Laboratory Results 06/28/21 06/28/21 06/28/21 Range/Units 16:00 15:50 15:50 WBC (4.0-10.5) K/mm3 RBC (4.1-5.6) M/mm3 Hgb (12.5-18.0) gm/dl Hct (42-50) % MCV (78-100) fl MCH (26-32) pg MCHC (32-36) g/dl RDW (11.5-14.0) % Plt Count (150-450) K/mm3 MPV (7.5-11.0) fl Gran % (36.0-66.0) % Eos # (Auto) (0-0.5) Absolute Lymphs (auto) (1.0-4.6) Absolute Monos (auto) (0.0-1.3) Lymphocytes % (24.0-44.0) % Monocytes % (0.0-12.0) % Eosinophils % (0.00-5.0) % Basophils % (0.0-0.4) % Absolute Granulocytes (1.4-6.9) Basophils # (0-0.4) D-Dimer 416 (215-500) ng/mL Puncture Site pCO2 (35-45) mmHg pO2 (75-100) mmHg Base Excess (-2.0-2.0) O2 Saturation (94-100) g/dF ABG pH (7.35-7.45) ABG HCO3 (22-28) ABG O2 Sat (Measured) (95-100) % Martín Test A-a Gradient a/A Ratio Hemoglobin Carboxyhemoglobin (0.0-6.9) % THgb Methemoglobin (1.4-1.5) % Potassium 3.8 (3.5-5.1) Temperature C POC O2 Flow Rate % Sodium 135 L (137-145) mmol/L Chloride 82 L (98-107) mmol/L Carbon Dioxide 45 H (22-30) mmol/L Anion Gap 11.8 (5-15) MEQ/L BUN 25 H (9-20) mg/dL Creatinine 0.68 (0.66-1.25) mg/dL Estimated GFR > 60.0 ML/MIN Glucose 112 H (74-106) mg/dL Lactic Acid (0.4-2.0) Calcium 8.3 L (8.4-10.2) mg/dL Magnesium 1.1 L (1.6-2.3) mg/dL Total Bilirubin 0.40 (0.2-1.3) mg/dL AST 17 (17-59) U/L ALT 12 (0-50) U/L Alkaline Phosphatase 114 (38-126) U/L Troponin I < 0.012 (0.000-0.034) ng/mL NT-Pro-B Natriuret Pep 330 (0-900) pg/mL Serum Total Protein 6.9 (6.3-8.2) g/dL Albumin 4.1 (3.5-5.0) g/dL Slides for Path Review 06/28/21 06/28/21 Range/Units 15:50 15:44 WBC 12.5 H (4.0-10.5) K/mm3 RBC 4.58 (4.1-5.6) M/mm3 Hgb 11.1 L (12.5-18.0) gm/dl Hct 41.0 L (42-50) % MCV 89.5 (78-100) fl MCH 24.2 L (26-32) pg MCHC 27.1 L (32-36) g/dl RDW 18.0 H (11.5-14.0) % Plt Count 505 H (150-450) K/mm3 MPV 9.1 (7.5-11.0) fl Gran % 85.0 H (36.0-66.0) % Eos # (Auto) 0.05 (0-0.5) Absolute Lymphs (auto) 0.80 L (1.0-4.6) Absolute Monos (auto) 0.97 (0.0-1.3) Lymphocytes % 6.4 L (24.0-44.0) % Monocytes % 7.8 (0.0-12.0) % Eosinophils % 0.4 (0.00-5.0) % Basophils % 0.4 (0.0-0.4) % Absolute Granulocytes 10.63 H (1.4-6.9) Basophils # 0.05 (0-0.4) D-Dimer (215-500) ng/mL Puncture Site RIGHT BRACHIAL pCO2 96 H* (35-45) mmHg pO2 95 (75-100) mmHg Base Excess 19.3 H (-2.0-2.0) O2 Saturation 94.5 (94-100) g/dF ABG pH 7.33 L (7.35-7.45) ABG HCO3 50.6 H* (22-28) ABG O2 Sat (Measured) 97.5 (95-100) % Martín Test NOT APPLICABLE A-a Gradient 142 a/A Ratio 0.40 Hemoglobin 11.0 Carboxyhemoglobin 2.5 (0.0-6.9) % THgb Methemoglobin 0.6 L (1.4-1.5) % Potassium 3.8 (3.5-5.1) Temperature 37.0 C POC O2 Flow Rate 50 % Sodium (137-145) mmol/L Chloride (98-107) mmol/L Carbon Dioxide (22-30) mmol/L Anion Gap (5-15) MEQ/L BUN (9-20) mg/dL Creatinine (0.66-1.25) mg/dL Estimated GFR ML/MIN Glucose (74-106) mg/dL Lactic Acid 0.4 (0.4-2.0) Calcium (8.4-10.2) mg/dL Magnesium (1.6-2.3) mg/dL Total Bilirubin (0.2-1.3) mg/dL AST (17-59) U/L ALT (0-50) U/L Alkaline Phosphatase (38-126) U/L Troponin I (0.000-0.034) ng/mL NT-Pro-B Natriuret Pep (0-900) pg/mL Serum Total Protein (6.3-8.2) g/dL Albumin (3.5-5.0) g/dL Slides for Path Review YES - Progress Progress: improved Air Movement: fair Progress Note: 06/28/21 18:26 70-year-old is evaluated for worsening shortness of breath. Placed on high flow followed by BiPAP and started to improve and currently satting around 99%. Chest x-ray reviewed by me revealed bilateral airspace disease more on the right side. Is a white count of 12, lactic normal and hypomagnesemia for which she is getting replacement. Given dose of antibiotics and steroids. Negative initial troponins. ABG showed hypercapnia with a pH of 7.33. Discussed with Dr. Angel who wants to have another ABG done before excepting patient. Blood Culture(s) Obtained: Yes Antibiotics given: Yes Discussed with Dr.: Shaquille Will see patient in: hospital (full admit) Counseled pt/family regarding: lab results, diagnosis, rad results - Departure Departure Disposition: In-patient Admission Clinical Impression: COPD with exacerbation, Hypomagnesemia Respiratory failure Qualifiers: Chronicity: acute on chronic Respiratory failure complication: hypoxia and hypercapnia Qualified Code(s): J96.21 - Acute and chronic respiratory failure with hypoxia; J96.22 - Acute and chronic respiratory failure with hypercapnia Pneumonia Qualifiers: Pneumonia type: due to unspecified organism Laterality: unspecified laterality Lung location: unspecified part of lung Qualified Code(s): J18.9 - Pneumonia, unspecified organism Condition: Fair Critical Care Time: Yes Critical Care Time(excluding separately billable procedures): Critical 30-74 mins Referrals: MICHELINE FORTUNE [Primary Care Provider] - Follow up/PCP as directed Instructions: Chronic Obstructive Pulmonary Disease
[2021-06-28 18:58] LABS: A-aADO2 131; ABG POTASSIUM 3.6 (3.5-5.1); ARTERIAL BLD GAS O2 SATURATION 98.7 % (95-100); ARTERIAL BLOOD GAS BASE EXCESS 20.3 (-2.0-2.0); ARTERIAL BLOOD GAS FIO2 50 %; ARTERIAL BLOOD GAS PCO2 83 mmHg (35-45); ARTERIAL BLOOD GAS PO2 122 mmHg (75-100); ARTERIAL BLOOD GAS VENT MODE BiPAP; ARTERIAL BLOOD GAS pH 7.39 (7.35-7.45); CARBOXYHEMOGLOBIN 3.8 % THgb (0.0-6.9); HCO3- 50.2 (22-28); HGB O2 SAT 94.3 g/dF (94-100); Methhemoglobin 0.8 % (1.4-1.5)
[2021-06-28 18:59] LABS: ABG SITE RIGHT BRACHIAL
--- NOTE | 2021-06-28 19:55 | XRAY ---
Indication: Chronic short of breath. Comparison: May 25, 2021. Portable chest again demonstrates COPD and minimal scattered fibrosis/scarring. New minimal bibasilar interstitial alveolar opacities. Remaining heart and bony thorax unremarkable.
[2021-06-28 20:10] LABS: INFLUENZA A NEGATIVE (NEGATIVE); INFLUENZA B NEGATIVE (NEGATIVE); RESPIRATORY SYNCTIAL VIRUS NEGATIVE (Negative); SARS-CoV-2 Xpert Express NEGATIVE (NEGATIVE)
[2021-06-28] MEDS ORDERED: Zofran 4 MG/2 ML VIAL IV PRN (20:33)
[2021-06-28] MEDS ORDERED: MORPHINE SULFATE 2 MG INJ IV PRN (20:33)
[2021-06-28] MEDS ORDERED: TYLENOL 325 MG PO PRN (20:33)
[2021-06-28] MEDS: PROVENTIL 2.5 MG/3 ML NEB IH SCH (22:08)
[2021-06-29] MEDS ORDERED: solu-MEDROL ONE ×2 (00:04→05:59)
[2021-06-29] MEDS: solu-MEDROL 60 MG, Sterile H2O 10 ml 2 ML IV SCH ×8 (00:10→17:51)
[2021-06-29] MEDS ORDERED: DUONEB 0.5-3 MG/3 ml Neb IH SCH (01:00)
[2021-06-29 02:37] LABS: Appearance CLEAR (CLEAR); Bilirubin NEGATIVE (NEGATIVE); Blood NEGATIVE Ery/ul (0-5); Glucose NEGATIVE (NEGATIVE); Ketones NEGATIVE (NEGATIVE); Leukocyte Esterase NEGATIVE (NEGATIVE); Mucus SLIGHT /HPF (NEGATIVE); Nitrite NEGATIVE (NEGATIVE); Protein,Urine Dip NEGATIVE (Negative); Specific Gravity 1.012 (1.005-1.025); Urobilinogen NEGATIVE mg/dL (0-1); WBC 0-2 /HPF (0-5)
[2021-06-29] MEDS: AZACTAM 1 GM*** 1 GM in Sodium Chloride 100ML MINI-BAG PLUS 100 ML IV SCH ×4 (02:57→17:50)
[2021-06-29] MEDS: PROVENTIL 2.5 MG/3 ML NEB IH SCH ×6 (03:00→23:26)
[2021-06-29 03:03] LABS: Bacteria NONE SEEN /HPF (NEGATIVE)
[2021-06-29] MEDS ORDERED: Spiriva 18 Mcg/Cap Inhaler IH ONE (03:16)
[2021-06-29] MEDS ORDERED: Sodium Chloride 3 ML UD NEBULES IH ONE ×2 (03:45→10:35)
[2021-06-29 03:50] LABS: A-aADO2 210; ABG HEMOGLOBIN 10.8; ABG POTASSIUM 3.5 (3.5-5.1); ARTERIAL BLD GAS O2 SATURATION 97.9 % (95-100); ARTERIAL BLOOD GAS BASE EXCESS 21.8 (-2.0-2.0); ARTERIAL BLOOD GAS FIO2 52 %; ARTERIAL BLOOD GAS PO2 85 mmHg (75-100); ARTERIAL BLOOD GAS pH 7.51 (7.35-7.45); CARBOXYHEMOGLOBIN 4.2 % THgb (0.0-6.9); HCO3- 48.7 (22-28); HGB O2 SAT 92.8 g/dF (94-100)
[2021-06-29 03:51] LABS: ABG SITE RIGHT BRACHIAL; ARTERIAL BLOOD GAS PCO2 61 mmHg (35-45)
[2021-06-29 04:21] LABS: Absolute Neutrophil Ct (ANC) 8.78 (1.4-6.9); BASOPHIL % 0.2 % (0.0-0.4); Basophil (Absolute #) 0.02 (0-0.4); Eosinophil (Absolute #) 0 (0-0.5); Hematocrit 37.3 % (42-50); Hemoglobin 10.1 gm/dl (12.5-18.0); Lymphocyte (Absolute #) 0.54 (1.0-4.6); Lymphocytes % 5.6 % (24.0-44.0); Mean Cell Volume 89.2 fl (78-100); Mean Corpuscular Hemoglobin 24.2 pg (26-32); Mean Corpuscular Hgb Concent. 27.1 g/dl (32-36); Mean Platelet Volume 8.9 fl (7.5-11.0); Monocyte (Absolute #) 0.32 (0.0-1.3); Monocytes % 3.3 % (0.0-12.0); Neutrophil % 90.9 % (36.0-66.0); Platelet Count 484 K/mm3 (150-450); Red Blood Count 4.18 M/mm3 (4.1-5.6); Red Cell Distribution Width 17.4 % (11.5-14.0); White Blood Count 9.7 K/mm3 (4.0-10.5)
[2021-06-29 04:26] LABS: ALBUMIN 3.6 g/dL (3.5-5.0); ALKALINE PHOSPHATASE 105 U/L (38-126); BLOOD UREA NITROGEN 17 mg/dL (9-20); CHLORIDE 82 mmol/L (98-107); Calcium 8.2 mg/dL (8.4-10.2); Creatinine 1 0.63 mg/dL (0.66-1.25); EST GLOMERULAR FILTRATION RATE > 60.0 ML/MIN; Glucose 156 mg/dL (74-106); Potassium 3.8 mmol/L (3.5-5.1); SGOT/AST 14 U/L (17-59); SGPT/ALT 11 U/L (0-50); SODIUM 133 mmol/L (137-145); Total Protein 6.2 g/dL (6.3-8.2)
[2021-06-29 05:33] LABS: Carbon Dioxide 43 mmol/L (22-30)
[2021-06-29 05:34] LABS: ANION GAP 10.8 MEQ/L (5-15)
[2021-06-29] MEDS ORDERED: Spiriva 18 Mcg/Cap Inhaler IH SCH (07:00)
[2021-06-29] MEDS ORDERED: PROVENTIL 2.5 MG/3 ML NEB IH ONE (07:25)
[2021-06-29] MEDS: Advair Hfa 230/21 Mcg COMMON CANISTER IH SCH ×2 (07:39→19:28)
[2021-06-29 09:03] LABS: Slide Review 1 YES
[2021-06-29] MEDS: ENOXAPARIN SODIUM SQ SCH (09:53)
[2021-06-29] MEDS: Levofloxacin 500MG/100ML D5W 500 MG/100 ML BAG IV SCH (09:54)
[2021-06-29] MEDS ORDERED: PROTONIX 40 MG IV IV SCH (10:00)
[2021-06-29] MEDS ORDERED: Ativan 2 MG/1 ML VIAL IV PRN (10:33)
[2021-06-29] MEDS: HUMALOG SQ PRN ×3 (11:53→21:12)
[2021-06-29] MEDS ORDERED: VENTOLIN COMMON CANISTER IH PRN (12:23)
[2021-06-29] MEDS ORDERED: MOTRIN 200 MG PO PRN (12:25)
[2021-06-29] MEDS ORDERED: Nitrostat 0.4 MG (ED) SL PRN (12:25)
[2021-06-29] MEDS ORDERED: Miralax Powder 17GM PACKET PO PRN (12:25)
[2021-06-29] MEDS ORDERED: EPINEPHRINE SQ PRN (12:25)
[2021-06-29] MEDS ORDERED: Zaroxolyn 2.5 MG PO PRN (12:25)
[2021-06-29] MEDS ORDERED: NON-FORMULARY ITEM (Fluticasone Propionate [Flonase Allergy Relief] 9.9 ML Spray.Susp) INTRANASAL PRN (12:25)
[2021-06-29] MEDS ORDERED: Colace 100 MG PO PRN (12:25)
[2021-06-29] MEDS: LASIX 20 MG PO SCH ×2 (12:40→16:50)
[2021-06-29] MEDS ORDERED: Epipen 0.3 MG IJ PRN (12:48)
[2021-06-29] MEDS ORDERED: Flonase NASAL NS PRN (12:49)
[2021-06-29] MEDS: Klor Con 10 MEQ PO SCH (14:05)
[2021-06-29] MEDS: Flomax 0.4 MG PO SCH (14:05)
[2021-06-29] MEDS: Protonix 40MG Tablet PO SCH (14:05)
[2021-06-29] MEDS: CLARITIN 10 MG PO SCH (14:05)
[2021-06-29] MEDS: THERAGRAN MULTIVITAMIN PO SCH (14:05)
[2021-06-29] MEDS: Maxzide-25MG Tablet PO SCH (14:05)
[2021-06-29] MEDS ORDERED: NON-FORMULARY ITEM (Fish Oil/Dha/Epa [Fish Oil 1,200 Mg Fish Oil] 1 EACH Capsule) PO SCH (15:00)
[2021-06-29] MEDS: FISH OIL 1,000 MG CAPSULE PO SCH ×2 (15:20→21:15)
[2021-06-29 19:35] VITALS: O2SAT 94
[2021-06-29] MEDS: Glucophage 500 MG PO SCH (21:15)
[2021-06-29] MEDS: LOPID 600 MG PO SCH (21:16)
[2021-06-29] MEDS: Lopressor 50 MG PO SCH (21:16)
[2021-06-29] MEDS ORDERED: NON-FORMULARY ITEM (Omeprazole 20 Mg [Prilosec 20 Mg] 20 MG Capsule.Dr) PO SCH (22:00)
[2021-06-29] MEDS ORDERED: TYLENOL EXTRA STRENGTH 500 MG PO SCH (22:00)
[2021-06-30] MEDS: AZACTAM 1 GM*** 1 GM in Sodium Chloride 100ML MINI-BAG PLUS 100 ML IV SCH ×2 (00:05→05:22)
[2021-06-30] MEDS: solu-MEDROL 60 MG, Sterile H2O 10 ml 2 ML IV SCH ×4 (00:05→05:23)
[2021-06-30 05:12] LABS: Hematocrit 35.3 % (42-50); Hemoglobin 9.9 gm/dl (12.5-18.0); Mean Cell Volume 86.5 fl (78-100); Mean Corpuscular Hemoglobin 24.3 pg (26-32); Mean Platelet Volume 8.8 fl (7.5-11.0); Platelet Count 534 K/mm3 (150-450); Red Blood Count 4.08 M/mm3 (4.1-5.6); Red Cell Distribution Width 17.2 % (11.5-14.0); White Blood Count 12.4 K/mm3 (4.0-10.5)
[2021-06-30] MEDS: PROVENTIL 2.5 MG/3 ML NEB IH SCH ×2 (05:45→07:15)
[2021-06-30 05:54] LABS: ANION GAP 11.7 MEQ/L (5-15); BLOOD UREA NITROGEN 26 mg/dL (9-20); CHLORIDE 80 mmol/L (98-107); Calcium 8.4 mg/dL (8.4-10.2); Carbon Dioxide 40 mmol/L (22-30); EST GLOMERULAR FILTRATION RATE > 60.0 ML/MIN; Glucose 221 mg/dL (74-106); Potassium 3.7 mmol/L (3.5-5.1); SODIUM 128 mmol/L (137-145)
[2021-06-30 07:19] VITALS: BP 141/62
[2021-06-30 07:44] VITALS: PULSE 71
[2021-06-30] MEDS: Glucophage 500 MG PO SCH (07:59)
[2021-06-30] MEDS: Maxzide-25MG Tablet PO SCH (07:59)
[2021-06-30] MEDS: Flomax 0.4 MG PO SCH (07:59)
[2021-06-30] MEDS: Klor Con 10 MEQ PO SCH (07:59)
[2021-06-30] MEDS: LASIX 20 MG PO SCH (07:59)
[2021-06-30] MEDS: Lopressor 50 MG PO SCH (07:59)
[2021-06-30] MEDS ORDERED: Glucophage 500 MG PO SCH (08:00)
[2021-06-30] MEDS: THERAGRAN MULTIVITAMIN PO SCH (08:00)
[2021-06-30] MEDS: CLARITIN 10 MG PO SCH (08:00)
[2021-06-30] MEDS: LOPID 600 MG PO SCH (08:00)
[2021-06-30] MEDS: FISH OIL 1,000 MG CAPSULE PO SCH (08:00)
[2021-06-30] MEDS: Levofloxacin 500MG/100ML D5W 500 MG/100 ML BAG IV SCH (08:04)
[2021-06-30] MEDS: ENOXAPARIN SODIUM SQ SCH (08:04)
[2021-06-30] MEDS ORDERED: MOTRIN 400 MG PO PRN (08:06)
[2021-06-30] MEDS: HUMALOG SQ PRN (08:10)
[2021-06-30] MEDS: Protonix 40MG Tablet PO SCH (08:36)
--- NOTE | 2021-06-30 08:50 | XRAY ---
Indication: COPD. Comparison: June 28, 2021. PA/lateral chest demonstrates clearing of previous bibasilar interstitial areolar opacities. Stable COPD and minimal scattered fibrosis/scarring. Heart not enlarged. No new cardiopulmonary abnormalities.
[2021-06-30] MEDS ORDERED: NON-FORMULARY ITEM (Potassium Chloride 20 Meq [Klor-Con 20 Meq] 20 MEQ Tab) PO SCH (10:00)
[2021-06-30] MEDS ORDERED: NON-FORMULARY ITEM (Multivit-Min/Fa/Lycopen/Lutein [Centrum Silver Tablet] 1 EACH Tablet) PO SCH (10:00)
[2021-06-30] MEDS ORDERED: Lasix 40 MG PO SCH (10:00)
[2021-06-30 11:00] LABS: Slide Review YES
[2021-06-30] MEDS ORDERED: solu-MEDROL IV SCH (12:00)
--- NOTE | 2021-07-03 21:09 | PCM.HP ---
History of Present Illness - Chief Complaint Chief Complaint: Acute on chronic hypoxic and hypercapnic respiratory failure Date: 06/29/21 History of Present Illness: is a 70 year old male. Presented to ER with progressive increasing sob over the past week, pt. with severe copd and easily worsens with minor changes in environment or weather. Pt. noted some increase sob with activity but has progressed to being sob with rest also, thus presentation to ER. Pt. was found to be hypoxic and worse than his baseline with need for more aggressive hospital treatment of his condition. - Review of Systems Constitutional: No Fever, No Chills Eyes: No Symptoms Ears, Nose, & Throat: No Symptoms Respiratory: Cough, Short Of Breath, Wheezing Cardiac: No Chest Pain, No Edema, No Syncope Abdominal/Gastrointestinal: No Abdominal Pain, No Nausea, No Vomiting, No Diarrhea Genitourinary Symptoms: No Dysuria Musculoskeletal: No Back Pain, No Neck Pain Skin: No Rash Neurological: No Dizziness, No Focal Weakness, No Sensory Changes Psychological: No Symptoms Endocrine: No Symptoms Hematologic/Lymphatic: No Symptoms Immunological/Allergic: No Symptoms Medications & Allergies Home Medications: Home Medication List Gemfibrozil 600 mg [Lopid 600 mg] 600 mg PO BID 11/01/12 [History Confirmed 06/28/21] Metformin HCl 500 mg [Glucophage 500 MG] 500 mg PO BID 11/01/12 [History Confirmed 06/28/21] Budesonide/Formoterol Fumarate [Symbicort 160-4.5 Mcg Inhaler] 2 puff IH BID 11/05/14 [History Confirmed 06/28/21] Fluticasone Propionate [Flonase Allergy Relief] 1 spray INTRANASAL HS PRN 11/05/14 [History Confirmed 06/28/21] Loratadine 10 mg [Claritin 10 mg] 10 mg PO DAILY 11/05/14 [History Confirmed 06/28/21] Nitroglycerin 0.4 mg (Ed) [Nitrostat 0.4 MG (ED)] 0.4 mg SL UD PRN 11/05/14 [History Confirmed 06/28/21] Potassium Chloride 20 Meq [Klor-Con 20 MEQ] 20 meq PO DAILY 11/05/14 [History Confirmed 06/28/21] Metoprolol Tartrate 50 mg PO BID 03/22/18 [History Confirmed 06/28/21] Omeprazole 20 MG [Prilosec 20 mg] 20 mg PO BID 03/22/18 [History Confirmed 06/28/21] Polyethylene Glycol 3350 17 gm [Miralax Powder 17GM PACKET] 17 gm PO BID PRN 03/22/18 [History Confirmed 06/28/21] Tamsulosin HCl 0.4 mg [Flomax 0.4 MG] 0.4 mg PO DAILY 03/22/18 [History Confirmed 06/28/21] Triamterene/Hydrochlorothiazid [Triamterene-Hctz 37.5-25 mg Tb] 1 each PO DAILY 03/22/18 [History Confirmed 06/28/21] Furosemide 20 mg [Lasix 20 mg] 40 mg PO BID 09/06/18 [History Confirmed 06/28/21] metOLazone [Metolazone] 1 tablet PO UD PRN 09/06/18 [History Confirmed 06/28/21] Acetaminophen [Tylenol Extra Strength] 1,000 mg PO HS 07/06/19 [History Confirmed 06/28/21] Albuterol 2.5 mg/3 ml Neb [Proventil 2.5 mg/3 ml Neb] 2.5 mg IH QID PRN 07/06/19 [History Confirmed 06/28/21] Albuterol Common Canister [Ventolin Common Canister] 2 puff IH QID 07/06/19 [History Confirmed 06/28/21] EPINEPHrine [Epipen 0.3 MG] 1 syringe SQ UD PRN 07/06/19 [History Confirmed 06/28/21] Fish Oil/Dha/Epa [Fish Oil 1,200 mg Fish Oil] 1 each PO TID 07/06/19 [History Confirmed 06/28/21] Multivit-Min/FA/Lycopen/Lutein [Centrum Silver Tablet] 1 each PO DAILY 07/06/19 [History Confirmed 06/28/21] Umeclidinium [place] [Incruse Ellipta] 1 puff IH DAILY 07/06/19 [History Confirmed 06/28/21] Docusate Sodium 100 mg [Colace 100 MG] 100 mg PO DAILY PRN 10/20/20 [History Confirmed 06/28/21] Ibuprofen 200 mg [Motrin 200 mg] 400 mg PO HS PRN 10/20/20 [History Confirmed 06/28/21] Allergies/Adverse Reactions: Allergies Allergy/AdvReac Type Severity Reaction Status Date / Time amoxicillin Allergy Severe Swelling Verified 06/28/21 15:13 of Face clarithromycin [From Biaxin] Allergy Severe Swelling Verified 06/28/21 15:13 of Face lansoprazole Allergy Severe Swelling Verified 06/28/21 15:13 of Face acetaminophen [From Pala] Allergy Intermediate Vomiting Verified 06/28/21 15:13 hydrocodone [From Pala] Allergy Intermediate Vomiting Verified 06/28/21 15:13 morphine Allergy Mild N&V Verified 06/28/21 15:13 DEB Inhibitors Allergy Anaphylactic Verified 06/28/21 15:13 Reaction benazepril Allergy Verified 06/28/21 15:13 clindamycin Allergy Swelling Verified 06/28/21 15:13 of Tongue and Lips prochlorperazine AdvReac Verified 06/28/21 15:13 [From Compazine] - Past Medical History Past Medical History: Yes Neurological History: Peripheral Neuropathy ENT History: No Pertinent History, Other Cardiac History: Congestive Heart Failure, High Cholesterol, Hypertension, Myocardial Infarction ([place]) Respiratory History: Asthma, Bronchitis, CHF, COPD, Sleep Apnea Endocrine Medical History: Liver Disease Musculoskelatal History: Arthritis GI Medical History: Esophageal Disorder, GERD, Hernia, Polyps History: No Pertinent History Pyscho-Social History: No Pertinent History Male Reproductive Disorders: No Pertinent History Comment: 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 Former smoker - Past Surgical History Past Surgical History: Yes Neuro Surgical History: No Pertinent History Cardiac History: No Pertinent History Respiratory Surgery: No Pertinent History GI Surgical History: Appendectomy, Other Genitourinary Surgical Hx: No Pertinent History Musculskeletal Surgical Hx: Orthopedic Surgery Male Surgical History: Vasectomy Other Surgical History: removed part of intestines dt accident,inner ear surgery lt,polypectomy back surgery x2 ear surgery left side,t&a as child lipoma to neck, right eye retina/cornea repair, has colostomy - Social History Smoking Status: Current every day smoker How long have you smoked: 60YRS Exposure to second hand smoke: Yes Alcohol: None Drug Use: none - Physical Exam General Appearance: no apparent distress, alert Neurologic Exam: alert, oriented x 3, cooperative, normal mood/affect, nml cerebellar function, nml station & gait, sensation nml, No motor deficits Eye Exam: PERRL/EOMI, eyes nml inspection Ears, Nose, Throat Exam: normal ENT inspection, TMs normal, pharynx normal, moist mucous membranes Neck Exam: normal inspection, non-tender, supple, full range of motion Respiratory Exam: respiratory distress, diminished breath sounds, accessory muscle use, prolonged expirations, rhonchi, wheezing Cardiovascular Exam: regular rate/rhythm, normal heart sounds, normal peripheral pulses Gastrointestinal/Abdomen Exam: soft, normal bowel sounds, No tenderness, No mass Back Exam: normal inspection, normal range of motion, No CVA tenderness, No vertebral tenderness Extremity Exam: normal inspection, normal range of motion, pelvis stable Skin Exam: normal color, warm, dry, No rash Lymphatic Exam: No adenopathy Results - Labs Lab/Micro Results: Microbiology 06/28/21 15:50 Blood Culture Gram Stain - Final Blood Not Reportable Blood Culture - Final NO GROWTH 06/28/21 16:00 Blood Culture Gram Stain - Final Blood Not Reportable Blood Culture - Final NO GROWTH Assessment/Plan (1) COPD (chronic obstructive pulmonary disease) Status: Acute Qualifiers: (2) COPD with exacerbation Status: Acute Onset Date: ~03/22/18 Assessment & Plan: Pt. will be admitted for iv antibiotics and iv steroids with frequent nebulization treatment. Code(s): J44.1 - CHRONIC OBSTRUCTIVE PULMONARY DISEASE W (ACUTE) EXACERBATION (3) Chronic respiratory failure with hypoxia and hypercapnia Status: Acute Onset Date: ~03/22/18 Code(s): J96.11 - CHRONIC RESPIRATORY FAILURE WITH HYPOXIA; J96.12 - CHRONIC RESPIRATORY FAILURE WITH HYPERCAPNIA (4) Current smoker Status: Acute Onset Date: ~03/22/18 Code(s): F17.200 - NICOTINE DEPENDENCE, UNSPECIFIED, UNCOMPLICATED (5) SOB (shortness of breath) Status: Acute Onset Date: ~03/22/18 Code(s): R06.02 - SHORTNESS OF BREATH (6) Tobacco abuse Status: Acute Code(s): Z72.0 - TOBACCO USE
== END 2021-06-30 11:00 | disposition home health service (06) | DRG 190 ==
LOC: ED 14:52 → MED SURG 20:25
PROVIDERS: ADMIT Family Medicine; ATTEND Family Medicine
DX: J44.1 Chronic obstructive pulmonary disease with (acute) exacerbation (principal); J96.21 Acute and chronic respiratory failure with hypoxia; J96.22 Acute and chronic respiratory failure with hypercapnia; E83.42 Hypomagnesemia; E11.9 Type 2 diabetes mellitus without complications; E78.5 Hyperlipidemia, unspecified; I25.2 Old myocardial infarction; Z79.899 Other long term (current) drug therapy; Z99.81 Dependence on supplemental oxygen; Z20.828 Contact with and (suspected) exposure to other viral communicable diseases; I10 Essential (primary) hypertension; Z72.0 Tobacco use
CPT/HCPCS: 0241U; 36415; 36600; 71045; 71046; 80048; 80053; 81001; 82375; 82803; 82947; 83605; 83735; 83880; 84484; 85025; 85027; 85379; 87040; 93041; 94002; 94003; 94640; 94760; 96365; 96374; 96376; 99284; 99291; J1650; J1817; J1956; J2930; J3475; J7609; A9270-GY

== ENCOUNTER 2021-07-21 17:43 | Inpatient (IN) | payer MEDICARE, OTHER ==
[2021-07-21] MEDS ORDERED: solu-MEDROL 125 MG, Sterile H2O 10 ml 2 ML IV ONE ×2 (17:58)
[2021-07-21] MEDS ORDERED: DUONEB 0.5-3 MG/3 ml Neb IH ONE ×2 (17:58→18:10)
[2021-07-21] MEDS ORDERED: LEVOFLOXACIN 750MG/150ML D5W 750 MG/150 ML BAG IV STA (18:00)
--- NOTE | 2021-07-21 18:03 | ERPHSYRPT ---
<MANUEL PATRICIO - Last Filed: 07/21/21 21:05> - History of Present Illness Source: patient Exam Limitations: no limitations Patient Subjective Stated Complaint: " I feel short of breath and weak ". Triage Nursing Assessment: Pt presents to ER by POV, pt requests assistance getting out of vehicle. Pt is placed in wheelchair and taken into ER. Pt is alert and oriented x3. Appears short of breath. Noted hypoxic upon arrival, pt on 4L at home O2 saturation in low 80s. Pt placed on hospital oxygen and o2 saturations go up to 95% on 6L NC. Noted wheezes and crackles throughout lungs. Pt skin is pale, warm, and dry. Pt is noted hard of hearing. States has felt weak all over for 3 days, today being the worst. Timing/Duration: day(s) (3), constant, gradual onset, worse Activities at Onset: activity, rest Severity of Dyspnea-Max: severe Severity of Dyspnea-Current: moderate Possible Cause: unknown cause Modifying Factors: Improves With: rest. Worsens With: activity, coughing, exertion Associated Symptoms: cough, fever, wheezing, chills, dizziness, muscle spasms hands, productive cough, sweating Hx Tetanus, Diphtheria Vaccination/Date Given: Yes Hx Influenza Vaccination/Date Given: Yes Hx Pneumococcal Vaccination/Date Given: No Immunizations Up to Date: Yes <EB MOSES - Last Filed: 07/26/21 11:26> - History of Present Illness Time Seen by Provider: 07/21/21 17:50 Physician History: 70-year-old male with history of hypertension, hyperlipidemia, diabetes mellitus presented in the ER with 3 days history of rapidly progressing cough productive of clear to yellow sputum with associated increasing shortness of breath initially with activity and now even resting. Patient reports chest tightness and wheezing and gurgling sounds all over with subjective feeling of fever and chills. Patient feels weak fatigued tired with lack of energy. Vaccinated against COVID-19 and denies any known sick contact. Denies any chest pain but tightness. Patient is hypoxic around 80% on room air, placed on 3 L and currently around 97%. (EB MOSES) Allergies/Adverse Reactions: amoxicillin Allergy (Severe, Verified 07/21/21 17:55) Swelling of Face clarithromycin [From Biaxin] Allergy (Severe, Verified 07/21/21 17:55) Swelling of Face lid swelled until touched nose. lansoprazole Allergy (Severe, Verified 07/21/21 17:55) Swelling of Face acetaminophen [From [place]] Allergy (Intermediate, Verified 07/21/21 17:55) Vomiting hydrocodone [From [place]] Allergy (Intermediate, Verified 07/21/21 17:55) Vomiting morphine Allergy (Mild, Verified 07/21/21 17:55) N&V DEB Inhibitors Allergy (Verified 07/21/21 17:55) Anaphylactic Reaction benazepril Allergy (Verified 07/21/21 17:55) clindamycin Allergy (Verified 07/21/21 17:55) Swelling of Tongue and Lips prochlorperazine [From Compazine] Adverse Reaction (Verified 07/21/21 17:55) Home Medications: Gemfibrozil 600 mg [Lopid 600 mg] 600 mg PO BID 11/01/12 [History] Metformin HCl 500 mg [Glucophage 500 MG] 500 mg PO BID 11/01/12 [History] Budesonide/Formoterol Fumarate [Symbicort 160-4.5 Mcg Inhaler] 2 puff IH BID 11/05/14 [History] Fluticasone Propionate [Flonase Allergy Relief] 1 spray INTRANASAL HS PRN 11/05/14 [History] Loratadine 10 mg [Claritin 10 mg] 10 mg PO DAILY 11/05/14 [History] Nitroglycerin 0.4 mg (Ed) [Nitrostat 0.4 MG (ED)] 0.4 mg SL UD PRN 11/05/14 [History] Potassium Chloride 20 Meq [Klor-Con 20 MEQ] 20 meq PO DAILY 11/05/14 [History] Metoprolol Tartrate 50 mg PO BID 03/22/18 [History] Omeprazole 20 MG [Prilosec 20 mg] 20 mg PO BID 03/22/18 [History] Polyethylene Glycol 3350 17 gm [Miralax Powder 17GM PACKET] 17 gm PO BID PRN 03/22/18 [History] Tamsulosin HCl 0.4 mg [Flomax 0.4 MG] 0.4 mg PO DAILY 03/22/18 [History] Triamterene/Hydrochlorothiazid [Triamterene-Hctz 37.5-25 mg Tb] 1 each PO DAILY 03/22/18 [History] Furosemide 20 mg [Lasix 20 mg] 40 mg PO BID 09/06/18 [History] metOLazone [Metolazone] 1 tablet PO UD PRN 09/06/18 [History] Acetaminophen [Tylenol Extra Strength] 1,000 mg PO HS 07/06/19 [History] Albuterol 2.5 mg/3 ml Neb [Proventil 2.5 mg/3 ml Neb] 2.5 mg IH QID PRN 07/06/19 [History] Albuterol Common Canister [Ventolin Common Canister] 2 puff IH QID 07/06/19 [History] EPINEPHrine [Epipen 0.3 MG] 1 syringe SQ UD PRN 07/06/19 [History] Fish Oil/Dha/Epa [Fish Oil 1,200 mg Fish Oil] 1 each PO TID 07/06/19 [History] Multivit-Min/FA/Lycopen/Lutein [Centrum Silver Tablet] 1 each PO DAILY 07/06/19 [History] Umeclidinium [place] [Incruse Ellipta] 1 puff IH DAILY 07/06/19 [History] Docusate Sodium 100 mg [Colace 100 MG] 100 mg PO DAILY PRN 10/20/20 [History] Ibuprofen 200 mg [Motrin 200 mg] 400 mg PO HS PRN 10/20/20 [History] Travel Risk - International Travel Have you traveled outside of the country in past 3 weeks: No - Coronavirus Screening Are you exhibiting any of the following symptoms?: Yes Symptoms: Cough: New Onset, Shortness of Breath Close contact with a COVID-19 positive Pt in past 14-21 Days: No - Vaccine Status Have you recieved a Covid-19 vaccination: Yes Pharmacy Clinical Specialist: Pf[employer] - Vaccination Dates Date of 2cond Vaccination (if applicable): unknown <EB MOSES - Last Filed: 07/26/21 11:26> - Review of Systems Constitutional: Fever, Chills, Fatigue, Weakness Eyes: No Symptoms Ears, Nose, & Throat: Throat Pain Respiratory: Cough, Dyspnea, Dyspnea on Exertion (GREEN), Wheezing Cardiac: No Symptoms Abdominal/Gastrointestinal: No Symptoms Genitourinary Symptoms: No Symptoms Musculoskeletal: Myalgias Skin: No Symptoms Neurological: No Symptoms Psychological: No Symptoms Endocrine: No Symptoms Hematologic/Lymphatic: No Symptoms Immunological/Allergic: No Symptoms <EB MOSES - Last Filed: 07/26/21 11:26> - Past Medical History Pertinent Past Medical History: Yes Neurological History: Peripheral Neuropathy ENT History: No Pertinent History, Other Cardiac History: Congestive Heart Failure, High Cholesterol, Hypertension, Myocardial Infarction (CT) Respiratory History: Asthma, Bronchitis, CHF, COPD, Sleep Apnea Endocrine Medical History: Liver Disease Musculoskeletal History: Arthritis GI Medical History: Esophageal Disorder, GERD, Hernia, Polyps History: No Pertinent History Psycho-Social History: No Pertinent History Male Reproductive Disorders: No Pertinent History Other Medical History: 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 Former smoker - Past Surgical History Past Surgical History: Yes Neuro Surgical History: No Pertinent History Cardiac: No Pertinent History Respiratory: No Pertinent History Gastrointestinal: Appendectomy, Other Genitourinary: No Pertinent History Musculoskeletal: Orthopedic Surgery Male Surgical History: Vasectomy Other Surgical History: removed part of intestines dt accident,inner ear surgery lt,polypectomy back surgery x2 ear surgery left side,t&a as child lipoma to neck, right eye retina/cornea repair, has colostomy - Social History Smoking Status: Former smoker How long have you smoked: 60YRS Exposure to second hand smoke: No Drug Use: none Patient Lives Alone: No <EB MOSES - Last Filed: 07/26/21 11:26> - Physical Exam General Appearance: no apparent distress, alert Eye Exam: PERRL/EOMI, eyes nml inspection Ears, Nose, Throat Exam: hearing grossly normal, nasal congestion, pharyngeal erythema Neck Exam: normal inspection, non-tender, supple, full range of motion Respiratory Exam: respiratory distress, diminished breath sounds, accessory muscle use, crackles/rales, rhonchi, wheezing Cardiovascular/Chest Exam: normal heart sounds, tachycardia Abdominal/Gastrointestinal Exam: soft, normal bowel sounds Extremity Exam: non-tender, normal range of motion Neurologic Exam: alert, oriented x 3, cooperative Skin Exam: normal color SpO2 Interpretation: hypoxic, O2 applied SpO2: 96 O2 Delivery: Nasal Cannula (6L) <EB MOSES - Last Filed: 07/26/21 11:26> - Nursing Vital Signs Nursing Vital Signs: Initial Vital Signs Temperature 96.4 F 07/21/21 17:44 Pulse Rate 89 07/21/21 17:44 Respiratory Rate 26 H 07/21/21 17:44 Blood Pressure 131/66 07/21/21 17:44 O2 Sat by Pulse Oximetry 88 L 07/21/21 17:44 Pain Scale Pain Intensity 0 - Course EKG Interpreted by Me: RATE (69), Sinus Rhythm, Right [place] Deviation, NORMAL INTERVALS, Right Bundle Branch Block, Q-wave (Anteroseptal), Non-specific ST Changes <EB MOSES - Last Filed: 07/26/21 11:26> Ordered Tests: Medication Summary Discontinued Medications Generic Name Dose Route Start Last Admin Trade Name Freq PRN Reason Stop Dose Admin Acetaminophen 1,000 mg 07/22/21 22:00 07/23/21 21:48 Acetaminophen 500 Mg Tablet PO 08/21/21 21:59 1,000 mg HS AN Administration Albuterol Sulfate 2 puff 07/22/21 10:00 Albuterol Common Canister Inhaler 08/21/21 09:59 QID AN Albuterol Sulfate 2.5 mg 07/22/21 07:00 07/24/21 06:33 Albuterol Sulfate 2.5 Mg/3 Ml Neb 08/21/21 06:59 2.5 mg QIDRT AN Administration Albuterol Sulfate 4 puff 07/22/21 01:22 Albuterol Common Canister Inhaler 08/21/21 01:21 Q4H PRN PRN SHORTNESS OF BREATH/WHEEZING Albuterol/Ipratropium 3 ml 07/21/21 17:58 07/21/21 18:10 Ipratropium/Albuterol Sulfate 3 Ml Ampul.Neb IH 07/21/21 17:59 3 ml STAT ONE Administration Albuterol/Ipratropium Confirm 07/21/21 18:10 Ipratropium/Albuterol Sulfate 3 Ml Ampul.Neb Administered 07/21/21 18:11 Dose 3 ml IH .STK-MED ONE Methylprednisolone Sodium 0 mg 07/21/21 17:58 07/21/21 18:17 Succinate 125 mg/ Sterile IV 07/21/21 17:59 125 mg Water 2 ml STAT ONE Administration Methylprednisolone Sodium 0 mg 07/21/21 22:00 Succinate 80 mg/ Sterile Water IV 08/20/21 21:59 2 ml Q8HT AN Docusate Sodium 100 mg 07/22/21 07:20 07/24/21 09:20 Docusate Sodium 100 Mg Capsule PO 08/21/21 07:19 100 mg DAILY PRN Administration CONSTIPATION Fish Oil 1,000 mg 07/22/21 10:00 07/24/21 09:20 [place]-3 Fatty Acids/Fish Oil 1000 Mg Capsule PO 08/21/21 09:59 1,000 mg TID AN Administration Fluticasone Propionate 1 gm 07/22/21 01:06 Fluticasone Propionate 16 Gm Bottle Nasal [place] NS 08/21/21 01:05 HS PRN PRN ALLERGIES Furosemide 40 mg 07/22/21 05:00 07/22/21 04:49 Furosemide 40 Mg Tablet PO 07/22/21 05:01 40 mg ONCE ONE Administration Furosemide 40 mg 07/22/21 10:00 07/24/21 09:24 Furosemide 40 Mg Tablet PO 08/21/21 09:59 40 mg 0500,1000 AN Administration Gemfibrozil 600 mg 07/22/21 01:11 07/24/21 08:10 Gemfibrozil 600 Mg Tablet PO 08/21/21 01:10 600 mg BIDAC AN Administration Hydroxyzine HCl 25 mg 07/21/21 23:55 07/23/21 23:53 Hydroxyzine Hcl 25 Mg Tablet PO 08/20/21 23:54 25 mg Q4H PRN Administration ANXIETY Levofloxacin/Dextrose 750 mg in 150 mls @ 100 mls/hr 07/21/21 18:00 07/21/21 19:51 Levofloxacin 750mg/150ml D5w IV 07/21/21 19:29 Infused STAT STA Infusion Levofloxacin/Dextrose Confirm 07/21/21 18:16 Levofloxacin 750mg/150ml D5w Administered 07/21/21 18:17 Dose 750 mg in 150 mls @ ud IV .STK-MED ONE Sodium Chloride 1,000 mls @ 50 mls/hr 07/21/21 21:24 Sodium Chloride 0.9% 1000 Ml IV 08/20/21 21:23 .Q20H AN Levofloxacin/Dextrose 500 mg in 100 mls @ 100 mls/hr 07/22/21 10:00 07/24/21 09:22 Levofloxacin 500mg/100ml D5w IV 08/21/21 09:59 Not Given Q24H10 AN Sodium Chloride 1,000 mls @ 50 mls/hr 07/23/21 08:00 07/23/21 09:39 Sodium Chloride 0.9% 1000 Ml IV 08/22/21 07:59 50 mls/hr .Q20H AN Administration Ibuprofen 400 mg 07/22/21 01:11 Ibuprofen 400 Mg Tablet PO 08/21/21 01:10 HS PRN PRN PAIN Loratadine 10 mg 07/22/21 10:00 07/24/21 09:21 Loratadine 10 Mg Tablet PO 08/21/21 09:59 10 mg DAILY AN Administration Metformin HCl 500 mg 07/22/21 01:00 07/22/21 01:40 Metformin Hcl 500 Mg Tablet PO 08/21/21 00:59 500 mg BID AN Administration Metformin HCl 500 mg 07/22/21 08:00 07/24/21 08:10 Metformin Hcl 500 Mg Tablet PO 08/21/21 00:59 500 mg BIDWM AN Administration Methylprednisolone Sodium Succinate Confirm 07/21/21 18:15 Methylprednis Sod Succ 125 Mg/2 Ml Vial Administered 07/21/21 18:16 Dose 125 mg .ROUTE .STK-MED ONE Methylprednisolone Sodium Succinate 125 mg 07/22/21 02:00 07/22/21 01:37 Methylprednis Sod Succ 125 Mg/2 Ml Vial IV 08/21/21 01:59 125 mg Q8H AN Administration Methylprednisolone Sodium Succinate 80 mg 07/22/21 14:00 07/23/21 05:29 Methylprednis Sod Succ 125 Mg/2 Ml Vial IV 08/21/21 13:59 80 mg Q8HT AN Administration Methylprednisolone Sodium Succinate 60 mg 07/23/21 07:43 07/24/21 05:15 Methylprednis Sod Succ 125 Mg/2 Ml Vial IV 08/21/21 13:59 60 mg Q8HT AN Administration Metolazone 2.5 mg 07/22/21 01:01 Metolazone 2.5 Mg Tablet PO 08/21/21 01:14 UD PRN diuretic Metoprolol Tartrate 50 mg 07/22/21 01:02 07/24/21 09:20 Metoprolol Tartrate 50 Mg Tablet PO 08/21/21 01:01 50 mg BID AN Administration Miscellaneous Information 0 each 07/22/21 07:45 Medication Intervention 1 Each Each 08/21/21 07:44 .RN TO CHECK WITH PT [facility] Miscellaneous Information 0 each 07/22/21 08:30 Medication Intervention 1 Each Each 08/21/21 08:29 .RN TO CHECK WITH PT [facility] Multivitamins Therapeutic 1 tab 07/22/21 10:00 07/24/21 09:21 Multivitamins,Therapeutic 1 Tab Tab PO 08/21/21 09:59 1 tab DAILY AN Administration Nitroglycerin 0.4 mg 07/22/21 01:03 Nitroglycerin 0.4 Mg Tablet Bottle SL 08/21/21 01:02 Q5MIN PRN MR X 3 PRN CHEST PAIN Ondansetron HCl 4 mg 07/21/21 21:24 Ondansetron Hcl 4 Mg/2 Ml Vial IV 08/20/21 21:23 Q6H PRN PRN NAUSEA/VOMITING Pantoprazole Sodium 40 mg 07/22/21 01:04 07/24/21 09:21 Protonix (Pantoprazole) 40 Mg Tablet PO 08/21/21 01:03 40 mg BID AN Administration Polyethylene Glycol 17 gm 07/22/21 01:05 Polyethylene Glycol 3350 17 Gm Packet PO 08/21/21 01:14 BID PRN PRN CONSTIPATION Potassium Chloride 20 meq 07/22/21 10:00 07/24/21 09:21 Potassium Chloride 10 Meq Tablet PO 08/21/21 09:59 20 meq DAILY AN Administration Fluticasone/Salmeterol 2 puff 07/22/21 07:30 07/24/21 06:36 Fluticasone/Salmeterol /21 - 120 Puff Common Canister IH 08/21/21 07:29 2 puff BIDRT AN Administration Sterile Water Confirm 07/21/21 18:15 Water For Injection,Sterile 10 Ml Vial Administered 07/21/21 18:16 Dose 10 ml IJ .STK-MED ONE Tamsulosin HCl 0.4 mg 07/22/21 10:00 07/24/21 09:21 Tamsulosin Hcl 0.4 Mg Cap PO 08/21/21 09:59 0.4 mg DAILY AN Administration Triamterene/Hydrochlorothiazide 1 tab 07/22/21 10:00 07/24/21 09:20 Triamterene/Hydrochlorothiazide 37.5/25mg 1 Tablet PO 08/21/21 09:59 1 tab DAILY AN Administration Lab/Rad Data: Laboratory Result Diagrams 07/21/21 18:30 07/21/21 18:30 Laboratory Results 07/21/21 07/21/21 07/21/21 Range/Units 21:15 20:12 19:15 WBC (4.0-10.5) K/mm3 RBC (4.1-5.6) M/mm3 Hgb (12.5-18.0) gm/dl Hct (42-50) % MCV (78-100) fl MCH (26-32) pg MCHC (32-36) g/dl RDW (11.5-14.0) % Plt Count (150-450) K/mm3 MPV (7.5-11.0) fl Gran % (36.0-66.0) % Eos # (Auto) (0-0.5) Absolute Lymphs (auto) (1.0-4.6) Absolute Monos (auto) (0.0-1.3) Lymphocytes % (24.0-44.0) % Monocytes % (0.0-12.0) % Eosinophils % (0.00-5.0) % Basophils % (0.0-0.4) % Absolute Granulocytes (1.4-6.9) Basophils # (0-0.4) Puncture Site RIGHT BRACHIAL pCO2 103 H* (35-45) mmHg pO2 95 (75-100) mmHg Base Excess 30.2 H (-2.0-2.0) O2 Saturation 94.8 (94-100) g/dF ABG pH 7.39 (7.35-7.45) ABG HCO3 62.4 H* (22-28) ABG O2 Sat (Measured) 98.4 (95-100) % Martín Test NOT APPLICABLE A-a Gradient 133 a/A Ratio 0.42 Hemoglobin 11.0 Carboxyhemoglobin 3.1 (0.0-6.9) % THgb Methemoglobin 0.6 L (1.4-1.5) % Potassium 3.3 L (3.5-5.1) Temperature 37.0 C POC O2 Flow Rate 50 % Vent Mode BiPAP Inspiratory BiPAP 16 Expiratory BiPAP 6 Sodium (137-145) mmol/L Chloride (98-107) mmol/L Carbon Dioxide (22-30) mmol/L Anion Gap (5-15) MEQ/L BUN (9-20) mg/dL Creatinine (0.66-1.25) mg/dL Estimated GFR ML/MIN Glucose (74-106) mg/dL Lactic Acid (0.4-2.0) Calcium (8.4-10.2) mg/dL Magnesium (1.6-2.3) mg/dL Total Bilirubin (0.2-1.3) mg/dL AST (17-59) U/L ALT (0-50) U/L Alkaline Phosphatase (38-126) U/L Troponin I 0.013 (0.000-0.034) ng/mL NT-Pro-B Natriuret Pep (0-900) pg/mL Serum Total Protein (6.3-8.2) g/dL Albumin (3.5-5.0) g/dL Influenza Type A Ag NEGATIVE (NEGATIVE) Influenza Type B Ag NEGATIVE (NEGATIVE) RSV (PCR) NEGATIVE (Negative) SARS-CoV-2 (PCR) NEGATIVE (NEGATIVE) Slides for Path Review 07/21/21 07/21/21 07/21/21 Range/Units 18:30 18:30 18:30 WBC 11.0 H (4.0-10.5) K/mm3 RBC 4.39 (4.1-5.6) M/mm3 Hgb 10.9 L (12.5-18.0) gm/dl Hct 40.4 L (42-50) % MCV 92.0 (78-100) fl MCH 24.8 L (26-32) pg MCHC 27.0 L (32-36) g/dl RDW 17.5 H (11.5-14.0) % Plt Count 345 (150-450) K/mm3 MPV 9.0 (7.5-11.0) fl Gran % 81.5 H (36.0-66.0) % Eos # (Auto) 0.09 (0-0.5) Absolute Lymphs (auto) 0.91 L (1.0-4.6) Absolute Monos (auto) 0.98 (0.0-1.3) Lymphocytes % 8.3 L (24.0-44.0) % Monocytes % 8.9 (0.0-12.0) % Eosinophils % 0.8 (0.00-5.0) % Basophils % 0.5 (0.0-0.4) % Absolute Granulocytes 8.97 H (1.4-6.9) Basophils # 0.05 (0-0.4) Puncture Site pCO2 (35-45) mmHg pO2 (75-100) mmHg Base Excess (-2.0-2.0) O2 Saturation (94-100) g/dF ABG pH (7.35-7.45) ABG HCO3 (22-28) ABG O2 Sat (Measured) (95-100) % Martín Test A-a Gradient a/A Ratio Hemoglobin Carboxyhemoglobin (0.0-6.9) % THgb Methemoglobin (1.4-1.5) % Potassium 3.3 L (3.5-5.1) Temperature C POC O2 Flow Rate % Vent Mode Inspiratory BiPAP Expiratory BiPAP Sodium 134 L (137-145) mmol/L Chloride 76 L (98-107) mmol/L Carbon Dioxide 51 H (22-30) mmol/L Anion Gap 10.3 (5-15) MEQ/L BUN 30 H (9-20) mg/dL Creatinine 0.87 (0.66-1.25) mg/dL Estimated GFR > 60.0 ML/MIN Glucose 234 H (74-106) mg/dL Lactic Acid (0.4-2.0) Calcium 8.7 (8.4-10.2) mg/dL Magnesium 1.3 L (1.6-2.3) mg/dL Total Bilirubin 0.50 (0.2-1.3) mg/dL AST 16 L (17-59) U/L ALT 14 (0-50) U/L Alkaline Phosphatase 96 (38-126) U/L Troponin I 0.013 (0.000-0.034) ng/mL NT-Pro-B Natriuret Pep 94.1 (0-900) pg/mL Serum Total Protein 7.1 (6.3-8.2) g/dL Albumin 4.2 (3.5-5.0) g/dL Influenza Type A Ag (NEGATIVE) Influenza Type B Ag (NEGATIVE) RSV (PCR) (Negative) SARS-CoV-2 (PCR) (NEGATIVE) Slides for Path Review YES 07/21/21 Range/Units 17:58 WBC (4.0-10.5) K/mm3 RBC (4.1-5.6) M/mm3 Hgb (12.5-18.0) gm/dl Hct (42-50) % MCV (78-100) fl MCH (26-32) pg MCHC (32-36) g/dl RDW (11.5-14.0) % Plt Count (150-450) K/mm3 MPV (7.5-11.0) fl Gran % (36.0-66.0) % Eos # (Auto) (0-0.5) Absolute Lymphs (auto) (1.0-4.6) Absolute Monos (auto) (0.0-1.3) Lymphocytes % (24.0-44.0) % Monocytes % (0.0-12.0) % Eosinophils % (0.00-5.0) % Basophils % (0.0-0.4) % Absolute Granulocytes (1.4-6.9) Basophils # (0-0.4) Puncture Site LEFT RADIAL pCO2 115 H* (35-45) mmHg pO2 71 L (75-100) mmHg Base Excess 28.8 H (-2.0-2.0) O2 Saturation 89.3 L (94-100) g/dF ABG pH 7.34 L (7.35-7.45) ABG HCO3 62.0 H* (22-28) ABG O2 Sat (Measured) 93.2 L (95-100) % Martín Test YES A-a Gradient 99 a/A Ratio 0.42 Hemoglobin 11.3 Carboxyhemoglobin 2.9 (0.0-6.9) % THgb Methemoglobin 1.2 L (1.4-1.5) % Potassium 3.1 L (3.5-5.1) Temperature 37.0 C POC O2 Flow Rate 44 % Vent Mode Inspiratory BiPAP Expiratory BiPAP Sodium (137-145) mmol/L Chloride (98-107) mmol/L Carbon Dioxide (22-30) mmol/L Anion Gap (5-15) MEQ/L BUN (9-20) mg/dL Creatinine (0.66-1.25) mg/dL Estimated GFR ML/MIN Glucose (74-106) mg/dL Lactic Acid 1.3 (0.4-2.0) Calcium (8.4-10.2) mg/dL Magnesium (1.6-2.3) mg/dL Total Bilirubin (0.2-1.3) mg/dL AST (17-59) U/L ALT (0-50) U/L Alkaline Phosphatase (38-126) U/L Troponin I (0.000-0.034) ng/mL NT-Pro-B Natriuret Pep (0-900) pg/mL Serum Total Protein (6.3-8.2) g/dL Albumin (3.5-5.0) g/dL Influenza Type A Ag (NEGATIVE) Influenza Type B Ag (NEGATIVE) RSV (PCR) (Negative) SARS-CoV-2 (PCR) (NEGATIVE) Slides for Path Review - Progress Progress: improved, re-examined Air Movement: fair Blood Culture(s) Obtained: Yes Antibiotics given: Yes Discussed with : Vince Counseled pt/family regarding: lab results, diagnosis, rad results <MANUEL PATRICIO - Last Filed: 07/21/21 21:05> - Progress Progress Note: 07/21/21 19:41 Medical decision making: This patient was signed out to me by Dr. Moses at shift change (7 PM). Anything other than disposition and diagnosis needs to be addressed by Dr. Moses in his note. This patient appears to have COPD exacerbation. His blood gases are improving and he is more awake and alert. We will contact Dr. Finley, the patient's primary care provider for admission. 07/21/21 19:50 Chest x-ray shows bilateral early lung infiltrates. Medical decision making: This patient has COPD exacerbation as well as bilateral lung infiltrates. I did speak with Dr. Finley. I reviewed the patient history, physical findings as well as results of the chest x-ray and laboratory work-up. We will admit him into the hospital. If his Covid 19 test is positive then he will need to go to the Covid unit and I will contact Dr. Camilo for admission the re. Otherwise, Dr. Finley will be the admitting physician. (MANUEL PATRICIO) - Departure Departure Disposition: In-patient Admission Critical Care Time: No <MANUEL PATRICIO - Last Filed: 07/21/21 21:05> <EB MOSES - Last Filed: 07/26/21 11:26> - Departure Clinical Impression: Bilateral pulmonary infiltrates on chest x-ray, COPD exacerbation Condition: Fair
[2021-07-21 18:09] LABS: A-aADO2 99; ABG HEMOGLOBIN 11.3; ABG POTASSIUM 3.1 (3.5-5.1); ARTERIAL BLD GAS O2 SATURATION 93.2 % (95-100); ARTERIAL BLOOD GAS BASE EXCESS 28.8 (-2.0-2.0); ARTERIAL BLOOD GAS FIO2 44 %; ARTERIAL BLOOD GAS PCO2 115 mmHg (35-45); ARTERIAL BLOOD GAS PO2 71 mmHg (75-100); ARTERIAL BLOOD GAS pH 7.34 (7.35-7.45); CARBOXYHEMOGLOBIN 2.9 % THgb (0.0-6.9); HGB O2 SAT 89.3 g/dF (94-100); Lactic Acid 1.3 (0.4-2.0); Methhemoglobin 1.2 % (1.4-1.5)
[2021-07-21 18:10] LABS: ABG SITE LEFT RADIAL; ALLEN TEST OK? YES
[2021-07-21] MEDS ORDERED: Sterile H2O 10 ml IJ ONE (18:15)
[2021-07-21] MEDS ORDERED: solu-MEDROL ONE (18:15)
[2021-07-21] MEDS ORDERED: LEVOFLOXACIN 750MG/150ML D5W 750 MG/150 ML BAG IV ONE (18:16)
[2021-07-21 18:41] LABS: Absolute Neutrophil Ct (ANC) 8.97 (1.4-6.9); Basophil (Absolute #) 0.05 (0-0.4); Eosinophil % 0.8 % (0.00-5.0); Eosinophil (Absolute #) 0.09 (0-0.5); Hematocrit 40.4 % (42-50); Hemoglobin 10.9 gm/dl (12.5-18.0); Lymphocyte (Absolute #) 0.91 (1.0-4.6); Lymphocytes % 8.3 % (24.0-44.0); Mean Corpuscular Hemoglobin 24.8 pg (26-32); Monocyte (Absolute #) 0.98 (0.0-1.3); Monocytes % 8.9 % (0.0-12.0); Neutrophil % 81.5 % (36.0-66.0); Platelet Count 345 K/mm3 (150-450); Red Blood Count 4.39 M/mm3 (4.1-5.6); Red Cell Distribution Width 17.5 % (11.5-14.0)
[2021-07-21 19:06] LABS: ALBUMIN 4.2 g/dL (3.5-5.0); ALKALINE PHOSPHATASE 96 U/L (38-126); BLOOD UREA NITROGEN 30 mg/dL (9-20); CHLORIDE 76 mmol/L (98-107); Calcium 8.7 mg/dL (8.4-10.2); Creatinine 1 0.87 mg/dL (0.66-1.25); EST GLOMERULAR FILTRATION RATE > 60.0 ML/MIN; Glucose 234 mg/dL (74-106); MAGNESIUM 1.3 mg/dL (1.6-2.3); NT PRO BNP 94.1 pg/mL (0-900); Potassium 3.3 mmol/L (3.5-5.1); SGOT/AST 16 U/L (17-59); SGPT/ALT 14 U/L (0-50); SODIUM 134 mmol/L (137-145); Total Protein 7.1 g/dL (6.3-8.2)
[2021-07-21 19:07] LABS: Slide Review 1 YES
[2021-07-21 19:13] LABS: ANION GAP 10.3 MEQ/L (5-15); Carbon Dioxide 51 mmol/L (22-30)
[2021-07-21 19:18] LABS: A-aADO2 133; ABG POTASSIUM 3.3 (3.5-5.1); ABG SITE RIGHT BRACHIAL; ARTERIAL BLD GAS O2 SATURATION 98.4 % (95-100); ARTERIAL BLOOD GAS BASE EXCESS 30.2 (-2.0-2.0); ARTERIAL BLOOD GAS FIO2 50 %; ARTERIAL BLOOD GAS PCO2 103 mmHg (35-45); ARTERIAL BLOOD GAS PO2 95 mmHg (75-100); ARTERIAL BLOOD GAS VENT MODE BiPAP; ARTERIAL BLOOD GAS pH 7.39 (7.35-7.45); CARBOXYHEMOGLOBIN 3.1 % THgb (0.0-6.9); HCO3- 62.4 (22-28); HGB O2 SAT 94.8 g/dF (94-100); Methhemoglobin 0.6 % (1.4-1.5)
[2021-07-21 20:52] LABS: INFLUENZA A NEGATIVE (NEGATIVE); INFLUENZA B NEGATIVE (NEGATIVE); RESPIRATORY SYNCTIAL VIRUS NEGATIVE (Negative); SARS-CoV-2 Xpert Express NEGATIVE (NEGATIVE)
[2021-07-21] MEDS ORDERED: Sodium Chloride 0.9% 1000 ML 1,000 ML IV SCH (21:24)
[2021-07-21] MEDS ORDERED: Zofran 4 MG/2 ML VIAL IV PRN (21:24)
[2021-07-21] MEDS ORDERED: solu-MEDROL 80 MG, Sterile H2O 10 ml 2 ML IV SCH ×2 (22:00)
[2021-07-21 23:06] LABS: Appearance CLEAR (CLEAR); Bilirubin NEGATIVE (NEGATIVE); Blood NEGATIVE Ery/ul (0-5); Glucose NEGATIVE (NEGATIVE); Ketones NEGATIVE (NEGATIVE); Leukocyte Esterase NEGATIVE (NEGATIVE); Mucus SLIGHT /HPF (NEGATIVE); Nitrite NEGATIVE (NEGATIVE); Protein,Urine Dip NEGATIVE (Negative); Urobilinogen NEGATIVE mg/dL (0-1)
[2021-07-22] MEDS ORDERED: Glucophage 500 MG PO SCH (01:00)
[2021-07-22] MEDS ORDERED: Zaroxolyn 2.5 MG PO PRN (01:01)
[2021-07-22] MEDS ORDERED: Nitrostat 0.4 MG Tablet SL PRN (01:03)
[2021-07-22] MEDS ORDERED: Miralax Powder 17GM PACKET PO PRN (01:05)
[2021-07-22] MEDS ORDERED: Flonase NASAL NS PRN (01:06)
[2021-07-22] MEDS ORDERED: MOTRIN 400 MG PO PRN (01:11)
[2021-07-22] MEDS ORDERED: VENTOLIN COMMON CANISTER IH PRN (01:22)
[2021-07-22] MEDS: Lopressor 50 MG PO SCH ×3 (01:38→17:02)
[2021-07-22] MEDS: ATARAX 25 MG PO PRN ×2 (01:40→17:01)
[2021-07-22] MEDS: Protonix 40MG Tablet PO SCH ×3 (01:40→17:03)
[2021-07-22] MEDS ORDERED: solu-MEDROL IV SCH (02:00)
[2021-07-22 03:32] LABS: Absolute Neutrophil Ct (ANC) 8.99 (1.4-6.9); Basophil (Absolute #) 0.02 (0-0.4); Eosinophil (Absolute #) 0 (0-0.5); Hematocrit 38.4 % (42-50); Hemoglobin 10.3 gm/dl (12.5-18.0); Lymphocytes % 3.2 % (24.0-44.0); Mean Cell Volume 92.1 fl (78-100); Mean Corpuscular Hemoglobin 24.7 pg (26-32); Mean Corpuscular Hgb Concent. 26.8 g/dl (32-36); Monocyte (Absolute #) 0.17 (0.0-1.3); Monocytes % 1.8 % (0.0-12.0); Neutrophil % 94.8 % (36.0-66.0); Platelet Count 311 K/mm3 (150-450); Red Blood Count 4.17 M/mm3 (4.1-5.6); Red Cell Distribution Width 17.5 % (11.5-14.0); White Blood Count 9.5 K/mm3 (4.0-10.5)
[2021-07-22 03:59] LABS: ALBUMIN 3.8 g/dL (3.5-5.0); ALKALINE PHOSPHATASE 82 U/L (38-126); BLOOD UREA NITROGEN 30 mg/dL (9-20); CHLORIDE 74 mmol/L (98-107); Calcium 8.2 mg/dL (8.4-10.2); Creatinine 1 0.85 mg/dL (0.66-1.25); EST GLOMERULAR FILTRATION RATE > 60.0 ML/MIN; Glucose 332 mg/dL (74-106); NT PRO BNP 91.7 pg/mL (0-900); Potassium 3.6 mmol/L (3.5-5.1); SGOT/AST 16 U/L (17-59); SGPT/ALT 14 U/L (0-50); SODIUM 130 mmol/L (137-145); Total Protein 6.2 g/dL (6.3-8.2)
[2021-07-22 04:46] LABS: ANION GAP 10.6 MEQ/L (5-15); Carbon Dioxide 49 mmol/L (22-30)
[2021-07-22] MEDS ORDERED: Lasix 40 MG PO ONE (05:00)
[2021-07-22 05:23] LABS: Slide Review 1 YES
[2021-07-22 06:04] LABS: A-aADO2 122; ABG HEMOGLOBIN 10.4; ABG POTASSIUM 3.5 (3.5-5.1); ARTERIAL BLD GAS O2 SATURATION 98.8 % (95-100); ARTERIAL BLD GAS TIDAL VOLUME 500 cc; ARTERIAL BLOOD GAS FIO2 50 %; ARTERIAL BLOOD GAS PCO2 92 mmHg (35-45); ARTERIAL BLOOD GAS PO2 120 mmHg (75-100); ARTERIAL BLOOD GAS pH 7.43 (7.35-7.45); CARBOXYHEMOGLOBIN 1.6 % THgb (0.0-6.9); HCO3- 61.1 (22-28); HGB O2 SAT 96.5 g/dF (94-100); Methhemoglobin 0.7 % (1.4-1.5)
[2021-07-22 06:05] LABS: ARTERIAL BLOOD GAS PEEP 5 cmH2O; ARTERIAL BLOOD GAS VENT MODE AVAPS; ARTERIAL BLOOD GAS VENT RATE 16 /MIN
[2021-07-22] MEDS: PROVENTIL 2.5 MG/3 ML NEB IH SCH ×5 (06:43→18:39)
[2021-07-22] MEDS ORDERED: Colace 100 MG PO PRN (07:20)
[2021-07-22] MEDS ORDERED: EPINEPHRINE SQ PRN (07:20)
[2021-07-22] MEDS ORDERED: MEDICATION INTERVENTION MC SCH ×2 (07:45→08:30)
[2021-07-22] MEDS: LOPID 600 MG PO SCH ×3 (08:42→17:02)
[2021-07-22] MEDS: Glucophage 500 MG PO SCH ×2 (08:42→17:02)
--- NOTE | 2021-07-22 08:44 | XRAY ---
Indication: Short of breath. Comparison: June 30, 2021. Portable chest demonstrates stable COPD and scattered fibrosis/scarring. New subtle patchy interstitial alveolar opacities in both lung bases and left midlung. Heart not enlarged. Bony thorax intact.
[2021-07-22] MEDS: FISH OIL 1,000 MG CAPSULE PO SCH ×3 (09:39→21:52)
[2021-07-22] MEDS: THERAGRAN MULTIVITAMIN PO SCH (09:39)
[2021-07-22] MEDS: Flomax 0.4 MG PO SCH (09:39)
[2021-07-22] MEDS: Klor Con 10 MEQ PO SCH (09:40)
[2021-07-22] MEDS: Lasix 40 MG PO SCH (09:41)
[2021-07-22] MEDS: Maxzide-25MG Tablet PO SCH ×2 (09:43→21:51)
[2021-07-22] MEDS: CLARITIN 10 MG PO SCH (09:45)
[2021-07-22] MEDS ORDERED: NON-FORMULARY ITEM (Budesonide/Formoterol Fumarate [Symbicort 160-4.5 Mcg Inhaler] 10.2 GM IH SCH (10:00)
[2021-07-22] MEDS ORDERED: NON-FORMULARY ITEM (Multivit-Min/Fa/Lycopen/Lutein [Centrum Silver Tablet] 1 EACH Tablet) PO SCH (10:00)
[2021-07-22] MEDS ORDERED: NON-FORMULARY ITEM (Potassium Chloride 20 Meq [Klor-Con 20 Meq] 20 MEQ Tab) PO SCH (10:00)
[2021-07-22] MEDS ORDERED: LASIX 20 MG PO SCH (10:00)
[2021-07-22] MEDS ORDERED: VENTOLIN COMMON CANISTER IH SCH (10:00)
[2021-07-22] MEDS ORDERED: NON-FORMULARY ITEM (Fish Oil/Dha/Epa [Fish Oil 1,200 Mg Fish Oil] 1 EACH Capsule) PO SCH (10:00)
[2021-07-22] MEDS ORDERED: NON-FORMULARY ITEM (Umeclidinium Bromide [Incruse Ellipta] 62.5 MCG Blst.W.Dev) IH SCH (10:00)
[2021-07-22 10:13] LABS: ABG SITE LEFT RADIAL; ALLEN TEST OK? yes
[2021-07-22] MEDS: Levofloxacin 500MG/100ML D5W 500 MG/100 ML BAG IV SCH (12:01)
[2021-07-22] MEDS: solu-MEDROL IV SCH ×2 (14:54→21:49)
[2021-07-22] MEDS: Advair Hfa 115/21 Common canister IH SCH (18:39)
[2021-07-22] MEDS: TYLENOL EXTRA STRENGTH 500 MG PO SCH (21:49)
[2021-07-23] MEDS: solu-MEDROL IV SCH ×3 (05:29→21:49)
[2021-07-23] MEDS: Lasix 40 MG PO SCH ×2 (05:29→09:25)
[2021-07-23 05:37] LABS: Absolute Neutrophil Ct (ANC) 9.85 (1.4-6.9); Basophil (Absolute #) 0.01 (0-0.4); Eosinophil % 0.1 % (0.00-5.0); Eosinophil (Absolute #) 0.01 (0-0.5); Hemoglobin 9.8 gm/dl (12.5-18.0); Lymphocyte (Absolute #) 0.43 (1.0-4.6); Mean Cell Volume 88.2 fl (78-100); Mean Corpuscular Hemoglobin 24.7 pg (26-32); Mean Platelet Volume 9.4 fl (7.5-11.0); Monocyte (Absolute #) 0.54 (0.0-1.3); Neutrophil % 90.8 % (36.0-66.0); Platelet Count 310 K/mm3 (150-450); Red Blood Count 3.97 M/mm3 (4.1-5.6); Red Cell Distribution Width 17.3 % (11.5-14.0); White Blood Count 10.8 K/mm3 (4.0-10.5)
[2021-07-23] MEDS: PROVENTIL 2.5 MG/3 ML NEB IH SCH ×4 (06:23→18:42)
[2021-07-23] MEDS: Advair Hfa 115/21 Common canister IH SCH ×2 (06:37→18:51)
[2021-07-23 06:50] LABS: ALBUMIN 3.7 g/dL (3.5-5.0); ALKALINE PHOSPHATASE 81 U/L (38-126); BLOOD UREA NITROGEN 42 mg/dL (9-20); CHLORIDE 75 mmol/L (98-107); Calcium 8.4 mg/dL (8.4-10.2); Creatinine 1 0.84 mg/dL (0.66-1.25); EST GLOMERULAR FILTRATION RATE > 60.0 ML/MIN; Glucose 237 mg/dL (74-106); Potassium 3.4 mmol/L (3.5-5.1); SGOT/AST 17 U/L (17-59); SGPT/ALT 13 U/L (0-50); SODIUM 129 mmol/L (137-145); Total Protein 6.3 g/dL (6.3-8.2)
[2021-07-23 07:24] LABS: ANION GAP 13.4 MEQ/L (5-15); Carbon Dioxide 44 mmol/L (22-30)
[2021-07-23] MEDS: Glucophage 500 MG PO SCH ×2 (07:34→17:27)
[2021-07-23] MEDS: LOPID 600 MG PO SCH ×2 (07:34→17:27)
[2021-07-23 07:56] LABS: Slide Review 1 YES
[2021-07-23 07:58] LABS: A-aADO2 159; ABG HEMOGLOBIN 10.2; ABG POTASSIUM 3.3 (3.5-5.1); ARTERIAL BLOOD GAS BASE EXCESS 30.6 (-2.0-2.0); ARTERIAL BLOOD GAS FIO2 44 %; ARTERIAL BLOOD GAS PO2 73 mmHg (75-100); CARBOXYHEMOGLOBIN 1.9 % THgb (0.0-6.9); HCO3- 58.2 (22-28); HGB O2 SAT 94.2 g/dF (94-100)
[2021-07-23 07:59] LABS: ABG SITE LEFT RADIAL; ALLEN TEST OK? YES; ARTERIAL BLOOD GAS PCO2 65 mmHg (35-45); ARTERIAL BLOOD GAS pH 7.56 (7.35-7.45)
[2021-07-23] MEDS ORDERED: Sodium Chloride 0.9% 1000 ML 1,000 ML IV SCH (08:00)
--- NOTE | 2021-07-23 08:42 | XRAY ---
Indication: COPD exacerbation. Comparison: July 21, 2021. Portable chest again demonstrates COPD and minimal scattered fibrosis/scarring. Previous bilateral interstitial opacities have cleared. Heart not enlarged. No new cardiopulmonary abnormalities.
[2021-07-23] MEDS: Lopressor 50 MG PO SCH ×2 (09:24→17:28)
[2021-07-23] MEDS: Flomax 0.4 MG PO SCH (09:24)
[2021-07-23] MEDS: Klor Con 10 MEQ PO SCH (09:24)
[2021-07-23] MEDS: Levofloxacin 500MG/100ML D5W 500 MG/100 ML BAG IV SCH (09:24)
[2021-07-23] MEDS: FISH OIL 1,000 MG CAPSULE PO SCH ×3 (09:24→21:48)
[2021-07-23] MEDS: Protonix 40MG Tablet PO SCH ×2 (09:25→17:28)
[2021-07-23] MEDS: THERAGRAN MULTIVITAMIN PO SCH (09:25)
[2021-07-23] MEDS: CLARITIN 10 MG PO SCH (09:25)
[2021-07-23] MEDS: Maxzide-25MG Tablet PO SCH (09:26)
[2021-07-23] MEDS: TYLENOL EXTRA STRENGTH 500 MG PO SCH (21:48)
[2021-07-23] MEDS: ATARAX 25 MG PO PRN (23:53)
[2021-07-24 04:28] LABS: A-aADO2 105; ABG HEMOGLOBIN 9.9; ABG POTASSIUM 3.4 (3.5-5.1); ARTERIAL BLD GAS O2 SATURATION 98.7 % (95-100); ARTERIAL BLOOD GAS BASE EXCESS 21.5 (-2.0-2.0); ARTERIAL BLOOD GAS FIO2 44 %; ARTERIAL BLOOD GAS PCO2 66 mmHg (35-45); ARTERIAL BLOOD GAS PO2 126 mmHg (75-100); ARTERIAL BLOOD GAS pH 7.48 (7.35-7.45); CARBOXYHEMOGLOBIN 3.4 % THgb (0.0-6.9); HCO3- 49.2 (22-28); HGB O2 SAT 94.3 g/dF (94-100); Methhemoglobin 1.2 % (1.4-1.5)
[2021-07-24 04:29] LABS: ABG SITE RIGHT RADIAL; ALLEN TEST OK? YES
[2021-07-24 04:50] LABS: ALBUMIN 3.7 g/dL (3.5-5.0); ALKALINE PHOSPHATASE 72 U/L (38-126); BLOOD UREA NITROGEN 34 mg/dL (9-20); CHLORIDE 73 mmol/L (98-107); Calcium 8.3 mg/dL (8.4-10.2); Creatinine 1 0.74 mg/dL (0.66-1.25); EST GLOMERULAR FILTRATION RATE > 60.0 ML/MIN; Glucose 306 mg/dL (74-106); Potassium 3.5 mmol/L (3.5-5.1); SGOT/AST 13 U/L (17-59); SGPT/ALT 13 U/L (0-50); SODIUM 124 mmol/L (137-145); Total Protein 5.9 g/dL (6.3-8.2)
[2021-07-24 04:58] LABS: Carbon Dioxide 44 mmol/L (22-30)
[2021-07-24 04:59] LABS: ANION GAP 10.5 MEQ/L (5-15)
[2021-07-24] MEDS: Lasix 40 MG PO SCH ×2 (05:02→09:24)
[2021-07-24] MEDS: solu-MEDROL IV SCH (05:15)
[2021-07-24 05:34] LABS: Absolute Neutrophil Ct (ANC) 9.61 (1.4-6.9); Basophil (Absolute #) 0 (0-0.4); Eosinophil (Absolute #) 0 (0-0.5); Hemoglobin 9.4 gm/dl (12.5-18.0); Lymphocyte (Absolute #) 0.54 (1.0-4.6); Lymphocytes % 4.9 % (24.0-44.0); Mean Cell Volume 87.8 fl (78-100); Mean Corpuscular Hgb Concent. 28.5 g/dl (32-36); Mean Platelet Volume 9.2 fl (7.5-11.0); Monocyte (Absolute #) 0.76 (0.0-1.3); Neutrophil % 88.1 % (36.0-66.0); Platelet Count 292 K/mm3 (150-450); Red Blood Count 3.76 M/mm3 (4.1-5.6); Red Cell Distribution Width 17.5 % (11.5-14.0); White Blood Count 10.9 K/mm3 (4.0-10.5)
[2021-07-24] MEDS: PROVENTIL 2.5 MG/3 ML NEB IH SCH (06:33)
[2021-07-24] MEDS: Advair Hfa 115/21 Common canister IH SCH (06:36)
[2021-07-24 06:38] VITALS: PULSE 79; O2SAT 96
[2021-07-24 06:57] VITALS: BP 142/84
[2021-07-24] MEDS: LOPID 600 MG PO SCH (08:10)
[2021-07-24] MEDS: Glucophage 500 MG PO SCH (08:10)
[2021-07-24] MEDS: FISH OIL 1,000 MG CAPSULE PO SCH (09:20)
[2021-07-24] MEDS: Lopressor 50 MG PO SCH (09:20)
[2021-07-24] MEDS: Maxzide-25MG Tablet PO SCH (09:20)
[2021-07-24] MEDS: Flomax 0.4 MG PO SCH (09:21)
[2021-07-24] MEDS: CLARITIN 10 MG PO SCH (09:21)
[2021-07-24] MEDS: Klor Con 10 MEQ PO SCH (09:21)
[2021-07-24] MEDS: Protonix 40MG Tablet PO SCH (09:21)
[2021-07-24] MEDS: THERAGRAN MULTIVITAMIN PO SCH (09:21)
[2021-07-24] MEDS: Levofloxacin 500MG/100ML D5W 500 MG/100 ML BAG IV SCH (09:22)
--- NOTE | 2021-07-24 09:54 | HP ---
CHIEF COMPLAINT: Shortness of breath. HISTORY OF PRESENT ILLNESS: The patient is a 70-year-old white male here for increasing shortness of breath. The patient is in end-stage respiratory failure, chronic obstructive pulmonary disease exacerbations quite frequently. He is almost never seen without wheezing. The patient was seen with a CO2 level of 115 and with some confusion when he was seen in the emergency room and felt to need to be admitted to the hospital for further evaluation and management with IV antibiotics and IV steroid medications and empiric antibiotic treatment. PAST MEDICAL/SURGICAL HISTORY: End-stage respiratory failure, chronic obstructive pulmonary disease exacerbation. HOME MEDICATIONS: Gemfibrozil 600 mg daily, metformin 500 mg b.i.d., Symbicort inhaler two puffs twice a day, Flonase one spray in nostril twice a day, loratadine 10 mg a day, nitroglycerin PRN, potassium 20 mEq daily, metoprolol 50 mg b.i.d., omeprazole 20 mg b.i.d., MiraLAX powder on a daily basis, Tamsulosin 0.4 mg daily, Maxzide 25 daily, Furosemide 40 mg b.i.d., Metolazone 2.5 mg every other day, Albuterol PRN, Incruse Ellipta 1 puff daily, Colace 100 mg b.i.d., ibuprofen 400 mg PRN. ALLERGIES: AMOXICILLIN. CLARITHROMYCIN. LANSOPRAZOLE. ACETAMINOPHEN. HYDROCODONE. MORPHINE. DEB INHIBITORS. BENAZEPRIL. CLINDAMYCIN. COMPAZINE. PHYSICAL EXAMINATION: The patient's initial vital signs with temperature 96.4F, pulse 89, respiratory rate 26, blood pressure 131/66. O2 saturation 88% on supplemental oxygen. HEENT: Normocephalic, atraumatic. Pupils equal round reactive to light. Extraocular movements appear to be intact. The patient is wearing a CPAP facemask when I initially saw him. NECK: Supple without lymphadenopathy, thyromegaly or JVD. CHEST: Reveals diffuse wheezes bilaterally. HEART: Regular rate and rhythm, slightly rapid but no murmurs, rubs or gallops heard. ABDOMEN: Soft. No palpable masses. EXTREMITIES: Without cyanosis, clubbing or edema. NEUROLOGIC: The patient is alert and oriented x3 with no focal deficits noted. LAB DATA AND TESTS: His initial labs showed his respiratory syncytial virus, influenza and COVID to be negative. His pH was 7.34, pCO2 of 115, pO2 of 71. His lactic acid was 1.3. White count 11.0, hemoglobin 10.9, PLT count 245,000. There did appear to be a left shift with 81.5% granulocytes. Troponin less than 0.012. His glucose was 234, BUN 30, creatinine 0.87. Electrolytes showed his sodium to be slightly low at 134. Liver enzymes were normal. ProBNP was normal. Repeat ABG after implementing CPAP mask showed his pH to be 7.39, pCO2 of 103, pO2 of 95. His urine was essentially normal. A second troponin was also less than 0.012. His x-ray of the chest showed stable chronic obstructive pulmonary disease with scattered fibrosis/scarring with new subtle patchy interstitial alveolar opacities in both lung bases. His EKG showed sinus rhythm with an interventricular conduction delay. ASSESSMENT: A patient with exacerbation of chronic obstructive pulmonary disease one of many that he has had. We started him on IV steroids, IV Levaquin and nebulizer treatments on PRN basis and CPAP to try to get his CO2 level down to what we feel is his baseline, which is at least pCO2 of 50 to 60.
--- NOTE | 2021-07-24 10:05 | DS ---
DISCHARGE DIAGNOSES: 1) ACUTE EXACERBATION OF CHRONIC OBSTRUCTIVE PULMONARY DISEASE. 2) END-STAGE LUNG FAILURE. 3) HYPOXIA. 4) HYPERCAPNIA. HOSPITAL COURSE: The patient is a 70-year-old white male patient with long history of chronic obstructive pulmonary disease and frequent exacerbations, was seen in the emergency room with his CO2 level being 115 initially. He was somewhat confused and was placed on CPAP mask which did bring his O2 saturations up a little and his CO2 down somewhat but the patient was admitted to the hospital for further evaluation and management which included the IV Solu-Medrol 125 IV every 8 hours as well as IV Levaquin. The patient over the next couple of days did improve to the point where his pCO2 on the morning of 07/24/2021 was at 66 and his pO2 was 126 on supplemental oxygen. He was breathing much more easily sitting up on the side of the bed conversing with normal appearing breaths without appearing pressured in his speech. The patient was felt to be back to his baseline and at this point in time was felt to be ready for discharge home again. His discharge medications will include his usual home medications with the addition of prednisone 60 mg for five days and the 40 mg for five and 20 mg for five. The patient only takes 10 mg a day routinely. He will have a follow up appointment to see Dr. Juan Lazo next Wednesday and he will see me shortly thereafter on or Wednesday. The patient will continue the Levaquin at 500 mg orally for an additional seven days as well and he will continue use of Proventil PRN as well as his usual home medications. He was instructed to call back if he has any further problems and he feels like he is getting worse and needs to be readmitted. He will have home health care agency to come out and check on him initially on a daily basis.
[2021-07-24 10:41] LABS: Slide Review 1 YES
== END 2021-07-24 10:49 | disposition home or self-care (01) | DRG 190 ==
LOC: ED 17:43 → MED SURG 21:23
PROVIDERS: ADMIT Family Medicine; ATTEND Family Medicine
DX: J44.1 Chronic obstructive pulmonary disease with (acute) exacerbation (principal); J96.91 Respiratory failure, unspecified with hypoxia; J96.92 Respiratory failure, unspecified with hypercapnia; R07.89 Other chest pain; I11.0 Hypertensive heart disease with heart failure; I50.9 Heart failure, unspecified; E11.9 Type 2 diabetes mellitus without complications; E78.5 Hyperlipidemia, unspecified; R41.0 Disorientation, unspecified; I25.2 Old myocardial infarction; Z99.81 Dependence on supplemental oxygen; Z79.899 Other long term (current) drug therapy; Z20.828 Contact with and (suspected) exposure to other viral communicable diseases; Z87.891 Personal history of nicotine dependence
CPT/HCPCS: 0241U; 36000; 36415; 36600; 71045; 80053; 81001; 82375; 82803; 83605; 83735; 83880; 84484; 85025; 87040; 93005; 93041; 94002; 94003; 94640; 94762; 96374; 97110; 97161; 97530; 99285; J1956; J2930; J7609; A9270-GY